=== PATIENT | male | born 1945 | race Caucasian/White ===

== ENCOUNTER 2018-08-04 22:31 | Inpatient (IN) ==
[2018-08-04] MEDS ORDERED: Morphine Inj 4 MG/ML Vial IV.PUSH ONE (23:58)
[2018-08-05 00:34] LABS: Baso % (Auto) 0.1 % (0.0-2.0); Eos # (Auto) 0.1 th/mm3 (0.0-0.4); Eos % (Auto) 0.4 % (0.0-4.0); Hematocrit 35.3 % (39.0-51.0); Hemoglobin 12.2 gm/dL (13.0-17.0); Lymph # (Auto) 0.9 th/mm3 (1.0-4.8); Lymph % (Auto) 5.1 % (9.0-44.0); Mean Corpuscular HGB Conc 34.5 % (32.0-36.0); Mean Corpuscular Hemoglobin 33.1 pg (27.0-34.0); Mean Corpuscular Volume 95.8 fL (80.0-100.0); Mean Platelet Volume 7.9 fL (7.0-11.0); Mono # (Auto) 0.7 th/mm3 (0.0-0.9); Mono % (Auto) 3.8 % (0.0-8.0); Neut # (Auto) 15.9 th/mm3 (1.8-7.7); Neut % (Auto) 90.6 % (16.0-70.0); Platelet Count 297 th/mm3 (150-450); Red Blood Count 3.69 mil/mm3 (4.50-5.90); Red Cell Distribution Width 13.8 % (11.6-17.2); White Blood Count 17.5 th/mm3 (4.0-11.0)
[2018-08-05 00:54] LABS: Alanine Aminotransferase 45 U/L (12-78); Albumin 2.5 g/dL (3.4-5.0); Anion Gap 7 meq/L (5-15); Aspartate Aminotransferase 32 U/L (15-37); Blood Urea Nitrogen 22 mg/dL (7-18); Calcium 8.4 mg/dL (8.5-10.1); Carbon Dioxide 29.9 meq/L (21.0-32.0); Chloride 97 meq/L (98-107); Glomerular Filtration Rate 76 mL/min (>89); Glucose,Random 242 mg/dL (74-106); Potassium 3.9 meq/L (3.5-5.1); Sodium 134 meq/L (136-145)
[2018-08-05 00:56] LABS: Alkaline Phosphatase 187 U/L (45-117)
--- NOTE | 2018-08-05 01:05 | CT ---
EXAM DATE: 08/05/2018 12:42 AM EDT AGE/SEX: 72 years / Male INDICATIONS: Evaluate for right upper pectoralis abscess. Pain, redness and swelling. CLINICAL DATA: This is the patient's initial encounter. Patient reports that signs and symptoms have been present for 4 - 6 days and indicates a pain score of 8/10. MEDICAL/SURGICAL HISTORY: Cardiovascular disease. Diabetes mellitus type II. CABG. RADIATION DOSE: 17.34 CTDI (mGy) COMPARISON: No prior exams available for comparison. TECHNIQUE: Multiple contiguous axial images were obtained through the chest without contrast. Image s were obtained in suspended respiration using multiple row detector helical technique. Using automa kavon exposure control and adjustment of the mA and/or kV according to patient size, radiation dose was kept as low as reasonably achievable to obtain optimal diagnostic quality images. DICOM format imag e data is available electronically for review and comparison. FINDINGS: A noncontrast study was done. A large, heterogeneous and lobulated mass is seen in the right axilla a nd including the lateral margin of the pectoralis major. The noncontrast features are more typical of a mass in the fluid collection but a multiloculated fluid collection or hematoma would be conceivabl e. The superficial margin is just beneath the skin. The skin appears thickened. Surrounding subcutane ous fat is indurated. At the lower margin of the abnormality is a 3.2 cm mass of concern for an enlar ged and partially necrotic right axillary lymph node. Mild atelectasis of the lung bases. There is a 5 mm left upper lobe pulmonary nodule, most likely nubia ign. No infiltrate, effusion or pneumothorax. No mediastinal, hilar or axillary lymphadenopathy demon strated. Patient has had previous median sternotomy. No acute bony abnormality demonstrated. Incidentally seen cholelithiasis. CONCLUSION: 1. Large heterogeneous collection of the right axilla and the lateral margin of pectoralis major as described. This appears to represent a lobulated mass or a multiloculated fluid collection or hematom a. Infectious and neoplastic etiologies are both in the differential. 2. Mild atelectasis of the lung bases and a 5 mm left upper lobe pulmonary nodule. 3. Previous median sternotomy and CABG. 4. Cholelithiasis. 5. No acute osseous abnormality. Electronically signed by: Qamar Davis MD 08/05/2018 1:04 AM EDT
--- NOTE | 2018-08-05 03:15 | ED ---
HPI General Chief complaint: Skin/Abscess/Foreign Body Stated complaint: pain in R arm Time Seen by Provider: 08/04/18 23:58 History of Present Illness HPI narrative: 72-year-old male presents the emergency department with chief complaint of cellulitis. Patient was seen couple days ago in the emergency department started on antibiotics. He is worsening and having increased pain. He is taking clindamycin as directed and is on day 5. Patient is a diabetic. He denies fever or chills. He was instructed to return with any worsening which is what brought him back to the emergency department tonight. Related Data Home Medications Medication Instructions Recorded Confirmed aspirin [Aspir-81] 81 mg PO DAILY 07/26/18 08/04/18 metformin 500 mg PO BID 07/26/18 08/04/18 terazosin 2 mg PO DAILY 07/26/18 08/04/18 glipizide 10 mg PO BID 08/04/18 08/04/18 levothyroxine 88 mcg PO DAILY 08/04/18 08/04/18 Allergies Allergy/AdvReac Type Severity Reaction Status Date / Time No Known Allergies Allergy Verified 08/04/18 22:44 Review of Systems ROS: all other systems reviewed are negative [facility] Social History Social History Substance History: No History of Abuse Second Hand Smoke Exposure: No Smoking Status: Former smoker Tobacco Type: Cigars How Often Do You Have a Drink Containing Alcohol: Monthly or less Recent Travel in [facility] within the Last 8 Weeks: No Recent Out of Country Travel within the Last 8 Weeks: No Immunization History Tetanus Immunization: <5 Years Exam Narrative Exam Narrative: GENERAL: 72-year-old male in mild distress secondary to pain from his cellulitis. SKIN: Focused skin assessment warm/dry. HEAD: Atraumatic. Normocephalic. EYES: Pupils equal and round. No scleral icterus. No injection or drainage. ENT: No nasal bleeding or discharge. Mucous membranes pink and moist. NECK: Trachea midline. No JVD. CARDIOVASCULAR: Regular rate and rhythm. No murmur appreciated. RESPIRATORY: No accessory muscle use. Clear to auscultation. Breath sounds equal bilaterally. GASTROINTESTINAL: Abdomen soft, non-tender, nondistended. Hepatic and splenic margins not palpable. MUSCULOSKELETAL: Patient has a cellulitis which involves the right pectoralis and axilla. He is unable to abduct his arm because of the pain Course Initial Documented Vital Signs Temperature 98.4 F 08/04/18 22:41 Pulse Rate 78 08/04/18 22:41 Respiratory Rate 17 08/04/18 22:41 Blood Pressure 143/65 H 08/04/18 22:41 Pulse Oximetry 95 08/04/18 22:41 Last Documented Vital Signs Temperature 98.2 F 08/05/18 04:00 Pulse Rate 75 08/05/18 04:00 Respiratory Rate 19 08/05/18 04:00 Blood Pressure 145/66 H 08/05/18 04:00 Pulse Oximetry 95 08/05/18 04:00 Medical Decision Making MDM Narrative Medical decision making narrative: Patient seen and evaluated in the emergency department. CT was requested as well as laboratory studies. Patient was found to have a leukocytosis and significant cellulitis and abscess formation into the axilla. He was subsequently admitted to Dr. Steiner for further evaluation treatment as well as a surgical consult. Medical Screen Exam Complete: Yes Emergency Medical Condition: Yes Lab Data Result diagrams: 08/05/18 00:15 08/05/18 00:15 Lab Results 08/05/18 08/05/18 Range/Units 00:15 00:15 WBC 17.5 H (4.0-11.0) th/mm3 RBC 3.69 L (4.50-5.90) mil/mm3 Hgb 12.2 L (13.0-17.0) gm/dL Hct 35.3 L (39.0-51.0) % MCV 95.8 (80.0-100.0) fL MCH 33.1 (27.0-34.0) pg MCHC 34.5 (32.0-36.0) % RDW 13.8 (11.6-17.2) % Plt Count 297 D (150-450) th/mm3 MPV 7.9 (7.0-11.0) fL Neut % (Auto) 90.6 H (16.0-70.0) % Lymph % (Auto) 5.1 L (9.0-44.0) % [place] % (Auto) 3.8 (0.0-8.0) % Eos % (Auto) 0.4 (0.0-4.0) % Baso % (Auto) 0.1 (0.0-2.0) % Neut # (Auto) 15.9 H (1.8-7.7) th/mm3 Lymph # (Auto) 0.9 L (1.0-4.8) th/mm3 [place] # (Auto) 0.7 (0.0-0.9) th/mm3 Eos # (Auto) 0.1 (0.0-0.4) th/mm3 Baso # (Auto) 0.0 (0.0-0.2) th/mm3 WBC Differential . Differential Comment Auto diff final Sodium 134 L (136-145) meq/L Potassium 3.9 (3.5-5.1) meq/L Chloride 97 L (98-107) meq/L Carbon Dioxide 29.9 (21.0-32.0) meq/L Anion Gap 7 (5-15) meq/L BUN 22 H (7-18) mg/dL Creatinine 0.97 (0.60-1.30) mg/dL Estimated GFR 76 L (>89) mL/min Random Glucose 242 H (74-106) mg/dL Calcium 8.4 L (8.5-10.1) mg/dL Total Bilirubin 0.8 (0.2-1.0) mg/dL AST 32 (15-37) U/L ALT 45 (12-78) U/L Alkaline Phosphatase 187 H (45-117) U/L Total Protein 7.0 (6.4-8.2) g/dL Albumin 2.5 L (3.4-5.0) g/dL Imaging Data Radiologist's impression: Chest CT 08/05/18 00:03 CONCLUSION: 1. Large heterogeneous collection of the right axilla and the lateral margin of pectoralis major as described. This appears to represent a lobulated mass or a multiloculated fluid collection or hematoma. Infectious and neoplastic etiologies are both in the differential. 2. Mild atelectasis of the lung bases and a 5 mm left upper lobe pulmonary nodule. 3. Previous median sternotomy and CABG. 4. Cholelithiasis. 5. No acute osseous abnormality. Discharge Plan Discharge Disposition Patient Disposition: 30 Still Patient Discharge Details Diagnosis: Abscess, Cellulitis Physicians Team ED Provider: Vivi Campa Primary Care Provider: David Carroll Attending Provider: Shakila Rizzo Other Providers: Mic Estrada ED Status: Left Department Discharge Information Discharge Date/Time: 08/05/18 04:52
[2018-08-05] MEDS ORDERED: Vancomycin Consult Pharmacy OTHER PRN (03:21)
[2018-08-05] MEDS ORDERED: Bisacodyl 10 MG Supp RECTAL PRN (03:24)
[2018-08-05] MEDS ORDERED: Morphine Inj 4 MG/ML Vial IV.PUSH PRN (03:24)
[2018-08-05] MEDS ORDERED: Naloxone Inj 0.4 MG/ML Vial IV.PUSH PRN (03:24)
[2018-08-05] MEDS ORDERED: Dextrose 50% in Water 50 ML Vial IV.PUSH PRN (03:24)
[2018-08-05] MEDS ORDERED: Vancomycin Inj 2,000 MG in Sodium Chlor 0.9% Inj 500 ML IV.SIG ONE (04:00)
--- NOTE | 2018-08-05 05:18 | P.HPIM ---
History of Present Illness Primary Care Physician: David Carroll MD History of Present Illness: 72-year-old male with history of diabetes, coronary artery disease status post CABG who presents with a 2-week history of progressively worsening sharp constant, nonradiating right axillary pain, cellulitis. Patient was seen 10 days prior in the ER and given a prescription for clindamycin which he has been takinghowever pain and swelling has continued to worsen. Patient says that otherwise he is feeling all right. Denies any fevers, chills, nausea, vomiting. Inpatient Certification: I certify that the inpatient services were ordered in accordance with Medicare regulations governing the order. This includes certification that hospital inpatient services are reasonable and necessary and in the case of services not specified as inpatient-only under 42 CFR 419.22(n), that they are appropriately provided as inpatient services in accordance to with the 2-midnight benchmark under 43 CFR 412.3(e) Estimated Total Length of Stay (Days): 2 Plans for Post Hospital Care: Home Review of Systems All other systems reviewed negative except as stated in HPI PMFSH - History History Provided By: Patient - Medical History Medical History: Medical History (Last Reviewed 08/05/18 @ 05:05 by Denver Steiner MD) CAD (coronary artery disease) Diabetes type 2, controlled - Surgical History Surgical History: Surgical History (Last Reviewed 08/05/18 @ 05:05 by Denver Steiner MD) Hx of CABG - Family History Family History: Family History (Last Reviewed 08/05/18 @ 05:05 by Denver Steiner MD) Other Family history non-contributory - Social History I have reviewed the patient's Social History: Yes - Tobacco History Second Hand Smoke Exposure: No Tobacco Use In Past 30 Days: No Smoking Status: Former smoker Tobacco Type: Cigars - Alcohol History How Often Do You Have a Drink Containing Alcohol: Monthly or less - Substance Use History Substance History: No History of Abuse - Travel History Recent Travel in the [place] Within the Last 8 Weeks: No Recent Travel Out of the Country Within the Last 8 Weeks: No - Immunization History Tetanus Immunization: <5 Years Medications and Allergies Active Medications: Active Medications Al Hydroxide/Mg Hydroxide (Milk Of Magnesia Liq) 30 ml PO Q12H PRN PRN Reason: Mild Constipation Bisacodyl (Dulcolax Supp) 10 mg RECTAL DAILY PRN PRN Reason: SEVERE CONSITIPATION Dextrose (D50w Vial) 50 ml IV.PUSH UNSCH PRN PRN Reason: PER HYPOGLYCEMIA PROTOCOL Glucagon (Glucagon Inj) 1 mg OTHER PRN PRN PRN Reason: for Hypoglycemia Protocol Piperacillin/Tazobactam/Dextrose (Zosyn 4.5 Gm Premix) 4.5 gm in 100 mls @ 200 mls/hr IV.SIG Q6H KADY Vancomycin HCl 2,000 mg/ (Sodium Chloride) 520 mls @ 250 mls/hr IV.SIG ONCE@ 0400 ONE Stop: 08/05/18 06:04 Lactulose (Lactulose Liq) 30 ml PO DAILY PRN PRN Reason: SEVERE CONSITIPATION Levothyroxine Sodium (Synthroid) 88 mcg PO DAILY@0600 KADY Morphine Sulfate (Morphine Inj) 4 mg IV.PUSH Q3H PRN PRN Reason: BREAKTHROUGH PAIN Naloxone HCl (Narcan Inj) 0.4 mg IV.PUSH UNSCH PRN PRN Reason: SEE LABEL COMMENTS Oxycodone/Acetaminophen (Percocet 10/325 Mg) 1 tab PO Q6H PRN PRN Reason: PAIN SCALE 6 TO 10 Oxycodone/Acetaminophen (Percocet 5/325 Mg) 1 tab PO Q6H PRN PRN Reason: PAIN SCALE 3 TO 5 Pharmacy Profile Note (Vancomycin Consult Pharmacy) 1 each OTHER UNSCH PRN PRN Reason: Pharmacy to dose Senna/Docusate Sodium (Deborah-Colace) 1 tab PO BID [facility] Sennosides (Senokot) 17.2 mg PO Q12H PRN PRN Reason: Moderate Constipation Terazosin HCl (Hytrin) 2 mg PO DAILY [facility] Allergies Allergy/AdvReac Type Severity Reaction Status Date / Time No Known Allergies Allergy Verified 08/04/18 22:44 Home Medications Medication Instructions Recorded Confirmed Type aspirin [Aspir-81] 81 mg PO DAILY 07/26/18 08/04/18 History metformin 500 mg PO BID 07/26/18 08/04/18 History terazosin 2 mg PO DAILY 07/26/18 08/04/18 History glipizide 10 mg PO BID 08/04/18 08/04/18 History levothyroxine 88 mcg PO DAILY 08/04/18 08/04/18 History Exam Vital signs: Vital Signs 08/04/18 22:41 08/05/18 02:08 08/05/18 03:56 Temperature 98.4 F Pulse Rate 78 69 71 Respiratory Rate 17 16 16 Blood Pressure 143/65 H 145/68 H 162/85 H Pulse Oximetry 95 95 97 Intake & Output 08/04/18 08/04/18 08/05/18 06:59 18:59 06:59 Intake Total 200 / 200 Balance 200 / 200 Weight 106.594 kg Intake: IV 200 / 200 Doxy 100 Inj 100 MG In NS Inj 100 / 100 100 ML @ 100 mls/hr IV.SIG ONCE ONE Rx#:[id number] Rocephin Inj 1,000 MG In NS Inj 100 / 100 100 ML @ 200 mls/hr IV.SIG ONCE ONE Rx#:[id number] Narrative: GENERAL: Patient sitting up in bed. Appears couple. Alert and oriented x3. SKIN: Warm and dry. HEAD: Atraumatic. Normocephalic. EYES: Pupils equal and round. No scleral icterus. No injection or drainage. ENT: No nasal bleeding or discharge. Mucous membranes pink and moist. NECK: Trachea midline. No JVD. CARDIOVASCULAR: Regular rate and rhythm. RESPIRATORY: No accessory muscle use. Clear to auscultation. Breath sounds equal bilaterally. GASTROINTESTINAL: Abdomen soft, non-tender, nondistended. Hepatic and splenic margins not palpable. MUSCULOSKELETAL: Extremities without clubbing, cyanosis, or edema. No obvious deformities. Right axillary induration, erythema. Roughly 8 x 8 cm indurated area with small pustules overlying. NEUROLOGICAL: Awake and alert. No obvious cranial nerve deficits. Motor grossly within normal limits. Five out of 5 muscle strength in the arms and legs. Normal speech. PSYCHIATRIC: Appropriate mood and affect; insight and judgment normal. Results - Labs CBC & Chem 7: 08/05/18 00:15 08/05/18 00:15 Labs: Short CBC 08/05/18 Range/Units 00:15 WBC 17.5 H (4.0-11.0) th/mm3 Hgb 12.2 L (13.0-17.0) gm/dL Hct 35.3 L (39.0-51.0) % Plt Count 297 D (150-450) th/mm3 BMP 08/05/18 00:15 Sodium 134 L Potassium 3.9 Chloride 97 L Carbon Dioxide 29.9 BUN 22 H Creatinine 0.97 Calcium 8.4 L Liver Function 08/05/18 Range/Units 00:15 Total Bilirubin 0.8 (0.2-1.0) mg/dL AST 32 (15-37) U/L ALT 45 (12-78) U/L Alkaline Phosphatase 187 H (45-117) U/L Albumin 2.5 L (3.4-5.0) g/dL - Imaging Impressions Chest CT 08/05/18 00:03 CONCLUSION: 1. Large heterogeneous collection of the right axilla and the lateral margin of pectoralis major as described. This appears to represent a lobulated mass or a multiloculated fluid collection or hematoma. Infectious and neoplastic etiologies are both in the differential. 2. Mild atelectasis of the lung bases and a 5 mm left upper lobe pulmonary nodule. 3. Previous median sternotomy and CABG. 4. Cholelithiasis. 5. No acute osseous abnormality. Caprini VTE Risk Assessment Caprini VTE Risk Assessment: Moderate/High Risk (score >= 2) Caprini Risk Assessment Model: Point Value = 1 Point Value = 2 Point Value = 3 Point Value = 5 Age 41-60 Minor surgery BMI > 25 kg/m2 Swollen legs Varicose veins or History of unexplained or recurrent spontaneous Oral contraceptives or hormone replacement Sepsis (< 1 month) Serious lung disease, including pneumonia (< 1 month) Abnormal pulmonary function Acute myocardial infarction Congestive heart failure (< 1 month) History of inflammatory bowel disease Medical patient at bed rest Age 61-74 Arthroscopic surgery Major open surgery (> 45 min) Laparoscopic surgery (> 45 min) Malignancy Confined to bed (> 72 hours) Immobilizing plaster cast Central venous access Age >= 75 History of VTE Family history of VTE Factor V Leiden Prothrombin [id number] Lupus anticoagulant Anticardiolipin antibodies Elevated serum homocysteine Heparin-induced thrombocytopenia Other congenital or acquired thrombophilia Stroke (< 1 month) Elective arthroplasty Hip, pelvis, or leg fracture Acute spinal cord injury (< 1 month) Prophylaxis Regimen: Total Risk Factor Score Risk Level Prophylaxis Regimen 0-1 Low Early ambulation 2 Moderate Order ONE of the following: *Sequential Compression Device (SCD) *Heparin 5000 units SQ BID 3-4 Higher Order ONE of the following medications: *Heparin 5000 units SQ TID *Enoxaparin/Lovenox 40 mg SQ daily (WT < 150 kg, CrCl > 30 mL/min) *Enoxaparin/Lovenox 30 mg SQ daily (WT < 150 kg, CrCl > 10-29 mL/min) *Enoxaparin/Lovenox 30 mg SQ BID (WT < 150 kg, CrCl > 30 mL/min) AND/OR *Sequential Compression Device (SCD) 5 or more Highest Order ONE of the following medications: *Heparin 5000 units SQ TID (Preferred with Epidurals) *Enoxaparin/Lovenox 40 mg SQ daily (WT < 150 kg, CrCl > 30 mL/min) *Enoxaparin/Lovenox 30 mg SQ daily (WT < 150 kg, CrCl > 10-29 mL/min) *Enoxaparin/Lovenox 30 mg SQ BID (WT < 150 kg, CrCl > 30 mL/min) AND *Sequential Compression Device (SCD) Assessment and Plan - Plan //Acute right axillary diabetic cellulitis/abscess //Leukocytosis of 17 = CT chest shows large heterogenous collection in the right axilla = Placed on broad-spectrum antibiotics with antipseudomonal, gram-negative, MRSA coverage. Zosyn and vancomycin. Consult general surgery for assistance. Appreciate assistance. //Coronary artery disease status post CABG //Hypertension. -We will continue on aspirin due to history of CABG -Blood pressure acceptable currently. Continue terazosin. As needed Vasotec. Monitor. //Diabetes mellitus. Insulin sliding scale and diabetic diet. Monitor sugars Discussed Condition With: Patient, nurse, ED physician.
[2018-08-05] MEDS: Levothyroxine 88 MCG Tablet PO SCH (05:20)
[2018-08-05] MEDS: Piperacil/Tazo 4.5 GM Premix 4.5 GM/100 ML BAG IV.SIG SCH ×3 (08:13→19:53)
[2018-08-05] MEDS: Senna/Docusate Sodium 8.6/50 MG Tablet PO SCH ×2 (08:16→22:44)
[2018-08-05 09:46] LABS: INR 1.1 Ratio; Prothrombin Time 11.6 sec (9.8-11.6)
--- NOTE | 2018-08-05 11:31 | P.PN ---
Subjective Interval history: Follow up for right axillary cellulitis/abscess. The patient reports continued pain, erythema, edema throughout right axillary region. Afebrile overnight. Denies any other medical complaints. Going to OR for I&D today. Physical Exam Vital signs: Vital Signs 08/04/18 22:41 08/05/18 02:08 08/05/18 03:56 Temperature 98.4 F Pulse Rate 78 69 71 Respiratory Rate 17 16 16 Blood Pressure 143/65 H 145/68 H 162/85 H Pulse Oximetry 95 95 97 08/05/18 04:00 08/05/18 07:55 Temperature 98.2 F 98.9 F Pulse Rate 75 70 Respiratory Rate 19 20 Blood Pressure 145/66 H 140/64 Pulse Oximetry 95 95 Intake & Output 08/04/18 08/05/18 08/05/18 18:59 06:59 18:59 Intake Total 200 / 200 520 / 520 Balance 200 / 200 520 / 520 Weight 106.594 kg Intake: IV 200 / 200 520 / 520 Doxy 100 Inj 100 MG In NS Inj 100 / 100 100 ML @ 100 mls/hr IV.SIG ONCE ONE Rx#:[id number] Vancomycin Inj 2,000 MG In NS 520 / 520 Inj 500 ML @ 250 mls/hr IV.SIG ONCE@0400 ONE Rx#:[id number] Rocephin Inj 1,000 MG In NS Inj 100 / 100 100 ML @ 200 mls/hr IV.SIG ONCE ONE Rx#:[id number] Narrative: GENERAL: Well-nourished, well-developed pleasant male patient in [facility]. SKIN: Warm and dry. Right axillary region with large area of induration, erythema, edema, with overlying pustules. HEENT: Normocephalic. Atraumatic. Pupils equal and round. Mucous membranes pink and moist. CARDIOVASCULAR: Regular rate and rhythm. No murmur appreciated. RESPIRATORY: No accessory muscle use. Clear to auscultation. Breath sounds equal bilaterally. GASTROINTESTINAL: Abdomen soft, non-tender, nondistended. Normoactive bowel sounds x4. MUSCULOSKELETAL: No obvious deformities. Extremities without clubbing, cyanosis , or edema. NEUROLOGICAL: Awake and alert. No obvious cranial nerve deficits. Motor grossly within normal limits. Moving all extremities spontaneously. Normal speech. PSYCHIATRIC: Appropriate mood and affect; insight and judgment normal. Results - Labs CBC & Chem 7: 08/05/18 00:15 08/05/18 00:15 Laboratory Results - last 24 hr 08/05/18 08/05/18 08/05/18 00:15 00:15 08:50 WBC 17.5 H RBC 3.69 L Hgb 12.2 L Hct 35.3 L MCV 95.8 MCH 33.1 MCHC 34.5 RDW 13.8 Plt Count 297 D MPV 7.9 Neut % (Auto) 90.6 H Lymph % (Auto) 5.1 L [place] % (Auto) 3.8 Eos % (Auto) 0.4 Baso % (Auto) 0.1 Neut # (Auto) 15.9 H Lymph # (Auto) 0.9 L [place] # (Auto) 0.7 Eos # (Auto) 0.1 Baso # (Auto) 0.0 WBC Differential . Differential Comment Auto diff final PT 11.6 INR 1.1 Sodium 134 L Potassium 3.9 Chloride 97 L Carbon Dioxide 29.9 Anion Gap 7 BUN 22 H Creatinine 0.97 Estimated GFR 76 L Random Glucose 242 H Calcium 8.4 L Total Bilirubin 0.8 AST 32 ALT 45 Alkaline Phosphatase 187 H Total Protein 7.0 Albumin 2.5 L - Imaging Impressions Chest CT 08/05/18 00:03 CONCLUSION: 1. Large heterogeneous collection of the right axilla and the lateral margin of pectoralis major as described. This appears to represent a lobulated mass or a multiloculated fluid collection or hematoma. Infectious and neoplastic etiologies are both in the differential. 2. Mild atelectasis of the lung bases and a 5 mm left upper lobe pulmonary nodule. 3. Previous median sternotomy and CABG. 4. Cholelithiasis. 5. No acute osseous abnormality. Assessment and Plan - Plan 72-year-old male with history of diabetes, coronary artery disease status post CABG who presents with a 2-week history of progressively worsening sharp constant, nonradiating right axillary pain with cellulitis. Acute right axillary diabetic cellulitis/abscess: acute. +Leukocytosis WBC 17.5K. Afebrile. -Chest CT reviewed, shows Large heterogeneous collection of the right axilla and the lateral margin of pectoralis major as described. This appears to represent a lobulated mass or a multiloculated fluid collection or hematoma. Infectious and neoplastic etiologies are both in the differential. -Continue on broad-spectrum antibiotics with IV Vanco and IV Zosyn for antipseudomonal, gram-negative, MRSA coverage. -Pain control with IV morphine prn -Consult general surgery, going for I&D in the OR today HTN, CAD s/p CABG: chronic. BP fairly well controlled -continue patient's aspirin with hx of CABG -continue patient's terazosin -Vasotec prn -Monitor BP, adjust antihypertensives as needed Diabetes mellitus: chronic -hold patient's metformin and glipizide for now -Monitor Accu-checks and cover with SSI Hypothyroidism: chronic -continue patient's levothyroxine DVT Prophylaxis: teds/SCDs; avoid chemical prophylaxis with upcoming procedure Discharge Planning: Going to OR today. Will await cultures. Possible discharge in 2 days if improving.
[2018-08-05] MEDS: Sod Chloride 0.9% Inj 1,000 ML IV.CONT SCH ×2 (12:12→19:54)
[2018-08-05] MEDS ORDERED: Metoprolol Tartrate 25 MG Tablet PO ONE (12:15)
[2018-08-05] MEDS ORDERED: Chlorhexidine Gluconate 2% 1 Pack (2 Cloths) TOPICAL ONE (12:15)
[2018-08-05] MEDS: Insulin NovoLOG Aspart Correctional Sugar Inj SQ SCH ×3 (12:49→22:44)
[2018-08-05] MEDS ORDERED: Sodium Chlor 0.9% Inj 500 ML IV.SIG ONE (13:00)
--- NOTE | 2018-08-05 13:17 | P.CONGS ---
[facility] Gen Surgery Consult Note Consult date: 08/05/18 Reason for consult: other (RIGHT axillary abscess) Requesting physician: Denver Steiner Narrative: This is a 72 year old male with a past medical history of diabetes mellitus and coronary artery disease who presented to the ED last night with complaints of a progressive worsening RIGHT axillary pain and redness. The patient reports no nausea, vomiting, chills or fevers. He denies any trauma to the area. The patient was seen in the ED about 10 days ago with complaints of redness and tenderness under RIGHT axillary. The patient was given IV antibiotics and sent home with a prescription for Clindamycin. The patient states that initially the redness improved but the pain continued. A CT chest was completed on this admission which shows a large collection in the RIGHT axillary. The patient has been NPO. A General Surgery consultation has been requested. Review of Systems All other systems reviewed negative except as stated in [facility] PMF[facility] - History History Provided By: Patient - Medical History Medical History: Medical History (Last Reviewed 08/05/18 @ 13:07 by LAURA Peterson) CAD (coronary artery disease) Diabetes type 2, controlled - Surgical History Surgical History: Surgical History (Last Reviewed 08/05/18 @ 13:07 by LAURA Peterson) Hx of CABG - Family History Family History: Family History (Last Reviewed 08/05/18 @ 05:05 by Denver Steiner MD) Other Family history non-contributory - Tobacco History Second Hand Smoke Exposure: No Tobacco Use In Past 30 Days: No Smoking Status: Former smoker Tobacco Type: Cigars - Alcohol History How Often Do You Have a Drink Containing Alcohol: Monthly or less - Substance Use History Substance History: No History of Abuse - Travel History Recent Travel in the [facility] Within the Last 8 Weeks: No Recent Travel Out of the Country Within the Last 8 Weeks: No - Immunization History Tetanus Immunization: <5 Years Medications and Allergies Allergies Allergy/AdvReac Type Severity Reaction Status Date / Time No Known Allergies Allergy Verified 08/04/18 22:44 Home Medications Medication Instructions Recorded Confirmed Type aspirin [Aspir-81] 81 mg PO DAILY 07/26/18 08/04/18 History metformin 500 mg PO BID 07/26/18 08/04/18 History terazosin 2 mg PO DAILY 07/26/18 08/04/18 History glipizide 10 mg PO BID 08/04/18 08/04/18 History levothyroxine 88 mcg PO DAILY 08/04/18 08/04/18 History Active Medications: Active Medications Al Hydroxide/Mg Hydroxide (Milk Of Magnesia Liq) 30 ml PO Q12H PRN PRN Reason: Mild Constipation Aspirin (Ecotrin) 81 mg PO DAILY [facility] Last Admin: 08/05/18 08:16 Dose: Not Given Bisacodyl (Dulcolax Supp) 10 mg RECTAL DAILY PRN PRN Reason: SEVERE CONSITIPATION Dextrose (D50w Vial) 50 ml IV.PUSH UNSCH PRN PRN Reason: PER HYPOGLYCEMIA PROTOCOL Enalaprilat (Vasotec Inj) 1.25 mg IV.PUSH Q6H PRN PRN Reason: SBP>160, DBP>90 Glucagon (Glucagon Inj) 1 mg OTHER PRN PRN PRN Reason: for Hypoglycemia Protocol Piperacillin/Tazobactam/Dextrose (Zosyn 4.5 Gm Premix) 4.5 gm in 100 mls @ 200 mls/hr IV.SIG Q6H [facility] Last Admin: 08/05/18 12:13 Dose: 200 mls/hr Sodium Chloride (Ns Inj) 1,000 mls @ 125 mls/hr IV.CONT .Q8H [facility] Last Admin: 08/05/18 12:12 Dose: 125 mls/hr Vancomycin HCl 1,500 mg/ (Sodium Chloride) 515 mls @ 250 mls/hr IV.SIG Q12H [facility] Lactated Ringer's (Lr 1000 Ml Inj) 1,000 mls @ 30 mls/hr IV.SIG .Q24H [facility] Stop: 08/06/18 12:14 Sodium Chloride (Ns Inj) 500 mls @ 30 mls/hr IV.SIG .Q10H ONE Stop: 08/06/18 05:39 Insulin Aspart (Novolog Insulin Correctional Sugar Inj) 0 unit SQ ACHS [facility]; Protocol Last Admin: 08/05/18 12:49 Dose: Not Given Lactulose (Lactulose Liq) 30 ml PO DAILY PRN PRN Reason: SEVERE CONSITIPATION Levothyroxine Sodium (Synthroid) 88 mcg PO DAILY@0600 [facility] Last Admin: 08/05/18 05:20 Dose: 88 mcg Miscellaneous Information ([facility] Ordered Lab Info) 0 each OTHER ONCE ONE Stop: 08/07/18 04:46 Morphine Sulfate (Morphine Inj) 4 mg IV.PUSH Q3H PRN PRN Reason: BREAKTHROUGH PAIN Naloxone HCl (Narcan Inj) 0.4 mg IV.PUSH UNSCH PRN PRN Reason: SEE LABEL COMMENTS Oxycodone/Acetaminophen (Percocet 10/325 Mg) 1 tab PO Q6H PRN PRN Reason: PAIN SCALE 6 TO 10 Oxycodone/Acetaminophen (Percocet 5/325 Mg) 1 tab PO Q6H PRN PRN Reason: PAIN SCALE 3 TO 5 Pharmacy Profile Note (Vancomycin Consult Pharmacy) 1 each OTHER UNSCH PRN PRN Reason: Pharmacy to dose Senna/Docusate Sodium (Deborah-Colace) 1 tab PO BID [facility] Last Admin: 08/05/18 08:16 Dose: Not Given Sennosides (Senokot) 17.2 mg PO Q12H PRN PRN Reason: Moderate Constipation Terazosin HCl (Hytrin) 2 mg PO DAILY [facility] Last Admin: 08/05/18 08:13 Dose: 2 mg Exam Vital signs: Vital Signs 08/04/18 22:41 08/05/18 02:08 08/05/18 03:56 Temperature 98.4 F Pulse Rate 78 69 71 Respiratory Rate 17 16 16 Blood Pressure 143/65 H 145/68 H 162/85 H Pulse Oximetry 95 95 97 08/05/18 04:00 08/05/18 07:55 08/05/18 11:40 Temperature 98.2 F 98.9 F 97.8 F Pulse Rate 75 70 66 Respiratory Rate 19 20 18 Blood Pressure 145/66 H 140/64 128/61 Pulse Oximetry 95 95 95 Intake & Output 08/04/18 08/05/18 08/05/18 18:59 06:59 18:59 Intake Total 200 / 200 620 / 620 Balance 200 / 200 620 / 620 Weight 106.594 kg Intake: IV 200 / 200 620 / 620 Doxy 100 Inj 100 MG In NS Inj 100 / 100 100 ML @ 100 mls/hr IV.SIG ONCE ONE Rx#:[id number] Zosyn 4.5 GM Premix 4.5 gm In 100 / 100 100 ml @ 200 mls/hr IV.SIG Q6H [facility] Rx#:[id number] Vancomycin Inj 2,000 MG In NS 520 / 520 Inj 500 ML @ 250 mls/hr IV.SIG ONCE@0400 [facility] Rx#:[id number] Rocephin Inj 1,000 MG In NS Inj 100 / 100 100 ML @ 200 mls/hr IV.SIG ONCE ONE Rx#:[id number] Narrative: GENERAL: Very pleasant 72 year old male resting in bed in no acute distress. SKIN: RIGHT axillary--- large indurated area in axillary region and anterior to ; several small pustules; no drainage; tender to palpation. HEAD: Atraumatic. Normocephalic. EYES: Pupils equal and round. No scleral icterus. No injection or drainage. ENT: No nasal bleeding or discharge. Mucous membranes pink and moist. NECK: Trachea midline. CARDIOVASCULAR: Regular rate and rhythm. RESPIRATORY: No accessory muscle use. Clear to auscultation. Breath sounds equal bilaterally. GASTROINTESTINAL: Abdomen soft, non-tender, nondistended. MUSCULOSKELETAL: Extremities without clubbing, cyanosis, or edema. No obvious deformities. NEUROLOGICAL: Awake and alert. No obvious cranial nerve deficits. Motor grossly within normal limits. Five out of 5 muscle strength in the arms and legs. Normal speech. PSYCHIATRIC: Appropriate mood and affect; insight and judgment normal. - Routine Chest/Breast/Axilla Exam Axillae: Present: tenderness, swelling (Right axilla), erythema (Right axilla), suppurative lesions (Oozing from axilla) - Routine Respiratory Exam Present: CTA bilaterally - Routine Abdominal Exam Present: soft Results - Labs 08/05/18 00:15 08/05/18 00:15 Laboratory Results WBC 17.5 th/mm3 (4.0-11.0) H 08/05/18 00:15 RBC 3.69 mil/mm3 (4.50-5.90) L 08/05/18 00:15 Hgb 12.2 gm/dL (13.0-17.0) L 08/05/18 00:15 Hct 35.3 % (39.0-51.0) L 08/05/18 00:15 MCV 95.8 fL (80.0-100.0) 08/05/18 00:15 MCH 33.1 pg (27.0-34.0) 08/05/18 00:15 MCHC 34.5 % (32.0-36.0) 08/05/18 00:15 RDW 13.8 % (11.6-17.2) 08/05/18 00:15 Plt Count 297 th/mm3 (150-450) D 08/05/18 00:15 MPV 7.9 fL (7.0-11.0) 08/05/18 00:15 Neut % (Auto) 90.6 % (16.0-70.0) H 08/05/18 00:15 Lymph % (Auto) 5.1 % (9.0-44.0) L 08/05/18 00:15 Person % (Auto) 3.8 % (0.0-8.0) 08/05/18 00:15 Eos % (Auto) 0.4 % (0.0-4.0) 08/05/18 00:15 Baso % (Auto) 0.1 % (0.0-2.0) 08/05/18 00:15 Neut # (Auto) 15.9 th/mm3 (1.8-7.7) H 08/05/18 00:15 Lymph # (Auto) 0.9 th/mm3 (1.0-4.8) L 08/05/18 00:15 Person # (Auto) 0.7 th/mm3 (0.0-0.9) 08/05/18 00:15 Eos # (Auto) 0.1 th/mm3 (0.0-0.4) 08/05/18 00:15 Baso # (Auto) 0.0 th/mm3 (0.0-0.2) 08/05/18 00:15 WBC Differential . 08/05/18 00:15 Differential Comment Auto diff final 08/05/18 00:15 PT 11.6 sec (9.8-11.6) 08/05/18 08:50 INR 1.1 Ratio 08/05/18 08:50 Sodium 134 meq/L (136-145) L 08/05/18 00:15 Potassium 3.9 meq/L (3.5-5.1) 08/05/18 00:15 Chloride 97 meq/L (98-107) L 08/05/18 00:15 Carbon Dioxide 29.9 meq/L (21.0-32.0) 08/05/18 00:15 Anion Gap 7 meq/L (5-15) 08/05/18 00:15 BUN 22 mg/dL (7-18) H 08/05/18 00:15 Creatinine 0.97 mg/dL (0.60-1.30) 08/05/18 00:15 Estimated GFR 76 mL/min (>89) L 08/05/18 00:15 POC Glucose 217 mg/dl (68-110) H 08/05/18 12:17 Random Glucose 242 mg/dL (74-106) H 08/05/18 00:15 Calcium 8.4 mg/dL (8.5-10.1) L 08/05/18 00:15 Total Bilirubin 0.8 mg/dL (0.2-1.0) 08/05/18 00:15 AST 32 U/L (15-37) 08/05/18 00:15 ALT 45 U/L (12-78) 08/05/18 00:15 Alkaline Phosphatase 187 U/L (45-117) H 08/05/18 00:15 Total Protein 7.0 g/dL (6.4-8.2) 08/05/18 00:15 Albumin 2.5 g/dL (3.4-5.0) L 08/05/18 00:[address] 08/05/18 00:03 CONCLUSION: 1. Large heterogeneous collection of the right axilla and the lateral margin of pectoralis major as described. This appears to represent a lobulated mass or a multiloculated fluid collection or hematoma. Infectious and neoplastic etiologies are both in the differential. 2. Mild atelectasis of the lung bases and a 5 mm left upper lobe pulmonary nodule. 3. Previous median sternotomy and CABG. 4. Cholelithiasis. 5. No acute osseous abnormality. - Imaging Imaging: ITS Impressions Chest CT 08/05/18 00:03 CONCLUSION: 1. Large heterogeneous collection of the right axilla and the lateral margin of pectoralis major as described. This appears to represent a lobulated mass or a multiloculated fluid collection or hematoma. Infectious and neoplastic etiologies are both in the differential. 2. Mild atelectasis of the lung bases and a 5 mm left upper lobe pulmonary nodule. 3. Previous median sternotomy and CABG. 4. Cholelithiasis. 5. No acute osseous abnormality. CT scan - chest: report reviewed, image reviewed Assessment and Plan - Assessment (1) Abscess Code(s): L02.91 - Cutaneous abscess, unspecified Status: Acute Plan: 72 year old male with RIGHT axillary abscess -Plan for I&D with possible Wound Vac this afternoon -Consents on chart -Explained procedure including risks and benefits -All questions answered -Added IVF -Continue IV antibiotics -Thank you for this consult; We will continue to follow As above; discussed with patient. I discussed risks of the procedure including but not limited to bleeding, infection, need for reoperation with high likelihood of multiple procedures. I discussed remedies consequences alternatives and convalescence; he vocalizes understanding and agrees to proceed. The exam, history, and the medical decision-making described in the above note were completed with the assistance of the mid-level provider. I reviewed and agree with the findings presented. I attest that I had a [id number] encounter with the patient on the same day, and personally performed and documented my assessment and findings in the medical record. - Plan Discussed Condition With: Dr. Sean Hooker MS3 Angela GUEVARA RN MrAnnie [facility]
--- NOTE | 2018-08-05 15:08 | ECG ---
Date Performed: 08/05/2018 Time Performed: 09:54:40 PTAGE: 72 years EKG: Sinus rhythm LOW QRS VOLTAGE IN PRECORDIAL LEADS Since the previous tracing, no significant change noted BORDERLI NE ECG PREVIOUS TRACING : 06/30/2014 00.30 DOCTOR: Too Campbell Interpretating Date/Time 08/05/2018 14:55:33
[2018-08-05] MEDS: Vancomycin Inj 1,500 MG in Sodium Chlor 0.9% Inj 500 ML IV.SIG SCH (16:28)
[2018-08-05] MEDS ORDERED: Bupivacaine/Epinephrine Inj 0.25% 50 ML Vial ONE (17:21)
[2018-08-05] MEDS ORDERED: Phenylephrine/NS 1000 MCG/10ML Syringe IV.PUSH ONE (17:53)
[2018-08-05] MEDS ORDERED: Sugammadex Inj 200 MG/2 ML Vial IV.PUSH ONE (18:40)
[2018-08-05] MEDS ORDERED: fentaNYL Citrate Inj 100 MCG/2 ML Ampul ONE (19:02)
--- NOTE | 2018-08-05 19:21 | P.OP ---
- Preoperative Diagnosis (1) Abscess (2) Cellulitis - Postoperative Diagnosis (1) Abscess (2) Cellulitis Date of procedure: 08/05/18 Procedure: Incision and drainage right axillary abscess with VAC placement Surgeon: Mic Estrada MD Campus Receptionist: Janine López MS 3 Estimated blood loss (mL): 200 IV fluids (mL): 650 Pathology: other (Gram stain, C&S to microbiology) Operation and Findings: Patient was marked in his room and taken to the operating room. He was placed on the operating table in supine position. After an adequate level of general endotracheal anesthesia was achieved, the right axilla was shaved prepped and draped in the field. Timeout was taken, confirming the correct patient, site, and procedures to be performed. Incision was made in the axilla in a curvilinear fashion and purulent material was immediately encountered. This was cultured and sent. The wound was explored with finger dissection as well as with scissors. Care was taken to break up all loculations. A large amount of purulent material was easily expressed. This was aspirated. A pulse lavage assembly line supervisor was used to irrigate all pockets. When this was completed small bleeding points were controlled with electrocautery. A medium VAC sponge was cut into 3 pieces and placed into the wound along all 3 tracts. An additional small VAC sponge was placed over the top of this and the VAC adhesives applied. Good seal was achieved. The patient was extubated and taken back to the recovery room in stable condition. Sponge and needle counts were reported to be correct.
[2018-08-06] MEDS: Piperacil/Tazo 4.5 GM Premix 4.5 GM/100 ML BAG IV.SIG SCH ×3 (00:15→12:02)
[2018-08-06] MEDS: Sod Chloride 0.9% Inj 1,000 ML IV.CONT SCH ×3 (01:19→13:57)
[2018-08-06] MEDS: Vancomycin Inj 1,500 MG in Sodium Chlor 0.9% Inj 500 ML IV.SIG SCH (04:30)
[2018-08-06] MEDS: Levothyroxine 88 MCG Tablet PO SCH (06:23)
[2018-08-06] MEDS: Senna/Docusate Sodium 8.6/50 MG Tablet PO SCH ×2 (09:50→22:20)
[2018-08-06] MEDS: Insulin NovoLOG Aspart Correctional Sugar Inj SQ SCH ×4 (10:45→22:21)
--- NOTE | 2018-08-06 10:50 | P.PN ---
Subjective Interval history: Feels much better; pain significantly improved. Physical Exam Vital signs: Vital Signs 08/05/18 11:40 08/05/18 16:23 08/05/18 18:55 Temperature 97.8 F 98.5 F 100.6 F H Pulse Rate 66 72 74 Respiratory Rate 18 18 22 Blood Pressure 128/61 150/67 H 94/60 L Pulse Oximetry 95 95 97 08/05/18 19:15 08/05/18 19:30 08/05/18 19:45 Temperature Pulse Rate 70 70 72 Respiratory Rate 20 22 21 Blood Pressure 106/55 L 122/56 L 128/62 Pulse Oximetry 95 96 96 08/05/18 20:00 08/05/18 20:30 08/05/18 21:00 Temperature 99.6 F 98.3 F Pulse Rate 69 68 66 Respiratory Rate 24 22 18 Blood Pressure 117/57 L 125/61 131/58 L Pulse Oximetry 97 92 L 92 L 08/06/18 00:00 08/06/18 04:00 08/06/18 08:00 Temperature 97.4 F L 98 F 97.1 F L Pulse Rate 64 54 L 50 L Respiratory Rate 17 18 16 Blood Pressure 122/58 L 155/73 H 132/64 Pulse Oximetry 94 L 96 95 Intake & Output 08/05/18 08/06/18 08/06/18 18:59 06:59 18:59 Intake Total 1320 / 1320 2615 / 2615 615 / 615 Output Total 200 / 200 175 / 175 Balance 1120 / 1120 2440 / 2440 615 / 615 Weight 106.594 kg Intake: IV 720 / 720 2615 / 2615 615 / 615 NS Inj 1,000 ML @ 125 mls/hr IV 1999 .CONT .Q8H [facility] Rx#:[id number] Zosyn 4.5 GM Premix 4.5 gm In 200 / 200 100 / 100 100 / 100 100 ml @ 200 mls/hr IV.SIG Q6H [facility] Rx#:[id number] Vancomycin Inj 1,500 MG In NS 520 / 520 515 / 515 515 / 515 Inj 500 ML @ 250 mls/hr IV.SIG Q12H [facility] Rx#:[id number] Anesthesia Amount 600 / 600 Output: Estimated Blood Loss 200 / 200 Urine Amount (Catheter) 175 / 175 Straight 175 / 175 Other: Mode Setting Right Shoulder Continuous Continuous Date of Last Bowel Movement 08/03/18 - Constitutional no acute distress - Routine Skin Exam Present: intact, erythema (much improved and decreased over right axillary region), warm - Detailed Neurological Exam: Coma Scale Eye Opening: Spontaneous Verbal Response: Oriented Motor Response: Obey commands Barbara Coma Scale Total: 15 - Routine Psychiatric Exam Present: normal affect - Urinary Catheter Management Straight Cath placed during this visit: yes Reason for continuing: Acute urinary retention Insertion date: 08/06/18 Insertion time: 05:59 Results - Labs CBC & Chem 7: 08/05/18 00:15 08/06/18 08:39 Laboratory Results - last 24 hr 08/05/18 08/05/18 08/05/18 12:17 16:31 19:05 Creatinine Estimated GFR POC Glucose 217 H 213 H 206 H 08/05/18 08/06/18 08/06/18 22:39 08:39 09:49 Creatinine 2.12 H Estimated GFR 31 L POC Glucose 278 H 230 H Microbiology 08/05/18 18:17 Wound - Other Gram Stain - Final Assessment and Plan - Assessment (1) Abscess Code(s): L02.91 - Cutaneous abscess, unspecified Status: Acute Plan: Continue VAC; change on Wednesday 08/08 Ok to get up to chair (2) Non-insulin treated type 2 diabetes mellitus Code(s): E11.9 - Type 2 diabetes mellitus without complications Status: Acute - Attending Attestation I attest that I had a [id number] encounter with the patient on the same day, and personally performed and documented my assessment and findings in the medical record. The following services were provided during this hospital visit: Chart data review, vital sign assessments/reviewing monitor data Review of consultation notes if present Medication orders/review and/or management Ordering and/or reviewing lab tests Ordering and/or interpreting/reviewing x-rays and/or diagnostic studies Care of the patient and discussion of the patient with the care team Documentation time To help prompt me to consider important information that might be impacting today's encounter and assessment, Information from prior notes written by myself or my colleagues may have been "brought forward/copy and pasted" into today's note.
[2018-08-06 11:23] LABS: Hematocrit 32.5 % (39.0-51.0); Mean Corpuscular HGB Conc 33.8 % (32.0-36.0); Mean Corpuscular Hemoglobin 32.9 pg (27.0-34.0); Mean Corpuscular Volume 97.3 fL (80.0-100.0); Mean Platelet Volume 7.6 fL (7.0-11.0); Platelet Count 266 th/mm3 (150-450); Red Blood Count 3.34 mil/mm3 (4.50-5.90); Red Cell Distribution Width 13.7 % (11.6-17.2); White Blood Count 14.4 th/mm3 (4.0-11.0)
[2018-08-06 11:42] LABS: Calcium 7.6 mg/dL (8.5-10.1); Carbon Dioxide 23.4 meq/L (21.0-32.0); Potassium 4.2 meq/L (3.5-5.1)
--- NOTE | 2018-08-06 12:00 | P.PN ---
Subjective Interval history: awake and alert, + pain "mild" right axillary area earlier straight cath- got 150 cc now at bedside- trying to void- nothing came out Physical Exam Vital signs: Vital Signs 08/05/18 16:23 08/05/18 18:55 08/05/18 19:15 Temperature 98.5 F 100.6 F H Pulse Rate 72 74 70 Respiratory Rate 18 22 20 Blood Pressure 150/67 H 94/60 L 106/55 L Pulse Oximetry 95 97 95 08/05/18 19:30 08/05/18 19:45 08/05/18 20:00 Temperature 99.6 F Pulse Rate 70 72 69 Respiratory Rate 22 21 24 Blood Pressure 122/56 L 128/62 117/57 L Pulse Oximetry 96 96 97 08/05/18 20:30 08/05/18 21:00 08/06/18 00:00 Temperature 98.3 F 97.4 F L Pulse Rate 68 66 64 Respiratory Rate 22 18 17 Blood Pressure 125/61 131/58 L 122/58 L Pulse Oximetry 92 L 92 L 94 L 08/06/18 04:00 08/06/18 08:00 Temperature 98 F 97.1 F L Pulse Rate 54 L 50 L Respiratory Rate 18 16 Blood Pressure 155/73 H 132/64 Pulse Oximetry 96 95 Intake & Output 08/05/18 08/06/18 08/06/18 18:59 06:59 18:59 Intake Total 1320 / 1320 2615 / 2615 615 / 615 Output Total 200 / 200 175 / 175 Balance 1120 / 1120 2440 / 2440 615 / 615 Weight 106.594 kg Intake: IV 720 / 720 2615 / 2615 615 / 615 NS Inj 1,000 ML @ 125 mls/hr IV 1999 .CONT .Q8H [facility] Rx#:[id number] Zosyn 4.5 GM Premix 4.5 gm In 200 / 200 100 / 100 100 / 100 100 ml @ 200 mls/hr IV.SIG Q6H [facility] Rx#:[id number] Vancomycin Inj 1,500 MG In NS 520 / 520 515 / 515 515 / 515 Inj 500 ML @ 250 mls/hr IV.SIG Q12H [facility] Rx#:[id number] Anesthesia Amount 600 / 600 Output: Estimated Blood Loss 200 / 200 Urine Amount (Catheter) 175 / 175 Straight 175 / 175 Other: Mode Setting Right Shoulder Continuous Continuous Date of Last Bowel Movement 08/03/18 Narrative: resting in bed in no acute distress. SKIN: RIGHT axillary swelling --- large indurated area in axillary region and anterior to; several small pustules; no drainage; tender to palpation. VAC in place HEAD: Atraumatic. Normocephalic. EYES: Pupils equal and round. No scleral icterus. No injection or drainage. ENT: No nasal bleeding or discharge. Mucous membranes pink and moist. NECK: Trachea midline. CARDIOVASCULAR: Regular rate and rhythm. RESPIRATORY: No accessory muscle use. Clear to auscultation. Breath sounds equal bilaterally. GASTROINTESTINAL: Abdomen soft, non-tender, nondistended. MUSCULOSKELETAL: Extremities without clubbing, cyanosis, or edema. No obvious deformities. NEUROLOGICAL: Awake and alert. No obvious cranial nerve deficits. Motor grossly within normal limits. Five out of 5 muscle strength in the arms and legs. Normal speech. PSYCHIATRIC: Appropriate mood and affect; insight and judgment normal. - Urinary Catheter Management Straight Cath placed during this visit: yes Reason for continuing: Acute urinary retention Insertion date: 08/06/18 Insertion time: 05:59 Results - Labs CBC & Chem 7: 08/07/18 06:08 08/11/18 10:55 Laboratory Results - last 24 hr 08/05/18 08/05/18 08/05/18 12:17 16:31 19:05 WBC RBC Hgb Hct MCV MCH MCHC RDW Plt Count MPV Sodium Potassium Chloride Carbon Dioxide Anion Gap BUN Creatinine Estimated GFR POC Glucose 217 H 213 H 206 H Random Glucose Calcium 08/05/18 08/06/18 08/06/18 22:39 08:39 09:49 WBC RBC Hgb Hct MCV MCH MCHC RDW Plt Count MPV Sodium Potassium Chloride Carbon Dioxide Anion Gap BUN Creatinine 2.12 H Estimated GFR 31 L POC Glucose 278 H 230 H Random Glucose Calcium 08/06/18 08/06/18 11:06 11:06 WBC 14.4 H RBC 3.34 L Hgb 11.0 L Hct 32.5 L MCV 97.3 MCH 32.9 MCHC 33.8 RDW 13.7 Plt Count 266 MPV 7.6 Sodium 135 L Potassium 4.2 Chloride 100 Carbon Dioxide 23.4 Anion Gap 12 BUN 38 H Creatinine 2.43 H Estimated GFR 26 L POC Glucose Random Glucose 247 H Calcium 7.6 L D Microbiology 08/05/18 18:17 Wound - Other Gram Stain - Final - Procedures 08/05 Incision and drainage right axillary abscess with VAC placement Assessment and Plan - Plan 72-year-old male with history of diabetes, coronary artery disease status post CABG who presents with a 2-week history of progressively worsening sharp constant, nonradiating right axillary pain with cellulitis. Sepsis present on admission due to Right axillary abscess: growing Gram + cocci S/P I and D 08/05 with VAC placment . +Leukocytosis WBC 17.5K. Afebrile. -Chest CT reviewed, shows Large heterogeneous collection of the right axilla and the lateral margin of pectoralis major as described. This appears to represent a lobulated mass or a multiloculated fluid collection or hematoma. - continue on zosyn- called pharmacy to adjust dose - on Vancomycin- d/w pharmacy- they are ff - received dose this am prior to lab results - Infectious disease consult for recommendation - ff ACute KI- r/o Acute drug induced interstitial nephritis ? Acute urinary retention- History of BPH - straight cath done this am- 150 cc out- monitor - will insert matthews for accurate I and O - continue on flomax and Terazosin- home meds - get urine eosinophils - get US-renal/bladder - continue IVF 125 cc/hr - ff BMP. accutrate I and O - d/w pharmacy to adjust zosyn dose - Hold Vancomycin- pharmacy is ff- d/w them - get nephrology involved early -get ID consult for recommendation HTN, CAD s/p CABG: chronic. BP fairly well controlled -continue patient's aspirin with hx of CABG -continue patient's terazosin -Vasotec prn -Monitor BP, adjust antihypertensives as needed Diabetes mellitus: chronic -hold patient's metformin - with GRADY. Hold glipizide as well -Monitor Accu-checks and cover with SSI - [facility] A1c Hypothyroidism: chronic -continue patient's levothyroxine DVT Prophylaxis: teds/SCDs Heparin SQ for DVT prophylaxis
--- NOTE | 2018-08-06 13:11 | P.DCO ---
- Diagnosis (1) Abscess Status: Acute - Home Health Nursing Order: Wound care and dressing changes Instructions: Wound Vac change; Q48; Saturday First change Aug 11 - Case Management Consult Yes - Certification I have seen patient Too Weeks on 08/06/18. My clinical findings support the need for the requested home health care services because: Limited mobility due to disease progression I certify that my clinical findings support that this patient is homebound because: Post-op weakness
[2018-08-06] MEDS: Heparin - SQ 10,000 UNITS/ML Vial SQ SCH ×2 (13:56→22:20)
--- NOTE | 2018-08-06 14:12 | P.CONID ---
History of Present Illness Service: Infectious disease Consult date: 08/06/18 Requesting Physician: Nataliia High Reason for Consult: Evaluate patient with right axillary abscess Primary Care Provider: David Carroll MD History of Present Illness: Patient seen and examined. Records reviewed. Patient is a 72-year-old male presented to the hospital complaining of pain and swelling in his right axilla and right chest wall. Patient was seen in the emergency room about 10 days ago complaining of pain and knot in his right axilla. He was diagnosed to have a possible lymphadenitis, and he was given clindamycin and was discharged home. Patient stated that he was compliant with his antibiotics. The area however started getting worse with increasing pain swelling so he presented to the hospital for further evaluation and treatment. He denies any fever chills or sweats. Denies any GI or any urinary complaints. Patient denies any previous history of skin and soft tissue infection. He denies any trauma. He has not been exposed to any animals particularly cats. Patient stated that there is a fairly CAD in their neighborhood but he never really messed up with that. Patient since admission had some low-grade temps. His initial white count was 17,000. CT of the chest showing a multiloculated fluid collection in the right axilla extending into the lateral aspect of the pectoralis major. Surgery saw the patient and he had I&D of a multiloculated abscess. Patient currently has a wound VAC in place. He is stating that the pain is better. His temperatures are better. His WBC is down to 14,000. Culture from surgery still pending, but Gram stain is showing gram-positive cocci in clusters. Patient is currently on vancomycin and Zosyn. His creatinine is elevated on admission. It was normal when he was seen in the emergency room about 10 days ago. Infectious disease consultation has been requested to assist with evaluation and treatment of a right axillary abscess. Review of Systems Constitutional: Reports fever(s), Denies chills, Denies night sweats Eyes: Denies discharge, Denies dry eyes Ears, Nose, Mouth, and Throat: Denies dental pain, Denies difficulty swallowing , Denies nasal discharge, Denies sore throat Cardiovascular: Denies chest pain, Denies shortness of breath Respiratory: Denies chest congestion, Denies cough, Denies shortness of breath Gastrointestinal: Denies abdominal pain, Denies loose stools, Denies nausea, Denies pain with swallowing, Denies vomiting Genitourinary: Denies difficulty urinating, Denies painful urination Musculoskeletal: Denies joint pain, Denies joint swelling Skin/Breast: Reports sores Neurologic: Denies dizziness Psychiatric: Denies confusion [facility] - History History Provided By: Patient - Medical History Medical History: Medical History (Last Reviewed 08/06/18 @ 14:07 by Jacquelin Briceno MD) CAD (coronary artery disease) Diabetes type 2, controlled - Surgical History Surgical History: Surgical History (Last Reviewed 08/06/18 @ 14:07 by Jacquelin Briceno MD) Hx of CABG - Family History Family History: Family History (Last Reviewed 08/06/18 @ 14:07 by Jacquelin Briceno MD) Other Family history non-contributory - Tobacco History Second Hand Smoke Exposure: No Tobacco Use In Past 30 Days: No Smoking Status: Former smoker Tobacco Type: Cigars - Alcohol History How Often Do You Have a Drink Containing Alcohol: Monthly or less - Substance Use History Substance History: No History of Abuse - Travel History Recent Travel in the [facility] Within the Last 8 Weeks: No Recent Travel Out of the Country Within the Last 8 Weeks: No - Immunization History Tetanus Immunization: <5 Years Medications and Allergies Active Medications: Active Medications Al Hydroxide/Mg Hydroxide (Milk Of Ozzy Morrison) 30 ml PO Q12H PRN PRN Reason: Mild Constipation Aspirin (Ecotrin) 81 mg PO DAILY [facility] Last Admin: 08/06/18 09:51 Dose: 81 mg Bisacodyl (Dulcolax Supp) 10 mg RECTAL DAILY PRN PRN Reason: SEVERE CONSITIPATION Dextrose (D50w Vial) 50 ml IV.PUSH UNSCH PRN PRN Reason: PER HYPOGLYCEMIA PROTOCOL Enalaprilat (Vasotec Inj) 1.25 mg IV.PUSH Q6H PRN PRN Reason: SBP>160, DBP>90 Glucagon (Glucagon Inj) 1 mg OTHER PRN PRN PRN Reason: for Hypoglycemia Protocol Heparin Sodium (Porcine) (Heparin Inj) 5,000 units SQ Q12HR [facility] Last Admin: 08/06/18 13:56 Dose: 5,000 units Sodium Chloride (Ns Inj) 1,000 mls @ 84 mls/hr IV.CONT .[id number] [facility] Last Admin: 08/06/18 13:57 Dose: 84 mls/hr Piperacillin/Tazobactam/Dextrose (Zosyn 3.375 Gm Premix) 50 mls @ 100 mls/hr IV.SIG Q6H [facility] Daptomycin 450 mg/ Sodium (Chloride) 100 mls @ 200 mls/hr IV.SIG Q48H [facility] Insulin Aspart (Novolog Insulin Correctional Sugar Inj) 0 unit SQ ACHS [facility]; Protocol Last Admin: 08/06/18 13:56 Dose: 3 unit Lactulose (Lactulose Liq) 30 ml PO DAILY PRN PRN Reason: SEVERE CONSITIPATION Levothyroxine Sodium (Synthroid) 88 mcg PO DAILY@0600 [facility] Last Admin: 08/06/18 06:23 Dose: 88 mcg Miscellaneous Information ([facility] Information) 1 each OTHER UNSCH PRN PRN Reason: SEE LABEL COMMENTS Stop: 08/06/18 18:58 Morphine Sulfate (Morphine Inj) 4 mg IV.PUSH Q3H PRN PRN Reason: BREAKTHROUGH PAIN Last Admin: 08/05/18 20:00 Dose: 4 mg Naloxone HCl (Narcan Inj) 0.4 mg IV.PUSH UNSCH PRN PRN Reason: SEE LABEL COMMENTS Oxycodone/Acetaminophen (Percocet 10/325 Mg) 1 tab PO Q6H PRN PRN Reason: PAIN SCALE 6 TO 10 Oxycodone/Acetaminophen (Percocet 5/325 Mg) 1 tab PO Q6H PRN PRN Reason: PAIN SCALE 3 TO 5 Senna/Docusate Sodium (Deborah-Colace) 1 tab PO BID [facility] Last Admin: 08/06/18 09:50 Dose: 1 tab Sennosides (Senokot) 17.2 mg PO Q12H PRN PRN Reason: Moderate Constipation Tamsulosin HCl (Flomax) 0.4 mg PO DAILY [facility] Last Admin: 08/06/18 09:51 Dose: Not Given Terazosin HCl (Hytrin) 2 mg PO DAILY [facility] Last Admin: 08/06/18 12:02 Dose: 2 mg Allergies Allergy/AdvReac Type Severity Reaction Status Date / Time No Known Allergies Allergy Verified 08/04/18 22:44 Home Medications Medication Instructions Recorded Confirmed Type aspirin [Aspir-81] 81 mg PO DAILY 07/26/18 08/04/18 History metformin 500 mg PO BID 07/26/18 08/04/18 History terazosin 2 mg PO DAILY 07/26/18 08/04/18 History glipizide 10 mg PO BID 08/04/18 08/04/18 History levothyroxine 88 mcg PO DAILY 08/04/18 08/04/18 History Exam Vital signs: Vital Signs 08/05/18 16:23 08/05/18 18:55 08/05/18 19:15 Temperature 98.5 F 100.6 F H Pulse Rate 72 74 70 Respiratory Rate 18 22 20 Blood Pressure 150/67 H 94/60 L 106/55 L Pulse Oximetry 95 97 95 08/05/18 19:30 08/05/18 19:45 08/05/18 20:00 Temperature 99.6 F Pulse Rate 70 72 69 Respiratory Rate 22 21 24 Blood Pressure 122/56 L 128/62 117/57 L Pulse Oximetry 96 96 97 08/05/18 20:30 08/05/18 21:00 08/06/18 00:00 Temperature 98.3 F 97.4 F L Pulse Rate 68 66 64 Respiratory Rate 22 18 17 Blood Pressure 125/61 131/58 L 122/58 L Pulse Oximetry 92 L 92 L 94 L 08/06/18 04:00 08/06/18 08:00 08/06/18 12:00 Temperature 98 F 97.1 F L 97.3 F L Pulse Rate 54 L 50 L 54 L Respiratory Rate 18 16 14 Blood Pressure 155/73 H 132/64 130/59 L Pulse Oximetry 96 95 97 Intake & Output 08/05/18 08/06/18 08/06/18 18:59 06:59 18:59 Intake Total 1320 / 1320 2615 / 2615 615 / 615 Output Total 200 / 200 175 / 175 Balance 1120 / 1120 2440 / 2440 615 / 615 Weight 106.594 kg Intake: IV 720 / 720 2615 / 2615 615 / 615 NS Inj 1,000 ML @ 125 mls/hr IV 1999 / 1999 .CONT .Q8H [facility] Rx#:[id number] Zosyn 4.5 GM Premix 4.5 gm In 200 / 200 100 / 100 100 / 100 100 ml @ 200 mls/hr IV.SIG Q6H [facility] Rx#:[id number] Vancomycin Inj 1,500 MG In NS 520 / 520 515 / 515 515 / 515 Inj 500 ML @ 250 mls/hr IV.SIG Q12H [facility] Rx#:[id number] Anesthesia Amount 600 / 600 Output: Estimated Blood Loss 200 / 200 Urine Amount (Catheter) 175 / 175 Straight 175 / 175 Other: Mode Setting Right Shoulder Continuous Continuous Date of Last Bowel Movement 08/03/18 Narrative: Physical examination GENERAL: Patient is a well-nourished, well-developed male, awake and alert, not in respiratory distress. SKIN: Warm and dry. No generalized rash, no ecchymoses and no evidence of embolic lesions. HEAD: Atraumatic. Normocephalic. No temporal wasting, or tenderness. EYES: Nikolai conjunctiva. No petechia or hemorrhage. Pupils equal, round and reactive to light. Extraocular movements full and intact. No scleral icterus. No injection or drainage. EARS, NOSE AND THROAT: Nose without bleeding or purulent nasal discharge. No sinus tenderness. Mucous membranes pink and moist. No oral lesions noted. No exudate. No oral thrush. Poor dentition NECK: Trachea midline. Supple and not tender, no meningeal signs CARDIOVASCULAR: Regular rate and rhythm. No murmurs, rubs or gallops heard RESPIRATORY: Clear to auscultation. Breath sounds equal bilaterally. No rales , wheezing or rhonchi. He has a wound vac in the R axilla/lateral wall with sponhe that is about 4-5 in x 3 inch, with surrounding erythema and induration. There is some mild erythema down the lateral chest wall below the sponge. No crepitus. Healed sternotomy incision C/W surgical history ABDOMEN: Soft, non-tender, nondistended. Bowel sounds present and normoactive. No guarding. No rebound. No organomegaly. EXTREMITIES: No clubbing, cyanosis, or edema.No joint effusion, has good ROM. No calf tenderness. Well perfused and warm. NEUROLOGICAL: Awake and alert. Cranial nerves grossly intact. Motor grossly within normal limits. PSYCHIATRIC: Normal affect, calm and cooperative. LINE: No evidence of infection Results - Labs CBC & Chem 7: 08/06/18 11:06 08/06/18 11:06 Labs: Laboratory Results - last 24 hr 08/05/18 08/05/18 08/05/18 16:31 19:05 22:39 WBC RBC Hgb Hct MCV MCH MCHC RDW Plt Count MPV Sodium Potassium Chloride Carbon Dioxide Anion Gap BUN Creatinine Estimated GFR POC Glucose 213 H 206 H 278 H Random Glucose Calcium 08/06/18 08/06/18 08/06/18 08:39 09:49 11:06 WBC 14.4 H RBC 3.34 L Hgb 11.0 L Hct 32.5 L MCV 97.3 MCH 32.9 MCHC 33.8 RDW 13.7 Plt Count 266 MPV 7.6 Sodium Potassium Chloride Carbon Dioxide Anion Gap BUN Creatinine 2.12 H Estimated GFR 31 L POC Glucose 230 H Random Glucose Calcium 08/06/18 08/06/18 11:06 12:42 WBC RBC Hgb Hct MCV MCH MCHC RDW Plt Count MPV Sodium 135 L Potassium 4.2 Chloride 100 Carbon Dioxide 23.4 Anion Gap 12 BUN 38 H Creatinine 2.43 H Estimated GFR 26 L POC Glucose 243 H Random Glucose 247 H Calcium 7.6 L D Assessment and Plan - Plan Impression Sepsis on admission due to a large abscess Abscess, cellulitis R axilla/R chest wall - S/P I and D - G/S GPC, C/S pending Renal insufficiency likely due to sepsis Fevers and leukocytosis Recommendation Continue Zosyn Will use IV Cubicin for MRSA coverage zabrina since his creatinine continues to worsen - follow CPK 2 BC UA, looks for cast, microscopy Follow creatinine Monitor temps Follow CBC Follow C/S and adjust Abx Monitor progress Further recommendations to follow regarding course of treatment once workup is completed I will follow along with you Thank you for this consultation D/W Dr High ([facility])
--- NOTE | 2018-08-06 14:26 | US ---
EXAM DATE: 08/06/2018 2:19 PM EDT AGE/SEX: 72 years / Male INDICATIONS: Increased Bun and Creatinine. CLINICAL DATA: This is the patient's initial encounter. Patient reports that signs and symptoms have been present for 1 day and indicates a pain score of 4/10. MEDICAL/SURGICAL HISTORY: . Cardiovascular disease. Diabetes mellitus type II. CABG. COMPARISON: No prior exams available for comparison. MEASUREMENTS: Right Kidney:__11.5 x 6.8 x 6.1 cm Left Kidney:__13.7 x 5.2 x 6.2 cm FINDINGS: Right Kidney: Normal in size, shape and echogenicity. There is a simple cyst measuring approximately 4.3 x 3.8 x 2.8 cm in the central kidney. Left Kidney: Normal echotexture and cortical thickness. No solid mass or hydronephrosis. Bladder: Decompressed. Not well evaluated. Other: None. CONCLUSION: 1. No evidence of hydronephrosis. The echogenicity of the kidneys is within normal limits. 2. Simple cyst in right kidney. Electronically signed by: Mic Kirk MD 08/06/2018 2:25 PM EDT
[2018-08-06] MEDS: DAPTOMYCIN IV.SIG SCH (16:16)
[2018-08-06] MEDS: SODIUM CHLOR 0.9% IV.SIG SCH (16:16)
[2018-08-06 16:48] LABS: Amorphous Sediment,Urine Occasional /hpf; Bacteria,Urine Occasional /hpf; Bilirubin,Urine Negative (Negative); Clarity,Urine Cloudy (Clear); Glucose,Urine (UA) 50 mg/dL (Negative); Leukocyte Esterase,Urine Trace (Negative); Nitrite,Urine Negative (Negative); Specific Gravity,Urine 1.015 (1.002-1.035)
[2018-08-06 16:49] LABS: Color,Urine Dark-Yellow (Yellw/Straw)
[2018-08-06] MEDS ORDERED: Enoxaparin Inj 30 MG/0.3 ML Syringe SQ SCH (17:00)
[2018-08-06] MEDS: Piperacil/Tazo 3.375 GM Premix 50 ML IV.SIG SCH (18:07)
--- NOTE | 2018-08-06 18:30 | P.CONNP ---
History of Present Illness Service: Nephrology Reason for Consult: GRADY Primary Care Provider: David Carroll MD History of Present Illness: Mr. Weeks was admitted yesterday with complaint of pain, swelling and infection involving right axilla and right chest wall. He had been here several days ago, and was given Clindamycin in the ER and discharged home. Apparently he took Clindamycin as prescribed, however his symptoms of pain, redness only worsened, prompting him to come back to ER. This time, he had a CT scan of the chest which revealed multiloculated abscess cavity in the right axilla extending into pectoralis muscle. Patient was seen by surgery, and had surgical drainage of the abscess. He now has a wound vac. His creatinine was 0.97 on 08/05, it increased to 2.19, most recent today is 2.43. He has a Fraire catheter. Appears to be non oliguric. He was given Vancomycin, but it has been discontinued. He will be on Daptomycin. Wound culture is positive for Gram positive cocci. He has history of CAD, s/p CABG, diabetes type 2. Review of Systems Constitutional: Reports weakness Eyes: Denies blind spots, Denies blurry vision, Denies bulging eyes, Denies discharge Ears, Nose, Mouth, and Throat: Denies abnormal hearing, Denies bleeding gums, Denies poor balance Cardiovascular: Denies chest pain with activity, Denies generalized swelling, Denies irregular heart rhythm Respiratory: Denies cough, Denies coughing up blood, Denies shortness of breath with activity Gastrointestinal: Denies abdominal pain, Denies difficulty swallowing Skin/Breast: Reports boil, Reports sores, Denies bleeding lesions PMFSH - History History Provided By: Patient - Medical History Medical History: Medical History (Last Reviewed 08/06/18 @ 14:07 by Jacquelin Briceno MD) CAD (coronary artery disease) Diabetes type 2, controlled - Surgical History Surgical History: Surgical History (Last Reviewed 08/06/18 @ 14:07 by Jacquelin Briceno MD) Hx of CABG - Family History Family History: Family History (Last Reviewed 08/06/18 @ 14:07 by Jacquelin Briceno MD) Other Family history non-contributory - Tobacco History Second Hand Smoke Exposure: No Tobacco Use In Past 30 Days: No Smoking Status: Former smoker Tobacco Type: Cigars - Alcohol History How Often Do You Have a Drink Containing Alcohol: Monthly or less - Substance Use History Substance History: No History of Abuse - Travel History Recent Travel in the [place] Within the Last 8 Weeks: No Recent Travel Out of the Country Within the Last 8 Weeks: No - Immunization History Tetanus Immunization: <5 Years Medications and Allergies Active Medications: Active Medications Al Hydroxide/Mg Hydroxide (Milk Of Magnesia Liq) 30 ml PO Q12H PRN PRN Reason: Mild Constipation Aspirin (Ecotrin) 81 mg PO DAILY [facility] Last Admin: 08/06/18 09:51 Dose: 81 mg Bisacodyl (Dulcolax Supp) 10 mg RECTAL DAILY PRN PRN Reason: SEVERE CONSITIPATION Dextrose (D50w Vial) 50 ml IV.PUSH UNSCH PRN PRN Reason: PER HYPOGLYCEMIA PROTOCOL Enalaprilat (Vasotec Inj) 1.25 mg IV.PUSH Q6H PRN PRN Reason: SBP>160, DBP>90 Glucagon (Glucagon Inj) 1 mg OTHER PRN PRN PRN Reason: for Hypoglycemia Protocol Heparin Sodium (Porcine) (Heparin Inj) 5,000 units SQ Q12HR [facility] Last Admin: 08/06/18 13:56 Dose: 5,000 units Sodium Chloride (Ns Inj) 1,000 mls @ 84 mls/hr IV.CONT .[id number] [facility] Last Admin: 08/06/18 13:57 Dose: 84 mls/hr Piperacillin/Tazobactam/Dextrose (Zosyn 3.375 Gm Premix) 50 mls @ 100 mls/hr IV.SIG Q6H [facility] Last Admin: 08/06/18 18:07 Dose: 100 mls/hr Daptomycin 450 mg/ Sodium (Chloride) 100 mls @ 200 mls/hr IV.SIG Q48H [facility] Last Admin: 08/06/18 16:16 Dose: 200 mls/hr Insulin Aspart (Novolog Insulin Correctional Sugar Inj) 0 unit SQ ACHS [facility]; Protocol Last Admin: 08/06/18 18:07 Dose: 5 unit Lactulose (Lactulose Liq) 30 ml PO DAILY PRN PRN Reason: SEVERE CONSITIPATION Levothyroxine Sodium (Synthroid) 88 mcg PO DAILY@0600 [facility] Last Admin: 08/06/18 06:23 Dose: 88 mcg Miscellaneous Information ([facility] [place] [facility]) 1 each OTHER UNSCH PRN PRN Reason: SEE LABEL COMMENTS Stop: 08/06/18 18:58 Morphine Sulfate (Morphine Inj) 4 mg IV.PUSH Q3H PRN PRN Reason: BREAKTHROUGH PAIN Last Admin: 08/05/18 20:00 Dose: 4 mg Naloxone HCl (Narcan Inj) 0.4 mg IV.PUSH UNSCH PRN PRN Reason: SEE LABEL COMMENTS Oxycodone/Acetaminophen (Percocet 10/325 Mg) 1 tab PO Q6H PRN PRN Reason: PAIN SCALE 6 TO 10 Oxycodone/Acetaminophen (Percocet 5/325 Mg) 1 tab PO Q6H PRN PRN Reason: PAIN SCALE 3 TO 5 Senna/Docusate Sodium (Deborah-Colace) 1 tab PO BID [facility] Last Admin: 08/06/18 09:50 Dose: 1 tab Sennosides (Senokot) 17.2 mg PO Q12H PRN PRN Reason: Moderate Constipation Tamsulosin HCl (Flomax) 0.4 mg PO DAILY [facility] Last Admin: 08/06/18 09:51 Dose: Not Given Terazosin HCl (Hytrin) 2 mg PO DAILY [facility] Last Admin: 08/06/18 12:02 Dose: 2 mg Allergies Allergy/AdvReac Type Severity Reaction Status Date / Time No Known Allergies Allergy Verified 08/04/18 22:44 Home Medications Medication Instructions Recorded Confirmed Type aspirin [Aspir-81] 81 mg PO DAILY 07/26/18 08/04/18 History metformin 500 mg PO BID 07/26/18 08/04/18 History terazosin 2 mg PO DAILY 07/26/18 08/04/18 History glipizide 10 mg PO BID 08/04/18 08/04/18 History levothyroxine 88 mcg PO DAILY 08/04/18 08/04/18 History Exam Vital signs: Vital Signs 08/05/18 18:55 08/05/18 19:15 08/05/18 19:30 Temperature 100.6 F H Pulse Rate 74 70 70 Respiratory Rate 22 20 22 Blood Pressure 94/60 L 106/55 L 122/56 L Pulse Oximetry 97 95 96 08/05/18 19:45 08/05/18 20:00 08/05/18 20:30 Temperature 99.6 F Pulse Rate 72 69 68 Respiratory Rate 21 24 22 Blood Pressure 128/62 117/57 L 125/61 Pulse Oximetry 96 97 92 L 08/05/18 21:00 08/06/18 00:00 08/06/18 04:00 Temperature 98.3 F 97.4 F L 98 F Pulse Rate 66 64 54 L Respiratory Rate 18 17 18 Blood Pressure 131/58 L 122/58 L 155/73 H Pulse Oximetry 92 L 94 L 96 08/06/18 08:00 08/06/18 12:00 08/06/18 16:00 Temperature 97.1 F L 97.3 F L 97.2 F L Pulse Rate 50 L 54 L 52 L Respiratory Rate 16 14 14 Blood Pressure 132/64 130/59 L 110/59 L Pulse Oximetry 95 97 96 Intake & Output 08/05/18 08/06/18 08/06/18 18:59 06:59 18:59 Intake Total 1320 / 1320 2615 / 2615 615 / 615 Output Total 200 / 200 175 / 175 Balance 1120 / 1120 2440 / 2440 615 / 615 Weight 106.594 kg Intake: IV 720 / 720 2615 / 2615 615 / 615 NS Inj 1,000 ML @ 125 mls/hr IV 1999 / 1999 .CONT .Q8H [facility] Rx#:[id number] Zosyn 4.5 GM Premix 4.5 gm In 200 / 200 100 / 100 100 / 100 100 ml @ 200 mls/hr IV.SIG Q6H [facility] Rx#:[id number] Vancomycin Inj 1,500 MG In NS 520 / 520 515 / 515 515 / 515 Inj 500 ML @ 250 mls/hr IV.SIG Q12H [facility] Rx#:[id number] Anesthesia Amount 600 / 600 Output: Estimated Blood Loss 200 / 200 Urine Amount (Catheter) 175 / 175 Straight 175 / 175 Other: Mode Setting Right Shoulder Continuous Continuous Date of Last Bowel Movement 08/03/18 - Constitutional no acute distress, obese - Routine HEENT Exam Head: Present: normocephalic, atraumatic Eye: Present: EOMI, PERRL ENT: Present: mucous membranes moist - Routine Neck Exam Present: supple, full ROM. Absent: JVD, lymphadenopathy, thyromegaly - Routine Chest/Breast/Axilla Exam Comments: dressing and wound vac in the right chest wall and axilla - Routine Respiratory Exam Present: CTA bilaterally. Absent: rales, respiratory distress - Routine Cardiovascular Exam Present: RRR, S1, S2. Absent: murmur, tachycardia - Routine Abdominal Exam Present: soft, normoactive bowel sounds. Absent: tenderness, guarding - Routine Extremities Exam Present: full ROM. Absent: edema, tenderness, joint swelling - Routine Neurological Exam Present: alert, oriented X3, CN II-XII intact, normal speech. Absent: facial asymmetry Results - Lab Results 08/06/18 11:06 08/06/18 11:06 Most recent lab results Calcium 7.6 mg/dL (8.5-10.1) L D 08/06/18 11:06 Assessment and Plan - Assessment (1) Acute kidney injury Code(s): N17.9 - Acute kidney failure, unspecified Status: Acute Plan: Could be due to sepsis, ATN. He did receive Vancomycin, but I believe only one dose. Agree with stopping Vancomycin. Continue IVF. Avoid nephrotoxic agents. Monitor urine output and renal function. Renal US revealed no hydronephrosis. (2) Non-insulin treated type 2 diabetes mellitus Code(s): E11.9 - Type 2 diabetes mellitus without complications Status: Acute Plan: maintain blood sugar between 140 and 180 while hospitalized. Metformin should be stopped. (3) Abscess Code(s): L02.91 - Cutaneous abscess, unspecified Status: Acute Plan: s/p drainage, now has a wound Vac. (4) S/P CABG (coronary artery bypass graft) Code(s): Z95.1 - Presence of aortocoronary bypass graft Status: Acute - Attending Attestation Thanks for the consult.
[2018-08-07] MEDS: Sod Chloride 0.9% Inj 1,000 ML IV.CONT SCH ×2 (00:34→13:34)
[2018-08-07] MEDS: Piperacil/Tazo 3.375 GM Premix 50 ML IV.SIG SCH ×2 (00:34→05:25)
[2018-08-07] MEDS ORDERED: Pharmacy Ordered Lab Info OTHER ONE (04:45)
[2018-08-07] MEDS: Levothyroxine 88 MCG Tablet PO SCH (05:25)
[2018-08-07 06:59] LABS: Baso % (Auto) 0.3 % (0.0-2.0); Eos # (Auto) 0.1 th/mm3 (0.0-0.4); Hematocrit 30.9 % (39.0-51.0); Hemoglobin 10.8 gm/dL (13.0-17.0); Lymph # (Auto) 0.7 th/mm3 (1.0-4.8); Lymph % (Auto) 6.9 % (9.0-44.0); Mean Corpuscular HGB Conc 35.1 % (32.0-36.0); Mean Corpuscular Hemoglobin 33.8 pg (27.0-34.0); Mean Corpuscular Volume 96.2 fL (80.0-100.0); Mean Platelet Volume 8.1 fL (7.0-11.0); Mono # (Auto) 0.5 th/mm3 (0.0-0.9); Mono % (Auto) 4.6 % (0.0-8.0); Neut # (Auto) 8.7 th/mm3 (1.8-7.7); Neut % (Auto) 87.2 % (16.0-70.0); Platelet Count 272 th/mm3 (150-450); Red Blood Count 3.21 mil/mm3 (4.50-5.90); Red Cell Distribution Width 13.4 % (11.6-17.2)
[2018-08-07 07:23] LABS: Calcium 7.4 mg/dL (8.5-10.1); Carbon Dioxide 21.3 meq/L (21.0-32.0); Potassium 4.1 meq/L (3.5-5.1)
[2018-08-07 07:24] LABS: Vancomycin,Random 23.1 Comment
[2018-08-07 07:36] LABS: Calcium-Albumin Corrected 8.3 mg/dL (8.5-10.1); Total Protein 5.4 g/dL (6.4-8.2)
[2018-08-07] MEDS: Insulin NovoLOG Aspart Correctional Sugar Inj SQ SCH ×4 (08:52→22:37)
[2018-08-07] MEDS: Heparin - SQ 10,000 UNITS/ML Vial SQ SCH ×2 (08:53→22:34)
[2018-08-07] MEDS: Senna/Docusate Sodium 8.6/50 MG Tablet PO SCH ×2 (08:53→22:38)
--- NOTE | 2018-08-07 11:33 | P.PNGS ---
Subjective Interval history: Resting in bed Feeling much better Physical Exam Vital signs: Vital Signs 08/06/18 12:00 08/06/18 16:00 08/06/18 20:00 Temperature 97.3 F L 97.2 F L 97.6 F Pulse Rate 54 L 52 L 58 L Respiratory Rate 14 14 18 Blood Pressure 130/59 L 110/59 L 112/58 L Pulse Oximetry 97 96 95 08/07/18 00:00 08/07/18 04:00 08/07/18 08:00 Temperature 97.6 F 97.6 F 96.1 F L Pulse Rate 55 L 60 59 L Respiratory Rate 18 18 18 Blood Pressure 116/57 L 134/60 128/67 Pulse Oximetry 96 95 92 L Intake & Output 08/06/18 08/07/18 08/07/18 18:59 06:59 18:59 Intake Total 865 / 865 3354 / 3354 480 / 480 Output Total 150 / 150 Balance 865 / 865 3204 / 3204 480 / 480 Weight 108.2 kg Intake: IV 865 / 865 1100 / 1100 NS Inj 1,000 ML @ 84 mls/hr IV. 1000 / 1000 CONT .[id number] KADY Rx#:[id number] Cubicin Inj 450 MG In NS Inj 100 / 100 100 ML @ 200 mls/hr IV.SIG Q48H KADY Rx#:[id number] Zosyn 3.375 GM Premix 50 ML @ 50 / 50 100 / 100 100 mls/hr IV.SIG Q6H KADY Rx#: [id number] Zosyn 4.5 GM Premix 4.5 gm In 200 / 200 100 ml @ 200 mls/hr IV.SIG Q6H KADY Rx#:[id number] Vancomycin Inj 1,500 MG In NS 515 / 515 Inj 500 ML @ 250 mls/hr IV.SIG Q12H KADY Rx#:[id number] Oral 1000 / 1000 480 / 480 Other 1254 / 1254 Output: Urine 150 / 150 Other: Other Intake Source Saline Solution Date of Last Bowel Movement 08/03/18 08/03/18 08/05/18 Narrative: Alert and awake RIGHT axillary Wound Vac in place with good seal; surrounding area with much less erythema than before - Urinary Catheter Management Straight Cath placed during this visit: yes Reason for continuing: Acute urinary retention Insertion date: 08/06/18 Insertion time: 05:59 Results - Labs 08/07/18 06:08 08/08/18 08:59 Laboratory Results - last 24 hr 08/06/18 08/06/18 08/06/18 11:06 11:06 12:42 WBC RBC Hgb Hct MCV MCH MCHC RDW Plt Count MPV Neut % (Auto) Lymph % (Auto) [place] % (Auto) Eos % (Auto) Baso % (Auto) Neut # (Auto) Lymph # (Auto) [place] # (Auto) Eos # (Auto) Baso # (Auto) WBC Differential Differential Comment Sodium 135 L Potassium 4.2 Chloride 100 Carbon Dioxide 23.4 Anion Gap 12 BUN 38 H Creatinine 2.43 H Estimated GFR 26 L POC Glucose 243 H Random Glucose 247 H Calcium 7.6 L D Prot Corrected Calcium Total Creatine Kinase 23 L Total Protein Urine Color Urine Clarity Urine pH Ur Specific [place] Urine Protein Urine Glucose (UA) Urine Ketones Urine Occult Blood Urine Nitrate Urine Bilirubin Urine Urobilinogen Ur Leukocyte Esterase Urine RBC Urine WBC Urine WBC Clumps Amorphous Sediment Urine Bacteria Ur Microscopic Review Urine Eosinophils Random Vancomycin 08/06/18 08/06/18 08/06/18 15:00 15:00 17:35 WBC RBC Hgb Hct MCV MCH MCHC RDW Plt Count MPV Neut % (Auto) Lymph % (Auto) [place] % (Auto) Eos % (Auto) Baso % (Auto) Neut # (Auto) Lymph # (Auto) [place] # (Auto) Eos # (Auto) Baso # (Auto) WBC Differential Differential Comment Sodium Potassium Chloride Carbon Dioxide Anion Gap BUN Creatinine Estimated GFR POC Glucose 293 H Random Glucose Calcium Prot Corrected Calcium Total Creatine Kinase Total Protein Urine Color Dark-yellow H Urine Clarity Cloudy H Urine pH 5.0 Ur Specific [place] 1.015 Urine Protein 100 H Urine Glucose (UA) 50 Urine Ketones Negative Urine Occult Blood Moderate H Urine Nitrate Negative Urine Bilirubin Negative Urine Urobilinogen 2.0 H Ur Leukocyte Esterase Trace H Urine RBC 15 H Urine WBC 5 Urine WBC Clumps Occasional H Amorphous Sediment Occasional H Urine Bacteria Occasional H Ur Microscopic Review Not Reportable Urine Eosinophils None seen Random Vancomycin 08/06/18 08/07/18 08/07/18 22:19 06:08 06:08 WBC 10.0 RBC 3.21 L Hgb 10.8 L Hct 30.9 L MCV 96.2 MCH 33.8 MCHC 35.1 RDW 13.4 Plt Count 272 MPV 8.1 Neut % (Auto) 87.2 H Lymph % (Auto) 6.9 L [place] % (Auto) 4.6 Eos % (Auto) 1.0 Baso % (Auto) 0.3 Neut # (Auto) 8.7 H Lymph # (Auto) 0.7 L [place] # (Auto) 0.5 Eos # (Auto) 0.1 Baso # (Auto) 0.0 WBC Differential . Differential Comment Auto diff final Sodium 134 L Potassium 4.1 Chloride 100 Carbon Dioxide 21.3 Anion Gap 13 BUN 53 H Creatinine 3.90 H Estimated GFR 15 L POC Glucose 261 H Random Glucose 264 H Calcium 7.4 L* Prot Corrected Calcium 8.3 L Total Creatine Kinase Total Protein 5.4 L D Urine Color Urine Clarity Urine pH Ur Specific [place] Urine Protein Urine Glucose (UA) Urine Ketones Urine Occult Blood Urine Nitrate Urine Bilirubin Urine Urobilinogen Ur Leukocyte Esterase Urine RBC Urine WBC Urine WBC Clumps Amorphous Sediment Urine Bacteria Ur Microscopic Review Urine Eosinophils Random Vancomycin 23.1 08/07/18 08:40 WBC RBC Hgb Hct MCV MCH MCHC RDW Plt Count MPV Neut % (Auto) Lymph % (Auto) [place] % (Auto) Eos % (Auto) Baso % (Auto) Neut # (Auto) Lymph # (Auto) [place] # (Auto) Eos # (Auto) Baso # (Auto) WBC Differential Differential Comment Sodium Potassium Chloride Carbon Dioxide Anion Gap BUN Creatinine Estimated GFR POC Glucose 292 H Random Glucose Calcium Prot Corrected Calcium Total Creatine Kinase Total Protein Urine Color Urine Clarity Urine pH Ur Specific [place] Urine Protein Urine Glucose (UA) Urine Ketones Urine Occult Blood Urine Nitrate Urine Bilirubin Urine Urobilinogen Ur Leukocyte Esterase Urine RBC Urine WBC Urine WBC Clumps Amorphous Sediment Urine Bacteria Ur Microscopic Review Urine Eosinophils Random Vancomycin - Imaging Imaging: ITS Impressions Chest CT 08/05/18 00:03 CONCLUSION: 1. Large heterogeneous collection of the right axilla and the lateral margin of pectoralis major as described. This appears to represent a lobulated mass or a multiloculated fluid collection or hematoma. Infectious and neoplastic etiologies are both in the differential. 2. Mild atelectasis of the lung bases and a 5 mm left upper lobe pulmonary nodule. 3. Previous median sternotomy and CABG. 4. Cholelithiasis. 5. No acute osseous abnormality. Abdomen/Bladder Ultrasound 08/06/18 00:00 CONCLUSION: 1. No evidence of hydronephrosis. The echogenicity of the kidneys is within normal limits. 2. Simple cyst in right kidney. Assessment and Plan - Assessment (1) Abscess Code(s): L02.91 - Cutaneous abscess, unspecified Status: Acute Plan: 72 year old male with RIGHT axillary abscess; POD2 incision and drainage of RIGHT axillary abscess -Continue Wound Vac -Plan for OR tomorrow for wound vac change -Obtain consents -Regular diet today; NPO after MN -Creatinine elevated; Nephrology following -ID following No complaints Erythema and induration much improved, but renal function worse For OR tomorrow; explained that he will be here until next week, as he will need at least two more VAC changes before being discharged. Will need [facility] to assist in wound care; may go home with VAC; will need [employer] style VAC, due to insurance. The exam, history, and the medical decision-making described in the above note were completed with the assistance of the mid-level provider. I reviewed and agree with the findings presented. I attest that I had a [id number] encounter with the patient on the same day, and personally performed and documented my assessment and findings in the medical record.
--- NOTE | 2018-08-07 12:02 | P.PNID ---
Subjective Remarks: Patient is a 72-year-old male presented to the hospital complaining of pain and swelling in his right axilla and right chest wall. Patient was seen in the emergency room about 10 days ago complaining of pain and knot in his right axilla. He was diagnosed to have a possible lymphadenitis, and he was given clindamycin and was discharged home. Patient stated that he was compliant with his antibiotics. The area however started getting worse with increasing pain swelling so he presented to the hospital for further evaluation and treatment. He denies any fever chills or sweats. Denies any GI or any urinary complaints. Patient denies any previous history of skin and soft tissue infection. He denies any trauma. He has not been exposed to any animals particularly cats. Patient stated that there is a fairly CAD in their neighborhood but he never really messed up with that. Patient since admission had some low-grade temps. His initial white count was 17,000. CT of the chest showing a multiloculated fluid collection in the right axilla extending into the lateral aspect of the pectoralis major. Surgery saw the patient and he had I&D of a multiloculated abscess. Patient currently has a wound VAC in place. He is stating that the pain is better. His temperatures are better. His WBC is down to 14,000. Culture from surgery still pending, but Gram stain is showing gram-positive cocci in clusters. Patient is currently on vancomycin and Zosyn. His creatinine is elevated on admission. It was normal when he was seen in the emergency room about 10 days ago. Infectious disease consultation has been requested to assist with evaluation and treatment of a right axillary abscess. Notes reviewed temps ok Creatinine continues to rise UO low Going to OR again tomorrow - wound vac change BC negative Wound C/S pending WBC lower Antibiotics: Cubicin Zosyn Lines: PIV Past Medical History: CAB S/P CABG DM Allergies/Adverse Reactions: Allergies No Known Allergies Allergy (Verified 08/04/18 22:44) Objective Vital Signs 08/06/18 16:00 08/06/18 20:00 08/07/18 00:00 Temperature 97.2 F L 97.6 F 97.6 F Pulse Rate 52 L 58 L 55 L Respiratory Rate 14 18 18 Blood Pressure 110/59 L 112/58 L 116/57 L Pulse Oximetry 96 95 96 08/07/18 04:00 08/07/18 08:00 Temperature 97.6 F 96.1 F L Pulse Rate 60 59 L Respiratory Rate 18 18 Blood Pressure 134/60 128/67 Pulse Oximetry 95 92 L Intake & Output 08/06/18 08/07/18 08/07/18 18:59 06:59 18:59 Intake Total 865 / 865 3354 / 3354 480 / 480 Output Total 150 / 150 Balance 865 / 865 3204 / 3204 480 / 480 Weight 108.2 kg Intake: IV 865 / 865 1100 / 1100 NS Inj 1,000 ML @ 84 mls/hr IV. 1000 / 1000 CONT .[id number] KADY Rx#:[id number] Cubicin Inj 450 MG In NS Inj 100 / 100 100 ML @ 200 mls/hr IV.SIG Q48H KADY Rx#:[id number] Zosyn 3.375 GM Premix 50 ML @ 50 / 50 100 / 100 100 mls/hr IV.SIG Q6H KADY Rx#: [id number] Zosyn 4.5 GM Premix 4.5 gm In 200 / 200 100 ml @ 200 mls/hr IV.SIG Q6H KADY Rx#:[id number] Vancomycin Inj 1,500 MG In NS 515 / 515 Inj 500 ML @ 250 mls/hr IV.SIG Q12H KADY Rx#:[id number] Oral 1000 / 1000 480 / 480 Other 1254 / 1254 Output: Urine 150 / 150 Other: Other Intake Source Saline Solution Date of Last Bowel Movement 08/03/18 08/03/18 08/05/18 08/07/18 06:08 Blood - Peripheral Aerobic Blood Culture - Pending 08/07/18 06:08 Blood - Peripheral Anaerobic Blood Culture - Pending 08/07/18 06:00 Blood - Peripheral Aerobic Blood Culture - Pending 08/07/18 06:00 Blood - Peripheral Anaerobic Blood Culture - Pending 08/05/18 18:17 Wound - Other Gram Stain - Final 08/05/18 18:17 Wound - Other Wound Culture - Preliminary Lab - Hematology Results 08/06/18 08/07/18 11:06 06:08 WBC 14.4 H 10.0 RBC 3.34 L 3.21 L Hgb 11.0 L 10.8 L Hct 32.5 L 30.9 L MCV 97.3 96.2 MCH 32.9 33.8 MCHC 33.8 35.1 RDW 13.7 13.4 Plt Count 266 272 MPV 7.6 8.1 Neut % (Auto) 87.2 H Lymph % (Auto) 6.9 L [place] % (Auto) 4.6 Eos % (Auto) 1.0 Baso % (Auto) 0.3 Neut # (Auto) 8.7 H Lymph # (Auto) 0.7 L [place] # (Auto) 0.5 Eos # (Auto) 0.1 Baso # (Auto) 0.0 WBC Differential . Differential Comment Auto diff final Lab - Chemistry Results 08/05/18 08/05/18 08/05/18 12:17 16:31 19:05 Sodium Potassium Chloride Carbon Dioxide Anion Gap BUN Creatinine Estimated GFR POC Glucose 217 H 213 H 206 H Random Glucose Calcium Prot Corrected Calcium Total Creatine Kinase Total Protein 08/05/18 08/06/18 08/06/18 22:39 08:39 09:49 Sodium Potassium Chloride Carbon Dioxide Anion Gap BUN Creatinine 2.12 H Estimated GFR 31 L POC Glucose 278 H 230 H Random Glucose Calcium Prot Corrected Calcium Total Creatine Kinase Total Protein 08/06/18 08/06/18 08/06/18 11:06 11:06 12:42 Sodium 135 L Potassium 4.2 Chloride 100 Carbon Dioxide 23.4 Anion Gap 12 BUN 38 H Creatinine 2.43 H Estimated GFR 26 L POC Glucose 243 H Random Glucose 247 H Calcium 7.6 L D Prot Corrected Calcium Total Creatine Kinase 23 L Total Protein 08/06/18 08/06/18 08/07/18 17:35 22:19 06:08 Sodium 134 L Potassium 4.1 Chloride 100 Carbon Dioxide 21.3 Anion Gap 13 BUN 53 H Creatinine 3.90 H Estimated GFR 15 L POC Glucose 293 H 261 H Random Glucose 264 H Calcium 7.4 L* Prot Corrected Calcium 8.3 L Total Creatine Kinase Total Protein 5.4 L D 08/07/18 08:40 Sodium Potassium Chloride Carbon Dioxide Anion Gap BUN Creatinine Estimated GFR POC Glucose 292 H Random Glucose Calcium Prot Corrected Calcium Total Creatine Kinase Total Protein Imaging: ITS Impressions Chest CT 08/05/18 00:03 CONCLUSION: 1. Large heterogeneous collection of the right axilla and the lateral margin of pectoralis major as described. This appears to represent a lobulated mass or a multiloculated fluid collection or hematoma. Infectious and neoplastic etiologies are both in the differential. 2. Mild atelectasis of the lung bases and a 5 mm left upper lobe pulmonary nodule. 3. Previous median sternotomy and CABG. 4. Cholelithiasis. 5. No acute osseous abnormality. Abdomen/Bladder Ultrasound 08/06/18 00:00 CONCLUSION: 1. No evidence of hydronephrosis. The echogenicity of the kidneys is within normal limits. 2. Simple cyst in right kidney. Physical Exam: GENERAL: awake and alert, not in respiratory distress. SKIN: Warm and dry. No generalized rash, no ecchymoses and no evidence of embolic lesions. HEAD: Atraumatic. Normocephalic. No temporal wasting, or tenderness. EYES: [place] conjunctiva. No petechia or hemorrhage. Pupils equal, round and reactive to light. Extraocular movements full and intact. No scleral icterus. No injection or drainage. EARS, NOSE AND THROAT: Nose without bleeding or purulent nasal discharge. No sinus tenderness. Mucous membranes pink and moist. No oral lesions noted. No exudate. No oral thrush. Poor dentition NECK: Trachea midline. Supple and not tender, no meningeal signs CARDIOVASCULAR: Regular rate and rhythm. No murmurs, rubs or gallops heard RESPIRATORY: Clear to auscultation. Breath sounds equal bilaterally. No rales , wheezing or rhonchi. He has a wound vac in the R axilla/lateral wall with sponge that is about 4-5 in x 3 inch, surrounding erythema and induration better compared to yesterday, and he is less tender. No crepitus. Healed sternotomy incision C/W surgical history ABDOMEN: Soft, non-tender, nondistended. Bowel sounds present and normoactive. No guarding. No rebound. No organomegaly. EXTREMITIES: No clubbing, cyanosis, or edema. No calf tenderness. NEUROLOGICAL: Grossly non-focal. PSYCHIATRIC: Normal affect, calm and cooperative. LINE: No evidence of infection Assessment and Plan - Plan Impression Sepsis on admission due to a large abscess Abscess, cellulitis R axilla/R chest wall - S/P I and D - G/S GPC, C/S pending Renal insufficiency likely due to sepsis Fevers and leukocytosis, better Recommendation Continue Zosyn Continue IV Cubicin for MRSA coverage zabrina since his creatinine continues to worsen - follow CPK Follow creatinine - renal following Monitor temps Follow C/S and adjust Abx Monitor progress Further recommendations to follow regarding course of treatment once workup is completed D/W RN D/W Dr High ([facility])
--- NOTE | 2018-08-07 12:10 | P.PNNP ---
Subjective Interval history: renal function is worse. Discussed with ID. It appears that he received total of 3.5 grams of Vancomycin in 1 day. He has a Fraire catheter. He is weak. Physical Exam Vital signs: Vital Signs 08/06/18 16:00 08/06/18 20:00 08/07/18 00:00 Temperature 97.2 F L 97.6 F 97.6 F Pulse Rate 52 L 58 L 55 L Respiratory Rate 14 18 18 Blood Pressure 110/59 L 112/58 L 116/57 L Pulse Oximetry 96 95 96 08/07/18 04:00 08/07/18 08:00 Temperature 97.6 F 96.1 F L Pulse Rate 60 59 L Respiratory Rate 18 18 Blood Pressure 134/60 128/67 Pulse Oximetry 95 92 L Intake & Output 08/06/18 08/07/18 08/07/18 18:59 06:59 18:59 Intake Total 865 / 865 3354 / 3354 480 / 480 Output Total 150 / 150 Balance 865 / 865 3204 / 3204 480 / 480 Weight 108.2 kg Intake: IV 865 / 865 1100 / 1100 NS Inj 1,000 ML @ 84 mls/hr IV. 1000 / 1000 CONT .[id number] KADY Rx#:[id number] Cubicin Inj 450 MG In NS Inj 100 / 100 100 ML @ 200 mls/hr IV.SIG Q48H KADY Rx#:[id number] Zosyn 3.375 GM Premix 50 ML @ 50 / 50 100 / 100 100 mls/hr IV.SIG Q6H KADY Rx#: [id number] Zosyn 4.5 GM Premix 4.5 gm In 200 / 200 100 ml @ 200 mls/hr IV.SIG Q6H KADY Rx#:[id number] Vancomycin Inj 1,500 MG In NS 515 / 515 Inj 500 ML @ 250 mls/hr IV.SIG Q12H KADY Rx#:[id number] Oral 1000 / 1000 480 / 480 Other 1254 / 1254 Output: Urine 150 / 150 Other: Other Intake Source Saline Solution Date of Last Bowel Movement 08/03/18 08/03/18 08/05/18 Narrative: resting in bed in no acute distress. SKIN: RIGHT axillary swelling --- large indurated area in axillary region and anterior to; several small pustules; no drainage; tender to palpation. VAC in place HEAD: Atraumatic. Normocephalic. EYES: Pupils equal and round. No scleral icterus. No injection or drainage. ENT: No nasal bleeding or discharge. Mucous membranes pink and moist. NECK: Trachea midline. CARDIOVASCULAR: Regular rate and rhythm. RESPIRATORY: No accessory muscle use. Clear to auscultation. Breath sounds equal bilaterally. GASTROINTESTINAL: Abdomen soft, non-tender, nondistended. MUSCULOSKELETAL: Extremities without clubbing, cyanosis, or edema. No obvious deformities. NEUROLOGICAL: Awake and alert. No obvious cranial nerve deficits. Motor grossly within normal limits. Five out of 5 muscle strength in the arms and legs. Normal speech. PSYCHIATRIC: Appropriate mood and affect; insight and judgment normal. - Urinary Catheter Management Straight Cath placed during this visit: yes Reason for continuing: Acute urinary retention Insertion date: 08/06/18 Insertion time: 05:59 Assessment and Plan - Assessment (1) Acute kidney injury Code(s): N17.9 - Acute kidney failure, unspecified Status: Acute Plan: Could be due to sepsis, ATN. He did receive Vancomycin, 3.5 grams in 1 day. It is possible that we are dealing with Vancomycin induced nephrotoxicity. Reduce IVF. Remove Fraire catheter. No immediate need for dialysis. Avoid nephrotoxic agents. Monitor urine output and renal function. Renal US revealed no hydronephrosis. (2) Non-insulin treated type 2 diabetes mellitus Code(s): E11.9 - Type 2 diabetes mellitus without complications Status: Acute Plan: maintain blood sugar between 140 and 180 while hospitalized. Metformin should be stopped. (3) Abscess Code(s): L02.91 - Cutaneous abscess, unspecified Status: Acute Plan: s/p drainage, now has a wound Vac. (4) S/P CABG (coronary artery bypass graft) Code(s): Z95.1 - Presence of aortocoronary bypass graft Status: Acute
--- NOTE | 2018-08-07 12:14 | P.PN ---
Subjective Interval history: afebrile decrease urine output VAC site "tender" Physical Exam Vital signs: Vital Signs 08/06/18 16:00 08/06/18 20:00 08/07/18 00:00 Temperature 97.2 F L 97.6 F 97.6 F Pulse Rate 52 L 58 L 55 L Respiratory Rate 14 18 18 Blood Pressure 110/59 L 112/58 L 116/57 L Pulse Oximetry 96 95 96 08/07/18 04:00 08/07/18 08:00 Temperature 97.6 F 96.1 F L Pulse Rate 60 59 L Respiratory Rate 18 18 Blood Pressure 134/60 128/67 Pulse Oximetry 95 92 L Intake & Output 08/06/18 08/07/18 08/07/18 18:59 06:59 18:59 Intake Total 865 / 865 3354 / 3354 480 / 480 Output Total 150 / 150 Balance 865 / 865 3204 / 3204 480 / 480 Weight 108.2 kg Intake: IV 865 / 865 1100 / 1100 NS Inj 1,000 ML @ 84 mls/hr IV. 1000 / 1000 CONT .[id number] [facility] Rx#:[id number] Cubicin Inj 450 MG In NS Inj 100 / 100 100 ML @ 200 mls/hr IV.SIG Q48H [facility] Rx#:[id number] Zosyn 3.375 GM Premix 50 ML @ 50 / 50 100 / 100 100 mls/hr IV.SIG Q6H [facility] Rx#: [id number] Zosyn 4.5 GM Premix 4.5 gm In 200 / 200 100 ml @ 200 mls/hr IV.SIG Q6H [facility] Rx#:[id number] Vancomycin Inj 1,500 MG In NS 515 / 515 Inj 500 ML @ 250 mls/hr IV.SIG Q12H [facility] Rx#:[id number] Oral 1000 / 1000 480 / 480 Other 1254 / 1254 Output: Urine 150 / 150 Other: Other Intake Source Saline Solution Date of Last Bowel Movement 08/03/18 08/03/18 08/05/18 Narrative: resting in bed in no acute distress. RIGHT axillary swelling --- large indurated area in axillary region and anterior to; several small pustules; no drainage; tender to palpation. VAC in place Pupils equal and round. No scleral icterus. No injection or drainage. No nasal bleeding or discharge. Mucous membranes pink and moist. Trachea midline. Regular rate and rhythm. No accessory muscle use. Clear to auscultation. Breath sounds equal bilaterally. Abdomen soft, non-tender, nondistended. Extremities without clubbing, cyanosis, or edema. No obvious deformities. Awake and alert. No obvious cranial nerve deficits. Motor grossly within normal limits. Five out of 5 muscle strength in the arms and legs. Normal speech. Appropriate mood and affect; insight and judgment normal. - Urinary Catheter Management Straight Cath placed during this visit: yes Reason for continuing: Acute urinary retention Insertion date: 08/06/18 Insertion time: 05:59 Results - Labs CBC & Chem 7: 08/07/18 06:08 08/11/18 10:55 Laboratory Results - last 24 hr 08/06/18 08/06/18 08/06/18 11:06 12:42 15:00 WBC RBC Hgb Hct MCV MCH MCHC RDW Plt Count MPV Neut % (Auto) Lymph % (Auto) [place] % (Auto) Eos % (Auto) Baso % (Auto) Neut # (Auto) Lymph # (Auto) [place] # (Auto) Eos # (Auto) Baso # (Auto) WBC Differential Differential Comment Sodium Potassium Chloride Carbon Dioxide Anion Gap BUN Creatinine Estimated GFR POC Glucose 243 H Random Glucose Calcium Prot Corrected Calcium Total Creatine Kinase 23 L Total Protein Urine Color Urine Clarity Urine pH Ur Specific [place] Urine Protein Urine Glucose (UA) Urine Ketones Urine Occult Blood Urine Nitrate Urine Bilirubin Urine Urobilinogen Ur Leukocyte Esterase Urine RBC Urine WBC Urine WBC Clumps Amorphous Sediment Urine Bacteria Ur Microscopic Review Urine Eosinophils None seen Random Vancomycin 08/06/18 08/06/18 08/06/18 15:00 17:35 22:19 WBC RBC Hgb Hct MCV MCH MCHC RDW Plt Count MPV Neut % (Auto) Lymph % (Auto) [place] % (Auto) Eos % (Auto) Baso % (Auto) Neut # (Auto) Lymph # (Auto) [place] # (Auto) Eos # (Auto) Baso # (Auto) WBC Differential Differential Comment Sodium Potassium Chloride Carbon Dioxide Anion Gap BUN Creatinine Estimated GFR POC Glucose 293 H 261 H Random Glucose Calcium Prot Corrected Calcium Total Creatine Kinase Total Protein Urine Color Dark-yellow H Urine Clarity Cloudy H Urine pH 5.0 Ur Specific [place] 1.015 Urine Protein 100 H Urine Glucose (UA) 50 Urine Ketones Negative Urine Occult Blood Moderate H Urine Nitrate Negative Urine Bilirubin Negative Urine Urobilinogen 2.0 H Ur Leukocyte Esterase Trace H Urine RBC 15 H Urine WBC 5 Urine WBC Clumps Occasional H Amorphous Sediment Occasional H Urine Bacteria Occasional H Ur Microscopic Review Not Reportable Urine Eosinophils Random Vancomycin 08/07/18 08/07/18 08/07/18 06:08 06:08 08:40 WBC 10.0 RBC 3.21 L Hgb 10.8 L Hct 30.9 L MCV 96.2 MCH 33.8 MCHC 35.1 RDW 13.4 Plt Count 272 MPV 8.1 Neut % (Auto) 87.2 H Lymph % (Auto) 6.[address] % (Auto) 4.6 Eos % (Auto) 1.0 Baso % (Auto) 0.3 Neut # (Auto) 8.7 H Lymph # (Auto) 0.[address] # (Auto) 0.5 Eos # (Auto) 0.1 Baso # (Auto) 0.0 WBC Differential . Differential Comment Auto diff final Sodium 134 L Potassium 4.1 Chloride 100 Carbon Dioxide 21.3 Anion Gap 13 BUN 53 H Creatinine 3.90 H Estimated GFR 15 L POC Glucose 292 H Random Glucose 264 H Calcium 7.4 L* Prot Corrected Calcium 8.3 L Total Creatine Kinase Total Protein 5.4 L D Urine Color Urine Clarity Urine pH Ur Specific [place] Urine Protein Urine Glucose (UA) Urine Ketones Urine Occult Blood Urine Nitrate Urine Bilirubin Urine Urobilinogen Ur Leukocyte Esterase Urine RBC Urine WBC Urine WBC Clumps Amorphous Sediment Urine Bacteria Ur Microscopic Review Urine Eosinophils Random Vancomycin 23.1 Microbiology 08/05/18 18:17 Wound - Other Gram Stain - Final 08/05/18 18:17 Wound - Other Wound Culture - Preliminary - Imaging Impressions Abdomen/Bladder Ultrasound 08/06/18 00:00 CONCLUSION: 1. No evidence of hydronephrosis. The echogenicity of the kidneys is within normal limits. 2. Simple cyst in right kidney. - Procedures 08/05 Incision and drainage right axillary abscess with VAC placement Assessment and Plan - Plan 72-year-old male with history of diabetes, coronary artery disease status post CABG who presents with a 2-week history of progressively worsening sharp constant, nonradiating right axillary pain with cellulitis. Sepsis present on admission secondary to Right axillary abscess: growing MRSA S /P I and D 10/30 with VAC placement . +Leukocytosis WBC 17.5K. Afebrile. -Chest CT reviewed, shows Large heterogeneous collection of the right axilla and the lateral margin of pectoralis major as described. This appears to represent a lobulated mass or a multiloculated fluid collection or hematoma. - Vancomycin- - Discontinued 08/06 - Infectious disease ff- on Cubicin and Zosyn - GS ff- plan for VAC change tomorrow ACute KI- likely drug induced - oliguric History of BPH - remove matthews today - continue on flomax and Terazosin- home meds - urine eosinophils- negative - US-renal/bladder- unremarkable - continue IVF decrease rate 40 cc/hr - ff BMP. accutrate I and O - Vancomycin DC 08/06 - Nephrology ff along with us- -d/w him that may need HD if does not improve- patient agreeable HTN, CAD s/p CABG: chronic. BP fairly well controlled -continue patient's aspirin with hx of CABG -continue patient's terazosin -Monitor BP, adjust antihypertensives as needed Diabetes mellitus: chronic- high readings -DC metformin - with GRADY. Hold glipizide as well -Monitor Accu-checks and cover with SSI - check A1c - pending - will start standing Insulin bid post procedure tomrrow Hypothyroidism: chronic -continue patient's levothyroxine DVT Prophylaxis: teds/SCDs Heparin SQ for DVT prophylaxis
[2018-08-07] MEDS: Piperacil/Tazo 2.25 GM Premix 50 ML IV.SIG SCH ×2 (15:37→22:35)
[2018-08-07 16:31] LABS: Hemoglobin A1c 6.5 % (4.3-6.0)
[2018-08-08] MEDS: Piperacil/Tazo 2.25 GM Premix 50 ML IV.SIG SCH ×4 (05:40→21:28)
[2018-08-08] MEDS: Levothyroxine 88 MCG Tablet PO SCH (05:40)
[2018-08-08] MEDS: Sod Chloride 0.9% Inj 1,000 ML IV.CONT SCH ×2 (05:59→12:41)
[2018-08-08] MEDS: Insulin NovoLOG Aspart Correctional Sugar Inj SQ SCH ×4 (09:21→21:27)
[2018-08-08] MEDS: Senna/Docusate Sodium 8.6/50 MG Tablet PO SCH ×2 (09:22→21:28)
[2018-08-08 09:57] LABS: Albumin 1.7 g/dL (3.4-5.0); Calcium 7.7 mg/dL (8.5-10.1); Carbon Dioxide 17.7 meq/L (21.0-32.0); Potassium 4.2 meq/L (3.5-5.1)
[2018-08-08] MEDS ORDERED: Albumin Human 25% Inj 100 ML IV.SIG PRN (10:27)
[2018-08-08] MEDS ORDERED: Sod Chloride 0.9% Inj 1,000 ML OTHER PRN ×2 (10:27)
[2018-08-08] MEDS ORDERED: Heparin 10,000 UNITS/10 ML Vial (for IV use) OTHER PRN (10:27)
[2018-08-08] MEDS ORDERED: Sod Chloride 0.9% Inj 1,000 ML IV.CONT PRN (10:27)
[2018-08-08] MEDS ORDERED: Acetaminophen 325 MG Tablet PO PRN (10:27)
[2018-08-08] MEDS ORDERED: Gelatin 12 MM/7 MM Topical Foam TOPICAL PRN (10:27)
[2018-08-08] MEDS ORDERED: Lidocaine 1% Inj 50 ML Vial ONE (11:33)
[2018-08-08] MEDS ORDERED: Metoprolol Tartrate 25 MG Tablet PO ONE (12:30)
[2018-08-08] MEDS ORDERED: Sodium Chlor 0.9% Inj 500 ML IV.CONT ONE (12:30)
[2018-08-08] MEDS ORDERED: Chlorhexidine Gluconate 2% 1 Pack (2 Cloths) TOPICAL ONE (12:30)
[2018-08-08] MEDS ORDERED: Lidocaine PF 1% Inj 5 ML Syringe OTHER ONE (12:34)
[2018-08-08] MEDS ORDERED: fentaNYL Citrate Inj 100 MCG/2 ML Ampul ONE (13:24)
--- NOTE | 2018-08-08 13:26 | P.OP ---
- Preoperative Diagnosis (1) Abscess - Postoperative Diagnosis (1) Abscess Date of procedure: 08/08/18 Procedure: Irrigation and debridement right axilla with excision 25 cm skin and subcutaneous tissue Placement of negative pressure VAC dressing Anesthesia: JA Surgeon: Mic Estrada MD Go Cart Mechanic: Elida Oleary CFA Estimated blood loss (mL): 30 IV fluids (mL): 550 Pathology: none sent Operation and Findings: Patient was taken to the operating room after marking the right axilla. He was placed on the operating table in the supine position. After an adequate level of general endotracheal anesthesia was achieved the right axilla dressing was removed and the axillary region prepped with Betadine. The wound was draped. Time-out was taken, confirming the correct patient, site, and procedure to be performed. The wound was irrigated with approximately 2 L of antibiotic irrigation after removing the VAC sponges. Necrotic skin on the surface was excised sharply as was some subcutaneous tissue which was nonviable. When this had been completed , a VAC sponge was trimmed to size and 2 pieces were placed into the wound. The sponge was secured with adhesive and the suction apparatus re-engaged. Good seal was obtained. The patient was extubated and taken back to the recovery room in stable condition. Sponge and needle counts were reported to be correct.
--- NOTE | 2018-08-08 14:26 | P.PN ---
Subjective Interval history: awake and alert oriented x 3 back from surgery denies any pain d/w him needs to start HD agrees to this Physical Exam Vital signs: Vital Signs 08/07/18 16:00 08/07/18 20:00 08/08/18 00:00 Temperature 97.4 F L 97.6 F 97.7 F Pulse Rate 59 L 69 62 Respiratory Rate 20 18 18 Blood Pressure 144/65 H 124/77 136/73 Pulse Oximetry 98 96 95 08/08/18 04:00 08/08/18 08:00 08/08/18 13:21 Temperature 97.6 F 97.3 F L 98.2 F Pulse Rate 63 62 57 L Respiratory Rate 18 20 14 Blood Pressure 161/72 H 178/79 H 101/58 L Pulse Oximetry 95 96 98 08/08/18 13:30 08/08/18 14:03 Temperature 98.2 F 97.4 F L Pulse Rate 59 L 58 L Respiratory Rate 14 14 Blood Pressure 144/74 H 103/51 L Pulse Oximetry 98 96 Intake & Output 08/07/18 08/08/18 08/08/18 18:59 06:59 18:59 Intake Total 770 / 770 1100 / 1100 550 / 550 Output Total 150 / 150 300 / 300 30 / 30 Balance 620 / 620 800 / 800 520 / 520 Weight 108.3 kg Intake: IV 50 / 50 1100 / 1100 NS Inj 1,000 ML @ 40 mls/hr IV. 1000 / 1000 CONT .Q24H [facility] Rx#:[id number] Zosyn 2.25 GM Premix 50 ML @ 50 / 50 100 / 100 100 mls/hr IV.SIG Q8H [facility] Rx#: [id number] Oral 720 / 720 Anesthesia Amount 550 / 550 Output: Urine 150 / 150 300 / 300 Estimated Blood Loss 30 / 30 Other: Date of Last Bowel Movement 08/05/18 08/05/18 Narrative: resting in bed in no acute distress. RIGHT axillary swelling --- large indurated area in axillary region and anterior to; several small pustules; no drainage; tender to palpation. VAC in place Pupils equal and round. No scleral icterus. No injection or drainage. No nasal bleeding or discharge. Mucous membranes pink and moist. Trachea midline. Regular rate and rhythm. No accessory muscle use. Clear to auscultation. Breath sounds equal bilaterally. Abdomen soft, non-tender, nondistended. Extremities without clubbing, cyanosis, or edema. No obvious deformities. Awake and alert. No obvious cranial nerve deficits. Motor grossly within normal limits. Five out of 5 muscle strength in the arms and legs. Normal speech. Appropriate mood and affect; insight and judgment normal. - Urinary Catheter Management Straight Cath placed during this visit: yes, but has since been removed by the nurse Reason for continuing: Acute urinary retention Insertion date: 08/06/18 Insertion time: 05:59 Removal date: 08/07/18 Removal time: 12:44 Results - Labs CBC & Chem 7: 08/07/18 06:08 08/11/18 10:55 Laboratory Results - last 24 hr 08/07/18 08/07/18 08/07/18 06:08 17:25 22:32 Sodium Potassium Chloride Carbon Dioxide Anion Gap BUN Creatinine Estimated GFR POC Glucose 200 H 246 H Random Glucose Hemoglobin A1c 6.5 H Calcium Phosphorus Albumin 08/08/18 08/08/18 08:59 09:19 Sodium 135 L Potassium 4.2 Chloride 101 Carbon Dioxide 17.7 L Anion Gap 16 H BUN 65 H Creatinine 5.55 H Estimated GFR 10 L POC Glucose 237 H Random Glucose 238 H Hemoglobin A1c Calcium 7.7 L Phosphorus 6.0 H Albumin 1.7 L Microbiology 08/07/18 06:08 Blood - Peripheral Aerobic Blood Culture - Preliminary No growth in 1 day 08/07/18 06:08 Blood - Peripheral Anaerobic Blood Culture - Preliminary No growth in 1 day 08/07/18 06:00 Blood - Peripheral Aerobic Blood Culture - Preliminary No growth in 1 day 08/07/18 06:00 Blood - Peripheral Anaerobic Blood Culture - Preliminary No growth in 1 day 08/05/18 18:17 Wound - Other Gram Stain - Final 08/05/18 18:17 Wound - Other Wound Culture - Final S. aureus MRSA - Procedures 08/05 Incision and drainage right axillary abscess with VAC placement Assessment and Plan - Plan 72-year-old male with history of diabetes, coronary artery disease status post CABG who presents with a 2-week history of progressively worsening sharp constant, nonradiating right axillary pain with cellulitis. Sepsis present on admission secondary to Right axillary abscess: growing MRSA S /P I and D 08/05 with VAC placement S/P VAC change today 08/08 . +Leukocytosis WBC 17.5K. Afebrile. -Chest CT reviewed, shows Large heterogeneous collection of the right axilla and the lateral margin of pectoralis major as described. This appears to represent a lobulated mass or a multiloculated fluid collection or hematoma. - Vancomycin- - Discontinued 08/06 - Infectious disease ff- on Cubicin and Zosyn - GS ff- ACute KI- likely drug induced - oliguric- worsening renal functiions History of BPH - removed matthews 08/07 - continue on flomax and Terazosin- home meds - urine eosinophils- negative - US-renal/bladder- unremarkable - continue IVF decrease rate 40 cc/hr - ff BMP. accutrate I and O - Vancomycin DC 08/06 - Nephrology ff along with us- d/w Dr. Gonzalez- needs to start HD - ordered for Vascath - apparently IR does not feel he can give consent right now because just back from VZAC change - needs to place VAS cath- medically necessary HTN, CAD s/p CABG: chronic. BP fairly well controlled -continue patient's aspirin with hx of CABG -continue patient's terazosin -Monitor BP, adjust antihypertensives as needed Diabetes mellitus: chronic- high readings -Discontinued metformin - with GRADY. Hold glipizide as well -Monitor Accu-checks and cover with SSI - check A1c - pending - will start standing Insulin bid post procedure tomrrow Hypothyroidism: chronic -continue patient's levothyroxine DVT Prophylaxis: teds/SCDs Heparin SQ for DVT prophylaxis
--- NOTE | 2018-08-08 15:16 | P.PNNP ---
Subjective Interval history: Renal function is worse. He needs dialysis. Had I & D this morning, under anesthesia. According to radiology he cannot consent for VasCAth. Unable to reach his son or family. It is medically necessary for Vascath placement so that life saving dialysis can be performed. Physical Exam Vital signs: Vital Signs 08/07/18 16:00 08/07/18 20:00 08/08/18 00:00 Temperature 97.4 F L 97.6 F 97.7 F Pulse Rate 59 L 69 62 Respiratory Rate 20 18 18 Blood Pressure 144/65 H 124/77 136/73 Pulse Oximetry 98 96 95 08/08/18 04:00 08/08/18 08:00 08/08/18 13:21 Temperature 97.6 F 97.3 F L 98.2 F Pulse Rate 63 62 57 L Respiratory Rate 18 20 14 Blood Pressure 161/72 H 178/79 H 101/58 L Pulse Oximetry 95 96 98 08/08/18 13:30 08/08/18 14:03 Temperature 98.2 F 97.4 F L Pulse Rate 59 L 58 L Respiratory Rate 14 14 Blood Pressure 144/74 H 103/51 L Pulse Oximetry 98 96 Intake & Output 08/07/18 08/08/18 08/08/18 18:59 06:59 18:59 Intake Total 770 / 770 1100 / 1100 550 / 550 Output Total 150 / 150 300 / 300 30 / 30 Balance 620 / 620 800 / 800 520 / 520 Weight 108.3 kg Intake: IV 50 / 50 1100 / 1100 NS Inj 1,000 ML @ 40 mls/hr IV. 1000 / 1000 CONT .Q24H [facility] Rx#:[id number] Zosyn 2.25 GM Premix 50 ML @ 50 / 50 100 / 100 100 mls/hr IV.SIG Q8H [facility] Rx#: [id number] Oral 720 / 720 Anesthesia Amount 550 / 550 Output: Urine 150 / 150 300 / 300 Estimated Blood Loss 30 / 30 Other: Date of Last Bowel Movement 08/05/18 08/05/18 Narrative: resting in bed in no acute distress. RIGHT axillary swelling --- large indurated area in axillary region and anterior to; several small pustules; no drainage; tender to palpation. VAC in place Pupils equal and round. No scleral icterus. No injection or drainage. No nasal bleeding or discharge. Mucous membranes pink and moist. Trachea midline. Regular rate and rhythm. No accessory muscle use. Clear to auscultation. Breath sounds equal bilaterally. Abdomen soft, non-tender, nondistended. Extremities without clubbing, cyanosis, or edema. No obvious deformities. Awake and alert. No obvious cranial nerve deficits. Motor grossly within normal limits. Five out of 5 muscle strength in the arms and legs. Normal speech. Appropriate mood and affect; insight and judgment normal. - Urinary Catheter Management Straight Cath placed during this visit: yes, but has since been removed by the nurse Reason for continuing: Acute urinary retention Insertion date: 08/06/18 Insertion time: 05:59 Removal date: 08/07/18 Removal time: 12:44 Assessment and Plan - Assessment (1) Acute kidney injury Code(s): N17.9 - Acute kidney failure, unspecified Status: Acute Plan: Could be due to sepsis, ATN. He did receive Vancomycin, 3.5 grams in 1 day. It is possible that we are dealing with Vancomycin induced nephrotoxicity. Renal function has worsened. Needs dialysis. See below. Avoid nephrotoxic agents. Monitor urine output and renal function. Renal US revealed no hydronephrosis. (2) Non-insulin treated type 2 diabetes mellitus Code(s): E11.9 - Type 2 diabetes mellitus without complications Status: Acute Plan: maintain blood sugar between 140 and 180 while hospitalized. Metformin should be stopped. (3) Abscess Code(s): L02.91 - Cutaneous abscess, unspecified Status: Acute Plan: s/p drainage, now has a wound Vac. (4) S/P CABG (coronary artery bypass graft) Code(s): Z95.1 - Presence of aortocoronary bypass graft Status: Acute - Attending Attestation It is medically necessary for Vascath placement so that life saving dialysis can be performed.
[2018-08-08] MEDS ORDERED: *Heparin 10,000 UNITS/10 ML Vial Periprocedural ONLY ONE (15:30)
--- NOTE | 2018-08-08 16:10 | P.RAD ---
Post Procedure Progress Note - Procedure Information Procedure Date: 08/08/18 Supervising Radiologist: ISMAEL Kellogg Assisting Physician: Mamadou Acosta Estimated blood loss (mL): 2 Anesthesia: Local - Plan of Activity Patient to Unit: Other Patient Condition: Good See PACS Report for procedural detail/treatment.
--- NOTE | 2018-08-08 16:15 | IR ---
EXAM DATE: 08/08/2018 4:02 PM EDT AGE/SEX: 72 years / Male INDICATIONS: Patient with a history of renal disease. CLINICAL DATA: This is the patient's initial encounter. Patient reports that signs and symptoms have been present for 2 days and indicates a pain score of 0/10. MEDICAL/SURGICAL HISTORY: . CADDiabetesRenal disease . CABG COMPARISON: No prior exams available for comparison. FLUORO TIME (min): 0.1 IMAGE SERIES: 1 ACCESS SITE: Right internal jugular vein DEVICE(S): 14 Setswana double lumen 15CM Schon catheter . . PROCEDURE : 1. Ultrasound guided venipuncture. 2. Fluoroscopic guidance. 3. Central line placement. The risks, benefits and alternatives to the procedure were explained and verbal and written consent w as obtained. The site was prepped in sterile fashion. Full sterile technique was used, including ca p, mask, sterile gloves and gown and a large sterile sheet. Hand hygiene and 2% chlorhexidine prep w as utilized per protocol for cutaneous antisepsis with appropriate dry time for site. Sterile gel an d sterile probe cover were utilized for ultrasound guidance. The skin and subcutaneous tissues were infiltrated with local anesthetic solution. A suitable site a clif[place] the vein was selected with ultrasound and fluoroscopic guidance. A small incision was made. Th e vein was accessed under direct ultrasound visualization using the micropuncture technique. The lance ropuncture set was exchanged for a 0.035 wire. The tract was dilated. The catheter was advanced int o position under direct fluoroscopic visualization, and was advanced with the tip at the junction of the superior vena cava and rt atrium. The catheter was fixed in place with suture and a sterile dres sing was applied. The patient tolerated the procedure well and there were no complications. CONCLUSION: 1. Uncomplicated line placement as above. Electronically signed by: Mamadou Acosta MD 08/08/2018 4:13 PM EDT
--- NOTE | 2018-08-08 17:38 | P.PNID ---
Subjective Remarks: Patient is a 72-year-old male presented to the hospital complaining of pain and swelling in his right axilla and right chest wall. Patient was seen in the emergency room about 10 days ago complaining of pain and knot in his right axilla. He was diagnosed to have a possible lymphadenitis, and he was given clindamycin and was discharged home. Patient stated that he was compliant with his antibiotics. The area however started getting worse with increasing pain swelling so he presented to the hospital for further evaluation and treatment. He denies any fever chills or sweats. Denies any GI or any urinary complaints. Patient denies any previous history of skin and soft tissue infection. He denies any trauma. He has not been exposed to any animals particularly cats. Patient stated that there is a fairly CAD in their neighborhood but he never really messed up with that. Patient since admission had some low-grade temps. His initial white count was 17,000. CT of the chest showing a multiloculated fluid collection in the right axilla extending into the lateral aspect of the pectoralis major. Surgery saw the patient and he had I&D of a multiloculated abscess. Patient currently has a wound VAC in place. He is stating that the pain is better. His temperatures are better. His WBC is down to 14,000. Culture from surgery still pending, but Gram stain is showing gram-positive cocci in clusters. Patient is currently on vancomycin and Zosyn. His creatinine is elevated on admission. It was normal when he was seen in the emergency room about 10 days ago. Infectious disease consultation has been requested to assist with evaluation and treatment of a right axillary abscess. Notes reviewed temps ok Creatinine continues to rise UO low Went to OR today - repeat debridement and vac change HD planned due to worsening renal function Has vascath placed BC negative Wound C/S MRSA WBC lower Antibiotics: Cubicin Zosyn Lines: PIV Past Medical History: CAB S/P CABG DM Allergies/Adverse Reactions: Allergies No Known Allergies Allergy (Verified 08/04/18 22:44) Objective Vital Signs 08/07/18 20:00 08/08/18 00:00 08/08/18 04:00 Temperature 97.6 F 97.7 F 97.6 F Pulse Rate 69 62 63 Respiratory Rate Blood Pressure 124/77 136/73 161/72 H Pulse Oximetry 96 95 95 08/08/18 08:00 08/08/18 13:21 08/08/18 13:30 Temperature 97.3 F L 98.2 F 98.2 F Pulse Rate 62 57 L 59 L Respiratory Rate 20 14 14 Blood Pressure 178/79 H 101/58 L 144/74 H Pulse Oximetry 96 98 98 08/08/18 14:03 Temperature 97.4 F L Pulse Rate 58 L Respiratory Rate 14 Blood Pressure 103/51 L Pulse Oximetry 96 Intake & Output 08/07/18 08/08/18 08/08/18 18:59 06:59 18:59 Intake Total 770 / 770 1100 / 1100 550 / 550 Output Total 150 / 150 300 / 300 30 / 30 Balance 620 / 620 800 / 800 520 / 520 Weight 108.3 kg Intake: IV 50 / 50 1100 / 1100 NS Inj 1,000 ML @ 40 mls/hr IV. 1000 / 1000 CONT .Q24H [facility] Rx#:[id number] Zosyn 2.25 GM Premix 50 ML @ 50 / 50 100 / 100 100 mls/hr IV.SIG Q8H [facility] Rx#: [id number] Oral 720 / 720 Anesthesia Amount 550 / 550 Output: Urine 150 / 150 300 / 300 Estimated Blood Loss 30 30 Other: Date of Last Bowel Movement 08/05/18 08/05/18 08/07/18 06:08 Blood - Peripheral Aerobic Blood Culture - Preliminary No growth in 1 day 08/07/18 06:08 Blood - Peripheral Anaerobic Blood Culture - Preliminary No growth in 1 day 08/07/18 06:00 Blood - Peripheral Aerobic Blood Culture - Preliminary No growth in 1 day 08/07/18 06:00 Blood - Peripheral Anaerobic Blood Culture - Preliminary No growth in 1 day 08/05/18 18:17 Wound - Other Gram Stain - Final 08/05/18 18:17 Wound - Other Wound Culture - Final S. aureus MRSA Lab - Hematology Results 08/07/18 06:08 WBC 10.0 RBC 3.21 L Hgb 10.8 L Hct 30.9 L MCV 96.2 MCH 33.8 MCHC 35.1 RDW 13.4 Plt Count 272 MPV 8.1 Neut % (Auto) 87.2 H Lymph % (Auto) 6.9 L [place] % (Auto) 4.6 Eos % (Auto) 1.0 Baso % (Auto) 0.3 Neut # (Auto) 8.7 H Lymph # (Auto) 0.7 L [place] # (Auto) 0.5 Eos # (Auto) 0.1 Baso # (Auto) 0.0 WBC Differential . Differential Comment Auto diff final Lab - Chemistry Results 08/06/18 08/06/18 08/07/18 17:35 22:19 06:08 Sodium 134 L Potassium 4.1 Chloride 100 Carbon Dioxide 21.3 Anion Gap 13 BUN 53 H Creatinine 3.90 H Estimated GFR 15 L POC Glucose 293 H 261 H Random Glucose 264 H Hemoglobin A1c Calcium 7.4 L* Prot Corrected Calcium 8.3 L Phosphorus Total Protein 5.4 L D Albumin 08/07/18 08/07/18 08/07/18 06:08 08:40 12:06 Sodium Potassium Chloride Carbon Dioxide Anion Gap BUN Creatinine Estimated GFR POC Glucose 292 H 254 H Random Glucose Hemoglobin A1c 6.5 H Calcium Prot Corrected Calcium Phosphorus Total Protein Albumin 08/07/18 08/07/18 08/08/18 17:25 22:32 08:59 Sodium 135 L Potassium 4.2 Chloride 101 Carbon Dioxide 17.7 L Anion Gap 16 H BUN 65 H Creatinine 5.55 H Estimated GFR 10 L POC Glucose 200 H 246 H Random Glucose 238 H Hemoglobin A1c Calcium 7.7 L Prot Corrected Calcium Phosphorus 6.0 H Total Protein Albumin 1.7 L 08/08/18 09:19 Sodium Potassium Chloride Carbon Dioxide Anion Gap BUN Creatinine Estimated GFR POC Glucose 237 H Random Glucose Hemoglobin A1c Calcium Prot Corrected Calcium Phosphorus Total Protein Albumin Imaging: ITS Impressions Chest CT 08/05/18 00:03 CONCLUSION: 1. Large heterogeneous collection of the right axilla and the lateral margin of pectoralis major as described. This appears to represent a lobulated mass or a multiloculated fluid collection or hematoma. Infectious and neoplastic etiologies are both in the differential. 2. Mild atelectasis of the lung bases and a 5 mm left upper lobe pulmonary nodule. 3. Previous median sternotomy and CABG. 4. Cholelithiasis. 5. No acute osseous abnormality. Abdomen/Bladder Ultrasound 08/06/18 00:00 CONCLUSION: 1. No evidence of hydronephrosis. The echogenicity of the kidneys is within normal limits. 2. Simple cyst in right kidney. Catheter Placement 08/08/18 00:00 CONCLUSION: 1. Uncomplicated line placement as above. Physical Exam: GENERAL: awake and alert, NAD SKIN: Warm and dry. No generalized rash HEAD: Atraumatic. Normocephalic. No temporal wasting, or tenderness. EYES: [place] conjunctiva. No petechia or hemorrhage. No scleral icterus. No injection or drainage. EARS, NOSE AND THROAT: Nose without bleeding or purulent nasal discharge. No sinus tenderness. Mucous membranes pink and moist. No oral lesions noted. No exudate. No oral thrush. Poor dentition NECK: Trachea midline. Supple and not tender, no meningeal signs CARDIOVASCULAR: Regular rate and rhythm. No murmurs, rubs or gallops heard RESPIRATORY: Clear to auscultation. Breath sounds equal bilaterally. No rales , wheezing or rhonchi. He has a wound vac in the R axilla/lateral wall No crepitus. Healed sternotomy incision C/W surgical history ABDOMEN: Soft, non-tender, nondistended. Bowel sounds present and normoactive. No guarding. No rebound. No organomegaly. EXTREMITIES: No clubbing, cyanosis, or edema. No calf tenderness. NEUROLOGICAL: Grossly non-focal. PSYCHIATRIC: Normal affect, calm and cooperative. LINE: No evidence of infection Assessment and Plan - Plan Impression Sepsis on admission due to a large abscess Abscess, cellulitis R axilla/R chest wall - S/P I and D - G/S GPC, C/S pending Renal failure, tp be started on HD, ?due to sepsis, ?due to vancomycin Fevers and leukocytosis, better Recommendation Stop Zosyn Continue IV Cubicin for MRSA coverage zabrina since his creatinine continues to worsen - follow CPK Monitor temps Monitor progress To be started on HD
[2018-08-09] MEDS: Piperacil/Tazo 2.25 GM Premix 50 ML IV.SIG SCH (06:07)
[2018-08-09] MEDS: Levothyroxine 88 MCG Tablet PO SCH (06:07)
[2018-08-09] MEDS: Insulin NovoLOG Aspart Correctional Sugar Inj SQ SCH ×4 (09:14→22:55)
[2018-08-09] MEDS: Senna/Docusate Sodium 8.6/50 MG Tablet PO SCH ×3 (09:14→23:18)
--- NOTE | 2018-08-09 11:30 | P.PNGS ---
Subjective Patient reports: no new complaints (vac good seal), pain is less Physical Exam Vital signs: Vital Signs 08/08/18 13:21 08/08/18 13:30 08/08/18 14:03 Temperature 98.2 F 98.2 F 97.4 F L Pulse Rate 57 L 59 L 58 L Respiratory Rate 14 14 14 Blood Pressure 101/58 L 144/74 H 103/51 L Pulse Oximetry 98 98 96 08/08/18 20:00 08/09/18 00:00 08/09/18 04:00 Temperature 97.2 F L 97.6 F 97.7 F Pulse Rate 73 65 64 Respiratory Rate 18 18 18 Blood Pressure 137/74 121/65 148/67 H Pulse Oximetry 95 96 95 08/09/18 08:00 Temperature 97.9 F Pulse Rate 64 Respiratory Rate 17 Blood Pressure 153/74 H Pulse Oximetry 95 Intake & Output 08/08/18 08/09/18 08/09/18 18:59 06:59 18:59 Intake Total 600 / 600 100 / 100 Output Total 30 30 250 / 250 Balance 570 / 570 -150 / -150 Weight 110.7 kg Intake: IV 50 / 50 100 / 100 Zosyn 2.25 GM Premix 50 ML @ 50 / 50 100 / 100 100 mls/hr IV.SIG Q8H [facility] Rx#: [id number] Anesthesia Amount 550 / 550 Output: Urine 250 / 250 Estimated Blood Loss 30 Other: Mode Setting Right Axilla Continuous Continuous Date of Last Bowel Movement 08/08/18 - Routine Extremities Exam Present: tenderness (vac good seal, no leak) - Urinary Catheter Management Straight Cath placed during this visit: yes, but has since been removed by the nurse Reason for continuing: Acute urinary retention Insertion date: 08/06/18 Insertion time: 05:59 Removal date: 08/07/18 Removal time: 12:44 Results - Labs 08/07/18 06:08 08/08/18 08:59 Laboratory Results - last 24 hr 08/08/18 08/08/18 08/09/18 18:56 21:15 07:48 POC Glucose 156 H 226 H 245 H - Imaging Imaging: ITS Impressions Chest CT 08/05/18 00:03 CONCLUSION: 1. Large heterogeneous collection of the right axilla and the lateral margin of pectoralis major as described. This appears to represent a lobulated mass or a multiloculated fluid collection or hematoma. Infectious and neoplastic etiologies are both in the differential. 2. Mild atelectasis of the lung bases and a 5 mm left upper lobe pulmonary nodule. 3. Previous median sternotomy and CABG. 4. Cholelithiasis. 5. No acute osseous abnormality. Abdomen/Bladder Ultrasound 08/06/18 00:00 CONCLUSION: 1. No evidence of hydronephrosis. The echogenicity of the kidneys is within normal limits. 2. Simple cyst in right kidney. Catheter Placement 08/08/18 00:00 CONCLUSION: 1. Uncomplicated line placement as above. Assessment and Plan - Assessment (1) Abscess Code(s): L02.91 - Cutaneous abscess, unspecified Status: Acute Plan: 72 year old male with RIGHT axillary abscess; s/p incision and drainage of RIGHT axillary abscess with vac -Continue Wound Vac -abx titrate to renal fxn -Plan for OR for wound vac change 2-3 days -Regular diet today; -Creatinine elevated; Nephrology following - defer to them for mgnt -ID following
--- NOTE | 2018-08-09 13:13 | P.PN ---
Subjective Interval history: oliguric no fever minmal pain Physical Exam Vital signs: Vital Signs 08/08/18 13:21 08/08/18 13:30 08/08/18 14:03 Temperature 98.2 F 98.2 F 97.4 F L Pulse Rate 57 L 59 L 58 L Respiratory Rate 14 14 14 Blood Pressure 101/58 L 144/74 H 103/51 L Pulse Oximetry 98 98 96 08/08/18 20:00 08/09/18 00:00 08/09/18 04:00 Temperature 97.2 F L 97.6 F 97.7 F Pulse Rate 73 65 64 Respiratory Rate 18 18 18 Blood Pressure 137/74 121/65 148/67 H Pulse Oximetry 95 96 95 08/09/18 08:00 08/09/18 08:45 08/09/18 12:00 Temperature 97.9 F 97.2 F L Pulse Rate 64 59 L Respiratory Rate 17 17 Blood Pressure 153/74 H 150/70 H Pulse Oximetry 95 94 L 96 Intake & Output 08/08/18 08/09/18 08/09/18 18:59 06:59 18:59 Intake Total 600 / 600 100 / 100 Output Total 30 / 30 250 / 250 Balance 570 / 570 -150 / -150 Weight 110.7 kg Intake: IV 50 / 50 100 / 100 Zosyn 2.25 GM Premix 50 ML @ 50 / 50 100 / 100 100 mls/hr IV.SIG Q8H [facility] Rx#: [id number] Anesthesia Amount 550 / 550 Output: Urine 250 / 250 Estimated Blood Loss 30 / 30 Other: Mode Setting Right Axilla Continuous Continuous Date of Last Bowel Movement 08/08/18 Narrative: in no acute distress. RIGHT axillary swelling --- large indurated area in axillary region and anterior to; several small pustules; no drainage; tender to palpation. VAC in place Pupils equal and round. No scleral icterus. No injection or drainage. No nasal bleeding or discharge. Mucous membranes pink and moist. Trachea midline. Regular rate and rhythm. No accessory muscle use. Clear to auscultation. Breath sounds equal bilaterally. Abdomen soft, non-tender, nondistended. Right EU- swelling- VAC in place- axillary Area Awake and alert. No obvious cranial nerve deficits. Motor grossly within normal limits. Five out of 5 muscle strength in the arms and legs. Normal speech. Appropriate mood and affect; insight and judgment normal. - Urinary Catheter Management Straight Cath placed during this visit: yes, but has since been removed by the nurse Reason for continuing: Acute urinary retention Insertion date: 08/06/18 Insertion time: 05:59 Removal date: 08/07/18 Removal time: 12:44 Results - Labs CBC & Chem 7: 08/07/18 06:08 08/11/18 10:55 Laboratory Results - last 24 hr 08/08/18 08/08/18 08/09/18 18:56 21:15 07:48 POC Glucose 156 H 226 H 245 H 08/09/18 12:32 POC Glucose 264 H Microbiology 08/07/18 06:08 Blood - Peripheral Aerobic Blood Culture - Preliminary No growth in 2 days 08/07/18 06:08 Blood - Peripheral Anaerobic Blood Culture - Preliminary No growth in 2 days 08/07/18 06:00 Blood - Peripheral Aerobic Blood Culture - Preliminary No growth in 2 days 08/07/18 06:00 Blood - Peripheral Anaerobic Blood Culture - Preliminary No growth in 2 days 08/05/18 18:17 Wound - Other Gram Stain - Final 08/05/18 18:17 Wound - Other Wound Culture - Final S. aureus MRSA - Imaging Impressions Catheter Placement 08/08/18 00:00 CONCLUSION: 1. Uncomplicated line placement as above. - Procedures 08/05 Incision and drainage right axillary abscess with VAC placement Assessment and Plan - Plan 72-year-old male with history of diabetes, coronary artery disease status post CABG who presents with a 2-week history of progressively worsening sharp constant, nonradiating right axillary pain with cellulitis. Sepsis present on admission secondary to Right axillary abscess: growing MRSA S/P I and D 08/05 with VAC placement S/P VAC change 08/08 . +Leukocytosis WBC 17.5K. - down to 10 -Chest CT reviewed, shows Large heterogeneous collection of the right axilla and the lateral margin of pectoralis major as described. This appears to represent a lobulated mass or a multiloculated fluid collection or hematoma. - Vancomycin- - Discontinued 08/06 - Infectious disease ff- on Cubicin - ff- - check doppler r/o DVT ACute KI- likely drug induced - oliguric- worsening renal functiions History of BPH - removed matthews 08/07 - continue on flomax and Terazosin- home meds - urine eosinophils- negative - US-renal/bladder- unremarkable - continue IVF decrease rate 40 cc/hr - ff BMP. accutrate I and O - Vancomycin DC 08/06 - Nephrology ff along with us- d/w Dr. Gonzalez- needs to start HD - ordered for Vascath - [facility] - HD today HTN, CAD s/p CABG: chronic. BP fairly well controlled -continue patient's aspirin with hx of CABG -continue patient's terazosin -Monitor BP, adjust antihypertensives as needed Diabetes mellitus: chronic- high readings -Discontinued metformin - with GRADY. Discontinued glipizide as well -Monitor Accu-checks and cover with SSI -A1C 6.5 - will start standing Insulin eventually Hypothyroidism: chronic -continue patient's levothyroxine DVT Prophylaxis: teds/SCDs Heparin SQ for DVT prophylaxis
[2018-08-09 14:07] LABS: Calcium 7.3 mg/dL (8.5-10.1); Carbon Dioxide 28.7 meq/L (21.0-32.0); Potassium 4.1 meq/L (3.5-5.1)
[2018-08-09 14:31] LABS: Calcium-Albumin Corrected 8.5 mg/dL (8.5-10.1); Total Protein 4.9 g/dL (6.4-8.2)
[2018-08-09 14:53] LABS: Hepatitits B Surface Antigen Nonreactive (Nonreactive)
[2018-08-09 15:06] LABS: Hepatitis A IgM Antibody Nonreactive (Nonreactive)
--- NOTE | 2018-08-09 17:35 | P.PNNP ---
Physical Exam Vital signs: Vital Signs 08/08/18 20:00 08/09/18 00:00 08/09/18 04:00 Temperature 97.2 F L 97.6 F 97.7 F Pulse Rate 73 65 64 Respiratory Rate 18 18 Blood Pressure 137/74 121/65 148/67 H Pulse Oximetry 95 96 95 08/09/18 08:00 08/09/18 08:45 08/09/18 12:00 Temperature 97.9 F 97.2 F L Pulse Rate 64 59 L Respiratory Rate 17 17 Blood Pressure 153/74 H 150/70 H Pulse Oximetry 95 94 L 96 08/09/18 16:00 Temperature 97.2 F L Pulse Rate 73 Respiratory Rate 17 Blood Pressure 147/71 H Pulse Oximetry 96 Intake & Output 08/08/18 08/09/18 08/09/18 18:59 06:59 18:59 Intake Total 600 / 600 100 / 100 Output Total 30 / 30 250 / 250 3200 / 3200 Balance 570 / 570 -150 / -150 -3200 / -3200 Weight 110.7 kg Intake: IV 50 / 50 100 / 100 Zosyn 2.25 GM Premix 50 ML @ 50 / 50 100 / 100 100 mls/hr IV.SIG Q8H [facility] Rx#: [id number] Anesthesia Amount 550 / 550 Output: Urine 250 / 250 700 / 700 Hemodialysis Amount 2500 / 2500 Estimated Blood Loss Other: Mode Setting Right Axilla Continuous Continuous Date of Last Bowel Movement 08/08/18 08/09/18 # Bowel Movements 1 Narrative: in no acute distress. RIGHT axillary swelling --- large indurated area in axillary region and anterior to; several small pustules; no drainage; tender to palpation. VAC in place Pupils equal and round. No scleral icterus. No injection or drainage. No nasal bleeding or discharge. Mucous membranes pink and moist. Trachea midline. Regular rate and rhythm. No accessory muscle use. Clear to auscultation. Breath sounds equal bilaterally. Abdomen soft, non-tender, nondistended. Right EU- swelling- VAC in place- axillary Area Awake and alert. No obvious cranial nerve deficits. Motor grossly within normal limits. Five out of 5 muscle strength in the arms and legs. Normal speech. Appropriate mood and affect; insight and judgment normal. - Urinary Catheter Management Straight Cath placed during this visit: yes, but has since been removed by the nurse Reason for continuing: Acute urinary retention Insertion date: 08/06/18 Insertion time: 05:59 Removal date: 08/07/18 Removal time: 12:44 Assessment and Plan - Assessment (1) Acute kidney injury Code(s): N17.9 - Acute kidney failure, unspecified Status: Acute Plan: Could be due to sepsis, ATN. He did receive Vancomycin, 3.5 grams in 1 day. It is possible that we are dealing with Vancomycin induced nephrotoxicity. Renal function has worsened. Patient has hemodialysis 2.5 L was removed tolerated well Dr. Gonzalez to follow (2) Non-insulin treated type 2 diabetes mellitus Code(s): E11.9 - Type 2 diabetes mellitus without complications Status: Acute Plan: maintain blood sugar between 140 and 180 while hospitalized. Metformin should be stopped. (3) Abscess Code(s): L02.91 - Cutaneous abscess, unspecified Status: Acute Plan: s/p drainage, now has a wound Vac. (4) S/P CABG (coronary artery bypass graft) Code(s): Z95.1 - Presence of aortocoronary bypass graft Status: Acute
--- NOTE | 2018-08-09 20:15 | US ---
EXAM DATE: 08/09/2018 8:10 PM EDT AGE/SEX: 72 years / Male INDICATIONS: Right arm selling. CLINICAL DATA: This is the patient's initial encounter. Patient reports that signs and symptoms have been present for 1 day and indicates a pain score of 1/10. MEDICAL/SURGICAL HISTORY: Diabetes. CAD. MDRO CABG. COMPARISON: No prior exams available for comparison. FINDINGS: The vessels are compressible and augmentation response is documented. No filling defects a re seen. The flow is phasic with respiration. Other: 3.5 cm fluid collection seen medial to the right shoulder. CONCLUSION: 1. No venous thrombosis seen of the right upper extremity. 2. There is a fluid collection near the right shoulder, nonspecific but a seroma or some fluid in th e subcoracoid recess considered most likely. Electronically signed by: Qamar Davis MD 08/09/2018 8:14 PM EDT
[2018-08-10] MEDS: Levothyroxine 88 MCG Tablet PO SCH (06:35)
[2018-08-10] MEDS: Insulin NovoLOG Aspart Correctional Sugar Inj SQ SCH ×4 (09:05→22:32)
[2018-08-10] MEDS: Senna/Docusate Sodium 8.6/50 MG Tablet PO SCH ×2 (09:07→22:32)
--- NOTE | 2018-08-10 10:57 | P.PN ---
Subjective Interval history: awake and alert, afebrile some discomfort on right axillary area no diarrhea Physical Exam Vital signs: Vital Signs 08/09/18 12:00 08/09/18 16:00 08/09/18 20:00 Temperature 97.2 F L 97.2 F L 97.5 F L Pulse Rate 59 L 73 70 Respiratory Rate 17 17 20 Blood Pressure 150/70 H 147/71 H 129/62 Pulse Oximetry 96 96 92 L 08/10/18 00:00 08/10/18 04:00 08/10/18 08:00 Temperature 97.9 F 97.8 F 98.1 F Pulse Rate 61 60 61 Respiratory Rate 20 20 18 Blood Pressure 163/72 H 168/77 H 151/72 H Pulse Oximetry 95 92 L 94 L Intake & Output 08/09/18 08/10/18 08/10/18 19:59 06:59 18:59 Output Total 200 / 200 Balance -200 / -200 Weight Output: Urine 200 / 200 Hemodialysis Amount Other: Mode Setting Right Axilla Date of Last Bowel Movement # Bowel Movements Narrative: in no acute distress. RIGHT axillary swelling ---VAC in place, some tenderness on palpation VAs cath in place Pupils equal and round. No scleral icterus. No injection or drainage. No nasal bleeding or discharge. Mucous membranes pink and moist. Regular rate and rhythm. No accessory muscle use. Clear to auscultation. Breath sounds equal bilaterally. Abdomen soft, non-tender, nondistended. extremities no edema - Urinary Catheter Management Straight Cath placed during this visit: yes, but has since been removed by the nurse Reason for continuing: Acute urinary retention Insertion date: 08/06/18 Insertion time: 05:59 Removal date: 08/07/18 Removal time: 12:44 Results - Labs CBC & Chem 7: 08/07/18 06:08 08/11/18 10:55 Laboratory Results - last 24 hr 08/09/18 08/09/18 08/09/18 12:32 13:15 13:15 Sodium 139 Potassium 4.1 Chloride 101 Carbon Dioxide 28.7 D Anion Gap 9 BUN 48 H Creatinine 5.33 H Estimated GFR 11 L POC Glucose 264 H Random Glucose 229 H Calcium 7.3 L* Prot Corrected Calcium 8.5 Total Protein 4.9 L Hepatitis A IgM Ab Nonreactive Hep Bs Antigen Nonreactive Hep B Core IgM Ab Nonreactive Hep C IgG Ab Nonreactive 11/03/18 11/03/18 11/03/18 15:47 16:28 22:21 Sodium Potassium Chloride Carbon Dioxide Anion Gap BUN Creatinine Estimated GFR POC Glucose 152 H 172 H 206 H Random Glucose Calcium Prot Corrected Calcium Total Protein Hepatitis A IgM Ab Hep Bs Antigen Hep B Core IgM Ab Hep C IgG Ab 08/10/18 07:42 Sodium Potassium Chloride Carbon Dioxide Anion Gap BUN Creatinine Estimated GFR POC Glucose 206 H Random Glucose Calcium Prot Corrected Calcium Total Protein Hepatitis A IgM Ab Hep Bs Antigen Hep B Core IgM Ab Hep C IgG Ab Microbiology 08/07/18 06:08 Blood - Peripheral Aerobic Blood Culture - Preliminary No growth in 2 days 08/07/18 06:08 Blood - Peripheral Anaerobic Blood Culture - Preliminary No growth in 2 days 08/07/18 06:00 Blood - Peripheral Aerobic Blood Culture - Preliminary No growth in 2 days 08/07/18 06:00 Blood - Peripheral Anaerobic Blood Culture - Preliminary No growth in 2 days - Imaging Impressions Venous Doppler Study 08/09/18 00:00 CONCLUSION: 1. No venous thrombosis seen of the right upper extremity. 2. There is a fluid collection near the right shoulder, nonspecific but a seroma or some fluid in the subcoracoid recess considered most likely. - Procedures 08/05 Incision and drainage right axillary abscess with VAC placement Assessment and Plan - Plan 72-year-old male with history of diabetes, coronary artery disease status post CABG who presents with a 2-week history of progressively worsening sharp constant, nonradiating right axillary pain with cellulitis. Sepsis present on admission secondary to Right axillary abscess: growing MRSA S/P I and D 08/05 with VAC placement S/P VAC change 08/08 . +Leukocytosis WBC 17.5K. - down to 10 -Chest CT reviewed, shows Large heterogeneous collection of the right axilla and the lateral margin of pectoralis major as described. This appears to represent a lobulated mass or a multiloculated fluid collection or hematoma. - Vancomycin- - Discontinued 08/06 - Infectious disease ff- on Cubicin - ff- - check doppler r/o DVT- no DVT ACute KI- likely drug induced - oliguric- worsening renal functiions History of BPH - removed matthews 08/07 - continue on flomax and Terazosin- home meds - urine eosinophils- negative - US-renal/bladder- unremarkable - ff BMP. accutrate I and O - Vancomycin DC 08/06 - Nephrology ff along with us- d/w Dr. Gonzalez- - [facility] - hemodialysisi initiated 08/09 - ff BMP HTN, CAD s/p CABG: chronic. BP fairly well controlled -continue patient's aspirin with hx of CABG -continue patient's terazosin -Monitor BP, adjust antihypertensives as needed Diabetes mellitus: chronic- high readings -Discontinued metformin - with GRADY. Discontinued glipizide as well -Monitor Accu-checks and cover with SSI -A1C 6.5 - will start standing Insulin eventually Hypothyroidism: chronic -continue patient's levothyroxine DVT Prophylaxis: teds/SCDs Heparin SQ for DVT prophylaxis
[2018-08-10 14:55] LABS: Calcium 8.2 mg/dL (8.5-10.1); Carbon Dioxide 26.5 meq/L (21.0-32.0); Potassium 3.9 meq/L (3.5-5.1)
[2018-08-10] MEDS: SODIUM CHLOR 0.9% IV.SIG SCH (15:39)
[2018-08-10] MEDS: DAPTOMYCIN IV.SIG SCH (15:39)
--- NOTE | 2018-08-10 18:03 | P.PNNP ---
Subjective Interval history: Patient on dialysis Physical Exam Vital signs: Vital Signs 08/09/18 20:00 08/10/18 00:00 08/10/18 04:00 Temperature 97.5 F L 97.9 F 97.8 F Pulse Rate 70 61 60 Respiratory Rate 20 20 20 Blood Pressure 129/62 163/72 H 168/77 H Pulse Oximetry 92 L 95 92 L 08/10/18 08:00 08/10/18 11:15 08/10/18 12:00 Temperature 98.1 F 99.4 F Pulse Rate 61 75 Respiratory Rate 18 18 Blood Pressure 151/72 H 132/85 Pulse Oximetry 94 L 98 98 08/10/18 16:00 Temperature 97.5 F L Pulse Rate 59 L Respiratory Rate 18 Blood Pressure 138/66 Pulse Oximetry 93 L Intake & Output 08/09/18 08/10/18 08/10/18 19:59 06:59 18:59 Intake Total 700 / 700 Output Total 800 / 800 Balance -100 / -100 Weight Intake: IV 100 / 100 Cubicin Inj 450 MG In NS Inj 100 / 100 100 ML @ 200 mls/hr IV.SIG Q48H KADY Rx#:[id number] Oral 600 / 600 Output: Urine 800 / 800 Hemodialysis Amount Other: Mode Setting Right Axilla Date of Last Bowel Movement 08/09/18 # Bowel Movements 1 Narrative: in no acute distress. RIGHT axillary swelling ---VAC in place, some tenderness on palpation VAs cath in place Pupils equal and round. No scleral icterus. No injection or drainage. No nasal bleeding or discharge. Mucous membranes pink and moist. Regular rate and rhythm. No accessory muscle use. Clear to auscultation. Breath sounds equal bilaterally. Abdomen soft, non-tender, nondistended. extremities no edema - Urinary Catheter Management Straight Cath placed during this visit: yes, but has since been removed by the nurse Reason for continuing: Acute urinary retention Insertion date: 08/06/18 Insertion time: 05:59 Removal date: 08/07/18 Removal time: 12:44 Assessment and Plan - Assessment (1) Acute kidney injury Code(s): N17.9 - Acute kidney failure, unspecified Status: Acute Plan: Could be due to sepsis, ATN. He did receive Vancomycin, 3.5 grams in 1 day. It is possible that we are dealing with Vancomycin induced nephrotoxicity. Renal function has worsened. Patient had hemodialysis 2.5 L was removed tolerated well on Saturday Dr. Gonzalez to follow (2) Non-insulin treated type 2 diabetes mellitus Code(s): E11.9 - Type 2 diabetes mellitus without complications Status: Acute Plan: maintain blood sugar between 140 and 180 while hospitalized. Metformin should be stopped. (3) Abscess Code(s): L02.91 - Cutaneous abscess, unspecified Status: Acute Plan: s/p drainage, now has a wound Vac. (4) S/P CABG (coronary artery bypass graft) Code(s): Z95.1 - Presence of aortocoronary bypass graft Status: Acute
[2018-08-11] MEDS: Levothyroxine 88 MCG Tablet PO SCH (06:41)
--- NOTE | 2018-08-11 08:50 | P.PN ---
Subjective Interval history: Feels well; minimal pain in axilla Physical Exam Vital signs: Vital Signs 08/10/18 11:15 08/10/18 12:00 08/10/18 16:00 Temperature 99.4 F 97.5 F L Pulse Rate 75 59 L Respiratory Rate 18 18 Blood Pressure 132/85 138/66 Pulse Oximetry 98 98 93 L 08/10/18 20:00 08/11/18 00:00 08/11/18 04:00 Temperature 98.0 F 98.3 F 98.0 F Pulse Rate 60 59 L 61 Respiratory Rate 18 18 18 Blood Pressure 163/76 H 163/72 H 167/77 H Pulse Oximetry 96 95 96 Intake & Output 08/10/18 08/11/18 08/11/18 18:59 06:59 18:59 Intake Total 700 / 700 1240 / 1240 Output Total 800 / 800 390 / 390 Balance -100 / -100 850 / 850 Weight 108.7 kg Intake: IV 100 / 100 Cubicin Inj 450 MG In NS Inj 100 / 100 100 ML @ 200 mls/hr IV.SIG Q48H KADY Rx#:[id number] Oral 600 / 600 1240 / 1240 Output: Urine 800 / 800 390 / 390 Other: Mode Setting Right Axilla Continuous Continuous Date of Last Bowel Movement 08/09/18 # Bowel Movements 1 - Constitutional no acute distress - Routine Extremities Exam Comments: Wound clean with no surrounding erythema. Minimal tenderness to palpation - Urinary Catheter Management Straight Cath placed during this visit: yes, but has since been removed by the nurse Reason for continuing: Acute urinary retention Insertion date: 08/06/18 Insertion time: 05:59 Removal date: 08/07/18 Removal time: 12:44 Results - Labs CBC & Chem 7: 08/07/18 06:08 08/10/18 14:04 Laboratory Results - last 24 hr 08/10/18 08/10/18 08/10/18 11:29 14:04 17:19 Sodium 138 Potassium 3.9 Chloride 99 Carbon Dioxide 26.5 Anion Gap 13 BUN 38 H Creatinine 5.75 H Estimated GFR 10 L POC Glucose 237 H 198 H Random Glucose 223 H Calcium 8.2 L D 08/10/18 08/11/18 22:21 07:27 Sodium Potassium Chloride Carbon Dioxide Anion Gap BUN Creatinine Estimated GFR POC Glucose 218 H 225 H Random Glucose Calcium Microbiology 08/07/18 06:08 Blood - Peripheral Aerobic Blood Culture - Preliminary No growth in 3 days 08/07/18 06:08 Blood - Peripheral Anaerobic Blood Culture - Preliminary No growth in 3 days 08/07/18 06:00 Blood - Peripheral Aerobic Blood Culture - Preliminary No growth in 3 days 08/07/18 06:00 Blood - Peripheral Anaerobic Blood Culture - Preliminary No growth in 3 days - Procedures 08/05 Incision and drainage right axillary abscess with VAC placement Assessment and Plan - Assessment (1) Abscess Code(s): L02.91 - Cutaneous abscess, unspecified Status: Acute Plan: Continue VAC; change Ok to get up and ambulate PT to see patient Getting dialyzed; home when OK with med svc - Plan Discussed Condition With: Patient Dr. High - Attending Attestation I attest that I had a [id number] encounter with the patient on the same day, and personally performed and documented my assessment and findings in the medical record. The following services were provided during this hospital visit: Chart data review, vital sign assessments/reviewing monitor data Review of consultation notes if present Medication orders/review and/or management Ordering and/or reviewing lab tests Ordering and/or interpreting/reviewing x-rays and/or diagnostic studies Care of the patient and discussion of the patient with the care team Documentation time To help prompt me to consider important information that might be impacting today's encounter and assessment, Information from prior notes written by myself or my colleagues may have been "brought forward/copy and pasted" into today's note.
[2018-08-11] MEDS: Insulin NovoLOG Aspart Correctional Sugar Inj SQ SCH ×4 (08:51→22:37)
[2018-08-11] MEDS: Senna/Docusate Sodium 8.6/50 MG Tablet PO SCH ×2 (08:53→22:34)
--- NOTE | 2018-08-11 10:53 | P.PN ---
Subjective Interval history: no pain complains states has been voiding -"4x" - but no accurate charting afebrile Physical Exam Vital signs: Vital Signs 08/10/18 11:15 08/10/18 12:00 08/10/18 16:00 Temperature 99.4 F 97.5 F L Pulse Rate 75 59 L Respiratory Rate 18 18 Blood Pressure 132/85 138/66 Pulse Oximetry 98 98 93 L 08/10/18 20:00 08/11/18 00:00 08/11/18 04:00 Temperature 98.0 F 98.3 F 98.0 F Pulse Rate 60 59 L 61 Respiratory Rate 18 18 18 Blood Pressure 163/76 H 163/72 H 167/77 H Pulse Oximetry 96 95 96 08/11/18 08:00 Temperature 97.5 F L Pulse Rate 58 L Respiratory Rate 18 Blood Pressure 176/79 H Pulse Oximetry 98 Intake & Output 08/10/18 08/11/18 08/11/18 18:59 06:59 18:59 Intake Total 700 / 700 1240 / 1240 Output Total 800 / 800 390 / 390 Balance -100 / -100 850 / 850 Weight 108.7 kg Intake: IV 100 / 100 Cubicin Inj 450 MG In NS Inj 100 / 100 100 ML @ 200 mls/hr IV.SIG Q48H KADY Rx#:[id number] Oral 600 / 600 1240 / 1240 Output: Urine 800 / 800 390 / 390 Other: Mode Setting Right Axilla Continuous Continuous Continuous Date of Last Bowel Movement 08/09/18 08/09/18 # Bowel Movements 1 Narrative: in no acute distress. RIGHT axillary swelling ---VAC in place, VAs cath in place Pupils equal and round. No scleral icterus. No injection or drainage. No nasal bleeding or discharge. Mucous membranes pink and moist. Regular rate and rhythm. No accessory muscle use. Clear to auscultation. Breath sounds equal bilaterally. Abdomen soft, non-tender, nondistended. extremities no edema - Urinary Catheter Management Straight Cath placed during this visit: yes, but has since been removed by the nurse Reason for continuing: Acute urinary retention Insertion date: 08/06/18 Insertion time: 05:59 Removal date: 08/07/18 Removal time: 12:44 Results - Labs CBC & Chem 7: 08/07/18 06:08 08/11/18 10:55 Laboratory Results - last 24 hr 11/04/18 11/04/18 11/04/18 11:29 14:04 17:19 Sodium 138 Potassium 3.9 Chloride 99 Carbon Dioxide 26.5 Anion Gap 13 BUN 38 H Creatinine 5.75 H Estimated GFR 10 L POC Glucose 237 H 198 H Random Glucose 223 H Calcium 8.2 L D 08/10/18 08/11/18 22:21 07:27 Sodium Potassium Chloride Carbon Dioxide Anion Gap BUN Creatinine Estimated GFR POC Glucose 218 H 225 H Random Glucose Calcium Microbiology 08/07/18 06:08 Blood - Peripheral Aerobic Blood Culture - Preliminary No growth in 3 days 08/07/18 06:08 Blood - Peripheral Anaerobic Blood Culture - Preliminary No growth in 3 days 08/07/18 06:00 Blood - Peripheral Aerobic Blood Culture - Preliminary No growth in 3 days 08/07/18 06:00 Blood - Peripheral Anaerobic Blood Culture - Preliminary No growth in 3 days - Procedures 08/05 Incision and drainage right axillary abscess with VAC placement Assessment and Plan - Plan 72-year-old male with history of diabetes, coronary artery disease status post CABG who presents with a 2-week history of progressively worsening sharp constant, nonradiating right axillary pain with cellulitis. Sepsis present on admission secondary to Right axillary abscess: MRSA S/P I and D 08/05 with VAC placement S/P VAC change 08/08 . +Leukocytosis WBC 17.5K. - down to 10 -Chest CT reviewed, shows Large heterogeneous collection of the right axilla and the lateral margin of pectoralis major as described. This appears to represent a lobulated mass or a multiloculated fluid collection or hematoma. - Vancomycin- - Discontinued 08/06 - Infectious disease ff- on Cubicin - ff- VAC management - doppler RUE - no DVT ACute KI- likely drug induced- Vancomycin- now patient states voided 3-4 x - History of BPH - matthews removed 08/07 - continue on flomax and Terazosin- home meds - urine eosinophils- negative - US-renal/bladder- unremarkable - ff BMP. accutrate I and O - Vancomycin DC 08/06 - Nephrology ff along with us- for HD arrangement - [facility] - hemodialysis initiated 08/09. - ff BMP- ordered today - hoping for renal recovery HTN, CAD s/p CABG: chronic. BP some eelvated readings -continue patient's aspirin with hx of CABG -continue patient's terazosin -Monitor BP, adjust antihypertensives as needed - start CCB- amlodipine 5 mg daily today Diabetes mellitus: chronic- high readings -Discontinued metformin - with GRADY. Discontinued glipizide as well -Monitor Accu-checks and cover with SSI -A1C 6.5 - will start standing Insulin - start 70/30 8 units bid Hypothyroidism: chronic -continue patient's levothyroxine DVT Prophylaxis: teds/SCDs Heparin SQ for DVT prophylaxis
--- NOTE | 2018-08-11 10:57 | P.PNNP ---
Subjective Interval history: patient is clinically stable. His urine output has improved. Las dialyzed on Saturday. Physical Exam Vital signs: Vital Signs 08/10/18 11:15 08/10/18 12:00 08/10/18 16:00 Temperature 99.4 F 97.5 F L Pulse Rate 75 59 L Respiratory Rate 18 18 Blood Pressure 132/85 138/66 Pulse Oximetry 98 98 93 L 08/10/18 20:00 08/11/18 00:00 08/11/18 04:00 Temperature 98.0 F 98.3 F 98.0 F Pulse Rate 60 59 L 61 Respiratory Rate 18 18 18 Blood Pressure 163/76 H 163/72 H 167/77 H Pulse Oximetry 96 95 96 08/11/18 08:00 Temperature 97.5 F L Pulse Rate 58 L Respiratory Rate 18 Blood Pressure 176/79 H Pulse Oximetry 98 Intake & Output 08/10/18 08/11/18 08/11/18 18:59 06:59 18:59 Intake Total 700 / 700 1240 / 1240 Output Total 800 / 800 390 / 390 Balance -100 / -100 850 / 850 Weight 108.7 kg Intake: IV 100 / 100 Cubicin Inj 450 MG In NS Inj 100 / 100 100 ML @ 200 mls/hr IV.SIG Q48H KADY Rx#:[id number] Oral 600 / 600 1240 / 1240 Output: Urine 800 / 800 390 / 390 Other: Mode Setting Right Axilla Continuous Continuous Continuous Date of Last Bowel Movement 08/09/18 08/09/18 # Bowel Movements 1 Narrative: in no acute distress. Wound vac in place right chest wall/axilla. VAs cath in place Pupils equal and round. No scleral icterus. No injection or drainage. No nasal bleeding or discharge. Mucous membranes pink and moist. Regular rate and rhythm. No accessory muscle use. Clear to auscultation. Breath sounds equal bilaterally. Abdomen soft, non-tender, nondistended. extremities no edema - Urinary Catheter Management Straight Cath placed during this visit: yes, but has since been removed by the nurse Reason for continuing: Acute urinary retention Insertion date: 08/06/18 Insertion time: 05:59 Removal date: 08/07/18 Removal time: 12:44 Assessment and Plan - Assessment (1) Acute kidney injury Code(s): N17.9 - Acute kidney failure, unspecified Status: Acute Plan: Could be due to sepsis, ATN. He did receive Vancomycin, 3.5 grams in 1 day. It is possible that we are dealing with Vancomycin induced nephrotoxicity. Urine output has improved. Monitor urine output and renal function. Repeat labs. May not need dialysis tomorrow. (2) Non-insulin treated type 2 diabetes mellitus Code(s): E11.9 - Type 2 diabetes mellitus without complications Status: Acute Plan: maintain blood sugar between 140 and 180 while hospitalized. Metformin should be stopped. (3) Abscess Code(s): L02.91 - Cutaneous abscess, unspecified Status: Acute Plan: s/p drainage, now has a wound Vac. (4) S/P CABG (coronary artery bypass graft) Code(s): Z95.1 - Presence of aortocoronary bypass graft Status: Acute
[2018-08-11 11:58] LABS: Calcium 7.9 mg/dL (8.5-10.1); Carbon Dioxide 26.6 meq/L (21.0-32.0)
[2018-08-11] MEDS: amLODIPine 5 MG Tablet PO SCH (12:26)
--- NOTE | 2018-08-11 14:52 | P.PNID ---
Subjective Remarks: Patient is a 72-year-old male presented to the hospital complaining of pain and swelling in his right axilla and right chest wall. Patient was seen in the emergency room about 10 days ago complaining of pain and knot in his right axilla. He was diagnosed to have a possible lymphadenitis, and he was given clindamycin and was discharged home. Patient stated that he was compliant with his antibiotics. The area however started getting worse with increasing pain swelling so he presented to the hospital for further evaluation and treatment. He denies any fever chills or sweats. Denies any GI or any urinary complaints. Patient denies any previous history of skin and soft tissue infection. He denies any trauma. He has not been exposed to any animals particularly cats. Patient stated that there is a fairly CAD in their neighborhood but he never really messed up with that. Patient since admission had some low-grade temps. His initial white count was 17,000. CT of the chest showing a multiloculated fluid collection in the right axilla extending into the lateral aspect of the pectoralis major. Surgery saw the patient and he had I&D of a multiloculated abscess. Patient currently has a wound VAC in place. He is stating that the pain is better. His temperatures are better. His WBC is down to 14,000. Culture from surgery still pending, but Gram stain is showing gram-positive cocci in clusters. Patient is currently on vancomycin and Zosyn. His creatinine is elevated on admission. It was normal when he was seen in the emergency room about 10 days ago. Infectious disease consultation has been requested to assist with evaluation and treatment of a right axillary abscess. Notes reviewed D/W New SANCHEZ (MING) Wound doretha, no purulence, no necrotic tissue Creatinine still elevated but UO improving WBC normal Last HD 08/09 BC negative Wound C/S MRSA Antibiotics: Cubicin Lines: Vascath PIV Past Medical History: CAB S/P CABG DM Allergies/Adverse Reactions: Allergies No Known Allergies Allergy (Verified 08/04/18 22:44) Objective Vital Signs 08/10/18 16:00 08/10/18 20:00 08/11/18 00:00 Temperature 97.5 F L 98.0 F 98.3 F Pulse Rate 59 L 60 59 L Respiratory Rate 18 18 18 Blood Pressure 138/66 163/76 H 163/72 H Pulse Oximetry 93 L 96 95 08/11/18 04:00 08/11/18 08:00 08/11/18 12:00 Temperature 98.0 F 97.5 F L 97.3 F L Pulse Rate 61 58 L 58 L Respiratory Rate 18 18 20 Blood Pressure 167/77 H 176/79 H 157/73 H Pulse Oximetry 96 98 95 Intake & Output 08/10/18 08/11/18 08/11/18 18:59 06:59 18:59 Intake Total 700 / 700 1240 / 1240 Output Total 800 / 800 390 / 390 Balance -100 / -100 850 / 850 Weight 108.7 kg Intake: IV 100 / 100 Cubicin Inj 450 MG In NS Inj 100 / 100 100 ML @ 200 mls/hr IV.SIG Q48H KADY Rx#:[id number] Oral 600 / 600 1240 / 1240 Output: Urine 800 / 800 390 / 390 Other: Mode Setting Right Axilla Continuous Continuous Continuous Date of Last Bowel Movement 08/09/18 08/09/18 # Bowel Movements 1 08/07/18 06:08 Blood - Peripheral Aerobic Blood Culture - Preliminary No growth in 4 days 08/07/18 06:08 Blood - Peripheral Anaerobic Blood Culture - Preliminary No growth in 4 days 08/07/18 06:00 Blood - Peripheral Aerobic Blood Culture - Preliminary No growth in 4 days 08/07/18 06:00 Blood - Peripheral Anaerobic Blood Culture - Preliminary No growth in 4 days Lab - Chemistry Results 08/09/18 08/09/18 08/09/18 15:47 16:28 22:21 Sodium Potassium Chloride Carbon Dioxide Anion Gap BUN Creatinine Estimated GFR POC Glucose 152 H 172 H 206 H Random Glucose Calcium 08/10/18 08/10/18 08/10/18 07:42 11:29 14:04 Sodium 138 Potassium 3.9 Chloride 99 Carbon Dioxide 26.5 Anion Gap 13 BUN 38 H Creatinine 5.75 H Estimated GFR 10 L POC Glucose 206 H 237 H Random Glucose 223 H Calcium 8.2 L D 08/10/18 08/10/18 08/11/18 17:19 22:21 07:27 Sodium Potassium Chloride Carbon Dioxide Anion Gap BUN Creatinine Estimated GFR POC Glucose 198 H 218 H 225 H Random Glucose Calcium 08/11/18 08/11/18 10:55 11:17 Sodium 139 Potassium 4.0 Chloride 102 Carbon Dioxide 26.6 Anion Gap 10 BUN 44 H Creatinine 6.53 H Estimated GFR 8 L POC Glucose 282 H Random Glucose 242 H Calcium 7.9 L Imaging: ITS Impressions Chest CT 08/05/18 00:03 CONCLUSION: 1. Large heterogeneous collection of the right axilla and the lateral margin of pectoralis major as described. This appears to represent a lobulated mass or a multiloculated fluid collection or hematoma. Infectious and neoplastic etiologies are both in the differential. 2. Mild atelectasis of the lung bases and a 5 mm left upper lobe pulmonary nodule. 3. Previous median sternotomy and CABG. 4. Cholelithiasis. 5. No acute osseous abnormality. Abdomen/Bladder Ultrasound 08/06/18 00:00 CONCLUSION: 1. No evidence of hydronephrosis. The echogenicity of the kidneys is within normal limits. 2. Simple cyst in right kidney. Catheter Placement 08/08/18 00:00 CONCLUSION: 1. Uncomplicated line placement as above. Venous Doppler Study 08/09/18 00:00 CONCLUSION: 1. No venous thrombosis seen of the right upper extremity. 2. There is a fluid collection near the right shoulder, nonspecific but a seroma or some fluid in the subcoracoid recess considered most likely. Physical Exam: GENERAL: awake and alert, NAD SKIN: Warm and dry. No generalized rash HEAD: Atraumatic. Normocephalic. No temporal wasting, or tenderness. EYES: [place] conjunctiva. No petechia or hemorrhage. No scleral icterus. No injection or drainage. EARS, NOSE AND THROAT: Nose without bleeding or purulent nasal discharge. No sinus tenderness. Mucous membranes pink and moist. No oral lesions noted. No exudate. No oral thrush. Poor dentition NECK: Trachea midline. Supple and not tender, no meningeal signs CARDIOVASCULAR: Regular rate and rhythm. No murmurs, rubs or gallops heard RESPIRATORY: Clear to auscultation. Breath sounds equal bilaterally. No rales , wheezing or rhonchi. He has an open wound R lateral wall, with red granulation tissue, no purulence, no necrotic tissue, induration around much smaller. No erythema. Healed sternotomy incision C/W surgical history ABDOMEN: Soft, non-tender, nondistended. Bowel sounds present and normoactive. No guarding. No rebound. No organomegaly. EXTREMITIES: No clubbing, cyanosis, or edema. No calf tenderness. NEUROLOGICAL: Grossly non-focal. PSYCHIATRIC: Normal affect, calm and cooperative. LINE: No evidence of infection Assessment and Plan - Plan Impression Sepsis on admission due to a large abscess Abscess, cellulitis R axilla/R chest wall - S/P I and D - G/S GPC, C/S pending Renal failure, on HD Fevers and leukocytosis, better Recommendation Continue IV Cubicin for MRSA coverage zabrina since his creatinine continues to worsen - follow CPK Monitor temps Monitor progress Explained plan to patient D/W Dr High ([facility])
[2018-08-11] MEDS: oxyCODONE/Acetaminophen 10/325 Tablet PO PRN (15:56)
[2018-08-12] MEDS: Levothyroxine 88 MCG Tablet PO SCH (06:19)
[2018-08-12 08:47] LABS: Albumin 2.2 g/dL (3.4-5.0); Carbon Dioxide 25.6 meq/L (21.0-32.0); Potassium 4.2 meq/L (3.5-5.1)
[2018-08-12 08:50] LABS: Phosphorus 6.9 mg/dL (2.5-4.9)
[2018-08-12] MEDS: amLODIPine 5 MG Tablet PO SCH (08:53)
[2018-08-12] MEDS: Senna/Docusate Sodium 8.6/50 MG Tablet PO SCH ×2 (08:53→20:29)
[2018-08-12] MEDS: Insulin NovoLOG Aspart Correctional Sugar Inj SQ SCH ×4 (08:55→20:29)
--- NOTE | 2018-08-12 10:28 | P.PNNP ---
Subjective Interval history: patient was seen and examined during dialysis. Excellent urine output, dialysis today, but no fluid removal. Physical Exam Vital signs: Vital Signs 08/11/18 12:00 08/11/18 16:00 08/11/18 20:00 Temperature 97.3 F L 97.5 F L 98.4 F Pulse Rate 58 L 60 55 L Respiratory Rate 20 20 16 Blood Pressure 157/73 H 176/75 H 154/75 H Pulse Oximetry 95 96 95 08/12/18 00:00 08/12/18 04:00 08/12/18 08:00 Temperature 98.3 F 97.5 F L 97.7 F Pulse Rate 54 L 56 L 56 L Respiratory Rate 16 16 19 Blood Pressure 152/67 H 160/77 H 167/77 H Pulse Oximetry 96 97 96 Intake & Output 08/11/18 08/12/18 08/12/18 18:59 06:59 18:59 Intake Total 1560 / 1560 460 / 460 Output Total 320 / 320 425 / 425 Balance 1240 / 1240 35 / 35 Weight 110.1 kg Intake: Oral 840 / 840 460 / 460 Mass Transfusion Protocol 720 / 720 Output: Urine 320 / 320 425 / 425 Other: Mode Setting Right Axilla Continuous Continuous Continuous # Voids 1 # Incontinent Voids 1 Date of Last Bowel Movement 08/09/18 08/09/18 Narrative: in no acute distress. Wound vac in place right chest wall/axilla. VAs cath in place Pupils equal and round. No scleral icterus. No injection or drainage. No nasal bleeding or discharge. Mucous membranes pink and moist. Regular rate and rhythm. No accessory muscle use. Clear to auscultation. Breath sounds equal bilaterally. Abdomen soft, non-tender, nondistended. extremities no edema - Urinary Catheter Management Straight Cath placed during this visit: yes, but has since been removed by the nurse Reason for continuing: Acute urinary retention Insertion date: 08/06/18 Insertion time: 05:59 Removal date: 08/07/18 Removal time: 12:44 Assessment and Plan - Assessment (1) Acute kidney injury Code(s): N17.9 - Acute kidney failure, unspecified Status: Acute Plan: Could be due to sepsis, ATN. Could be due to Vancomycin induced nephrotoxicity. Urine output has improved. No fluid removal today. Avoid nephrotoxic agents. Monitor for renal recovery. (2) Non-insulin treated type 2 diabetes mellitus Code(s): E11.9 - Type 2 diabetes mellitus without complications Status: Acute Plan: maintain blood sugar between 140 and 180 while hospitalized. Metformin should be stopped. (3) Abscess Code(s): L02.91 - Cutaneous abscess, unspecified Status: Acute Plan: s/p drainage, now has a wound Vac. (4) S/P CABG (coronary artery bypass graft) Code(s): Z95.1 - Presence of aortocoronary bypass graft Status: Acute
--- NOTE | 2018-08-12 11:20 | P.PN ---
Physical Exam Vital signs: Vital Signs 08/11/18 12:00 08/11/18 16:00 08/11/18 20:00 Temperature 97.3 F L 97.5 F L 98.4 F Pulse Rate 58 L 60 55 L Respiratory Rate 20 20 16 Blood Pressure 157/73 H 176/75 H 154/75 H Pulse Oximetry 95 96 95 08/12/18 00:00 08/12/18 04:00 08/12/18 08:00 Temperature 98.3 F 97.5 F L 97.7 F Pulse Rate 54 L 56 L 56 L Respiratory Rate 16 16 19 Blood Pressure 152/67 H 160/77 H 167/77 H Pulse Oximetry 96 97 96 Intake & Output 08/11/18 08/12/18 08/12/18 18:59 06:59 18:59 Intake Total 1560 / 1560 460 / 460 Output Total 320 / 320 425 / 425 Balance 1240 / 1240 35 / 35 Weight 110.1 kg Intake: Oral 840 / 840 460 / 460 Mass Transfusion Protocol 720 / 720 Output: Urine 320 / 320 425 / 425 Other: Mode Setting Right Axilla Continuous Continuous Continuous # Voids 1 # Incontinent Voids 1 Date of Last Bowel Movement 08/09/18 08/09/18 - Urinary Catheter Management Straight Cath placed during this visit: yes, but has since been removed by the nurse Reason for continuing: Acute urinary retention Insertion date: 08/06/18 Insertion time: 05:59 Removal date: 08/07/18 Removal time: 12:44 Results - Labs CBC & Chem 7: 08/07/18 06:08 08/12/18 08:05 Laboratory Results - last 24 hr 08/11/18 08/11/18 08/11/18 10:55 16:25 22:37 Sodium 139 Potassium 4.0 Chloride 102 Carbon Dioxide 26.6 Anion Gap 10 BUN 44 H Creatinine 6.53 H Estimated GFR 8 L POC Glucose 244 H 138 H Random Glucose 242 H Calcium 7.9 L Phosphorus Albumin 08/12/18 08/12/18 08:05 08:45 Sodium 138 Potassium 4.2 Chloride 102 Carbon Dioxide 25.6 Anion Gap 10 BUN 54 H Creatinine 7.30 H Estimated GFR 7 L POC Glucose 228 H Random Glucose 217 H Calcium 8.0 L Phosphorus 6.9 H Albumin 2.2 L Microbiology 08/07/18 06:08 Blood - Peripheral Aerobic Blood Culture - Final No growth in 5 days 08/07/18 06:08 Blood - Peripheral Anaerobic Blood Culture - Final No growth in 5 days 08/07/18 06:00 Blood - Peripheral Aerobic Blood Culture - Final No growth in 5 days 08/07/18 06:00 Blood - Peripheral Anaerobic Blood Culture - Final No growth in 5 days - Procedures 08/05 Incision and drainage right axillary abscess with VAC placement
[2018-08-12] MEDS: Heparin 10,000 UNITS/10 ML Vial (for IV use) OTHER PRN (12:30)
--- NOTE | 2018-08-12 12:40 | P.PNID ---
Subjective Remarks: Patient is a 72-year-old male presented to the hospital complaining of pain and swelling in his right axilla and right chest wall. Patient was seen in the emergency room about 10 days ago complaining of pain and knot in his right axilla. He was diagnosed to have a possible lymphadenitis, and he was given clindamycin and was discharged home. Patient stated that he was compliant with his antibiotics. The area however started getting worse with increasing pain swelling so he presented to the hospital for further evaluation and treatment. He denies any fever chills or sweats. Denies any GI or any urinary complaints. Patient denies any previous history of skin and soft tissue infection. He denies any trauma. He has not been exposed to any animals particularly cats. Patient stated that there is a fairly CAD in their neighborhood but he never really messed up with that. Patient since admission had some low-grade temps. His initial white count was 17,000. CT of the chest showing a multiloculated fluid collection in the right axilla extending into the lateral aspect of the pectoralis major. Surgery saw the patient and he had I&D of a multiloculated abscess. Patient currently has a wound VAC in place. He is stating that the pain is better. His temperatures are better. His WBC is down to 14,000. Culture from surgery still pending, but Gram stain is showing gram-positive cocci in clusters. Patient is currently on vancomycin and Zosyn. His creatinine is elevated on admission. It was normal when he was seen in the emergency room about 10 days ago. Infectious disease consultation has been requested to assist with evaluation and treatment of a right axillary abscess. Notes reviewed Temps ok Had HD today Creatinine still elevated but UO improving WBC normal BC negative Wound C/S MRSA Wound vac changed yesterday Antibiotics: Cubicin Lines: Vascath PIV Past Medical History: CAB S/P CABG DM Allergies/Adverse Reactions: Allergies No Known Allergies Allergy (Verified 08/04/18 22:44) Objective Vital Signs 08/11/18 16:00 08/11/18 20:00 08/12/18 00:00 Temperature 97.5 F L 98.4 F 98.3 F Pulse Rate 60 55 L 54 L Respiratory Rate 20 16 16 Blood Pressure 176/75 H 154/75 H 152/67 H Pulse Oximetry 96 95 96 08/12/18 04:00 08/12/18 08:00 Temperature 97.5 F L 97.7 F Pulse Rate 56 L 56 L Respiratory Rate 16 19 Blood Pressure 160/77 H 167/77 H Pulse Oximetry 97 96 Intake & Output 08/11/18 08/12/18 08/12/18 18:59 06:59 18:59 Intake Total 1560 / 1560 460 / 460 Output Total 320 / 320 425 / 425 Balance 1240 / 1240 35 / 35 Weight 110.1 kg Intake: Oral 840 / 840 460 / 460 Mass Transfusion Protocol 720 / 720 Output: Urine 320 / 320 425 / 425 Other: Mode Setting Right Axilla Continuous Continuous Continuous # Voids 1 # Incontinent Voids 1 Date of Last Bowel Movement 08/09/18 08/09/18 08/07/18 06:08 Blood - Peripheral Aerobic Blood Culture - Final No growth in 5 days 08/07/18 06:08 Blood - Peripheral Anaerobic Blood Culture - Final No growth in 5 days 08/07/18 06:00 Blood - Peripheral Aerobic Blood Culture - Final No growth in 5 days 08/07/18 06:00 Blood - Peripheral Anaerobic Blood Culture - Final No growth in 5 days Lab - Chemistry Results 08/10/18 08/10/18 08/10/18 14:04 17:19 22:21 Sodium 138 Potassium 3.9 Chloride 99 Carbon Dioxide 26.5 Anion Gap 13 BUN 38 H Creatinine 5.75 H Estimated GFR 10 L POC Glucose 198 H 218 H Random Glucose 223 H Calcium 8.2 L D Phosphorus Albumin 08/11/18 08/11/18 08/11/18 07:27 10:55 11:17 Sodium 139 Potassium 4.0 Chloride 102 Carbon Dioxide 26.6 Anion Gap 10 BUN 44 H Creatinine 6.53 H Estimated GFR 8 L POC Glucose 225 H 282 H Random Glucose 242 H Calcium 7.9 L Phosphorus Albumin 08/11/18 08/11/18 08/12/18 16:25 22:37 08:05 Sodium 138 Potassium 4.2 Chloride 102 Carbon Dioxide 25.6 Anion Gap 10 BUN 54 H Creatinine 7.30 H Estimated GFR 7 L POC Glucose 244 H 138 H Random Glucose 217 H Calcium 8.0 L Phosphorus 6.9 H Albumin 2.2 L 08/12/18 08/12/18 08:45 12:10 Sodium Potassium Chloride Carbon Dioxide Anion Gap BUN Creatinine Estimated GFR POC Glucose 228 H 138 H Random Glucose Calcium Phosphorus Albumin Imaging: ITS Impressions Chest CT 08/05/18 00:03 CONCLUSION: 1. Large heterogeneous collection of the right axilla and the lateral margin of pectoralis major as described. This appears to represent a lobulated mass or a multiloculated fluid collection or hematoma. Infectious and neoplastic etiologies are both in the differential. 2. Mild atelectasis of the lung bases and a 5 mm left upper lobe pulmonary nodule. 3. Previous median sternotomy and CABG. 4. Cholelithiasis. 5. No acute osseous abnormality. Abdomen/Bladder Ultrasound 08/06/18 00:00 CONCLUSION: 1. No evidence of hydronephrosis. The echogenicity of the kidneys is within normal limits. 2. Simple cyst in right kidney. Catheter Placement 08/08/18 00:00 CONCLUSION: 1. Uncomplicated line placement as above. Venous Doppler Study 08/09/18 00:00 CONCLUSION: 1. No venous thrombosis seen of the right upper extremity. 2. There is a fluid collection near the right shoulder, nonspecific but a seroma or some fluid in the subcoracoid recess considered most likely. Physical Exam: GENERAL: awake and alert, NAD SKIN: Warm and dry. No generalized rash HEAD: Atraumatic. Normocephalic. No temporal wasting, or tenderness. EYES: Temperance conjunctiva. No petechia or hemorrhage. No scleral icterus. No injection or drainage. EARS, NOSE AND THROAT: Mucous membranes pink and moist. No oral lesions noted. No exudate. No oral thrush. Poor dentition NECK: Trachea midline. Supple and not tender, no meningeal signs CARDIOVASCULAR: Regular rate and rhythm. No murmurs, rubs or gallops heard RESPIRATORY: Clear to auscultation. Breath sounds equal bilaterally. No rales , wheezing or rhonchi. He has wound vac in lateral chest, induration around much smaller. No erythema. Healed sternotomy incision C/W surgical history ABDOMEN: Soft, non-tender, nondistended. Bowel sounds present and normoactive. No guarding. No rebound. No organomegaly. EXTREMITIES: No clubbing, cyanosis, or edema. No calf tenderness. NEUROLOGICAL: Grossly non-focal. PSYCHIATRIC: Normal affect, calm and cooperative. LINE: No evidence of infection Assessment and Plan - Plan Impression Sepsis on admission due to a large abscess Abscess, cellulitis R axilla/R chest wall - S/P I and D - G/S GPC, C/S pending Renal failure, on HD Fevers and leukocytosis, better Recommendation Continue IV Cubicin for MRSA coverage - follow CPK Monitor temps Monitor progress Wound care per surgery
[2018-08-12] MEDS: DAPTOMYCIN IV.SIG SCH ×2 (15:00→19:07)
[2018-08-12] MEDS: SODIUM CHLOR 0.9% IV.SIG SCH ×2 (15:00→19:07)
--- NOTE | 2018-08-12 17:54 | P.PN ---
Subjective Interval history: Follow-up on patient with sepsis, acute kidney injury, right axillary abscess. Patient seen and examined. Patient underwent hemodialysis earlier today. He denies any complaints. He denies any fever or chills. Denies any chest pain or shortness of breath. He denies any nausea, vomiting or abdominal pain. He reports good bowel movement earlier today. Physical Exam Vital signs: Vital Signs 08/11/18 20:00 08/12/18 00:00 08/12/18 04:00 Temperature 98.4 F 98.3 F 97.5 F L Pulse Rate 55 L 54 L 56 L Respiratory Rate 16 16 16 Blood Pressure 154/75 H 152/67 H 160/77 H Pulse Oximetry 95 96 97 08/12/18 08:00 08/12/18 13:35 08/12/18 15:40 Temperature 97.7 F 97.8 F 97.8 F Pulse Rate 56 L 73 74 Respiratory Rate 19 19 20 Blood Pressure 167/77 H 137/78 137/78 Pulse Oximetry 96 93 L 93 L Intake & Output 08/11/18 08/12/18 08/12/18 18:59 06:59 18:59 Intake Total 1560 / 1560 460 / 460 Output Total 320 / 320 425 / 425 900 / 900 Balance 1240 / 1240 35 / 35 -900 / -900 Weight 110.1 kg Intake: Oral 840 / 840 460 / 460 Mass Transfusion Protocol 720 / 720 Output: Urine 320 / 320 425 / 425 Hemodialysis Amount 800 / 800 Urine Amount (Catheter) 100 / 100 Straight 100 / 100 Other: Mode Setting Right Axilla Continuous Continuous Continuous # Voids 1 # Incontinent Voids 1 Date of Last Bowel Movement 08/09/18 08/09/18 Narrative: GENERAL: Well-developed well-nourished elderly male patient in no acute distress. Awake and alert. SKIN: Warm and dry. +wound vac in place right lateral chest/axilla, appears to have good seal. HEENT: Atraumatic. Normocephalic. Pupils equal and round. No scleral icterus. No injection or drainage. No nasal bleeding or discharge. Mucous membranes pink and moist. NECK: Trachea midline. CARDIOVASCULAR: Regular rate and rhythm. RESPIRATORY: No accessory muscle use. Clear to auscultation. Breath sounds equal bilaterally. GASTROINTESTINAL: Abdomen soft, non-tender, nondistended. +BS. MUSCULOSKELETAL: Extremities without clubbing, cyanosis, or edema. No obvious deformities. NEUROLOGICAL: Awake and alert. No obvious cranial nerve deficits. Motor grossly within normal limits. Able to move all extremities spontaneously. Normal speech. PSYCHIATRIC: Appropriate mood and affect; insight and judgment normal. - Urinary Catheter Management Straight Cath placed during this visit: yes, but has since been removed by the nurse Reason for continuing: Acute urinary retention Insertion date: 08/06/18 Insertion time: 05:59 Removal date: 08/07/18 Removal time: 12:44 Results - Labs CBC & Chem 7: 08/07/18 06:08 08/12/18 08:05 Laboratory Results - last 24 hr 08/11/18 08/12/18 08/12/18 22:37 08:05 08:45 Sodium 138 Potassium 4.2 Chloride 102 Carbon Dioxide 25.6 Anion Gap 10 BUN 54 H Creatinine 7.30 H Estimated GFR 7 L POC Glucose 138 H 228 H Random Glucose 217 H Calcium 8.0 L Phosphorus 6.9 H Albumin 2.2 L 08/12/18 12:10 Sodium Potassium Chloride Carbon Dioxide Anion Gap BUN Creatinine Estimated GFR POC Glucose 138 H Random Glucose Calcium Phosphorus Albumin Microbiology 08/07/18 06:08 Blood - Peripheral Aerobic Blood Culture - Final No growth in 5 days 08/07/18 06:08 Blood - Peripheral Anaerobic Blood Culture - Final No growth in 5 days 08/07/18 06:00 Blood - Peripheral Aerobic Blood Culture - Final No growth in 5 days 08/07/18 06:00 Blood - Peripheral Anaerobic Blood Culture - Final No growth in 5 days - Procedures 08/05 Incision and drainage right axillary abscess with VAC placement Assessment and Plan - Plan 72-year-old male with history of diabetes, coronary artery disease status post CABG who presents with a 2-week history of progressively worsening sharp constant, nonradiating right axillary pain with cellulitis. Sepsis present on admission secondary to Right axillary abscess: MRSA S/P I and D 08/05 with VAC placement S/P VAC change 08/08 . +Leukocytosis WBC 17.5K. - down to 10 -Chest CT reviewed, shows Large heterogeneous collection of the right axilla and the lateral margin of pectoralis major as described. This appears to represent a lobulated mass or a multiloculated fluid collection or hematoma. - Vancomycin- - Discontinued 08/06 - Infectious disease ff- on Cubicin. Monitor CPK. - GS ff- VAC management - doppler RUE - no DVT Acute GRADY- likely drug induced- Vancomycin- now patient states voided 3-4 x History of BPH - matthews removed 08/07 - continue on flomax and Terazosin- home meds - urine eosinophils- negative - US-renal/bladder- unremarkable - ff BMP. accurate I and O - Vancomycin DC 08/06 - Nephrology ff along with us- for HD arrangement. [facility] - hemodialysis initiated 08/09. s/p HD today. - hoping for renal recovery but creatinine bumped up to 7.30. Repeat BMP in am. HTN, CAD s/p CABG: chronic. BP some elevated readings -continue patient's aspirin with hx of CABG -continue patient's terazosin -Monitor BP, adjust antihypertensives as needed -started CCB- amlodipine 5 mg daily, continue Diabetes mellitus: chronic- high readings -Discontinued metformin - with GRADY. Discontinued glipizide as well -Monitor Accu-checks and cover with SSI -A1C 6.5 -Maintain blood sugar between 140 and 180 per Nephrology. BS running 138-282 -started on , increase to 8 units bid Hypothyroidism: chronic -continue patient's levothyroxine DVT Prophylaxis: teds/SCDs Heparin SQ for DVT prophylaxis Code Status: Full Discussed Condition With: patient, nursing staff, Dr. Thomson Discharge Planning: Not ready for discharge. Discharge pending improvement in kidney function. Discharge pending ID and nephrology clearance.
--- NOTE | 2018-08-12 20:50 | P.PNGS ---
Subjective Interval history: Resting in bed No issues Physical Exam Vital signs: Vital Signs 08/12/18 00:00 08/12/18 04:00 08/12/18 08:00 Temperature 98.3 F 97.5 F L 97.7 F Pulse Rate 54 L 56 L 56 L Respiratory Rate 16 16 19 Blood Pressure 152/67 H 160/77 H 167/77 H Pulse Oximetry 96 97 96 08/12/18 13:35 08/12/18 15:40 Temperature 97.8 F 97.8 F Pulse Rate 73 74 Respiratory Rate 19 20 Blood Pressure 137/78 137/78 Pulse Oximetry 93 L 93 L Intake & Output 08/12/18 08/12/18 08/13/18 06:59 18:59 06:59 Intake Total 460 / 460 960 / 960 100 / 100 Output Total 425 / 425 900 / 900 Balance 35 / 35 60 / 60 100 / 100 Weight 110.1 kg Intake: IV 100 / 100 Cubicin Inj 450 MG In NS Inj 100 / 100 100 ML @ 200 mls/hr IV.SIG Q48H KADY Rx#:[id number] Oral 460 / 460 960 / 960 Output: Urine 425 / 425 Hemodialysis Amount 800 / 800 Urine Amount (Catheter) 100 / 100 Straight 100 / 100 Other: Mode Setting Right Axilla Continuous Continuous # Voids 600 4 Date of Last Bowel Movement 08/12/18 08/13/18 # Bowel Movements 1 Narrative: Alert and awake RIGHT axiliary--- Wound vac removed-- wound clean and healthy; wet to dry dressing placed - Urinary Catheter Management Straight Cath placed during this visit: yes, but has since been removed by the nurse Reason for continuing: Acute urinary retention Insertion date: 08/06/18 Insertion time: 05:59 Removal date: 08/07/18 Removal time: 12:44 Results - Labs 08/07/18 06:08 08/13/18 06:40 Laboratory Results - last 24 hr 08/11/18 08/12/18 08/12/18 22:37 08:05 08:45 Sodium 138 Potassium 4.2 Chloride 102 Carbon Dioxide 25.6 Anion Gap 10 BUN 54 H Creatinine 7.30 H Estimated GFR 7 L POC Glucose 138 H 228 H Random Glucose 217 H Calcium 8.0 L Phosphorus 6.9 H Albumin 2.2 L 08/12/18 08/12/18 08/12/18 12:10 18:29 20:24 Sodium Potassium Chloride Carbon Dioxide Anion Gap BUN Creatinine Estimated GFR POC Glucose 138 H 186 H 204 H Random Glucose Calcium Phosphorus Albumin - Imaging Imaging: ITS Impressions Chest CT 08/05/18 00:03 CONCLUSION: 1. Large heterogeneous collection of the right axilla and the lateral margin of pectoralis major as described. This appears to represent a lobulated mass or a multiloculated fluid collection or hematoma. Infectious and neoplastic etiologies are both in the differential. 2. Mild atelectasis of the lung bases and a 5 mm left upper lobe pulmonary nodule. 3. Previous median sternotomy and CABG. 4. Cholelithiasis. 5. No acute osseous abnormality. Abdomen/Bladder Ultrasound 08/06/18 00:00 CONCLUSION: 1. No evidence of hydronephrosis. The echogenicity of the kidneys is within normal limits. 2. Simple cyst in right kidney. Catheter Placement 08/08/18 00:00 CONCLUSION: 1. Uncomplicated line placement as above. Venous Doppler Study 08/09/18 00:00 CONCLUSION: 1. No venous thrombosis seen of the right upper extremity. 2. There is a fluid collection near the right shoulder, nonspecific but a seroma or some fluid in the subcoracoid recess considered most likely. Assessment and Plan - Assessment (1) Abscess Code(s): L02.91 - Cutaneous abscess, unspecified Status: Acute Plan: 72 year old male with RIGHT axillary abscess; s/p incision and drainage of RIGHT axillary abscess with vac -DCed Wound Vac -Transition to wet to dry dressing changes -Change daily and PRN Wound is clean Dressing changes as above Home/rehab when renal function improves. The exam, history, and the medical decision-making described in the above note were completed with the assistance of the mid-level provider. I reviewed and agree with the findings presented. I attest that I had a [id number] encounter with the patient on the same day, and personally performed and documented my assessment and findings in the medical record.
[2018-08-13] MEDS: Levothyroxine 88 MCG Tablet PO SCH (06:24)
--- NOTE | 2018-08-13 07:11 | P.PN ---
Subjective Interval history: Follow-up on patient with sepsis, acute kidney injury, right axillary abscess. Patient seen and examined. Patient had wound vac removed yesterday. He says he has walked some on his own in his room today. He denies any fever or chills. He denies any chest pain or dyspnea. He denies any N/V or abdominal pain. He is urinating without any difficulties. He reports good UOP. He reports 2 good BMs earlier today. Physical Exam Vital signs: Vital Signs 08/12/18 08:00 08/12/18 13:35 08/12/18 15:40 Temperature 97.7 F 97.8 F 97.8 F Pulse Rate 56 L 73 74 Respiratory Rate 19 19 20 Blood Pressure 167/77 H 137/78 137/78 Pulse Oximetry 96 93 L 93 L 08/12/18 20:00 08/13/18 00:00 08/13/18 04:00 Temperature 97.6 F 98.1 F 97.9 F Pulse Rate 64 59 L 63 Respiratory Rate 17 19 Blood Pressure 127/60 167/77 H 155/70 H Pulse Oximetry 94 L 94 L 96 Intake & Output 08/12/18 08/13/18 08/13/18 18:59 06:59 18:59 Intake Total 960 / 960 100 / 100 Output Total 900 / 900 Balance 60 / 60 100 / 100 Weight 107.3 kg Intake: IV 100 / 100 Cubicin Inj 450 MG In NS Inj 100 / 100 100 ML @ 200 mls/hr IV.SIG Q48H KADY Rx#:[id number] Oral 960 / 960 Output: Hemodialysis Amount 800 / 800 Urine Amount (Catheter) 100 / 100 Straight 100 / 100 Other: Mode Setting Right Axilla Continuous # Voids 600 4 Date of Last Bowel Movement 08/12/18 08/13/18 # Bowel Movements 1 Narrative: GENERAL: Well-developed well-nourished elderly male patient in no acute distress. Awake and alert. Appears comfortable sitting in bedside chair. SKIN: Warm and dry. Right lateral chest/axilla s/p removal of wound vac, wet to dry dressing in place, saturated. Vascath in place right IJ. HEENT: Atraumatic. Normocephalic. Pupils equal and round. No scleral icterus. No injection or drainage. No nasal bleeding or discharge. Mucous membranes pink and moist. NECK: Trachea midline. CARDIOVASCULAR: Regular rate and rhythm. RESPIRATORY: No accessory muscle use. Clear to auscultation. Breath sounds equal bilaterally. GASTROINTESTINAL: Abdomen soft, non-tender, nondistended. +BS. MUSCULOSKELETAL: Extremities without clubbing, cyanosis, or edema. No obvious deformities. NEUROLOGICAL: Awake and alert. No obvious cranial nerve deficits. Motor grossly within normal limits. Able to move all extremities spontaneously. Normal speech. PSYCHIATRIC: Appropriate mood and affect; insight and judgment normal. - Urinary Catheter Management Straight Cath placed during this visit: yes, but has since been removed by the nurse Reason for continuing: Acute urinary retention Insertion date: 08/06/18 Insertion time: 05:59 Removal date: 08/07/18 Removal time: 12:44 Results - Labs CBC & Chem 7: 08/07/18 06:08 08/13/18 06:40 Laboratory Results - last 24 hr 08/12/18 08/12/18 08/12/18 08:05 08:45 12:10 Sodium 138 Potassium 4.2 Chloride 102 Carbon Dioxide 25.6 Anion Gap 10 BUN 54 H Creatinine 7.30 H Estimated GFR 7 L POC Glucose 228 H 138 H Random Glucose 217 H Calcium 8.0 L Phosphorus 6.9 H Albumin 2.2 L 08/12/18 08/12/18 18:29 20:24 Sodium Potassium Chloride Carbon Dioxide Anion Gap BUN Creatinine Estimated GFR POC Glucose 186 H 204 H Random Glucose Calcium Phosphorus Albumin Microbiology 08/07/18 06:08 Blood - Peripheral Aerobic Blood Culture - Final No growth in 5 days 08/07/18 06:08 Blood - Peripheral Anaerobic Blood Culture - Final No growth in 5 days 08/07/18 06:00 Blood - Peripheral Aerobic Blood Culture - Final No growth in 5 days 08/07/18 06:00 Blood - Peripheral Anaerobic Blood Culture - Final No growth in 5 days - Procedures 08/05 Incision and drainage right axillary abscess with VAC placement Assessment and Plan - Plan 72-year-old male with history of diabetes, coronary artery disease status post CABG who presents with a 2-week history of progressively worsening sharp constant, nonradiating right axillary pain with cellulitis. Sepsis present on admission secondary to Right axillary abscess: MRSA S/P I and D 08/05 with VAC placement S/P VAC change 08/08 . +Leukocytosis WBC 17.5K. - down to 10 -Chest CT reviewed, shows Large heterogeneous collection of the right axilla and the lateral margin of pectoralis major as described. This appears to represent a lobulated mass or a multiloculated fluid collection or hematoma. - Vancomycin-Discontinued 08/06 - Infectious disease ff- on Cubicin. Monitor CPK. CK 15 on 08/13. - GS ff- VAC management. Wound vac removed 08/12 and changed to wet to dry dressing changes Acute GRADY- likely drug induced- Vancomycin History of BPH - matthews removed 08/07 - continue on flomax and Terazosin- home meds - urine eosinophils- negative - US-renal/bladder- unremarkable - ff BMP. accurate I and O - Vancomycin DC 08/06 - Nephrology ff along with us- for HD arrangement. Vascath placed - hemodialysis initiated 08/09. s/p HD yesterday. Patient reports good UOP. Creatinine improved - dropped from 7.30 to 5.50. Repeat BMP to see if HD needed tomorrow. HTN, CAD s/p CABG: chronic. BP some elevated readings -continue patient's aspirin with hx of CABG -continue patient's terazosin -Monitor BP, adjust antihypertensives as needed -started CCB- amlodipine 5 mg daily, continue Diabetes mellitus: chronic- high readings -Discontinued metformin - with GRADY. Discontinued glipizide as well -Monitor Accu-checks and cover with SSI -A1C 6.5 -Maintain blood sugar between 140 and 180 per Nephrology. BS running 138-282 -started on , increase to 8 units bid. BS running 153-242 today. Increase to 10u BID. Hypothyroidism: chronic -continue patient's levothyroxine DVT Prophylaxis: teds/SCDs Heparin SQ for DVT prophylaxis Code Status: Full Discussed Condition With: patient, nursing staff, Dr. Thomson Discharge Planning: Not ready for discharge. Discharge pending improvement in kidney function. Discharge pending ID and nephrology clearance.
[2018-08-13 07:51] LABS: Carbon Dioxide 29.8 meq/L (21.0-32.0); Potassium 4.1 meq/L (3.5-5.1)
[2018-08-13] MEDS: amLODIPine 5 MG Tablet PO SCH (09:02)
[2018-08-13] MEDS: Senna/Docusate Sodium 8.6/50 MG Tablet PO SCH ×2 (09:02→21:53)
[2018-08-13] MEDS: Insulin NovoLOG Aspart Correctional Sugar Inj SQ SCH ×4 (09:28→21:53)
--- NOTE | 2018-08-13 12:26 | P.PNNP ---
Subjective Interval history: Patient was seen, no distress, no complaints. Patient stated he continues to have good urine output. Will monitor labs to determine if dialysis is needed tomorrow. <David Coreas - Last Filed: 08/13/18 12:21> Physical Exam Vital signs: Vital Signs 08/12/18 13:35 08/12/18 15:40 08/12/18 20:00 Temperature 97.8 F 97.8 F 97.6 F Pulse Rate 73 74 64 Respiratory Rate 19 20 17 Blood Pressure 137/78 137/78 127/60 Pulse Oximetry 93 L 93 L 94 L 08/13/18 00:00 08/13/18 04:00 08/13/18 08:00 Temperature 98.1 F 97.9 F 98.0 F Pulse Rate 59 L 63 62 Respiratory Rate 19 16 Blood Pressure 167/77 H 155/70 H 169/75 H Pulse Oximetry 94 L 96 95 08/13/18 12:00 Temperature 97.7 F Pulse Rate 68 Respiratory Rate 14 Blood Pressure 125/61 Pulse Oximetry 94 L Intake & Output 08/12/18 08/13/18 08/13/18 18:59 06:59 18:59 Intake Total 960 / 960 100 / 100 Output Total 900 / 900 300 / 300 Balance 60 / 60 100 / 100 -300 / -300 Weight 107.3 kg Intake: IV 100 / 100 Cubicin Inj 450 MG In NS Inj 100 / 100 100 ML @ 200 mls/hr IV.SIG Q48H KADY Rx#:[id number] Oral 960 / 960 Output: Urine 300 / 300 Hemodialysis Amount 800 / 800 Urine Amount (Catheter) 100 / 100 Straight 100 / 100 Other: Mode Setting Right Axilla Continuous # Voids 600 4 1 Date of Last Bowel Movement 08/12/18 08/13/18 # Bowel Movements 1 - Constitutional no acute distress - Routine HEENT Exam Head: Present: normocephalic Eye: Present: EOMI, PERRL ENT: Present: mucous membranes moist - Routine Neck Exam Present: trachea midline, tracheal deviation. Absent: JVD - Routine Respiratory Exam Present: CTA bilaterally. Absent: accessory muscle use, respiratory distress - Routine Cardiovascular Exam Present: RRR - Routine Extremities Exam Absent: edema Comments: Vascath in place - Routine Skin Exam Comments: right axillary abscess - Urinary Catheter Management Straight Cath placed during this visit: yes, but has since been removed by the nurse Reason for continuing: Acute urinary retention Insertion date: 08/06/18 Insertion time: 05:59 Removal date: 08/07/18 Removal time: 12:44 <David Coreas - Last Filed: 08/13/18 12:21> Vital signs: Vital Signs 08/12/18 20:00 08/13/18 00:00 08/13/18 04:00 Temperature 97.6 F 98.1 F 97.9 F Pulse Rate 64 59 L 63 Respiratory Rate 17 19 Blood Pressure 127/60 167/77 H 155/70 H Pulse Oximetry 94 L 94 L 96 08/13/18 08:00 08/13/18 12:00 Temperature 98.0 F 97.7 F Pulse Rate 62 68 Respiratory Rate 16 14 Blood Pressure 169/75 H 125/61 Pulse Oximetry 95 94 L Intake & Output 08/12/18 08/13/18 08/13/18 18:59 06:59 18:59 Intake Total 960 / 960 100 / 100 Output Total 900 / 900 300 / 300 Balance 60 / 60 100 / 100 -300 / -300 Weight 107.3 kg Intake: IV 100 / 100 Cubicin Inj 450 MG In NS Inj 100 / 100 100 ML @ 200 mls/hr IV.SIG Q48H KADY Rx#:[id number] Oral 960 / 960 Output: Urine 300 / 300 Hemodialysis Amount 800 / 800 Urine Amount (Catheter) 100 / 100 Straight 100 / 100 Other: Mode Setting Right Axilla Continuous # Voids 600 4 1 Date of Last Bowel Movement 08/12/18 08/13/18 08/13/18 # Bowel Movements 1 - Urinary Catheter Management Straight Cath placed during this visit: no <Alec Gonzalez - Last Filed: 08/13/18 17:20> Assessment and Plan - Assessment (1) Acute kidney injury Code(s): N17.9 - Acute kidney failure, unspecified Status: Acute Plan: Could be due to sepsis, ATN. Could be due to Vancomycin induced nephrotoxicity. Urine output has improved. Avoid nephrotoxic agents. Monitor for renal recovery. Will continue to monitor labs to determine if dialysis is needed tomorrow. (2) Non-insulin treated type 2 diabetes mellitus Code(s): E11.9 - Type 2 diabetes mellitus without complications Status: Acute Plan: maintain blood sugar between 140 and 180 while hospitalized. (3) Abscess Code(s): L02.91 - Cutaneous abscess, unspecified Status: Acute Plan: s/p drainage. (4) S/P CABG (coronary artery bypass graft) Code(s): Z95.1 - Presence of aortocoronary bypass graft Status: Acute <David Coreas - Last Filed: 08/13/18 12:21> - Assessment (1) Acute kidney injury Code(s): N17.9 - Acute kidney failure, unspecified Status: Acute (2) Non-insulin treated type 2 diabetes mellitus Code(s): E11.9 - Type 2 diabetes mellitus without complications Status: Acute (3) Abscess Code(s): L02.91 - Cutaneous abscess, unspecified Status: Acute (4) S/P CABG (coronary artery bypass graft) Code(s): Z95.1 - Presence of aortocoronary bypass graft Status: Acute - Attending Attestation patient was seen and examined. Agree with above assessment and plan. <Alec Gonzalez - Last Filed: 08/13/18 17:20>
--- NOTE | 2018-08-13 13:26 | P.PNID ---
Subjective Remarks: Patient is a 72-year-old male presented to the hospital complaining of pain and swelling in his right axilla and right chest wall. Patient was seen in the emergency room about 10 days ago complaining of pain and knot in his right axilla. He was diagnosed to have a possible lymphadenitis, and he was given clindamycin and was discharged home. Patient stated that he was compliant with his antibiotics. The area however started getting worse with increasing pain swelling so he presented to the hospital for further evaluation and treatment. He denies any fever chills or sweats. Denies any GI or any urinary complaints. Patient denies any previous history of skin and soft tissue infection. He denies any trauma. He has not been exposed to any animals particularly cats. Patient stated that there is a fairly CAD in their neighborhood but he never really messed up with that. Patient since admission had some low-grade temps. His initial white count was 17,000. CT of the chest showing a multiloculated fluid collection in the right axilla extending into the lateral aspect of the pectoralis major. Surgery saw the patient and he had I&D of a multiloculated abscess. Patient currently has a wound VAC in place. He is stating that the pain is better. His temperatures are better. His WBC is down to 14,000. Culture from surgery still pending, but Gram stain is showing gram-positive cocci in clusters. Patient is currently on vancomycin and Zosyn. His creatinine is elevated on admission. It was normal when he was seen in the emergency room about 10 days ago. Infectious disease consultation has been requested to assist with evaluation and treatment of a right axillary abscess. Notes reviewed temps ok Creatinine decreasing Good UO Last HD yesterday Wound vac removed yesterday - getting wet to dry dressings Antibiotics: Cubicin Lines: Vascath RIJ PIV Past Medical History: CAB S/P CABG DM Allergies/Adverse Reactions: Allergies No Known Allergies Allergy (Verified 08/04/18 22:44) Objective Vital Signs 08/12/18 13:35 08/12/18 15:40 08/12/18 20:00 Temperature 97.8 F 97.8 F 97.6 F Pulse Rate 73 74 64 Respiratory Rate 19 20 17 Blood Pressure 137/78 137/78 127/60 Pulse Oximetry 93 L 93 L 94 L 08/13/18 00:00 08/13/18 04:00 08/13/18 08:00 Temperature 98.1 F 97.9 F 98.0 F Pulse Rate 59 L 63 62 Respiratory Rate 19 16 Blood Pressure 167/77 H 155/70 H 169/75 H Pulse Oximetry 94 L 96 95 08/13/18 12:00 Temperature 97.7 F Pulse Rate 68 Respiratory Rate 14 Blood Pressure 125/61 Pulse Oximetry 94 L Intake & Output 08/12/18 08/13/18 08/13/18 18:59 06:59 18:59 Intake Total 960 / 960 100 / 100 Output Total 900 / 900 300 / 300 Balance 60 / 60 100 / 100 -300 / -300 Weight 107.3 kg Intake: IV 100 / 100 Cubicin Inj 450 MG In NS Inj 100 / 100 100 ML @ 200 mls/hr IV.SIG Q48H KADY Rx#:[id number] Oral 960 / 960 Output: Urine 300 / 300 Hemodialysis Amount 800 / 800 Urine Amount (Catheter) 100 / 100 Straight 100 / 100 Other: Mode Setting Right Axilla Continuous # Voids 600 4 1 Date of Last Bowel Movement 08/12/18 08/13/18 # Bowel Movements 1 08/07/18 06:08 Blood - Peripheral Aerobic Blood Culture - Final No growth in 5 days 08/07/18 06:08 Blood - Peripheral Anaerobic Blood Culture - Final No growth in 5 days 08/07/18 06:00 Blood - Peripheral Aerobic Blood Culture - Final No growth in 5 days 08/07/18 06:00 Blood - Peripheral Anaerobic Blood Culture - Final No growth in 5 days Lab - Chemistry Results 08/11/18 08/11/18 08/12/18 16:25 22:37 08:05 Sodium 138 Potassium 4.2 Chloride 102 Carbon Dioxide 25.6 Anion Gap 10 BUN 54 H Creatinine 7.30 H Estimated GFR 7 L POC Glucose 244 H 138 H Random Glucose 217 H Calcium 8.0 L Phosphorus 6.9 H Total Creatine Kinase Albumin 2.2 L 08/12/18 08/12/18 08/12/18 08:45 12:10 18:29 Sodium Potassium Chloride Carbon Dioxide Anion Gap BUN Creatinine Estimated GFR POC Glucose 228 H 138 H 186 H Random Glucose Calcium Phosphorus Total Creatine Kinase Albumin 08/12/18 08/13/18 08/13/18 20:24 06:40 08:37 Sodium 141 Potassium 4.1 Chloride 101 Carbon Dioxide 29.8 Anion Gap 10 BUN 32 H Creatinine 5.50 H Estimated GFR 10 L POC Glucose 204 H 153 H Random Glucose 151 H Calcium 8.0 L Phosphorus Total Creatine Kinase 15 L Albumin Imaging: ITS Impressions Chest CT 08/05/18 00:03 CONCLUSION: 1. Large heterogeneous collection of the right axilla and the lateral margin of pectoralis major as described. This appears to represent a lobulated mass or a multiloculated fluid collection or hematoma. Infectious and neoplastic etiologies are both in the differential. 2. Mild atelectasis of the lung bases and a 5 mm left upper lobe pulmonary nodule. 3. Previous median sternotomy and CABG. 4. Cholelithiasis. 5. No acute osseous abnormality. Abdomen/Bladder Ultrasound 08/06/18 00:00 CONCLUSION: 1. No evidence of hydronephrosis. The echogenicity of the kidneys is within normal limits. 2. Simple cyst in right kidney. Catheter Placement 08/08/18 00:00 CONCLUSION: 1. Uncomplicated line placement as above. Venous Doppler Study 08/09/18 00:00 CONCLUSION: 1. No venous thrombosis seen of the right upper extremity. 2. There is a fluid collection near the right shoulder, nonspecific but a seroma or some fluid in the subcoracoid recess considered most likely. Physical Exam: GENERAL: awake and alert, NAD SKIN: Warm and dry. No generalized rash HEAD: Atraumatic. Normocephalic. No temporal wasting, or tenderness. EYES: Brock conjunctiva. No petechia or hemorrhage. No scleral icterus. No injection or drainage. EARS, NOSE AND THROAT: Mucous membranes pink and moist. No oral lesions noted. No exudate. No oral thrush. Poor dentition NECK: Trachea midline. Supple and not tender, no meningeal signs CARDIOVASCULAR: Regular rate and rhythm. No murmurs, rubs or gallops heard RESPIRATORY: Clear to auscultation. Breath sounds equal bilaterally. No rales , wheezing or rhonchi. Open wound R lateral chest with packing, has bloody fluid soaking the packing, area of redness and induration markedly improved. ABDOMEN: Soft, non-tender, nondistended. Bowel sounds present and normoactive. No guarding. No rebound. No organomegaly. EXTREMITIES: No clubbing, cyanosis, or edema. No calf tenderness. NEUROLOGICAL: Grossly non-focal. PSYCHIATRIC: Normal affect, calm and cooperative. LINE: No evidence of infection Assessment and Plan - Plan Impression Sepsis on admission due to a large abscess, better Abscess, cellulitis R axilla/R chest wall - S/P I and D - C/S MRSA Renal failure, on HD, UO improving Fevers and leukocytosis, resolved Recommendation Continue IV Cubicin for MRSA coverage zabrina since his creatinine continues to worsen - follow CPK Monitor temps Monitor progress Wound care per surgery
[2018-08-14] MEDS: Levothyroxine 88 MCG Tablet PO SCH (06:44)
--- NOTE | 2018-08-14 07:54 | P.PN ---
Subjective Interval history: ollow-up on patient with sepsis, acute kidney injury, right axillary abscess. Patient resting comfortably in bed. Discussed with nursing staff, no adverse events noted. Patients creatinine worsened today. Per nephrology, plan to dialyze today. Physical Exam Vital signs: Vital Signs 08/13/18 08:00 08/13/18 12:00 08/13/18 16:00 Temperature 98.0 F 97.7 F 98.4 F Pulse Rate 62 68 63 Respiratory Rate 16 14 18 Blood Pressure 169/75 H 125/61 154/70 H Pulse Oximetry 95 94 L 97 08/13/18 20:00 08/14/18 00:00 08/14/18 04:00 Temperature 98.0 F 97.5 F L 98.1 F Pulse Rate 62 55 L 56 L Respiratory Rate 19 21 17 Blood Pressure 174/72 H 170/73 H 150/68 H Pulse Oximetry 97 92 L 97 Intake & Output 08/13/18 08/14/18 08/14/18 18:59 06:59 18:59 Output Total 300 / 300 550 / 550 Balance -300 / -300 -550 / -550 Weight 105.5 kg Output: Urine 300 / 300 550 / 550 Other: # Voids 1 Date of Last Bowel Movement 08/13/18 - Urinary Catheter Management Straight Cath placed during this visit: yes, but has since been removed by the nurse Reason for continuing: Acute urinary retention Insertion date: 08/06/18 Insertion time: 05:59 Removal date: 08/07/18 Removal time: 12:44 Results - Labs CBC & Chem 7: 08/07/18 06:08 08/14/18 07:33 Laboratory Results - last 24 hr 08/13/18 08/13/18 08/13/18 06:40 08:37 13:23 POC Glucose 153 H 242 H Total Creatine Kinase 15 L 08/13/18 08/13/18 08/13/18 16:52 16:54 20:23 POC Glucose 217 H 212 H 201 H Total Creatine Kinase - Procedures 08/05 Incision and drainage right axillary abscess with VAC placement Assessment and Plan - Plan 72-year-old male with history of diabetes, coronary artery disease status post CABG who presents with a 2-week history of progressively worsening sharp constant, nonradiating right axillary pain with cellulitis. Sepsis present on admission secondary to Right axillary abscess: MRSA S/P I and D 08/05 with VAC placement S/P VAC change 08/08 +Leukocytosis WBC 17.5K. - down to 10 -Chest CT reviewed, shows Large heterogeneous collection of the right axilla and the lateral margin of pectoralis major as described. This appears to represent a lobulated mass or a multiloculated fluid collection or hematoma. - Vancomycin-Discontinued 08/06 - Infectious disease ff- on Cubicin. Monitor CPK. CK 15 on 08/13. - GS ff- VAC management. Wound vac removed 08/12 and changed to wet to dry dressing changes. Acute GRADY- likely drug induced- Vancomycin History of BPH - matthews removed 08/07 - continue on flomax and Terazosin- home meds - urine eosinophils- negative - US-renal/bladder- unremarkable - ff BMP. accurate I and O - Vancomycin DC 08/06 - Nephrology ff along with us- for HD arrangement. Vascath placed - hemodialysis initiated 08/09. Creatinine improved. No HD yesterday. 08/14 creatinine worsened up from 5.50 to 6.27. Plan to dialyze today. - Continue to monitor for renal recovery HTN, CAD s/p CABG: chronic. BP some elevated readings -continue patient's aspirin with hx of CABG -continue patient's terazosin -Monitor BP, adjust antihypertensives as needed -started CCB- amlodipine 5 mg daily, continue. BP elevated. Will monitor BP response to dialysis. May need to increase Norvasc dose to 10 mg daily. Diabetes mellitus: chronic- high readings -Discontinued metformin - with GRADY. Discontinued glipizide as well -Monitor Accu-checks and cover with SSI -A1C 6.5 -Maintain blood sugar between 140 and 180 per Nephrology. BS running 172 to 210. -Increase 70/30 to 12u BID. Hypothyroidism: chronic -continue patient's levothyroxine DVT Prophylaxis: teds/SCDs Heparin SQ for DVT prophylaxis Code Status: Full Discussed Condition With: patient, nursing staff, Dr. Thomson Discharge Planning: Not ready for discharge. Discharge pending improvement in kidney function. Discharge pending ID and nephrology clearance.
[2018-08-14 08:13] LABS: Albumin 2.5 g/dL (3.4-5.0); Calcium 8.4 mg/dL (8.5-10.1); Carbon Dioxide 32.3 meq/L (21.0-32.0); Phosphorus 6.2 mg/dL (2.5-4.9); Potassium 3.8 meq/L (3.5-5.1)
[2018-08-14] MEDS: Insulin NovoLOG Aspart Correctional Sugar Inj SQ SCH ×4 (09:32→23:08)
[2018-08-14] MEDS: amLODIPine 5 MG Tablet PO SCH (09:35)
[2018-08-14] MEDS: Senna/Docusate Sodium 8.6/50 MG Tablet PO SCH ×2 (09:35→23:09)
--- NOTE | 2018-08-14 11:52 | P.PNNP ---
Subjective Interval history: Patient was seen sitting in chair, no complaints, no distress. Patient's renal function has not improved so patient to be dialyzed today. Will continue to monitor for renal recovery to determine if dialysis is needed. <David Coreas - Last Filed: 08/14/18 11:47> Physical Exam Vital signs: Vital Signs 08/13/18 12:00 08/13/18 16:00 08/13/18 20:00 Temperature 97.7 F 98.4 F 98.0 F Pulse Rate 68 63 62 Respiratory Rate 14 18 19 Blood Pressure 125/61 154/70 H 174/72 H Pulse Oximetry 94 L 97 97 08/14/18 00:00 08/14/18 04:00 08/14/18 08:00 Temperature 97.5 F L 98.1 F 97.9 F Pulse Rate 55 L 56 L 50 L Respiratory Rate 21 17 20 Blood Pressure 170/73 H 150/68 H 183/77 H Pulse Oximetry 92 L 97 95 Intake & Output 08/13/18 08/14/18 08/14/18 18:59 06:59 18:59 Output Total 300 / 300 550 / 550 Balance -300 / -300 -550 / -550 Weight 105.5 kg Output: Urine 300 / 300 550 / 550 Other: # Voids 1 Date of Last Bowel Movement 08/13/18 - Constitutional no acute distress - Routine HEENT Exam Head: Present: normocephalic Eye: Present: EOMI, PERRL ENT: Present: mucous membranes moist - Routine Neck Exam Present: trachea midline. Absent: JVD, lymphadenopathy, tracheal deviation - Routine Respiratory Exam Present: CTA bilaterally. Absent: accessory muscle use, respiratory distress - Routine Cardiovascular Exam Present: RRR, S1, S2. Absent: murmur - Routine Abdominal Exam Present: soft, normoactive bowel sounds - Routine Extremities Exam Present: pulses intact. Absent: clubbing, edema - Routine Skin Exam Comments: Open wound R lateral chest/axilla with packing. - Routine Neurological Exam Present: alert, oriented X3 - Detailed Neurological Exam: Coma Scale Eye Opening: Spontaneous - Routine Psychiatric Exam Present: normal affect, normal thought process - Urinary Catheter Management Straight Cath placed during this visit: yes, but has since been removed by the nurse Reason for continuing: Acute urinary retention Insertion date: 08/06/18 Insertion time: 05:59 Removal date: 08/07/18 Removal time: 12:44 <Randall Coreaserika - Last Filed: 08/14/18 11:47> Vital signs: Vital Signs 08/14/18 20:00 08/15/18 00:00 08/15/18 04:00 Temperature 97.8 F 97.8 F 97.4 F L Pulse Rate 70 67 93 H Respiratory Rate 20 20 20 Blood Pressure 159/70 H 159/73 H 103/55 L Pulse Oximetry 92 L 94 L 98 08/15/18 08:00 08/15/18 12:00 Temperature 97.7 F 97.5 F L Pulse Rate 60 64 Respiratory Rate 16 16 Blood Pressure 161/73 H 133/63 Pulse Oximetry 97 95 Intake & Output 08/14/18 08/15/18 08/15/18 18:59 06:59 18:59 Intake Total 700 / 700 Output Total 200 / 200 625 / 625 Balance -200 / -200 75 / 75 Weight 106.8 kg 107.7 kg Intake: IV 100 / 100 Cubicin Inj 450 MG In NS Inj 100 / 100 100 ML @ 200 mls/hr IV.SIG Q48H KADY Rx#:[id number] Oral 600 / 600 Output: Urine 625 / 625 Hemodialysis Amount 200 / 200 Other: Date of Last Bowel Movement 08/13/18 08/14/18 - Urinary Catheter Management Straight Cath placed during this visit: no <lAec Gonzalez - Last Filed: 08/15/18 14:50> Assessment and Plan - Assessment (1) Acute kidney injury Code(s): N17.9 - Acute kidney failure, unspecified Status: Acute Plan: Could be due to sepsis, ATN. Could be due to Vancomycin induced nephrotoxicity. Urine output has improved. Avoid nephrotoxic agents. Monitor for renal recovery. Patient's renal function has not improved, patient to be dialyzed today. (2) Non-insulin treated type 2 diabetes mellitus Code(s): E11.9 - Type 2 diabetes mellitus without complications Status: Acute Plan: maintain blood sugar between 140 and 180 while hospitalized. (3) Abscess Code(s): L02.91 - Cutaneous abscess, unspecified Status: Acute Plan: s/p drainage. (4) S/P CABG (coronary artery bypass graft) Code(s): Z95.1 - Presence of aortocoronary bypass graft Status: Acute <David Coreas - Last Filed: 08/14/18 11:47> - Assessment (1) Acute kidney injury Code(s): N17.9 - Acute kidney failure, unspecified Status: Acute (2) Non-insulin treated type 2 diabetes mellitus Code(s): E11.9 - Type 2 diabetes mellitus without complications Status: Acute (3) Abscess Code(s): L02.91 - Cutaneous abscess, unspecified Status: Acute (4) S/P CABG (coronary artery bypass graft) Code(s): Z95.1 - Presence of aortocoronary bypass graft Status: Acute - Attending Attestation patient was seen and examined. Agree with above assessment and plan. Monitor renal function and urine output. <Alec Gonzalez - Last Filed: 08/15/18 14:50>
--- NOTE | 2018-08-14 14:23 | P.PNGS ---
Subjective Interval history: Resting in bed No issues overnight Physical Exam Vital signs: Vital Signs 08/13/18 16:00 08/13/18 20:00 08/14/18 00:00 Temperature 98.4 F 98.0 F 97.5 F L Pulse Rate 63 62 55 L Respiratory Rate 18 19 21 Blood Pressure 154/70 H 174/72 H 170/73 H Pulse Oximetry 97 97 92 L 08/14/18 04:00 08/14/18 08:00 08/14/18 12:00 Temperature 98.1 F 97.9 F 98 F Pulse Rate 56 L 50 L 58 L Respiratory Rate 17 20 20 Blood Pressure 150/68 H 183/77 H 146/65 H Pulse Oximetry 97 95 97 Intake & Output 08/13/18 08/14/18 08/14/18 18:59 06:59 18:59 Output Total 300 / 300 550 / 550 Balance -300 / -300 -550 / -550 Weight 105.5 kg Output: Urine 300 / 300 550 / 550 Other: # Voids 1 Date of Last Bowel Movement 08/13/18 08/13/18 Narrative: Alert and awake RIGHT axillary--- dressing removed--- cleaned wound out of exudate --re-packed wound - Urinary Catheter Management Straight Cath placed during this visit: yes, but has since been removed by the nurse Reason for continuing: Acute urinary retention Insertion date: 08/06/18 Insertion time: 05:59 Removal date: 08/07/18 Removal time: 12:44 Results - Labs 08/21/18 05:43 08/22/18 09:00 Laboratory Results - last 24 hr 08/13/18 08/13/18 08/13/18 16:52 16:54 20:23 Sodium Potassium Chloride Carbon Dioxide Anion Gap BUN Creatinine Estimated GFR POC Glucose 217 H 212 H 201 H Random Glucose Calcium Phosphorus Albumin 08/14/18 08/14/18 08/14/18 07:33 07:56 13:05 Sodium 139 Potassium 3.8 Chloride 99 Carbon Dioxide 32.3 H Anion Gap 8 BUN 38 H Creatinine 6.27 H Estimated GFR 9 L POC Glucose 172 H 210 H Random Glucose 156 H Calcium 8.4 L Phosphorus 6.2 H Albumin 2.5 L - Imaging Imaging: ITS Impressions Chest CT 08/05/18 00:03 CONCLUSION: 1. Large heterogeneous collection of the right axilla and the lateral margin of pectoralis major as described. This appears to represent a lobulated mass or a multiloculated fluid collection or hematoma. Infectious and neoplastic etiologies are both in the differential. 2. Mild atelectasis of the lung bases and a 5 mm left upper lobe pulmonary nodule. 3. Previous median sternotomy and CABG. 4. Cholelithiasis. 5. No acute osseous abnormality. Abdomen/Bladder Ultrasound 08/06/18 00:00 CONCLUSION: 1. No evidence of hydronephrosis. The echogenicity of the kidneys is within normal limits. 2. Simple cyst in right kidney. Catheter Placement 08/08/18 00:00 CONCLUSION: 1. Uncomplicated line placement as above. Venous Doppler Study 08/09/18 00:00 CONCLUSION: 1. No venous thrombosis seen of the right upper extremity. 2. There is a fluid collection near the right shoulder, nonspecific but a seroma or some fluid in the subcoracoid recess considered most likely. Assessment and Plan - Assessment (1) Abscess Code(s): L02.91 - Cutaneous abscess, unspecified Status: Acute Plan: 72 year old male with RIGHT axillary abscess; s/p incision and drainage of RIGHT axillary abscess with vac -Change daily and PRN ---Make sure packing is placed INTO THE WOUND BED! -ID following -Patient will likely need rehab Receiving dialysis. Wound appears clean. Needs to have proper packing. The exam, history, and the medical decision-making described in the above note were completed with the assistance of the mid-level provider. I reviewed and agree with the findings presented. I attest that I had a [id number] encounter with the patient on the same day, and personally performed and documented my assessment and findings in the medical record.
[2018-08-14] MEDS: Heparin 10,000 UNITS/10 ML Vial (for IV use) OTHER PRN (17:18)
[2018-08-14] MEDS: DAPTOMYCIN IV.SIG SCH (19:01)
[2018-08-14] MEDS: SODIUM CHLOR 0.9% IV.SIG SCH (19:01)
[2018-08-15] MEDS: Levothyroxine 88 MCG Tablet PO SCH (06:14)
--- NOTE | 2018-08-15 08:14 | P.PN ---
Subjective Interval history: Follow-up on patient with sepsis, acute kidney injury, right axillary abscess. Patient seen and examined. Patient ambulating around his room with assistance of cane. Appears to be fairly steady on his feet. He denies any acute medical complaints. Reports they changed his right chest wound dressing 4x yesterday. He underwent HD yesterday. He reports good UOP today. Physical Exam Vital signs: Vital Signs 08/14/18 12:00 08/14/18 20:00 08/15/18 00:00 Temperature 98 F 97.8 F 97.8 F Pulse Rate 58 L 70 67 Respiratory Rate 20 20 20 Blood Pressure 146/65 H 159/70 H 159/73 H Pulse Oximetry 97 92 L 94 L 08/15/18 04:00 Temperature 97.4 F L Pulse Rate 93 H Respiratory Rate 20 Blood Pressure 103/55 L Pulse Oximetry 98 Intake & Output 08/14/18 08/15/18 08/15/18 18:59 06:59 18:59 Intake Total 700 / 700 Output Total 200 / 200 625 / 625 Balance -200 / -200 75 / 75 Weight 106.8 kg 107.7 kg Intake: IV 100 / 100 Cubicin Inj 450 MG In NS Inj 100 / 100 100 ML @ 200 mls/hr IV.SIG Q48H [facility] Rx#:[id number] Oral 600 / 600 Output: Urine 625 / 625 Hemodialysis Amount 200 / 200 Other: Date of Last Bowel Movement 08/13/18 08/14/18 Narrative: GENERAL: Well-developed well-nourished elderly male patient in no acute distress. Awake and alert. Appears comfortable sitting in bedside chair. SKIN: Warm and dry. Right lateral chest/axilla s/p removal of wound vac, wet to dry dressing in place, saturated. Vascath in place right IJ. HEENT: Atraumatic. Normocephalic. Pupils equal and round. No scleral icterus. No injection or drainage. No nasal bleeding or discharge. Mucous membranes pink and moist. NECK: Trachea midline. CARDIOVASCULAR: Regular rate and rhythm. RESPIRATORY: No accessory muscle use. Clear to auscultation. Breath sounds equal bilaterally. GASTROINTESTINAL: Abdomen soft, non-tender, nondistended. +BS. MUSCULOSKELETAL: Extremities without clubbing, cyanosis, or edema. No obvious deformities. NEUROLOGICAL: Awake and alert. No obvious cranial nerve deficits. Motor grossly within normal limits. Able to move all extremities spontaneously. Normal speech. PSYCHIATRIC: Appropriate mood and affect; insight and judgment normal. - Urinary Catheter Management Straight Cath placed during this visit: yes, but has since been removed by the nurse Reason for continuing: Acute urinary retention Insertion date: 08/06/18 Insertion time: 05:59 Removal date: 08/07/18 Removal time: 12:44 Results - Labs CBC & Chem 7: 08/15/18 10:59 08/15/18 10:59 Laboratory Results - last 24 hr 08/14/18 08/14/18 08/14/18 07:56 13:05 17:12 POC Glucose 172 H 210 H 121 H 08/14/18 08/15/18 23:18 08:00 POC Glucose 141 H 169 H - Procedures 08/05 Incision and drainage right axillary abscess with VAC placement Assessment and Plan - Plan 72-year-old male with history of diabetes, coronary artery disease status post CABG who presents with a 2-week history of progressively worsening sharp constant, nonradiating right axillary pain with cellulitis. Sepsis present on admission secondary to Right axillary abscess: MRSA S/P I and D 08/05 with VAC placement S/P VAC change 08/08 +Leukocytosis WBC 17.5K. - down to 10 -Chest CT reviewed, shows Large heterogeneous collection of the right axilla and the lateral margin of pectoralis major as described. This appears to represent a lobulated mass or a multiloculated fluid collection or hematoma. - Vancomycin-Discontinued 08/06 - Infectious disease ff- on Cubicin. Monitor CPK. CK 15 on 08/13. - GS ff- VAC management. Wound vac removed 08/12 and changed to wet to dry dressing changes. Multiple dressing changes required yesterday, monitor. Acute GRADY- likely drug induced- Vancomycin History of BPH - matthews removed 08/07 - continue on flomax and Terazosin- home meds - urine eosinophils- negative - US-renal/bladder- unremarkable - ff BMP. accurate I and O - Vancomycin DC 08/06 - Nephrology ff along with us- for HD arrangement. Vascath placed - hemodialysis initiated 08/09. Creatinine improved. 08/14 creatinine worsened up from 5.50 to 6.27. s/p HD yesterday. Cr improved to 4.85 today. Repeat in am. PPD ordered in anticipation of possible outpt HD needed. - Continue to monitor for renal recovery HTN, CAD s/p CABG: chronic. BP some elevated readings -continue patient's aspirin with hx of CABG -continue patient's terazosin -Monitor BP, adjust antihypertensives as needed -started CCB- amlodipine 5 mg daily, continue. BP elevated. Will monitor BP response to dialysis. May need to increase Norvasc dose to 10 mg daily. Diabetes mellitus: chronic- high readings -Discontinued metformin - with GRADY. Discontinued glipizide as well -Monitor Accu-checks and cover with SSI -A1C 6.5 -Maintain blood sugar between 140 and 180 per Nephrology. BS 169 and 263. -Increase 70/30 to 14u BID. Hypothyroidism: chronic -continue patient's levothyroxine DVT Prophylaxis: teds/SCDs Heparin SQ for DVT prophylaxis Code Status: Full Discussed Condition With: patient, nursing staff, Dr. Thomson Discharge Planning: Not ready for discharge. Discharge pending improvement in kidney function. Discharge pending ID and nephrology clearance.
[2018-08-15] MEDS: amLODIPine 5 MG Tablet PO SCH (08:45)
[2018-08-15] MEDS: Insulin NovoLOG Aspart Correctional Sugar Inj SQ SCH ×4 (08:45→21:38)
[2018-08-15] MEDS: Senna/Docusate Sodium 8.6/50 MG Tablet PO SCH ×2 (08:46→21:38)
--- NOTE | 2018-08-15 10:20 | P.PNGS ---
Subjective Interval history: Resting in bed No issues LUIS Braden at bedside Physical Exam Vital signs: Vital Signs 08/14/18 12:00 08/14/18 20:00 08/15/18 00:00 Temperature 98 F 97.8 F 97.8 F Pulse Rate 58 L 70 67 Respiratory Rate 20 20 20 Blood Pressure 146/65 H 159/70 H 159/73 H Pulse Oximetry 97 92 L 94 L 08/15/18 04:00 08/15/18 08:00 Temperature 97.4 F L 97.7 F Pulse Rate 93 H 60 Respiratory Rate 20 16 Blood Pressure 103/55 L 161/73 H Pulse Oximetry 98 97 Intake & Output 08/14/18 08/15/18 08/15/18 18:59 06:59 18:59 Intake Total 700 / 700 Output Total 200 / 200 625 / 625 Balance -200 / -200 75 / 75 Weight 106.8 kg 107.7 kg Intake: IV 100 / 100 Cubicin Inj 450 MG In NS Inj 100 / 100 100 ML @ 200 mls/hr IV.SIG Q48H [facility] Rx#:[id number] Oral 600 / 600 Output: Urine 625 / 625 Hemodialysis Amount 200 / 200 Other: Date of Last Bowel Movement 08/13/18 08/14/18 Narrative: Alert and awake RIGHT axillary--- Dressing changed--- wound bed clean and dry - Urinary Catheter Management Straight Cath placed during this visit: yes, but has since been removed by the nurse Reason for continuing: Acute urinary retention Insertion date: 08/06/18 Insertion time: 05:59 Removal date: 08/07/18 Removal time: 12:44 Results - Labs 08/19/18 06:10 08/19/18 06:10 Laboratory Results - last 24 hr 08/14/18 08/14/18 08/14/18 13:05 17:12 23:18 POC Glucose 210 H 121 H 141 H 08/15/18 08:00 POC Glucose 169 H - Imaging Imaging: ITS Impressions Chest CT 08/05/18 00:03 CONCLUSION: 1. Large heterogeneous collection of the right axilla and the lateral margin of pectoralis major as described. This appears to represent a lobulated mass or a multiloculated fluid collection or hematoma. Infectious and neoplastic etiologies are both in the differential. 2. Mild atelectasis of the lung bases and a 5 mm left upper lobe pulmonary nodule. 3. Previous median sternotomy and CABG. 4. Cholelithiasis. 5. No acute osseous abnormality. Abdomen/Bladder Ultrasound 08/06/18 00:00 CONCLUSION: 1. No evidence of hydronephrosis. The echogenicity of the kidneys is within normal limits. 2. Simple cyst in right kidney. Catheter Placement 08/08/18 00:00 CONCLUSION: 1. Uncomplicated line placement as above. Venous Doppler Study 08/09/18 00:00 CONCLUSION: 1. No venous thrombosis seen of the right upper extremity. 2. There is a fluid collection near the right shoulder, nonspecific but a seroma or some fluid in the subcoracoid recess considered most likely. Assessment and Plan - Assessment (1) Abscess Code(s): L02.91 - Cutaneous abscess, unspecified Status: Acute Plan: 72 year old male with RIGHT axillary abscess; s/p incision and drainage of RIGHT axillary abscess with vac -Change daily and PRN ---Make sure packing is placed INTO THE WOUND BED! -ID following -Patient will need rehab -GS will see PRN over the weekend; Please call with any questions Wound is clean Ok to go to rehab when renal function improves Stable from GS standpt
[2018-08-15 11:41] LABS: Baso # (Auto) 0.1 th/mm3 (0.0-0.2); Baso % (Auto) 0.8 % (0.0-2.0); Eos # (Auto) 0.2 th/mm3 (0.0-0.4); Eos % (Auto) 3.4 % (0.0-4.0); Hematocrit 30.4 % (39.0-51.0); Hemoglobin 10.5 gm/dL (13.0-17.0); Lymph # (Auto) 0.6 th/mm3 (1.0-4.8); Lymph % (Auto) 9.3 % (9.0-44.0); Mean Corpuscular HGB Conc 34.7 % (32.0-36.0); Mean Corpuscular Hemoglobin 33.3 pg (27.0-34.0); Mean Platelet Volume 8.1 fL (7.0-11.0); Mono # (Auto) 0.3 th/mm3 (0.0-0.9); Neut # (Auto) 5.1 th/mm3 (1.8-7.7); Neut % (Auto) 82.5 % (16.0-70.0); Platelet Count 204 th/mm3 (150-450); Red Blood Count 3.16 mil/mm3 (4.50-5.90); Red Cell Distribution Width 13.5 % (11.6-17.2); White Blood Count 6.2 th/mm3 (4.0-11.0)
[2018-08-15 12:14] LABS: Calcium 8.4 mg/dL (8.5-10.1); Potassium 3.9 meq/L (3.5-5.1)
--- NOTE | 2018-08-15 12:30 | P.PNID ---
Subjective Remarks: Patient is a 72-year-old male presented to the hospital complaining of pain and swelling in his right axilla and right chest wall. Patient was seen in the emergency room about 10 days ago complaining of pain and knot in his right axilla. He was diagnosed to have a possible lymphadenitis, and he was given clindamycin and was discharged home. Patient stated that he was compliant with his antibiotics. The area however started getting worse with increasing pain swelling so he presented to the hospital for further evaluation and treatment. He denies any fever chills or sweats. Denies any GI or any urinary complaints. Patient denies any previous history of skin and soft tissue infection. He denies any trauma. He has not been exposed to any animals particularly cats. Patient stated that there is a fairly CAD in their neighborhood but he never really messed up with that. Patient since admission had some low-grade temps. His initial white count was 17,000. CT of the chest showing a multiloculated fluid collection in the right axilla extending into the lateral aspect of the pectoralis major. Surgery saw the patient and he had I&D of a multiloculated abscess. Patient currently has a wound VAC in place. He is stating that the pain is better. His temperatures are better. His WBC is down to 14,000. Culture from surgery still pending, but Gram stain is showing gram-positive cocci in clusters. Patient is currently on vancomycin and Zosyn. His creatinine is elevated on admission. It was normal when he was seen in the emergency room about 10 days ago. Infectious disease consultation has been requested to assist with evaluation and treatment of a right axillary abscess. Notes reviewed Temps ok UO has decreased Had HD yesterday No rash Getting wet to dry to his R lat chest wall open wound Antibiotics: Cubicin Lines: Vascath RIJ PIV Past Medical History: CAB S/P CABG DM Allergies/Adverse Reactions: Allergies No Known Allergies Allergy (Verified 08/04/18 22:44) Objective Vital Signs 08/14/18 20:00 08/15/18 00:00 08/15/18 04:00 Temperature 97.8 F 97.8 F 97.4 F L Pulse Rate 70 67 93 H Respiratory Rate 20 20 20 Blood Pressure 159/70 H 159/73 H 103/55 L Pulse Oximetry 92 L 94 L 98 08/15/18 08:00 Temperature 97.7 F Pulse Rate 60 Respiratory Rate 16 Blood Pressure 161/73 H Pulse Oximetry 97 Intake & Output 08/14/18 08/15/18 08/15/18 18:59 06:59 18:59 Intake Total 700 / 700 Output Total 200 / 200 625 / 625 Balance -200 / -200 75 / 75 Weight 106.8 kg 107.7 kg Intake: IV 100 / 100 Cubicin Inj 450 MG In NS Inj 100 / 100 100 ML @ 200 mls/hr IV.SIG Q48H [facility] Rx#:[id number] Oral 600 / 600 Output: Urine 625 / 625 Hemodialysis Amount 200 / 200 Other: Date of Last Bowel Movement 08/13/18 08/14/18 08/07/18 06:08 Blood - Peripheral Aerobic Blood Culture - Final No growth in 5 days 08/07/18 06:08 Blood - Peripheral Anaerobic Blood Culture - Final No growth in 5 days 08/07/18 06:00 Blood - Peripheral Aerobic Blood Culture - Final No growth in 5 days 08/07/18 06:00 Blood - Peripheral Anaerobic Blood Culture - Final No growth in 5 days Lab - Hematology Results 08/15/18 10:59 WBC 6.2 RBC 3.16 L Hgb 10.5 L Hct 30.4 L MCV 96.0 MCH 33.3 MCHC 34.7 RDW 13.5 Plt Count 204 MPV 8.1 Neut % (Auto) 82.5 H Lymph % (Auto) 9.3 [place] % (Auto) 4.0 Eos % (Auto) 3.4 Baso % (Auto) 0.8 Neut # (Auto) 5.1 Lymph # (Auto) 0.6 L [place] # (Auto) 0.3 Eos # (Auto) 0.2 Baso # (Auto) 0.1 WBC Differential . Differential Comment Auto diff final Lab - Chemistry Results 08/13/18 08/13/18 08/13/18 13:23 16:52 16:54 Sodium Potassium Chloride Carbon Dioxide Anion Gap BUN Creatinine Estimated GFR POC Glucose 242 H 217 H 212 H Random Glucose Calcium Phosphorus Albumin 08/13/18 08/14/18 08/14/18 20:23 07:33 07:56 Sodium 139 Potassium 3.8 Chloride 99 Carbon Dioxide 32.3 H Anion Gap 8 BUN 38 H Creatinine 6.27 H Estimated GFR 9 L POC Glucose 201 H 172 H Random Glucose 156 H Calcium 8.4 L Phosphorus 6.2 H Albumin 2.5 L 08/14/18 08/14/18 08/14/18 13:05 17:12 23:18 Sodium Potassium Chloride Carbon Dioxide Anion Gap BUN Creatinine Estimated GFR POC Glucose 210 H 121 H 141 H Random Glucose Calcium Phosphorus Albumin 08/15/18 08/15/18 08/15/18 08:00 10:59 11:31 Sodium 140 Potassium 3.9 Chloride 100 Carbon Dioxide 32.0 Anion Gap 8 BUN 27 H Creatinine 4.85 H Estimated GFR 12 L POC Glucose 169 H 263 H Random Glucose 243 H Calcium 8.4 L Phosphorus Albumin Imaging: ITS Impressions Chest CT 08/05/18 00:03 CONCLUSION: 1. Large heterogeneous collection of the right axilla and the lateral margin of pectoralis major as described. This appears to represent a lobulated mass or a multiloculated fluid collection or hematoma. Infectious and neoplastic etiologies are both in the differential. 2. Mild atelectasis of the lung bases and a 5 mm left upper lobe pulmonary nodule. 3. Previous median sternotomy and CABG. 4. Cholelithiasis. 5. No acute osseous abnormality. Abdomen/Bladder Ultrasound 08/06/18 00:00 CONCLUSION: 1. No evidence of hydronephrosis. The echogenicity of the kidneys is within normal limits. 2. Simple cyst in right kidney. Catheter Placement 08/08/18 00:00 CONCLUSION: 1. Uncomplicated line placement as above. Venous Doppler Study 08/09/18 00:00 CONCLUSION: 1. No venous thrombosis seen of the right upper extremity. 2. There is a fluid collection near the right shoulder, nonspecific but a seroma or some fluid in the subcoracoid recess considered most likely. Physical Exam: GENERAL: awake and alert, NAD SKIN: Warm and dry. No generalized rash HEENT: No petechia, no icterus, moist oral mucosa NECK: Trachea midline. Supple and not tender, no meningeal signs CARDIOVASCULAR: Regular rate and rhythm. No murmurs, rubs or gallops heard RESPIRATORY: Clear to auscultation. Open wound R lateral chest with packing, area of redness and induration markedly improved. ABDOMEN: Soft, non-tender, nondistended. Bowel sounds present and normoactive. No guarding. No rebound. No organomegaly. EXTREMITIES: No clubbing, cyanosis, or edema. No calf tenderness. NEUROLOGICAL: Grossly non-focal. PSYCHIATRIC: Normal affect, calm and cooperative. LINE: No evidence of infection Assessment and Plan - Plan Impression Sepsis on admission due to a large abscess, better Abscess, cellulitis R axilla/R chest wall - S/P I and D - C/S MRSA Renal failure, on HD - creatinine up and down, UO has decreased - renal following Fevers and leukocytosis, resolved Recommendation Continue IV Cubicin for MRSA coverage zabrina since his creatinine continues to worsen - follow CPK Monitor temps Monitor progress Wound care per surgery
--- NOTE | 2018-08-15 12:53 | P.PNNP ---
Subjective Interval history: Patient was sitting in chair, no distress, no complaints. Patient was dialyzed yesterday, 200 mL fluid removed. Will continue to monitor for renal recovery to determine if/when dialysis is needed again. <David Coreas - Last Filed: 08/15/18 12:58> Physical Exam Vital signs: Vital Signs 08/14/18 20:00 08/15/18 00:00 08/15/18 04:00 Temperature 97.8 F 97.8 F 97.4 F L Pulse Rate 70 67 93 H Respiratory Rate 20 20 20 Blood Pressure 159/70 H 159/73 H 103/55 L Pulse Oximetry 92 L 94 L 98 08/15/18 08:00 08/15/18 12:00 Temperature 97.7 F 97.5 F L Pulse Rate 60 64 Respiratory Rate 16 16 Blood Pressure 161/73 H 133/63 Pulse Oximetry 97 95 Intake & Output 08/14/18 08/15/18 08/15/18 18:59 06:59 18:59 Intake Total 700 / 700 Output Total 200 / 200 625 / 625 Balance -200 / -200 75 / 75 Weight 106.8 kg 107.7 kg Intake: IV 100 / 100 Cubicin Inj 450 MG In NS Inj 100 / 100 100 ML @ 200 mls/hr IV.SIG Q48H [facility] Rx#:[id number] Oral 600 / 600 Output: Urine 625 / 625 Hemodialysis Amount 200 / 200 Other: Date of Last Bowel Movement 08/13/18 08/14/18 - Constitutional no acute distress - Routine HEENT Exam Head: Present: normocephalic Eye: Present: EOMI, PERRL ENT: Present: mucous membranes moist - Routine Neck Exam Present: trachea midline. Absent: JVD, tracheal deviation - Routine Respiratory Exam Present: CTA bilaterally. Absent: accessory muscle use, patient mechanically ventilated, wheezes - Routine Cardiovascular Exam Present: RRR. Absent: murmur, gallop, rubs - Routine Abdominal Exam Present: soft, normoactive bowel sounds - Routine Extremities Exam Present: vascular access. Absent: clubbing, edema Comments: Shantacath SURJIT. - Routine Skin Exam Comments: Wound - right axilla. - Routine Neurological Exam Present: alert, oriented X3 - Detailed Neurological Exam: Coma Scale Eye Opening: Spontaneous Verbal Response: Oriented - Routine Psychiatric Exam Present: normal affect, normal thought process - Urinary Catheter Management Straight Cath placed during this visit: yes, but has since been removed by the nurse Reason for continuing: Acute urinary retention Insertion date: 08/06/18 Insertion time: 05:59 Removal date: 08/07/18 Removal time: 12:44 <JossDavid - Last Filed: 08/15/18 12:58> Vital signs: Vital Signs 08/14/18 20:00 08/15/18 00:00 08/15/18 04:00 Temperature 97.8 F 97.8 F 97.4 F L Pulse Rate 70 67 93 H Respiratory Rate 20 20 20 Blood Pressure 159/70 H 159/73 H 103/55 L Pulse Oximetry 92 L 94 L 98 08/15/18 08:00 08/15/18 12:00 Temperature 97.7 F 97.5 F L Pulse Rate 60 64 Respiratory Rate 16 16 Blood Pressure 161/73 H 133/63 Pulse Oximetry 97 95 Intake & Output 08/14/18 08/15/18 08/15/18 18:59 06:59 18:59 Intake Total 700 / 700 Output Total 200 / 200 625 / 625 Balance -200 / -200 75 / 75 Weight 106.8 kg 107.7 kg Intake: IV 100 / 100 Cubicin Inj 450 MG In NS Inj 100 / 100 100 ML @ 200 mls/hr IV.SIG Q48H [facility] Rx#:[id number] Oral 600 / 600 Output: Urine 625 / 625 Hemodialysis Amount 200 / 200 Other: Date of Last Bowel Movement 08/13/18 08/14/18 - Urinary Catheter Management Straight Cath placed during this visit: no <Alec Gonzalez - Last Filed: 08/15/18 15:10> Assessment and Plan - Assessment (1) Acute kidney injury Code(s): N17.9 - Acute kidney failure, unspecified Status: Acute Plan: Could be due to sepsis, ATN. Could be due to Vancomycin induced nephrotoxicity. Patient continues to have urine output but has slightly decreased. Avoid nephrotoxic agents. Monitor for renal recovery. Patient was dialyzed yesterday, 200 mL fluid removed. Will monitor labs to determine if/when dialysis is needed again. (2) Non-insulin treated type 2 diabetes mellitus Code(s): E11.9 - Type 2 diabetes mellitus without complications Status: Acute Plan: maintain blood sugar between 140 and 180 while hospitalized. (3) Abscess Code(s): L02.91 - Cutaneous abscess, unspecified Status: Acute Plan: s/p drainage. (4) S/P CABG (coronary artery bypass graft) Code(s): Z95.1 - Presence of aortocoronary bypass graft Status: Acute <David Coreas - Last Filed: 08/15/18 12:58> - Assessment (1) Acute kidney injury Code(s): N17.9 - Acute kidney failure, unspecified Status: Acute (2) Non-insulin treated type 2 diabetes mellitus Code(s): E11.9 - Type 2 diabetes mellitus without complications Status: Acute (3) Abscess Code(s): L02.91 - Cutaneous abscess, unspecified Status: Acute (4) S/P CABG (coronary artery bypass graft) Code(s): Z95.1 - Presence of aortocoronary bypass graft Status: Acute - Attending Attestation patient was seen and examined. Agree with above assessment and plan. Repeat labs tomorrow. Await renal recovery. <Alec Gonzalez - Last Filed: 08/15/18 15:10>
[2018-08-15] MEDS ORDERED: Tuberculin PPD 5 UNITS/0.1 ML Syringe I-DERMAL ONE (20:00)
[2018-08-16] MEDS: Levothyroxine 88 MCG Tablet PO SCH (06:07)
--- NOTE | 2018-08-16 07:52 | P.PN ---
Subjective Interval history: Follow-up on patient with sepsis, acute kidney injury, right axillary abscess. Patient seen and examined. Patient says he slept well. He says he thinks he is urinating even more. He denies any fever or chills. He denies any cough, chest pain or dyspnea. He says they changed his wound dressing 2x last night. He denies any N/V or abdominal pain. Physical Exam Vital signs: Vital Signs 08/15/18 08:00 08/15/18 12:00 08/15/18 16:00 Temperature 97.7 F 97.5 F L 97.9 F Pulse Rate 60 64 61 Respiratory Rate 16 16 18 Blood Pressure 161/73 H 133/63 157/68 H Pulse Oximetry 97 95 99 08/15/18 20:00 08/16/18 00:00 08/16/18 04:00 Temperature 97.5 F L 98.2 F 98.3 F Pulse Rate 72 60 60 Respiratory Rate 20 20 20 Blood Pressure 159/73 H 162/73 H 173/77 H Pulse Oximetry 96 93 L 96 Intake & Output 08/15/18 08/16/18 08/16/18 18:59 06:59 18:59 Output Total 1100 / 1100 1200 / 1200 Balance -1100 / -1100 -1200 / -1200 Weight 107.7 kg 106.3 kg Output: Urine 1100 / 1100 1200 / 1200 Other: # Voids 4 Date of Last Bowel Movement 08/15/18 08/15/18 # Bowel Movements 1 Narrative: GENERAL: Well-developed well-nourished elderly male patient in no acute distress. Awake and alert. Appears comfortable sitting in bedside chair. SKIN: Warm and dry. Right lateral chest/axilla s/p removal of wound vac, wet to dry dressing in place, C/D/I. Vascath in place right IJ. HEENT: Atraumatic. Normocephalic. Pupils equal and round. No scleral icterus. No injection or drainage. No nasal bleeding or discharge. Mucous membranes pink and moist. NECK: Trachea midline. CARDIOVASCULAR: Regular rate and rhythm. RESPIRATORY: No accessory muscle use. Clear to auscultation. Breath sounds equal bilaterally. GASTROINTESTINAL: Abdomen soft, non-tender, nondistended. +BS. MUSCULOSKELETAL: Extremities without clubbing, cyanosis, or edema. No obvious deformities. NEUROLOGICAL: Awake and alert. No obvious cranial nerve deficits. Motor grossly within normal limits. Able to move all extremities spontaneously. Normal speech. PSYCHIATRIC: Appropriate mood and affect; insight and judgment normal. - Urinary Catheter Management Straight Cath placed during this visit: yes, but has since been removed by the nurse Reason for continuing: Acute urinary retention Insertion date: 08/06/18 Insertion time: 05:59 Removal date: 08/07/18 Removal time: 12:44 Results - Labs CBC & Chem 7: 08/15/18 10:59 08/16/18 06:50 Laboratory Results - last 24 hr 08/15/18 08/15/18 08/15/18 08:00 10:59 10:59 WBC 6.2 RBC 3.16 L Hgb 10.5 L Hct 30.4 L MCV 96.0 MCH 33.3 MCHC 34.7 RDW 13.5 Plt Count 204 MPV 8.1 Neut % (Auto) 82.5 H Lymph % (Auto) 9.3 [place] % (Auto) 4.0 Eos % (Auto) 3.4 Baso % (Auto) 0.8 Neut # (Auto) 5.1 Lymph # (Auto) 0.6 L [place] # (Auto) 0.3 Eos # (Auto) 0.2 Baso # (Auto) 0.1 WBC Differential . Differential Comment Auto diff final Sodium 140 Potassium 3.9 Chloride 100 Carbon Dioxide 32.0 Anion Gap 8 BUN 27 H Creatinine 4.85 H Estimated GFR 12 L POC Glucose 169 H Random Glucose 243 H Calcium 8.4 L 08/15/18 08/15/18 08/15/18 11:31 16:56 20:50 WBC RBC Hgb Hct MCV MCH MCHC RDW Plt Count MPV Neut % (Auto) Lymph % (Auto) [place] % (Auto) Eos % (Auto) Baso % (Auto) Neut # (Auto) Lymph # (Auto) [place] # (Auto) Eos # (Auto) Baso # (Auto) WBC Differential Differential Comment Sodium Potassium Chloride Carbon Dioxide Anion Gap BUN Creatinine Estimated GFR POC Glucose 263 H 162 H 157 H Random Glucose Calcium Assessment and Plan - Plan 72-year-old male with history of diabetes, coronary artery disease status post CABG who presents with a 2-week history of progressively worsening sharp constant, nonradiating right axillary pain with cellulitis. Sepsis present on admission secondary to Right axillary abscess: MRSA S/P I and D 08/05 with VAC placement S/P VAC change 08/08 +Leukocytosis WBC 17.5K. - down to 10 -Chest CT reviewed, shows Large heterogeneous collection of the right axilla and the lateral margin of pectoralis major as described. This appears to represent a lobulated mass or a multiloculated fluid collection or hematoma. - Vancomycin-Discontinued 08/06 - Infectious disease ff- on Cubicin. Monitor CPK. CK 15 on 08/13. - GS ff- VAC management. Wound vac removed 08/12 and changed to wet to dry dressing changes. Less drainage. Dressing currently C/D/I. Continue daily dressing changes. Acute GRADY- likely drug induced- Vancomycin History of BPH - matthews removed 08/07 - continue on flomax and Terazosin- home meds - urine eosinophils- negative - US-renal/bladder- unremarkable - ff BMP. accurate I and O - Vancomycin DC 08/06 - Nephrology ff along with us- for HD arrangement. Vascath placed - hemodialysis initiated 08/09. Creatinine improved. 08/14 creatinine worsened up from 5.50 to 6.27. s/p HD 08/14 with 200cc removed with followup creatinine improved to 4.85. Cr today 5.63/GFR 10. PPD ordered in anticipation of possible outpt HD needed. - Continue to monitor for renal recovery HTN, CAD s/p CABG: chronic. BP some elevated readings -continue patient's aspirin with hx of CABG -continue patient's terazosin -Monitor BP, adjust antihypertensives as needed -started CCB- amlodipine 5 mg daily, continue. BP elevated. Increase Norvasc to 10mg daily. Diabetes mellitus: chronic- high readings -Discontinued metformin - with GRADY. Discontinued glipizide as well -Monitor Accu-checks and cover with SSI -A1C 6.5 -Maintain blood sugar between 140 and 180 per Nephrology. BS 164 this am. -Continue 70/30 to 14u BID. Hypothyroidism: chronic -continue patient's levothyroxine DVT Prophylaxis: teds/SCDs Heparin SQ for DVT prophylaxis Code Status: Full Discussed Condition With: patient, nursing staff, Dr. Thomson Discharge Planning: Not ready for discharge. Discharge pending improvement in kidney function. Discharge pending ID and nephrology clearance.
[2018-08-16 08:48] LABS: Calcium 8.5 mg/dL (8.5-10.1); Carbon Dioxide 28.1 meq/L (21.0-32.0); Potassium 3.5 meq/L (3.5-5.1)
[2018-08-16] MEDS: Senna/Docusate Sodium 8.6/50 MG Tablet PO SCH ×2 (08:51→22:35)
[2018-08-16] MEDS: Insulin NovoLOG Aspart Correctional Sugar Inj SQ SCH ×4 (08:51→21:45)
[2018-08-16] MEDS ORDERED: amLODIPine 5 MG Tablet PO ONE (09:51)
--- NOTE | 2018-08-16 10:23 | P.PNNP ---
Subjective Interval history: No acute complaints Physical Exam Vital signs: Vital Signs 08/15/18 12:00 08/15/18 16:00 08/15/18 20:00 Temperature 97.5 F L 97.9 F 97.5 F L Pulse Rate 64 61 72 Respiratory Rate 16 18 20 Blood Pressure 133/63 157/68 H 159/73 H Pulse Oximetry 95 99 96 08/16/18 00:00 08/16/18 04:00 08/16/18 08:00 Temperature 98.2 F 98.3 F 97.6 F Pulse Rate 60 60 77 Respiratory Rate 20 20 20 Blood Pressure 162/73 H 173/77 H 162/77 H Pulse Oximetry 93 L 96 98 Intake & Output 08/15/18 08/16/18 08/16/18 18:59 06:59 18:59 Intake Total 120 / 120 Output Total 1100 / 1100 1200 / 1200 300 / 300 Balance -1100 / -1100 -1200 / -1200 -180 / -180 Weight 107.7 kg 106.3 kg Intake: Oral 120 / 120 Output: Urine 1100 / 1100 1200 / 1200 300 / 300 Other: # Voids 4 Date of Last Bowel Movement 08/15/18 08/15/18 08/15/18 # Bowel Movements 1 - Constitutional no acute distress - Routine HEENT Exam Head: Present: normocephalic Eye: Present: EOMI ENT: Present: mucous membranes moist - Routine Neck Exam Present: supple - Routine Respiratory Exam Present: CTA bilaterally - Routine Cardiovascular Exam Present: RRR - Routine Abdominal Exam Present: soft - Routine Skin Exam Present: intact - Routine Neurological Exam Present: alert, oriented X3 - Detailed Neurological Exam: Coma Scale Eye Opening: Spontaneous - Routine Psychiatric Exam Present: normal affect - Urinary Catheter Management Straight Cath placed during this visit: yes, but has since been removed by the nurse Reason for continuing: Acute urinary retention Insertion date: 08/06/18 Insertion time: 05:59 Removal date: 08/07/18 Removal time: 12:44 Assessment and Plan - Assessment (1) Acute kidney injury Code(s): N17.9 - Acute kidney failure, unspecified Status: Acute Plan: Could be due to sepsis, ATN. Could be due to Vancomycin induced nephrotoxicity. Patient continues to have urine output Avoid nephrotoxic agents. Monitor for renal recovery. Patient with 2.3L UOP yesterday. Seen on dialysis today - will continue to monitor over next 48 hours. 1L UF with HD today, continue to monitor for renal recovery Next HD Saturday if necessary - otherwise monitor for renal improvement. (2) Non-insulin treated type 2 diabetes mellitus Code(s): E11.9 - Type 2 diabetes mellitus without complications Status: Acute Plan: maintain blood sugar between 140 and 180 while hospitalized. (3) Abscess Code(s): L02.91 - Cutaneous abscess, unspecified Status: Acute Plan: s/p drainage. (4) S/P CABG (coronary artery bypass graft) Code(s): Z95.1 - Presence of aortocoronary bypass graft Status: Acute
[2018-08-16] MEDS: DAPTOMYCIN IV.SIG SCH (15:56)
[2018-08-16] MEDS: SODIUM CHLOR 0.9% IV.SIG SCH (15:56)
[2018-08-16] MEDS: amLODIPine 5 MG Tablet PO SCH (18:21)
[2018-08-17] MEDS: Levothyroxine 88 MCG Tablet PO SCH (05:58)
[2018-08-17 06:56] LABS: Hemoglobin 9.5 gm/dL (13.0-17.0); Mean Corpuscular HGB Conc 35.2 % (32.0-36.0); Mean Corpuscular Hemoglobin 33.8 pg (27.0-34.0); Mean Corpuscular Volume 95.9 fL (80.0-100.0); Platelet Count 176 th/mm3 (150-450); Red Blood Count 2.81 mil/mm3 (4.50-5.90); Red Cell Distribution Width 13.6 % (11.6-17.2); White Blood Count 6.3 th/mm3 (4.0-11.0)
[2018-08-17 07:26] LABS: Alanine Aminotransferase 18 U/L (12-78); Albumin 2.5 g/dL (3.4-5.0); Alkaline Phosphatase 77 U/L (45-117); Anion Gap 10 meq/L (5-15); Aspartate Aminotransferase 17 U/L (15-37); Blood Urea Nitrogen 23 mg/dL (7-18); Calcium 8.2 mg/dL (8.5-10.1); Carbon Dioxide 31.3 meq/L (21.0-32.0); Chloride 102 meq/L (98-107); Glomerular Filtration Rate 14 mL/min (>89); Glucose,Random 151 mg/dL (74-106); Potassium 3.4 meq/L (3.5-5.1); Sodium 143 meq/L (136-145); Total Protein 6.4 g/dL (6.4-8.2)
--- NOTE | 2018-08-17 08:13 | P.PN ---
Subjective Interval history: Follow-up on patient with sepsis, acute kidney injury, right axillary abscess. Patient seen and examined. Patient says he is doing ok. He reports less drainage from his chest incision. He reports good UOP. He says he slept ok. He denies any acute medical complaints. [facility] nursing staff, no adverse events noted overnight. Physical Exam Vital signs: Vital Signs 08/16/18 12:00 08/16/18 16:00 08/16/18 20:00 Temperature 97.7 F 98.5 F 98.2 F Pulse Rate 68 59 L 68 Respiratory Rate 20 20 20 Blood Pressure 134/67 174/80 H 145/68 H Pulse Oximetry 98 98 93 L 08/17/18 00:00 08/17/18 04:00 Temperature 98.2 F 98.1 F Pulse Rate 60 59 L Respiratory Rate 20 20 Blood Pressure 164/73 H 167/72 H Pulse Oximetry 93 L 94 L Intake & Output 08/16/18 08/17/18 08/17/18 18:59 06:59 18:59 Intake Total 220 / 220 Output Total 1300 / 1300 1500 / 1500 Balance -1080 / -1080 -1500 / -1500 Weight 98.9 kg Intake: IV 100 / 100 Cubicin Inj 450 MG In NS Inj 100 / 100 100 ML @ 200 mls/hr IV.SIG Q48H KADY Rx#:[id number] Oral 120 / 120 Output: Urine 300 / 300 1500 / 1500 Hemodialysis Amount 1000 / 1000 Other: # Voids 2 Date of Last Bowel Movement 08/15/18 08/17/18 Narrative: GENERAL: Well-developed well-nourished elderly male patient. Awake and alert. Appears comfortable sitting in bedside chair. In no acute distress. SKIN: Warm and dry. Right lateral chest/axilla s/p removal of wound vac, wet to dry dressing in place, C/D/I. Vascath in place right IJ. HEENT: Atraumatic. Normocephalic. Pupils equal and round. No scleral icterus. No injection or drainage. No nasal bleeding or discharge. Mucous membranes pink and moist. NECK: Trachea midline. CARDIOVASCULAR: Regular rate and rhythm. No murmur auscultated. RESPIRATORY: No accessory muscle use. Clear to auscultation. Breath sounds equal bilaterally. GASTROINTESTINAL: Abdomen soft, non-tender, nondistended. +BS. MUSCULOSKELETAL: Extremities without clubbing, cyanosis, or edema. No obvious deformities. NEUROLOGICAL: Awake and alert. No obvious cranial nerve deficits. Motor grossly within normal limits. Able to move all extremities spontaneously. Normal speech. PSYCHIATRIC: Appropriate mood and affect; insight and judgment normal. - Urinary Catheter Management Straight Cath placed during this visit: yes, but has since been removed by the nurse Reason for continuing: Acute urinary retention Insertion date: 08/06/18 Insertion time: 05:59 Removal date: 08/07/18 Removal time: 12:44 Results - Labs CBC & Chem 7: 08/17/18 05:50 08/17/18 05:50 Laboratory Results - last 24 hr 08/16/18 08/16/18 08/16/18 06:50 12:15 17:15 WBC RBC Hgb Hct MCV MCH MCHC RDW Plt Count MPV Sodium 142 Potassium 3.5 Chloride 103 Carbon Dioxide 28.1 Anion Gap 11 BUN 32 H Creatinine 5.63 H Estimated GFR 10 L POC Glucose 143 H 154 H Random Glucose 151 H Calcium 8.5 Total Bilirubin AST ALT Alkaline Phosphatase Total Protein Albumin 08/16/18 08/17/18 08/17/18 22:07 05:50 05:50 WBC 6.3 RBC 2.81 L Hgb 9.5 L Hct 27.0 L MCV 95.9 MCH 33.8 MCHC 35.2 RDW 13.6 Plt Count 176 MPV 8.0 Sodium 143 Potassium 3.4 L Chloride 102 Carbon Dioxide 31.3 Anion Gap 10 BUN 23 H Creatinine 4.30 H Estimated GFR 14 L POC Glucose 164 H Random Glucose 151 H Calcium 8.2 L Total Bilirubin 0.5 AST 17 ALT 18 Alkaline Phosphatase 77 Total Protein 6.4 Albumin 2.5 L 08/17/18 07:35 WBC RBC Hgb Hct MCV MCH MCHC RDW Plt Count MPV Sodium Potassium Chloride Carbon Dioxide Anion Gap BUN Creatinine Estimated GFR POC Glucose 167 H Random Glucose Calcium Total Bilirubin AST ALT Alkaline Phosphatase Total Protein Albumin Assessment and Plan - Plan 72-year-old male with history of diabetes, coronary artery disease status post CABG who presents with a 2-week history of progressively worsening sharp constant, nonradiating right axillary pain with cellulitis. Sepsis present on admission secondary to Right axillary abscess: MRSA S/P I and D 08/05 with VAC placement S/P VAC change 11/2 +Leukocytosis WBC 17.5K. - down to 10 -Chest CT reviewed, shows Large heterogeneous collection of the right axilla and the lateral margin of pectoralis major as described. This appears to represent a lobulated mass or a multiloculated fluid collection or hematoma. - Vancomycin-Discontinued 08/06 - Infectious disease ff- on Cubicin. Monitor CPK. CK 15 on 08/13. - GS ff- VAC management. Wound vac removed 08/12 and changed to wet to dry dressing changes. Continue daily dressing changes. Acute GRADY- likely drug induced- Vancomycin History of BPH - matthews removed 08/07 - continue on flomax and Terazosin- home meds - urine eosinophils- negative - US-renal/bladder- unremarkable - ff BMP. accurate I and O. Patient has had good UOP. - Vancomycin DC 08/06 - Nephrology following, appreciate assistance. Vascath placed - hemodialysis initiated 08/09. s/p HD yesterday with 1L UF. Cr 4.30 today. Plan for possible HD on Saturday if indicated. PPD ordered in anticipation of possible outpt HD needed. - Continue to monitor for renal recovery HTN, CAD s/p CABG: chronic. BP some elevated readings -continue patient's aspirin with hx of CABG -continue on Norvasc and terazosin -Monitor BP, adjust antihypertensives as needed Diabetes mellitus: chronic- high readings -Discontinued metformin - with GRADY. Discontinued glipizide as well -Monitor Accu-checks and cover with SSI -A1C 6.5 -Maintain blood sugar between 140 and 180 per Nephrology. BS 164 this am. -Continue 70/30 to 14u BID. Hypothyroidism: chronic -continue patient's levothyroxine DVT Prophylaxis: teds/SCDs Heparin SQ for DVT prophylaxis Code Status: Full Discussed Condition With: patient, nursing staff, Dr. Thomson Discharge Planning: Not ready for discharge. Discharge pending improvement in kidney function. Discharge pending ID and nephrology clearance.
[2018-08-17] MEDS: amLODIPine 10 MG Tablet PO SCH (08:58)
[2018-08-17] MEDS: Insulin NovoLOG Aspart Correctional Sugar Inj SQ SCH ×4 (08:59→21:40)
[2018-08-17] MEDS: Senna/Docusate Sodium 8.6/50 MG Tablet PO SCH ×2 (08:59→23:32)
[2018-08-17] MEDS ORDERED: hydrALAZINE 25 MG Tablet PO SCH (09:00)
--- NOTE | 2018-08-17 16:08 | P.PNNP ---
Subjective Interval history: No acute complaints Physical Exam Vital signs: Vital Signs 08/16/18 20:00 08/17/18 00:00 08/17/18 04:00 Temperature 98.2 F 98.2 F 98.1 F Pulse Rate 68 60 59 L Respiratory Rate 20 20 20 Blood Pressure 145/68 H 164/73 H 167/72 H Pulse Oximetry 93 L 93 L 94 L 08/17/18 08:00 08/17/18 12:00 Temperature 98.2 F 97.6 F Pulse Rate 98 H 65 Respiratory Rate 20 20 Blood Pressure 106/64 117/60 Pulse Oximetry 96 98 Intake & Output 08/16/18 08/17/18 08/17/18 18:59 06:59 18:59 Intake Total 220 / 220 Output Total 1300 / 1300 1500 / 1500 Balance -1080 / -1080 -1500 / -1500 Weight 98.9 kg Intake: IV 100 / 100 Cubicin Inj 450 MG In NS Inj 100 / 100 100 ML @ 200 mls/hr IV.SIG Q48H KADY Rx#:[id number] Oral 120 / 120 Output: Urine 300 / 300 1500 / 1500 Hemodialysis Amount 1000 / 1000 Other: # Voids 2 Date of Last Bowel Movement 08/15/18 08/17/18 08/17/18 - Constitutional no acute distress - Routine HEENT Exam Head: Present: normocephalic Eye: Present: EOMI ENT: Present: mucous membranes moist - Routine Neck Exam Present: supple - Routine Respiratory Exam Present: CTA bilaterally - Routine Cardiovascular Exam Present: RRR - Routine Abdominal Exam Present: soft - Routine Skin Exam Present: intact - Routine Neurological Exam Present: alert, oriented X3 - Detailed Neurological Exam: Coma Scale Eye Opening: Spontaneous - Routine Psychiatric Exam Present: normal affect - Urinary Catheter Management Straight Cath placed during this visit: yes, but has since been removed by the nurse Reason for continuing: Acute urinary retention Insertion date: 08/06/18 Insertion time: 05:59 Removal date: 08/07/18 Removal time: 12:44 Assessment and Plan - Assessment (1) Acute kidney injury Code(s): N17.9 - Acute kidney failure, unspecified Status: Acute Plan: Could be due to sepsis, ATN. Could be due to Vancomycin induced nephrotoxicity. Patient continues to have urine output Avoid nephrotoxic agents. Monitor for renal recovery. Patient with 1.8 L UOP . HD done Saturday with 1L UF - will continue to monitor over next 48 hours. Next HD Saturday if necessary - otherwise monitor for renal improvement. (2) Non-insulin treated type 2 diabetes mellitus Code(s): E11.9 - Type 2 diabetes mellitus without complications Status: Acute Plan: maintain blood sugar between 140 and 180 while hospitalized. (3) Abscess Code(s): L02.91 - Cutaneous abscess, unspecified Status: Acute Plan: s/p drainage. (4) S/P CABG (coronary artery bypass graft) Code(s): Z95.1 - Presence of aortocoronary bypass graft Status: Acute
[2018-08-18] MEDS: Levothyroxine 88 MCG Tablet PO SCH (05:26)
[2018-08-18 06:53] LABS: Hematocrit 26.1 % (39.0-51.0); Hemoglobin 9.1 gm/dL (13.0-17.0); Mean Corpuscular HGB Conc 34.9 % (32.0-36.0); Mean Corpuscular Hemoglobin 33.2 pg (27.0-34.0); Mean Corpuscular Volume 94.9 fL (80.0-100.0); Mean Platelet Volume 8.5 fL (7.0-11.0); Platelet Count 173 th/mm3 (150-450); Red Blood Count 2.75 mil/mm3 (4.50-5.90); White Blood Count 6.3 th/mm3 (4.0-11.0)
[2018-08-18 07:11] LABS: Albumin 2.6 g/dL (3.4-5.0); Anion Gap 9 meq/L (5-15); Aspartate Aminotransferase 12 U/L (15-37); Blood Urea Nitrogen 31 mg/dL (7-18); Calcium 8.2 mg/dL (8.5-10.1); Carbon Dioxide 30.8 meq/L (21.0-32.0); Chloride 102 meq/L (98-107); Glomerular Filtration Rate 11 mL/min (>89); Glucose,Random 141 mg/dL (74-106); Potassium 3.3 meq/L (3.5-5.1); Sodium 142 meq/L (136-145)
[2018-08-18 07:14] LABS: Alanine Aminotransferase 18 U/L (12-78); Alkaline Phosphatase 75 U/L (45-117); Total Protein 6.5 g/dL (6.4-8.2)
--- NOTE | 2018-08-18 07:44 | P.PN ---
Subjective Interval history: Follow-up on patient with sepsis, acute kidney injury, right axillary abscess. Patient seen and examined. Patient is doing well. He reports good UOP. He does not voice any specific complaints or concerns. [facility] nursing staff, no adverse events noted overnight. Physical Exam Vital signs: Vital Signs 08/17/18 08:00 08/17/18 12:00 08/17/18 16:00 Temperature 98.2 F 97.6 F 97.2 F L Pulse Rate 98 H 65 63 Respiratory Rate 20 20 20 Blood Pressure 106/64 117/60 135/61 Pulse Oximetry 96 98 98 08/17/18 20:00 08/18/18 00:00 08/18/18 04:00 Temperature 98 F 97.7 F 98.3 F Pulse Rate 98 H 61 57 L Respiratory Rate 20 20 20 Blood Pressure 133/69 133/63 124/60 Pulse Oximetry 93 L 94 L 94 L Intake & Output 08/17/18 08/18/18 08/18/18 18:59 06:59 18:59 Output Total 1100 / 1100 Balance -1100 / -1100 Weight 101 kg Output: Urine 1100 / 1100 Other: Date of Last Bowel Movement 08/17/18 Narrative: GENERAL: Well-developed well-nourished elderly male patient. Awake and alert. Appears comfortable sitting in bedside chair. In no acute distress. SKIN: Warm and dry. Right lateral chest/axilla s/p removal of wound vac, wet to dry dressing in place, C/D/I. Vascath in place right IJ. HEENT: Atraumatic. Normocephalic. Pupils equal and round. No scleral icterus. No injection or drainage. No nasal bleeding or discharge. Mucous membranes pink and moist. NECK: Trachea midline. CARDIOVASCULAR: Regular rate and rhythm. RESPIRATORY: No accessory muscle use. Clear to auscultation. Breath sounds equal bilaterally. GASTROINTESTINAL: Abdomen soft, non-tender, nondistended. +BS. MUSCULOSKELETAL: Extremities without clubbing, cyanosis, or edema. No obvious deformities. NEUROLOGICAL: Awake and alert. No obvious cranial nerve deficits. Motor grossly within normal limits. Able to move all extremities spontaneously. Normal speech. PSYCHIATRIC: Appropriate mood and affect; insight and judgment normal. - Urinary Catheter Management Straight Cath placed during this visit: yes, but has since been removed by the nurse Reason for continuing: Acute urinary retention Insertion date: 08/06/18 Insertion time: 05:59 Removal date: 08/07/18 Removal time: 12:44 Results - Labs CBC & Chem 7: 08/18/18 06:10 08/18/18 06:10 Laboratory Results - last 24 hr 08/17/18 08/17/18 08/17/18 11:54 17:06 23:23 WBC RBC Hgb Hct MCV MCH MCHC RDW Plt Count MPV Sodium Potassium Chloride Carbon Dioxide Anion Gap BUN Creatinine Estimated GFR POC Glucose 206 H 150 H 206 H Random Glucose Calcium Total Bilirubin AST ALT Alkaline Phosphatase Total Protein Albumin 08/18/18 08/18/18 06:10 06:10 WBC 6.3 RBC 2.75 L Hgb 9.1 L Hct 26.1 L MCV 94.9 MCH 33.2 MCHC 34.9 RDW 14.0 Plt Count 173 MPV 8.5 Sodium 142 Potassium 3.3 L Chloride 102 Carbon Dioxide 30.8 Anion Gap 9 BUN 31 H Creatinine 5.01 H Estimated GFR 11 L POC Glucose Random Glucose 141 H Calcium 8.2 L Total Bilirubin 0.5 AST 12 L ALT 18 Alkaline Phosphatase 75 Total Protein 6.5 Albumin 2.6 L Assessment and Plan - Plan 72-year-old male with history of diabetes, coronary artery disease status post CABG who presents with a 2-week history of progressively worsening sharp constant, nonradiating right axillary pain with cellulitis. Sepsis present on admission secondary to Right axillary abscess: MRSA S/P I and D 08/05 with VAC placement S/P VAC change 08/08 +Leukocytosis WBC 17.5K. - down to 10 -Chest CT reviewed, shows Large heterogeneous collection of the right axilla and the lateral margin of pectoralis major as described. This appears to represent a lobulated mass or a multiloculated fluid collection or hematoma. - Vancomycin-Discontinued 08/06 - Infectious disease ff- on Cubicin. Monitor CPK. CK 15 on 08/13. - GS ff- VAC management. Wound vac removed 08/12 and changed to wet to dry dressing changes. Continue daily dressing changes. Acute GRADY- likely drug induced- Vancomycin History of BPH urine eosinophils- negative US-renal/bladder- unremarkable - Vancomycin d/c'd 08/06, matthews removed 08/07 - continue on flomax and Terazosin- home meds - ff BMP. accurate I and O - Nephrology following, appreciate assistance. Shantacatalissa placed - hemodialysis initiated 08/09. last HD 08/16 with 1L UF. Plan for possible HD on Saturday. Creatinine trending back up today, 4.30 -> 5.01. PPD ordered in anticipation of possible outpt HD needed, no rxn noted after 72hrs. - Continue to monitor for renal recovery HTN, CAD s/p CABG: chronic. BP some elevated readings -continue patient's aspirin with hx of CABG -continue patient's terazosin and Norvasc -Monitor BP, adjust antihypertensives as needed Diabetes mellitus: chronic- high readings -Discontinued metformin - with GRADY. Discontinued glipizide as well -Monitor Accu-checks and cover with SSI -A1C 6.5 -Maintain blood sugar between 140 and 180 per Nephrology. BS running mid 100s to low 200s. -Increase 70/30 to 16u BID. Hypothyroidism: chronic -continue patient's levothyroxine Anemia, normocytic, normochromic suspect ACD Hgb trending down, 12.2 -> 9.1 -obtain B12, folate and iron studies -monitor for e/o bleeding -stool for hemoccult -recheck CBC in am Hypokalemia, mild K 3.3 -Give small po repletion -repeat BMP in am DVT Prophylaxis: teds/SCDs Heparin SQ for DVT prophylaxis Code Status: Full Discussed Condition With: patient, nursing staff, Dr. Pradhan Discharge Planning: Not ready for discharge. Discharge pending improvement in kidney function. Discharge pending ID and nephrology clearance.
[2018-08-18] MEDS: amLODIPine 10 MG Tablet PO SCH (09:44)
[2018-08-18] MEDS: Senna/Docusate Sodium 8.6/50 MG Tablet PO SCH ×2 (09:44→22:09)
[2018-08-18] MEDS: Insulin NovoLOG Aspart Correctional Sugar Inj SQ SCH ×4 (09:45→22:08)
[2018-08-18 10:14] LABS: % Iron Saturation 14.1 % (20-50)
--- NOTE | 2018-08-18 10:53 | P.PNID ---
Subjective Remarks: Patient is a 72-year-old male presented to the hospital complaining of pain and swelling in his right axilla and right chest wall. Patient was seen in the emergency room about 10 days ago complaining of pain and knot in his right axilla. He was diagnosed to have a possible lymphadenitis, and he was given clindamycin and was discharged home. Patient stated that he was compliant with his antibiotics. The area however started getting worse with increasing pain swelling so he presented to the hospital for further evaluation and treatment. He denies any fever chills or sweats. Denies any GI or any urinary complaints. Patient denies any previous history of skin and soft tissue infection. He denies any trauma. He has not been exposed to any animals particularly cats. Patient stated that there is a fairly CAD in their neighborhood but he never really messed up with that. Patient since admission had some low-grade temps. His initial white count was 17,000. CT of the chest showing a multiloculated fluid collection in the right axilla extending into the lateral aspect of the pectoralis major. Surgery saw the patient and he had I&D of a multiloculated abscess. Patient currently has a wound VAC in place. He is stating that the pain is better. His temperatures are better. His WBC is down to 14,000. Culture from surgery still pending, but Gram stain is showing gram-positive cocci in clusters. Patient is currently on vancomycin and Zosyn. His creatinine is elevated on admission. It was normal when he was seen in the emergency room about 10 days ago. Infectious disease consultation has been requested to assist with evaluation and treatment of a right axillary abscess. Notes reviewed Temps ok Had HD 08/16 No rash Getting wet to dry to his R lat chest wall open wound Antibiotics: Cubicin Lines: Vascath RIJ PIV Past Medical History: CAB S/P CABG DM Allergies/Adverse Reactions: Allergies No Known Allergies Allergy (Verified 08/04/18 22:44) Objective Vital Signs 08/17/18 12:00 08/17/18 16:00 08/17/18 20:00 Temperature 97.6 F 97.2 F L 98 F Pulse Rate 65 63 98 H Respiratory Rate 20 20 20 Blood Pressure 117/60 135/61 133/69 Pulse Oximetry 98 98 93 L 08/18/18 00:00 08/18/18 04:00 08/18/18 08:00 Temperature 97.7 F 98.3 F 98.2 F Pulse Rate 61 57 L 60 Respiratory Rate 20 20 16 Blood Pressure 133/63 124/60 143/67 H Pulse Oximetry 94 L 94 L 98 Intake & Output 08/17/18 08/18/18 08/18/18 18:59 06:59 18:59 Output Total 1100 / 1100 Balance -1100 / -1100 Weight 101 kg Output: Urine 1100 / 1100 Other: Date of Last Bowel Movement 08/17/18 Lab - Hematology Results 08/17/18 08/18/18 05:50 06:10 WBC 6.3 6.3 RBC 2.81 L 2.75 L Hgb 9.5 L 9.1 L Hct 27.0 L 26.1 L MCV 95.9 94.9 MCH 33.8 33.2 MCHC 35.2 34.9 RDW 13.6 14.0 Plt Count 176 173 MPV 8.0 8.5 Lab - Chemistry Results 08/16/18 08/16/18 08/16/18 12:15 17:15 22:07 Sodium Potassium Chloride Carbon Dioxide Anion Gap BUN Creatinine Estimated GFR POC Glucose 143 H 154 H 164 H Random Glucose Calcium Iron TIBC % Saturation Ferritin Total Bilirubin AST ALT Alkaline Phosphatase Total Protein Albumin Vitamin B12 08/17/18 08/17/18 08/17/18 05:50 07:35 11:54 Sodium 143 Potassium 3.4 L Chloride 102 Carbon Dioxide 31.3 Anion Gap 10 BUN 23 H Creatinine 4.30 H Estimated GFR 14 L POC Glucose 167 H 206 H Random Glucose 151 H Calcium 8.2 L Iron TIBC % Saturation Ferritin Total Bilirubin 0.5 AST 17 ALT 18 Alkaline Phosphatase 77 Total Protein 6.4 Albumin 2.5 L Vitamin B12 08/17/18 08/17/18 08/18/18 17:06 23:23 06:10 Sodium 142 Potassium 3.3 L Chloride 102 Carbon Dioxide 30.8 Anion Gap 9 BUN 31 H Creatinine 5.01 H Estimated GFR 11 L POC Glucose 150 H 206 H Random Glucose 141 H Calcium 8.2 L Iron TIBC % Saturation Ferritin Total Bilirubin 0.5 AST 12 L ALT 18 Alkaline Phosphatase 75 Total Protein 6.5 Albumin 2.6 L Vitamin B12 08/18/18 08/18/18 06:10 09:14 Sodium Potassium Chloride Carbon Dioxide Anion Gap BUN Creatinine Estimated GFR POC Glucose 195 H Random Glucose Calcium Iron 36 L TIBC 255 % Saturation 14.1 L Ferritin 137 Total Bilirubin AST ALT Alkaline Phosphatase Total Protein Albumin Vitamin B12 134 L Imaging: ITS Impressions Chest CT 08/05/18 00:03 CONCLUSION: 1. Large heterogeneous collection of the right axilla and the lateral margin of pectoralis major as described. This appears to represent a lobulated mass or a multiloculated fluid collection or hematoma. Infectious and neoplastic etiologies are both in the differential. 2. Mild atelectasis of the lung bases and a 5 mm left upper lobe pulmonary nodule. 3. Previous median sternotomy and CABG. 4. Cholelithiasis. 5. No acute osseous abnormality. Abdomen/Bladder Ultrasound 08/06/18 00:00 CONCLUSION: 1. No evidence of hydronephrosis. The echogenicity of the kidneys is within normal limits. 2. Simple cyst in right kidney. Catheter Placement 08/08/18 00:00 CONCLUSION: 1. Uncomplicated line placement as above. Venous Doppler Study 08/09/18 00:00 CONCLUSION: 1. No venous thrombosis seen of the right upper extremity. 2. There is a fluid collection near the right shoulder, nonspecific but a seroma or some fluid in the subcoracoid recess considered most likely. Physical Exam: GENERAL: awake and alert, NAD SKIN: Warm and dry. No generalized rash HEENT: No petechia, no icterus, moist oral mucosa NECK: Trachea midline. Supple and not tender, no meningeal signs CARDIOVASCULAR: Regular rate and rhythm. No murmurs, rubs or gallops heard RESPIRATORY: Clear to auscultation. Open wound R lateral chest with packing, area of redness and induration markedly improved. ABDOMEN: Soft, non-tender, nondistended. Bowel sounds present and normoactive. No guarding. No rebound. No organomegaly. EXTREMITIES: No clubbing, cyanosis, or edema. No calf tenderness. NEUROLOGICAL: Grossly non-focal. PSYCHIATRIC: Normal affect, calm and cooperative. LINE: No evidence of infection Assessment and Plan - Plan Impression Sepsis on admission due to a large abscess, better Abscess, cellulitis R axilla/R chest wall - S/P I and D - C/S MRSA Renal failure, on HD - creatinine up and down, UO has decreased - renal following Fevers and leukocytosis, resolved Recommendation Continue IV Cubicin for MRSA coverage [email or web address] since his creatinine continues to worsen - follow CPK Monitor temps Monitor progress Wound care per surgery Clinically doing well from ID standpoint
--- NOTE | 2018-08-18 12:24 | P.PNNP ---
Subjective Interval history: Patient was seen sitting in chair, no distress. Patient last dialyzed Saturday. Patient continues to have good urine output. Will monitor for renal recovery to determine if dialysis is needed tomorrow. <David Coreas - Last Filed: 08/18/18 12:25> Physical Exam Vital signs: Vital Signs 08/17/18 16:00 08/17/18 20:00 08/18/18 00:00 Temperature 97.2 F L 98 F 97.7 F Pulse Rate 63 98 H 61 Respiratory Rate 20 20 20 Blood Pressure 135/61 133/69 133/63 Pulse Oximetry 98 93 L 94 L 08/18/18 04:00 08/18/18 08:00 08/18/18 12:00 Temperature 98.3 F 98.2 F 97.9 F Pulse Rate 57 L 60 58 L Respiratory Rate 20 16 17 Blood Pressure 124/60 143/67 H 140/65 Pulse Oximetry 94 L 98 94 L Intake & Output 08/17/18 08/18/18 08/18/18 18:59 06:59 18:59 Output Total 1100 / 1100 Balance -1100 / -1100 Weight 101 kg Output: Urine 1100 / 1100 Other: Date of Last Bowel Movement 08/17/18 - Constitutional no acute distress - Routine HEENT Exam Head: Present: normocephalic Eye: Present: EOMI, PERRL - Routine Neck Exam Present: trachea midline. Absent: JVD, tracheal deviation - Routine Respiratory Exam Present: CTA bilaterally. Absent: accessory muscle use, respiratory distress - Routine Cardiovascular Exam Present: RRR. Absent: murmur, gallop - Routine Abdominal Exam Present: soft. Absent: tenderness - Routine Extremities Exam Present: normal capillary refill. Absent: clubbing, edema - Routine Skin Exam Comments: right axillary abscess - Routine Neurological Exam Present: alert, oriented X3 - Detailed Neurological Exam: Coma Scale Eye Opening: Spontaneous Verbal Response: Oriented Motor Response: Obey commands [place] Coma Scale Total: 15 - Routine Psychiatric Exam Present: homicidal ideation - Urinary Catheter Management Straight Cath placed during this visit: yes, but has since been removed by the nurse Reason for continuing: Acute urinary retention Insertion date: 08/06/18 Insertion time: 05:59 Removal date: 08/07/18 Removal time: 12:44 <David Coreas - Last Filed: 08/18/18 12:25> Vital signs: Vital Signs 08/18/18 12:00 08/18/18 16:00 08/18/18 19:00 Temperature 97.9 F 97.2 F L 98.7 F Pulse Rate 58 L 61 63 Respiratory Rate 17 17 18 Blood Pressure 140/65 137/65 149/70 H Pulse Oximetry 94 L 93 L 96 08/19/18 00:00 08/19/18 04:00 08/19/18 08:00 Temperature 97.4 F L 97.4 F L 97.7 F Pulse Rate 70 97 H 75 Respiratory Rate 18 18 20 Blood Pressure 145/67 H 158/79 H 120/62 Pulse Oximetry 95 96 90 L Intake & Output 08/18/18 08/19/18 08/19/18 18:59 06:59 18:59 Intake Total 600 / 600 461 / 461 Output Total 800 / 800 Balance -200 / -200 461 / 461 Weight 103.2 kg Intake: IV 0 / 0 NS Inj 1,000 ML @ As Directed 0 / 0 OTHER .Q0M PRN Rx#:[id number] Oral 600 / 600 461 / 461 Output: Urine 800 / 800 Other: Date of Last Bowel Movement 08/18/18 08/18/18 # Incontinent Bowel Movements 1 - Urinary Catheter Management Straight Cath placed during this visit: no <Alec Gonzalez - Last Filed: 08/19/18 09:47> Assessment and Plan - Assessment (1) Acute kidney injury Code(s): N17.9 - Acute kidney failure, unspecified Status: Acute Plan: Could be due to sepsis, ATN. Could be due to Vancomycin induced nephrotoxicity. Patient continues to have urine output Avoid nephrotoxic agents. Monitor for renal recovery. HD done Saturday with 1L UF. Next HD Saturday if necessary - otherwise monitor for renal improvement. (2) Non-insulin treated type 2 diabetes mellitus Code(s): E11.9 - Type 2 diabetes mellitus without complications Status: Acute Plan: maintain blood sugar between 140 and 180 while hospitalized. (3) Abscess Code(s): L02.91 - Cutaneous abscess, unspecified Status: Acute Plan: s/p drainage. (4) S/P CABG (coronary artery bypass graft) Code(s): Z95.1 - Presence of aortocoronary bypass graft Status: Acute <David Coreas - Last Filed: 08/18/18 12:25> - Assessment (1) Acute kidney injury Code(s): N17.9 - Acute kidney failure, unspecified Status: Acute (2) Non-insulin treated type 2 diabetes mellitus Code(s): E11.9 - Type 2 diabetes mellitus without complications Status: Acute (3) Abscess Code(s): L02.91 - Cutaneous abscess, unspecified Status: Acute (4) S/P CABG (coronary artery bypass graft) Code(s): Z95.1 - Presence of aortocoronary bypass graft Status: Acute - Attending Attestation patient was seen and examined. Urine output improving, possible recovery. Agree with above assessment and plan. <Alec Gonzalez - Last Filed: 08/19/18 09:47>
[2018-08-18] MEDS: DAPTOMYCIN IV.SIG SCH (18:11)
[2018-08-18] MEDS: SODIUM CHLOR 0.9% IV.SIG SCH (18:11)
[2018-08-19] MEDS: Levothyroxine 88 MCG Tablet PO SCH (06:15)
[2018-08-19 06:29] LABS: Hematocrit 25.9 % (39.0-51.0); Hemoglobin 9.4 gm/dL (13.0-17.0); Mean Corpuscular Hemoglobin 33.6 pg (27.0-34.0); Mean Corpuscular Volume 93.2 fL (80.0-100.0); Mean Platelet Volume 8.4 fL (7.0-11.0); Platelet Count 170 th/mm3 (150-450); Red Blood Count 2.79 mil/mm3 (4.50-5.90); Red Cell Distribution Width 13.8 % (11.6-17.2); White Blood Count 6.3 th/mm3 (4.0-11.0)
[2018-08-19 06:33] LABS: Mean Corpuscular HGB Conc 36.1 % (32.0-36.0)
[2018-08-19 06:55] LABS: Albumin 2.6 g/dL (3.4-5.0); Anion Gap 12 meq/L (5-15); Aspartate Aminotransferase 13 U/L (15-37); Blood Urea Nitrogen 37 mg/dL (7-18); Calcium 8.3 mg/dL (8.5-10.1); Carbon Dioxide 27.9 meq/L (21.0-32.0); Chloride 102 meq/L (98-107); Glomerular Filtration Rate 11 mL/min (>89); Glucose,Random 161 mg/dL (74-106); Potassium 3.3 meq/L (3.5-5.1); Sodium 142 meq/L (136-145)
[2018-08-19 07:00] LABS: Alanine Aminotransferase 18 U/L (12-78); Alkaline Phosphatase 74 U/L (45-117); Phosphorus 5.2 mg/dL (2.5-4.9); Total Protein 6.7 g/dL (6.4-8.2)
[2018-08-19] MEDS: Senna/Docusate Sodium 8.6/50 MG Tablet PO SCH ×2 (10:03→21:57)
[2018-08-19] MEDS: Insulin NovoLOG Aspart Correctional Sugar Inj SQ SCH ×4 (10:05→21:57)
--- NOTE | 2018-08-19 10:21 | P.PNID ---
Subjective Remarks: Patient is a 72-year-old male presented to the hospital complaining of pain and swelling in his right axilla and right chest wall. Patient was seen in the emergency room about 10 days ago complaining of pain and knot in his right axilla. He was diagnosed to have a possible lymphadenitis, and he was given clindamycin and was discharged home. Patient stated that he was compliant with his antibiotics. The area however started getting worse with increasing pain swelling so he presented to the hospital for further evaluation and treatment. He denies any fever chills or sweats. Denies any GI or any urinary complaints. Patient denies any previous history of skin and soft tissue infection. He denies any trauma. He has not been exposed to any animals particularly cats. Patient stated that there is a fairly CAD in their neighborhood but he never really messed up with that. Patient since admission had some low-grade temps. His initial white count was 17,000. CT of the chest showing a multiloculated fluid collection in the right axilla extending into the lateral aspect of the pectoralis major. Surgery saw the patient and he had I&D of a multiloculated abscess. Patient currently has a wound VAC in place. He is stating that the pain is better. His temperatures are better. His WBC is down to 14,000. Culture from surgery still pending, but Gram stain is showing gram-positive cocci in clusters. Patient is currently on vancomycin and Zosyn. His creatinine is elevated on admission. It was normal when he was seen in the emergency room about 10 days ago. Infectious disease consultation has been requested to assist with evaluation and treatment of a right axillary abscess. Notes reviewed Temps ok Doing well Had HD 08/16 No complaints No rash Getting wet to dry to his R lat chest wall open wound Antibiotics: Cubicin Lines: Vascath RIJ PIV Past Medical History: CAB S/P CABG DM Allergies/Adverse Reactions: Allergies No Known Allergies Allergy (Verified 08/04/18 22:44) Objective Vital Signs 08/18/18 12:00 08/18/18 16:00 08/18/18 19:00 Temperature 97.9 F 97.2 F L 98.7 F Pulse Rate 58 L 61 63 Respiratory Rate 17 17 18 Blood Pressure 140/65 137/65 149/70 H Pulse Oximetry 94 L 93 L 96 08/19/18 00:00 08/19/18 04:00 08/19/18 08:00 Temperature 97.4 F L 97.4 F L 97.7 F Pulse Rate 70 97 H 75 Respiratory Rate 18 18 20 Blood Pressure 145/67 H 158/79 H 120/62 Pulse Oximetry 95 96 90 L Intake & Output 08/18/18 08/19/18 08/19/18 18:59 06:59 18:59 Intake Total 600 / 600 461 / 461 Output Total 800 / 800 Balance -200 / -200 461 / 461 Weight 103.2 kg Intake: IV 0 / 0 NS Inj 1,000 ML @ As Directed 0 / 0 OTHER .Q0M PRN Rx#:[id number] Oral 600 / 600 461 / 461 Output: Urine 800 / 800 Other: Date of Last Bowel Movement 08/18/18 08/18/18 # Incontinent Bowel Movements 1 Lab - Hematology Results 08/18/18 08/19/18 06:10 06:10 WBC 6.3 6.3 RBC 2.75 L 2.79 L Hgb 9.1 L 9.4 L Hct 26.1 L 25.9 L MCV 94.9 93.2 MCH 33.2 33.6 MCHC 34.9 36.1 H RDW 14.0 13.8 Plt Count 173 170 MPV 8.5 8.4 Lab - Chemistry Results 08/17/18 08/17/18 08/17/18 11:54 17:06 23:23 Sodium Potassium Chloride Carbon Dioxide Anion Gap BUN Creatinine Estimated GFR POC Glucose 206 H 150 H 206 H Random Glucose Calcium Phosphorus Magnesium Iron TIBC % Saturation Ferritin Total Bilirubin AST ALT Alkaline Phosphatase Total Protein Albumin Vitamin B12 08/18/18 08/18/18 08/18/18 06:10 06:10 09:14 Sodium 142 Potassium 3.3 L Chloride 102 Carbon Dioxide 30.8 Anion Gap 9 BUN 31 H Creatinine 5.01 H Estimated GFR 11 L POC Glucose 195 H Random Glucose 141 H Calcium 8.2 L Phosphorus Magnesium Iron 36 L TIBC 255 % Saturation 14.1 L Ferritin 137 Total Bilirubin 0.5 AST 12 L ALT 18 Alkaline Phosphatase 75 Total Protein 6.5 Albumin 2.6 L Vitamin B12 134 L 08/18/18 08/18/18 08/18/18 12:57 16:46 22:00 Sodium Potassium Chloride Carbon Dioxide Anion Gap BUN Creatinine Estimated GFR POC Glucose 186 H 124 H 196 H Random Glucose Calcium Phosphorus Magnesium Iron TIBC % Saturation Ferritin Total Bilirubin AST ALT Alkaline Phosphatase Total Protein Albumin Vitamin B12 08/19/18 08/19/18 08/19/18 06:10 06:10 06:14 Sodium 142 Potassium 3.3 L Chloride 102 Carbon Dioxide 27.9 Anion Gap 12 BUN 37 H Creatinine 5.00 H Estimated GFR 11 L POC Glucose 163 H Random Glucose 161 H Calcium 8.3 L Phosphorus 5.2 H Magnesium 2.1 Iron TIBC % Saturation Ferritin Total Bilirubin 0.5 AST 13 L ALT 18 Alkaline Phosphatase 74 Total Protein 6.7 Albumin 2.6 L Vitamin B12 08/19/18 08:05 Sodium Potassium Chloride Carbon Dioxide Anion Gap BUN Creatinine Estimated GFR POC Glucose 161 H Random Glucose Calcium Phosphorus Magnesium Iron TIBC % Saturation Ferritin Total Bilirubin AST ALT Alkaline Phosphatase Total Protein Albumin Vitamin B12 Imaging: ITS Impressions Chest CT 08/05/18 00:03 CONCLUSION: 1. Large heterogeneous collection of the right axilla and the lateral margin of pectoralis major as described. This appears to represent a lobulated mass or a multiloculated fluid collection or hematoma. Infectious and neoplastic etiologies are both in the differential. 2. Mild atelectasis of the lung bases and a 5 mm left upper lobe pulmonary nodule. 3. Previous median sternotomy and CABG. 4. Cholelithiasis. 5. No acute osseous abnormality. Abdomen/Bladder Ultrasound 08/06/18 00:00 CONCLUSION: 1. No evidence of hydronephrosis. The echogenicity of the kidneys is within normal limits. 2. Simple cyst in right kidney. Catheter Placement 08/08/18 00:00 CONCLUSION: 1. Uncomplicated line placement as above. Venous Doppler Study 08/09/18 00:00 CONCLUSION: 1. No venous thrombosis seen of the right upper extremity. 2. There is a fluid collection near the right shoulder, nonspecific but a seroma or some fluid in the subcoracoid recess considered most likely. Physical Exam: GENERAL: awake and alert, NAD SKIN: Warm and dry. No generalized rash HEENT: No petechia, no icterus, moist oral mucosa NECK: Trachea midline. Supple and not tender, no meningeal signs CARDIOVASCULAR: Regular rate and rhythm. No murmurs, rubs or gallops heard RESPIRATORY: Clear to auscultation. Open wound R lateral chest with packing, area of redness and induration all resolved ABDOMEN: Soft, non-tender, nondistended. Bowel sounds present and normoactive. No guarding. No rebound. No organomegaly. EXTREMITIES: No clubbing, cyanosis, or edema. No calf tenderness. NEUROLOGICAL: Grossly non-focal. PSYCHIATRIC: Normal affect, calm and cooperative. LINE: No evidence of infection Assessment and Plan - Plan Impression Sepsis on admission due to a large abscess, better Abscess, cellulitis R axilla/R chest wall - S/P I and D - C/S MRSA Renal failure, on HD - creatinine up and down, UO has decreased - renal following Fevers and leukocytosis, resolved Recommendation Continue IV Cubicin for MRSA coverage If stable, switch to po Zyvox, and give one more week Wound care per surgery Monitor temps Monitor progress Clinically doing well from ID standpoint
[2018-08-19] MEDS: amLODIPine 10 MG Tablet PO SCH (11:16)
--- NOTE | 2018-08-19 12:09 | P.PNNP ---
Subjective Interval history: Patient was seen in bed, no distress. Patient's renal function appears to be stabilizing. Creatinine is 5.0, GFR 11, and BUN 37. Will not dialyze today. Will continue to monitor for renal recovery to determine if dialysis is needed tomorrow. <David Coreas - Last Filed: 08/19/18 12:03> Physical Exam Vital signs: Vital Signs 08/18/18 16:00 08/18/18 19:00 08/19/18 00:00 Temperature 97.2 F L 98.7 F 97.4 F L Pulse Rate 61 63 70 Respiratory Rate 17 18 18 Blood Pressure 137/65 149/70 H 145/67 H Pulse Oximetry 93 L 96 95 08/19/18 04:00 08/19/18 08:00 Temperature 97.4 F L 97.7 F Pulse Rate 97 H 75 Respiratory Rate 18 20 Blood Pressure 158/79 H 120/62 Pulse Oximetry 96 90 L Intake & Output 08/18/18 08/19/18 08/19/18 18:59 06:59 18:59 Intake Total 600 / 600 461 / 461 Output Total 800 / 800 300 / 300 Balance -200 / -200 461 / 461 -300 / -300 Weight 103.2 kg Intake: IV 0 / 0 NS Inj 1,000 ML @ As Directed 0 / 0 OTHER .Q0M PRN Rx#:[id number] Oral 600 / 600 461 / 461 Output: Urine 800 / 800 300 / 300 Other: Date of Last Bowel Movement 08/18/18 08/18/18 # Incontinent Bowel Movements 1 - Constitutional no acute distress - Routine HEENT Exam Head: Present: normocephalic Eye: Present: EOMI, PERRL ENT: Present: mucous membranes moist - Routine Neck Exam Present: supple, trachea midline. Absent: JVD, tracheal deviation - Routine Respiratory Exam Present: CTA bilaterally. Absent: accessory muscle use, respiratory distress - Routine Cardiovascular Exam Present: RRR. Absent: murmur, gallop - Routine Abdominal Exam Present: soft, normoactive bowel sounds. Absent: tenderness - Routine Extremities Exam Present: pulses intact, vascular access. Absent: edema - Routine Skin Exam Comments: Wound, right axilla. - Routine Neurological Exam Present: alert, oriented X3 - Detailed Neurological Exam: Coma Scale Eye Opening: Spontaneous Verbal Response: Oriented - Routine Psychiatric Exam Present: normal affect, normal thought process - Urinary Catheter Management Straight Cath placed during this visit: yes, but has since been removed by the nurse Reason for continuing: Acute urinary retention Insertion date: 08/06/18 Insertion time: 05:59 Removal date: 08/07/18 Removal time: 12:44 <David Coreas - Last Filed: 08/19/18 12:03> Vital signs: Vital Signs 08/18/18 19:00 08/19/18 00:00 08/19/18 04:00 Temperature 98.7 F 97.4 F L 97.4 F L Pulse Rate 63 70 97 H Respiratory Rate 18 Blood Pressure 149/70 H 145/67 H 158/79 H Pulse Oximetry 96 95 96 08/19/18 08:00 08/19/18 12:00 08/19/18 16:00 Temperature 97.7 F 99.2 F 97.4 F L Pulse Rate 75 62 63 Respiratory Rate 20 20 20 Blood Pressure 120/62 123/60 126/60 Pulse Oximetry 90 L 94 L 94 L Intake & Output 08/18/18 08/19/18 08/19/18 18:59 06:59 18:59 Intake Total 600 / 600 461 / 461 Output Total 800 / 800 300 / 300 Balance -200 / -200 461 / 461 -300 / -300 Weight 103.2 kg Intake: IV 0 / 0 NS Inj 1,000 ML @ As Directed 0 / 0 OTHER .Q0M PRN Rx#:[id number] Oral 600 / 600 461 / 461 Output: Urine 800 / 800 300 / 300 Other: Date of Last Bowel Movement 08/18/18 08/18/18 08/18/18 # Incontinent Bowel Movements 1 - Urinary Catheter Management Straight Cath placed during this visit: no <Alec Gonzalez - Last Filed: 08/19/18 18:37> Assessment and Plan - Assessment (1) Acute kidney injury Code(s): N17.9 - Acute kidney failure, unspecified Status: Acute Plan: Could be due to sepsis, ATN. Could be due to Vancomycin induced nephrotoxicity. Patient continues to have urine output. Avoid nephrotoxic agents. Patient's renal function appears to be stabilizing. Creatinine is 5.0, GFR 11, and BUN 37. Will not dialyze today. Will continue to monitor for renal recovery to determine if dialysis is needed tomorrow. (2) Non-insulin treated type 2 diabetes mellitus Code(s): E11.9 - Type 2 diabetes mellitus without complications Status: Acute Plan: maintain blood sugar between 140 and 180 while hospitalized. (3) Abscess Code(s): L02.91 - Cutaneous abscess, unspecified Status: Acute Plan: s/p drainage. (4) S/P CABG (coronary artery bypass graft) Code(s): Z95.1 - Presence of aortocoronary bypass graft Status: Acute <David Coreas - Last Filed: 08/19/18 12:03> - Assessment (1) Acute kidney injury Code(s): N17.9 - Acute kidney failure, unspecified Status: Acute (2) Non-insulin treated type 2 diabetes mellitus Code(s): E11.9 - Type 2 diabetes mellitus without complications Status: Acute (3) Abscess Code(s): L02.91 - Cutaneous abscess, unspecified Status: Acute (4) S/P CABG (coronary artery bypass graft) Code(s): Z95.1 - Presence of aortocoronary bypass graft Status: Acute - Attending Attestation patient was seen and examined. Agree with above assessment and plan. <Alec Gonzalez - Last Filed: 08/19/18 18:37>
--- NOTE | 2018-08-19 12:23 | P.PN ---
Subjective Interval history: No complaints Physical Exam Vital signs: Vital Signs 08/18/18 16:00 08/18/18 19:00 08/19/18 00:00 Temperature 97.2 F L 98.7 F 97.4 F L Pulse Rate 61 63 70 Respiratory Rate 17 18 18 Blood Pressure 137/65 149/70 H 145/67 H Pulse Oximetry 93 L 96 95 08/19/18 04:00 08/19/18 08:00 Temperature 97.4 F L 97.7 F Pulse Rate 97 H 75 Respiratory Rate 18 20 Blood Pressure 158/79 H 120/62 Pulse Oximetry 96 90 L Intake & Output 08/18/18 08/19/18 08/19/18 18:59 06:59 18:59 Intake Total 600 / 600 461 / 461 Output Total 800 / 800 300 / 300 Balance -200 / -200 461 / 461 -300 / -300 Weight 103.2 kg Intake: IV 0 / 0 NS Inj 1,000 ML @ As Directed 0 / 0 OTHER .Q0M PRN Rx#:[id number] Oral 600 / 600 461 / 461 Output: Urine 800 / 800 300 / 300 Other: Date of Last Bowel Movement 08/18/18 08/18/18 # Incontinent Bowel Movements 1 - Routine Extremities Exam Comments: Right axillary wound clean without erythema - Urinary Catheter Management Straight Cath placed during this visit: yes, but has since been removed by the nurse Reason for continuing: Acute urinary retention Insertion date: 08/06/18 Insertion time: 05:59 Removal date: 08/07/18 Removal time: 12:44 Results - Labs CBC & Chem 7: 08/19/18 06:10 08/19/18 06:10 Laboratory Results - last 24 hr 08/18/18 08/18/18 08/18/18 12:57 16:46 22:00 WBC RBC Hgb Hct MCV MCH MCHC RDW Plt Count MPV Sodium Potassium Chloride Carbon Dioxide Anion Gap BUN Creatinine Estimated GFR POC Glucose 186 H 124 H 196 H Random Glucose Calcium Phosphorus Magnesium Total Bilirubin AST ALT Alkaline Phosphatase Total Protein Albumin 08/19/18 08/19/18 08/19/18 06:10 06:10 06:10 WBC 6.3 RBC 2.79 L Hgb 9.4 L Hct 25.9 L MCV 93.2 MCH 33.6 MCHC 36.1 H RDW 13.8 Plt Count 170 MPV 8.4 Sodium 142 Potassium 3.3 L Chloride 102 Carbon Dioxide 27.9 Anion Gap 12 BUN 37 H Creatinine 5.00 H Estimated GFR 11 L POC Glucose Random Glucose 161 H Calcium 8.3 L Phosphorus 5.2 H Magnesium 2.1 Total Bilirubin 0.5 AST 13 L ALT 18 Alkaline Phosphatase 74 Total Protein 6.7 Albumin 2.6 L 08/19/18 08/19/18 06:14 08:05 WBC RBC Hgb Hct MCV MCH MCHC RDW Plt Count MPV Sodium Potassium Chloride Carbon Dioxide Anion Gap BUN Creatinine Estimated GFR POC Glucose 163 H 161 H Random Glucose Calcium Phosphorus Magnesium Total Bilirubin AST ALT Alkaline Phosphatase Total Protein Albumin Assessment and Plan - Assessment (1) Abscess Code(s): L02.91 - Cutaneous abscess, unspecified Status: Acute Plan: Wound is clean; needs daily dressing changes to continue Ok to get up and ambulate Getting dialyzed; home when OK with med svc
--- NOTE | 2018-08-19 13:02 | P.PN ---
Subjective Interval history: Follow-up on patient with sepsis, acute kidney injury, right axillary abscess. Patient seen and examined. Patient is stable. He does not voice any new concerns or complaints. Patient continues to report good UOP. DW nursing staff , no adverse events noted overnight. Physical Exam Vital signs: Vital Signs 08/18/18 16:00 08/18/18 19:00 08/19/18 00:00 Temperature 97.2 F L 98.7 F 97.4 F L Pulse Rate 61 63 70 Respiratory Rate 17 18 18 Blood Pressure 137/65 149/70 H 145/67 H Pulse Oximetry 93 L 96 95 08/19/18 04:00 08/19/18 08:00 Temperature 97.4 F L 97.7 F Pulse Rate 97 H 75 Respiratory Rate 18 20 Blood Pressure 158/79 H 120/62 Pulse Oximetry 96 90 L Intake & Output 08/18/18 08/19/18 08/19/18 18:59 06:59 18:59 Intake Total 600 / 600 461 / 461 Output Total 800 / 800 300 / 300 Balance -200 / -200 461 / 461 -300 / -300 Weight 103.2 kg Intake: IV 0 / 0 NS Inj 1,000 ML @ As Directed 0 / 0 OTHER .Q0M PRN Rx#:[id number] Oral 600 / 600 461 / 461 Output: Urine 800 / 800 300 / 300 Other: Date of Last Bowel Movement 08/18/18 08/18/18 # Incontinent Bowel Movements 1 Narrative: GENERAL: Well-developed well-nourished elderly male patient. Awake and alert. Appears comfortable sitting on side of bed eating breakfast. In no acute distress. SKIN: Warm and dry. Right lateral chest/axilla s/p removal of wound vac, wet to dry dressing in place, C/D/I. Vascath in place right IJ. HEENT: Atraumatic. Normocephalic. Pupils equal and round. No scleral icterus. No injection or drainage. No nasal bleeding or discharge. Mucous membranes pink and moist. NECK: Trachea midline. CARDIOVASCULAR: Regular rate and rhythm. RESPIRATORY: No accessory muscle use. Clear to auscultation. Breath sounds equal bilaterally. GASTROINTESTINAL: Abdomen soft, non-tender, nondistended. +BS. MUSCULOSKELETAL: Extremities without clubbing, cyanosis, or edema. No obvious deformities. NEUROLOGICAL: Awake and alert. No obvious cranial nerve deficits. Motor grossly within normal limits. Able to move all extremities spontaneously. Normal speech. PSYCHIATRIC: Appropriate mood and affect; insight and judgment normal. - Urinary Catheter Management Straight Cath placed during this visit: yes, but has since been removed by the nurse Reason for continuing: Acute urinary retention Insertion date: 08/06/18 Insertion time: 05:59 Removal date: 08/07/18 Removal time: 12:44 Results - Labs CBC & Chem 7: 08/19/18 06:10 08/19/18 06:10 Laboratory Results - last 24 hr 08/18/18 08/18/18 08/18/18 12:57 16:46 22:00 WBC RBC Hgb Hct MCV MCH MCHC RDW Plt Count MPV Sodium Potassium Chloride Carbon Dioxide Anion Gap BUN Creatinine Estimated GFR POC Glucose 186 H 124 H 196 H Random Glucose Calcium Phosphorus Magnesium Total Bilirubin AST ALT Alkaline Phosphatase Total Protein Albumin 08/19/18 08/19/18 08/19/18 06:10 06:10 06:10 WBC 6.3 RBC 2.79 L Hgb 9.4 L Hct 25.9 L MCV 93.2 MCH 33.6 MCHC 36.1 H RDW 13.8 Plt Count 170 MPV 8.4 Sodium 142 Potassium 3.3 L Chloride 102 Carbon Dioxide 27.9 Anion Gap 12 BUN 37 H Creatinine 5.00 H Estimated GFR 11 L POC Glucose Random Glucose 161 H Calcium 8.3 L Phosphorus 5.2 H Magnesium 2.1 Total Bilirubin 0.5 AST 13 L ALT 18 Alkaline Phosphatase 74 Total Protein 6.7 Albumin 2.6 L 08/19/18 08/19/18 06:14 08:05 WBC RBC Hgb Hct MCV MCH MCHC RDW Plt Count MPV Sodium Potassium Chloride Carbon Dioxide Anion Gap BUN Creatinine Estimated GFR POC Glucose 163 H 161 H Random Glucose Calcium Phosphorus Magnesium Total Bilirubin AST ALT Alkaline Phosphatase Total Protein Albumin Assessment and Plan - Plan 72-year-old male with history of diabetes, coronary artery disease status post CABG who presents with a 2-week history of progressively worsening sharp constant, nonradiating right axillary pain with cellulitis. Sepsis present on admission secondary to Right axillary abscess: MRSA S/P I and D 08/05 with VAC placement S/P VAC change 08/08 +Leukocytosis WBC 17.5K. - down to 10 -Chest CT reviewed, shows Large heterogeneous collection of the right axilla and the lateral margin of pectoralis major as described. This appears to represent a lobulated mass or a multiloculated fluid collection or hematoma. - Vancomycin-Discontinued 08/06 - Infectious disease ff- on Cubicin. Monitor CPK. CK 15 on 08/13. - GS ff- VAC management. Wound vac removed 08/12 and changed to wet to dry dressing changes. Continue daily dressing changes. Acute GRADY- likely drug induced- Vancomycin History of BPH urine eosinophils- negative US-renal/bladder- unremarkable - Vancomycin d/c'd 08/06, matthews removed 08/07 - continue on flomax and Terazosin- home meds - ff BMP. accurate I and O. UOP has decreased. - Nephrology following, appreciate assistance. Shantacatalissa placed - hemodialysis initiated 08/09. last HD 08/16 with 1L UF. Creatinine appears stable today. Per nephrology, no dialysis today PPD ordered in anticipation of possible outpt HD needed, no rxn noted after 72hrs. - Continue to monitor for renal recovery - avoid nephrotoxic agents HTN, CAD s/p CABG: chronic. BP some elevated readings -continue patient's aspirin with hx of CABG -continue patient's terazosin and Norvasc -Monitor BP, adjust antihypertensives as needed Diabetes mellitus: chronic- high readings -Discontinued metformin - with GRADY. Discontinued glipizide as well -Monitor Accu-checks and cover with SSI -A1C 6.5 -Maintain blood sugar between 140 and 180 per Nephrology. -Continue 70/30 to 16u BID. Hypothyroidism: chronic -continue patient's levothyroxine Anemia, normocytic, normochromic suspect ACD Hgb trending down, 12.2 -> 9.1. 08/19 Hgb improved to 9.4. -monitor for e/o bleeding -stool for hemoccult -follow CBC as indicated B12 deficiency B12 level 134 -given 1000mcg B12 IM x 1, continue on po supplementation daily Hypokalemia, mild K 3.3 -Give small po repletion -repeat BMP in am DVT Prophylaxis: teds/SCDs Heparin SQ for DVT prophylaxis Code Status: Full Discussed Condition With: patient, nursing staff, Dr. Pradhan Discharge Planning: Not ready for discharge. Discharge pending improvement in kidney function. Discharge pending ID and nephrology clearance.
[2018-08-20] MEDS: Levothyroxine 88 MCG Tablet PO SCH (05:40)
--- NOTE | 2018-08-20 07:58 | P.PN ---
Subjective Interval history: Patient seen and examined. Patient states he feels well. States he slept okay last night. He denies any new medical complaints or concerns. He denies any fever, chills, nausea, vomiting, cough, chest pain, shortness of breath or abdominal pain. He states he is urinating well and denies any constipation or diarrhea. He reports increased urinary output. Physical Exam Vital signs: Vital Signs 08/19/18 08:00 08/19/18 12:00 08/19/18 16:00 Temperature 97.7 F 99.2 F 97.4 F L Pulse Rate 75 62 63 Respiratory Rate 20 20 20 Blood Pressure 120/62 123/60 126/60 Pulse Oximetry 90 L 94 L 94 L 08/19/18 20:00 08/20/18 00:25 08/20/18 04:37 Temperature 97.6 F 98 F 98.3 F Pulse Rate 65 59 L 61 Respiratory Rate 18 18 15 Blood Pressure 130/62 124/61 133/64 Pulse Oximetry 93 L 95 95 Intake & Output 08/19/18 08/20/18 08/20/18 18:59 06:59 18:59 Intake Total 472 / 472 Output Total 300 / 300 690 / 690 Balance -300 / -300 -218 / -218 Weight 101.6 kg Intake: Oral 472 / 472 Output: Urine 300 / 300 690 / 690 Other: Date of Last Bowel Movement 08/18/18 08/19/18 Narrative: GENERAL: Well-developed well-nourished elderly male patient. Awake and alert. Appears comfortable resting in bed. SKIN: Warm and dry. Right lateral chest/axilla s/p removal of wound vac, wet to dry dressing in place, C/D/I. Vascath in place right IJ. HEENT: Atraumatic. Normocephalic. Pupils equal and round. No scleral icterus. No injection or drainage. No nasal bleeding or discharge. Mucous membranes pink and moist. NECK: Trachea midline. CARDIOVASCULAR: Regular rate and rhythm. RESPIRATORY: No accessory muscle use. Clear to auscultation. Breath sounds equal bilaterally. GASTROINTESTINAL: Abdomen soft, non-tender, nondistended. +BS. MUSCULOSKELETAL: Extremities without clubbing, cyanosis, or edema. No obvious deformities. NEUROLOGICAL: Awake and alert. No obvious cranial nerve deficits. Motor grossly within normal limits. Able to move all extremities spontaneously. Normal speech. PSYCHIATRIC: Appropriate mood and affect; insight and judgment normal. - Urinary Catheter Management Straight Cath placed during this visit: yes, but has since been removed by the nurse Reason for continuing: Acute urinary retention Insertion date: 08/06/18 Insertion time: 05:59 Removal date: 08/07/18 Removal time: 12:44 Results - Labs CBC & Chem 7: 08/20/18 09:23 08/20/18 09:23 Laboratory Results - last 24 hr 08/19/18 08/19/18 08/19/18 06:10 08:05 12:53 POC Glucose 161 H 200 H Magnesium 2.1 08/19/18 08/19/18 17:23 21:56 POC Glucose 106 113 H Magnesium Assessment and Plan - Plan 72-year-old male with history of diabetes, coronary artery disease status post CABG who presents with a 2-week history of progressively worsening sharp constant, nonradiating right axillary pain with cellulitis. Sepsis present on admission secondary to Right axillary abscess:MRSA S/P I and D 08/05 with VAC placement S/P VAC change 08/08 +Leukocytosis WBC 17.5K. - down to 10 -Chest CT reviewed, shows Large heterogeneous collection of the right axilla and the lateral margin of pectoralis major as described. This appears to represent a lobulated mass or a multiloculated fluid collection or hematoma. - Vancomycin-Discontinued 08/06 - Infectious disease ff- on Cubicin. 08/20 changed to oral Zyvox times 1 week. Cleared for discharge from ID standpoint. Repeat CBC in am. - GS ff- VAC management. Wound vac removed 08/12 and changed to wet to dry dressing changes. Continue daily dressing changes. Acute GRADY- likely drug induced- Vancomycin History of BPH urine eosinophils- negative US-renal/bladder- unremarkable - Vancomycin d/c'd 08/06, matthews removed 08/07 - continue on flomax and Terazosin- home meds - ff BMP. accurate I and O. UOP has decreased. - Nephrology following, appreciate assistance. Vascath placed - hemodialysis initiated 08/09. last HD 08/16 with 1L UF. Creatinine appears to have stabilized around 5. Await nephrology's recommendations. PPD ordered in anticipation of possible outpt HD needed, no rxn noted after 72hrs. - Continue to monitor for renal recovery - avoid nephrotoxic agents HTN, CAD s/p CABG: chronic. BP some elevated readings -continue patient's aspirin with hx of CABG -continue patient's terazosin and Norvasc -Monitor BP, adjust antihypertensives as needed Diabetes mellitus: chronic- high readings -Discontinued metformin - with GRADY. Discontinued glipizide as well -Monitor Accu-checks and cover with SSI -A1C 6.5 -Maintain blood sugar between 140 and 180 per Nephrology. -Continue 70/30 16u BID. Hypothyroidism: chronic -continue patient's levothyroxine Anemia, normocytic, normochromic suspect ACD Hgb trending down, 12.2 -> 9.1. Hemoglobin continues to trend up, now 10 -monitor for e/o bleeding -stool for hemoccult -follow CBC as indicated B12 deficiency B12 level 134 -given 1000mcg B12 IM x 1, continue on po supplementation daily Hypokalemia, mild K 3.4 -Give small po repletion -repeat BMP in am DVT Prophylaxis: teds/SCDs Heparin SQ for DVT prophylaxis Code Status: Full Discussed Condition With: patient, nursing staff, Dr. Pradhan Discharge Planning: Not ready for discharge. Discharge pending improvement in kidney function. Discharge pending ID and nephrology clearance.
[2018-08-20] MEDS: Insulin NovoLOG Aspart Correctional Sugar Inj SQ SCH ×4 (09:00→21:01)
[2018-08-20] MEDS: Senna/Docusate Sodium 8.6/50 MG Tablet PO SCH ×2 (09:49→21:01)
[2018-08-20] MEDS: amLODIPine 10 MG Tablet PO SCH (09:49)
--- NOTE | 2018-08-20 10:05 | P.PNID ---
Subjective Remarks: Patient is a 72-year-old male presented to the hospital complaining of pain and swelling in his right axilla and right chest wall. Patient was seen in the emergency room about 10 days ago complaining of pain and knot in his right axilla. He was diagnosed to have a possible lymphadenitis, and he was given clindamycin and was discharged home. Patient stated that he was compliant with his antibiotics. The area however started getting worse with increasing pain swelling so he presented to the hospital for further evaluation and treatment. He denies any fever chills or sweats. Denies any GI or any urinary complaints. Patient denies any previous history of skin and soft tissue infection. He denies any trauma. He has not been exposed to any animals particularly cats. Patient stated that there is a fairly CAD in their neighborhood but he never really messed up with that. Patient since admission had some low-grade temps. His initial white count was 17,000. CT of the chest showing a multiloculated fluid collection in the right axilla extending into the lateral aspect of the pectoralis major. Surgery saw the patient and he had I&D of a multiloculated abscess. Patient currently has a wound VAC in place. He is stating that the pain is better. His temperatures are better. His WBC is down to 14,000. Culture from surgery still pending, but Gram stain is showing gram-positive cocci in clusters. Patient is currently on vancomycin and Zosyn. His creatinine is elevated on admission. It was normal when he was seen in the emergency room about 10 days ago. Infectious disease consultation has been requested to assist with evaluation and treatment of a right axillary abscess. Notes reviewed Temps ok Doing well Had HD 08/16 No complaints No rash Getting wet to dry to his R lat chest wall open wound Surgery notes from yesterday reviewed Antibiotics: Cubicin Lines: Vascath RIJ PIV Past Medical History: CAB S/P CABG DM Allergies/Adverse Reactions: Allergies No Known Allergies Allergy (Verified 08/04/18 22:44) Objective Vital Signs 08/19/18 12:00 08/19/18 16:00 08/19/18 20:00 Temperature 99.2 F 97.4 F L 97.6 F Pulse Rate 62 63 65 Respiratory Rate 20 20 18 Blood Pressure 123/60 126/60 130/62 Pulse Oximetry 94 L 94 L 93 L 08/20/18 00:25 08/20/18 04:37 08/20/18 08:00 Temperature 98 F 98.3 F 97.4 F L Pulse Rate 59 L 61 66 Respiratory Rate 18 15 20 Blood Pressure 124/61 133/64 142/68 H Pulse Oximetry 95 95 98 Intake & Output 08/19/18 08/20/18 08/20/18 18:59 06:59 18:59 Intake Total 472 / 472 Output Total 300 / 300 690 / 690 Balance -300 / -300 -218 / -218 Weight 101.6 kg Intake: Oral 472 / 472 Output: Urine 300 / 300 690 / 690 Other: Date of Last Bowel Movement 08/18/18 08/19/18 Lab - Hematology Results 08/19/18 06:10 WBC 6.3 RBC 2.79 L Hgb 9.4 L Hct 25.9 L MCV 93.2 MCH 33.6 MCHC 36.1 H RDW 13.8 Plt Count 170 MPV 8.4 Lab - Chemistry Results 08/18/18 08/18/18 08/18/18 06:10 12:57 16:46 Sodium Potassium Chloride Carbon Dioxide Anion Gap BUN Creatinine Estimated GFR POC Glucose 186 H 124 H Random Glucose Calcium Phosphorus Magnesium Iron 36 L TIBC 255 % Saturation 14.1 L Ferritin 137 Total Bilirubin AST ALT Alkaline Phosphatase Total Protein Albumin Vitamin B12 134 L 08/18/18 08/19/18 08/19/18 22:00 06:10 06:10 Sodium 142 Potassium 3.3 L Chloride 102 Carbon Dioxide 27.9 Anion Gap 12 BUN 37 H Creatinine 5.00 H Estimated GFR 11 L POC Glucose 196 H Random Glucose 161 H Calcium 8.3 L Phosphorus 5.2 H Magnesium 2.1 Iron TIBC % Saturation Ferritin Total Bilirubin 0.5 AST 13 L ALT 18 Alkaline Phosphatase 74 Total Protein 6.7 Albumin 2.6 L Vitamin B12 08/19/18 08/19/18 08/19/18 06:14 08:05 12:53 Sodium Potassium Chloride Carbon Dioxide Anion Gap BUN Creatinine Estimated GFR POC Glucose 163 H 161 H 200 H Random Glucose Calcium Phosphorus Magnesium Iron TIBC % Saturation Ferritin Total Bilirubin AST ALT Alkaline Phosphatase Total Protein Albumin Vitamin B12 08/19/18 08/19/18 08/20/18 17:23 21:56 08:43 Sodium Potassium Chloride Carbon Dioxide Anion Gap BUN Creatinine Estimated GFR POC Glucose 106 113 H 180 H Random Glucose Calcium Phosphorus Magnesium Iron TIBC % Saturation Ferritin Total Bilirubin AST ALT Alkaline Phosphatase Total Protein Albumin Vitamin B12 Imaging: ITS Impressions Chest CT 08/05/18 00:03 CONCLUSION: 1. Large heterogeneous collection of the right axilla and the lateral margin of pectoralis major as described. This appears to represent a lobulated mass or a multiloculated fluid collection or hematoma. Infectious and neoplastic etiologies are both in the differential. 2. Mild atelectasis of the lung bases and a 5 mm left upper lobe pulmonary nodule. 3. Previous median sternotomy and CABG. 4. Cholelithiasis. 5. No acute osseous abnormality. Abdomen/Bladder Ultrasound 08/06/18 00:00 CONCLUSION: 1. No evidence of hydronephrosis. The echogenicity of the kidneys is within normal limits. 2. Simple cyst in right kidney. Catheter Placement 08/08/18 00:00 CONCLUSION: 1. Uncomplicated line placement as above. Venous Doppler Study 08/09/18 00:00 CONCLUSION: 1. No venous thrombosis seen of the right upper extremity. 2. There is a fluid collection near the right shoulder, nonspecific but a seroma or some fluid in the subcoracoid recess considered most likely. Physical Exam: GENERAL: awake and alert, NAD SKIN: Warm and dry. No generalized rash HEENT: No petechia, no icterus, moist oral mucosa NECK: Trachea midline. Supple and not tender, no meningeal signs CARDIOVASCULAR: Regular rate and rhythm. No murmurs, rubs or gallops heard RESPIRATORY: Clear to auscultation. Open wound R lateral chest with packing, area of redness and induration all resolved ABDOMEN: Soft, non-tender, nondistended. Bowel sounds present and normoactive. No guarding. No rebound. No organomegaly. EXTREMITIES: No clubbing, cyanosis, or edema. No calf tenderness. NEUROLOGICAL: Grossly non-focal. PSYCHIATRIC: Normal affect, calm and cooperative. LINE: No evidence of infection Assessment and Plan - Plan Impression Sepsis on admission due to a large abscess, better Abscess, cellulitis R axilla/R chest wall - S/P I and D - C/S MRSA Renal failure, on HD - creatinine up and down, UO has decreased - renal following Fevers and leukocytosis, resolved Recommendation Switch to po Zyvox, and give one more week - check CBC tomorrow Patient is stable from ID standpoint and can be D/C anytime Wound care per surgery Clinically doing well from ID standpoint
[2018-08-20 10:45] LABS: Hematocrit 28.1 % (39.0-51.0); Mean Corpuscular HGB Conc 35.5 % (32.0-36.0); Mean Corpuscular Hemoglobin 33.9 pg (27.0-34.0); Mean Corpuscular Volume 95.7 fL (80.0-100.0); Platelet Count 198 th/mm3 (150-450); Red Blood Count 2.93 mil/mm3 (4.50-5.90); Red Cell Distribution Width 13.9 % (11.6-17.2); White Blood Count 6.8 th/mm3 (4.0-11.0)
[2018-08-20 11:12] LABS: Albumin 2.9 g/dL (3.4-5.0); Anion Gap 11 meq/L (5-15); Aspartate Aminotransferase 18 U/L (15-37); Blood Urea Nitrogen 41 mg/dL (7-18); Calcium 8.9 mg/dL (8.5-10.1); Chloride 101 meq/L (98-107); Glomerular Filtration Rate 11 mL/min (>89); Glucose,Random 208 mg/dL (74-106); Potassium 3.4 meq/L (3.5-5.1); Sodium 140 meq/L (136-145)
[2018-08-20] MEDS: Linezolid 600 MG Tablet PO SCH ×2 (11:12→21:01)
[2018-08-20 11:13] LABS: Alanine Aminotransferase 22 U/L (12-78)
[2018-08-20 11:15] LABS: Alkaline Phosphatase 87 U/L (45-117); Total Protein 7.7 g/dL (6.4-8.2)
[2018-08-20 11:17] LABS: Creatine Kinase 30 U/L (39-308)
--- NOTE | 2018-08-20 11:50 | P.PNNP ---
Subjective Interval history: Patient was seen in bed, no distress. Patient's renal function seems to be stabilizing, Creatinine today is 5.03. Will not dialyze today and monitor labs to determine if dialysis is needed tomorrow. Patient still has good urine output. Patient's K was 3.4, an order for PO Potassium was put in. <David Coreas - Last Filed: 08/20/18 11:41> Physical Exam Vital signs: Vital Signs 08/19/18 12:00 08/19/18 16:00 08/19/18 20:00 Temperature 99.2 F 97.4 F L 97.6 F Pulse Rate 62 63 65 Respiratory Rate 20 20 18 Blood Pressure 123/60 126/60 130/62 Pulse Oximetry 94 L 94 L 93 L 08/20/18 00:25 08/20/18 04:37 08/20/18 08:00 Temperature 98 F 98.3 F 97.4 F L Pulse Rate 59 L 61 66 Respiratory Rate 18 15 20 Blood Pressure 124/61 133/64 142/68 H Pulse Oximetry 95 95 98 Intake & Output 08/19/18 08/20/18 08/20/18 18:59 06:59 18:59 Intake Total 472 / 472 Output Total 300 / 300 690 / 690 Balance -300 / -300 -218 / -218 Weight 101.6 kg Intake: Oral 472 / 472 Output: Urine 300 / 300 690 / 690 Other: Date of Last Bowel Movement 08/18/18 08/19/18 - Constitutional no acute distress - Routine HEENT Exam Head: Present: normocephalic Eye: Present: EOMI, PERRL ENT: Present: mucous membranes moist - Routine Neck Exam Present: trachea midline. Absent: JVD, tracheal deviation - Routine Respiratory Exam Present: CTA bilaterally. Absent: accessory muscle use, respiratory distress - Routine Cardiovascular Exam Present: RRR - Routine Abdominal Exam Present: soft, normoactive bowel sounds - Routine Extremities Exam Present: pulses intact, vascular access. Absent: edema - Routine Skin Exam Present: wounds Comments: Right axilla wound. - Routine Neurological Exam Present: alert, oriented X3 - Routine Psychiatric Exam Present: normal affect, normal thought process - Urinary Catheter Management Straight Cath placed during this visit: yes, but has since been removed by the nurse Reason for continuing: Acute urinary retention Insertion date: 08/06/18 Insertion time: 05:59 Removal date: 08/07/18 Removal time: 12:44 <David Coreas - Last Filed: 08/20/18 11:41> Vital signs: Vital Signs 08/20/18 20:00 08/21/18 00:00 08/21/18 04:00 Temperature 97.8 F 97.8 F 97.8 F Pulse Rate 66 61 62 Respiratory Rate 20 20 20 Blood Pressure 139/60 137/67 131/63 Pulse Oximetry 94 L 94 L 95 08/21/18 08:00 08/21/18 12:00 08/21/18 16:00 Temperature 97.8 F 97.5 F L 97.5 F L Pulse Rate 57 L 62 67 Respiratory Rate 18 Blood Pressure 139/67 122/72 125/61 Pulse Oximetry 95 95 95 Intake & Output 08/21/18 08/21/18 08/22/18 06:59 18:59 06:59 Intake Total 100 / 100 Output Total 1450 / 1450 30 / 30 Balance -1350 / -1350 -30 / -30 Weight 100.9 kg Intake: IV 100 / 100 Cubicin Inj 450 MG In NS Inj 100 / 100 100 ML @ 200 mls/hr IV.SIG Q48H KADY Rx#:[id number] Output: Urine 1450 / 1450 Estimated Blood Loss 30 / 30 Other: Mode Setting Right Axilla Continuous Other Intake Source Saline Solution # Voids 1,720 Date of Last Bowel Movement 08/19/18 08/21/18 # Bowel Movements 1 - Urinary Catheter Management Straight Cath placed during this visit: no <Alec Gonzalez - Last Filed: 08/21/18 19:42> Assessment and Plan - Assessment (1) Acute kidney injury Code(s): N17.9 - Acute kidney failure, unspecified Status: Acute Plan: Could be due to sepsis, ATN. Could be due to Vancomycin induced nephrotoxicity. Patient continues to have urine output. Avoid nephrotoxic agents. Patient's renal function appears to be stabilizing. Creatinine is 5.03, GFR 11, and BUN 41. Will not dialyze today. Will continue to monitor for renal recovery to determine if dialysis is needed tomorrow. (2) Non-insulin treated type 2 diabetes mellitus Code(s): E11.9 - Type 2 diabetes mellitus without complications Status: Acute Plan: maintain blood sugar between 140 and 180 while hospitalized. (3) Abscess Code(s): L02.91 - Cutaneous abscess, unspecified Status: Acute Plan: s/p drainage. (4) S/P CABG (coronary artery bypass graft) Code(s): Z95.1 - Presence of aortocoronary bypass graft Status: Acute <David Coreas - Last Filed: 08/20/18 11:41> - Assessment (1) Acute kidney injury Code(s): N17.9 - Acute kidney failure, unspecified Status: Acute (2) Non-insulin treated type 2 diabetes mellitus Code(s): E11.9 - Type 2 diabetes mellitus without complications Status: Acute (3) Abscess Code(s): L02.91 - Cutaneous abscess, unspecified Status: Acute (4) S/P CABG (coronary artery bypass graft) Code(s): Z95.1 - Presence of aortocoronary bypass graft Status: Acute - Attending Attestation patient was seen and examined on 08/20/18. Agree with above assessment and plan. <Alec Gonzalez - Last Filed: 08/21/18 19:42>
[2018-08-20] MEDS: SODIUM CHLOR 0.9% IV.SIG SCH (15:00)
[2018-08-20] MEDS: DAPTOMYCIN IV.SIG SCH (15:00)
[2018-08-21] MEDS: Levothyroxine 88 MCG Tablet PO SCH (06:01)
[2018-08-21 06:38] LABS: Baso # (Auto) 0.1 th/mm3 (0.0-0.2); Baso % (Auto) 1.2 % (0.0-2.0); Eos # (Auto) 0.5 th/mm3 (0.0-0.4); Eos % (Auto) 8.5 % (0.0-4.0); Hematocrit 26.3 % (39.0-51.0); Hemoglobin 9.2 gm/dL (13.0-17.0); Lymph # (Auto) 0.8 th/mm3 (1.0-4.8); Lymph % (Auto) 12.2 % (9.0-44.0); Mean Corpuscular Hemoglobin 33.4 pg (27.0-34.0); Mean Corpuscular Volume 95.3 fL (80.0-100.0); Mean Platelet Volume 8.9 fL (7.0-11.0); Mono # (Auto) 0.4 th/mm3 (0.0-0.9); Mono % (Auto) 7.1 % (0.0-8.0); Neut # (Auto) 4.4 th/mm3 (1.8-7.7); Platelet Count 194 th/mm3 (150-450); Red Blood Count 2.76 mil/mm3 (4.50-5.90); Red Cell Distribution Width 13.7 % (11.6-17.2); White Blood Count 6.2 th/mm3 (4.0-11.0)
[2018-08-21 07:06] LABS: Albumin 2.7 g/dL (3.4-5.0); Anion Gap 12 meq/L (5-15); Aspartate Aminotransferase 17 U/L (15-37); Blood Urea Nitrogen 43 mg/dL (7-18); Calcium 8.5 mg/dL (8.5-10.1); Carbon Dioxide 27.4 meq/L (21.0-32.0); Chloride 103 meq/L (98-107); Glomerular Filtration Rate 12 mL/min (>89); Glucose,Random 167 mg/dL (74-106); Potassium 3.5 meq/L (3.5-5.1); Sodium 142 meq/L (136-145)
[2018-08-21 07:07] LABS: Alanine Aminotransferase 21 U/L (12-78)
[2018-08-21 07:09] LABS: Alkaline Phosphatase 79 U/L (45-117); Total Protein 6.9 g/dL (6.4-8.2)
--- NOTE | 2018-08-21 07:42 | P.PN ---
Subjective Interval history: Patient is doing well. He denies any acute medical complaints. He denies any fever or chills. Denies any chest pain or shortness of breath. He reports good urinary output. Physical Exam Vital signs: Vital Signs 08/20/18 08:00 08/20/18 12:00 08/20/18 16:00 Temperature 97.4 F L 97.6 F 98.0 F Pulse Rate 66 67 64 Respiratory Rate 20 20 18 Blood Pressure 142/68 H 131/63 138/65 Pulse Oximetry 98 98 96 08/20/18 20:00 08/21/18 00:00 08/21/18 04:00 Temperature 97.8 F 97.8 F 97.8 F Pulse Rate 66 61 62 Respiratory Rate 20 20 20 Blood Pressure 139/60 137/67 131/63 Pulse Oximetry 94 L 94 L 95 Intake & Output 08/20/18 08/21/18 08/21/18 18:59 06:59 18:59 Intake Total 100 / 100 Output Total 1100 / 1100 1450 / 1450 Balance -1100 / -1100 -1350 / -1350 Weight 100.9 kg Intake: IV 100 / 100 Cubicin Inj 450 MG In NS Inj 100 / 100 100 ML @ 200 mls/hr IV.SIG Q48H KADY Rx#:[id number] Output: Urine 1100 / 1100 1450 / 1450 Other: Date of Last Bowel Movement 08/19/18 08/19/18 Narrative: GENERAL: Well-developed well-nourished elderly male patient. Awake and alert. Lying in bed. In no acute distress. SKIN: Warm and dry. Right lateral chest/axilla s/p removal of wound vac, wet to dry dressing in place, C/D/I. Vascath in place right IJ. HEENT: Atraumatic. Normocephalic. Pupils equal and round. No scleral icterus. No injection or drainage. No nasal bleeding or discharge. Mucous membranes pink and moist. NECK: Trachea midline. CARDIOVASCULAR: Regular rate and rhythm. RESPIRATORY: No accessory muscle use. Clear to auscultation. Breath sounds equal bilaterally. GASTROINTESTINAL: Abdomen soft, non-tender, nondistended. +BS. MUSCULOSKELETAL: Extremities without clubbing, cyanosis, or edema. No obvious deformities. NEUROLOGICAL: Awake and alert. No obvious cranial nerve deficits. Motor grossly within normal limits. Able to move all extremities spontaneously. Normal speech. PSYCHIATRIC: Appropriate mood and affect; insight and judgment normal. - Urinary Catheter Management Straight Cath placed during this visit: yes, but has since been removed by the nurse Reason for continuing: Acute urinary retention Insertion date: 08/06/18 Insertion time: 05:59 Removal date: 08/07/18 Removal time: 12:44 Results - Labs CBC & Chem 7: 08/21/18 05:43 08/21/18 06:14 Laboratory Results - last 24 hr 08/20/18 08/20/18 08/20/18 08:43 09:23 09:23 WBC 6.8 RBC 2.93 L Hgb 10.0 L Hct 28.1 L MCV 95.7 MCH 33.9 MCHC 35.5 RDW 13.9 Plt Count 198 MPV 9.0 Neut % (Auto) Lymph % (Auto) [place] % (Auto) Eos % (Auto) Baso % (Auto) Neut # (Auto) Lymph # (Auto) [place] # (Auto) Eos # (Auto) Baso # (Auto) WBC Differential Differential Comment Sodium 140 Potassium 3.4 L Chloride 101 Carbon Dioxide 28.0 Anion Gap 11 BUN 41 H Creatinine 5.03 H Estimated GFR 11 L POC Glucose 180 H Random Glucose 208 H Calcium 8.9 Total Bilirubin 0.5 AST 18 ALT 22 Alkaline Phosphatase 87 Total Creatine Kinase 30 L Total Protein 7.7 D Albumin 2.9 L 08/20/18 08/20/18 08/20/18 11:14 18:08 20:17 WBC RBC Hgb Hct MCV MCH MCHC RDW Plt Count MPV Neut % (Auto) Lymph % (Auto) [place] % (Auto) Eos % (Auto) Baso % (Auto) Neut # (Auto) Lymph # (Auto) [place] # (Auto) Eos # (Auto) Baso # (Auto) WBC Differential Differential Comment Sodium Potassium Chloride Carbon Dioxide Anion Gap BUN Creatinine Estimated GFR POC Glucose 199 H 121 H 162 H Random Glucose Calcium Total Bilirubin AST ALT Alkaline Phosphatase Total Creatine Kinase Total Protein Albumin 08/21/18 08/21/18 05:43 06:14 WBC 6.2 RBC 2.76 L Hgb 9.2 L Hct 26.3 L MCV 95.3 MCH 33.4 MCHC 35.0 RDW 13.7 Plt Count 194 MPV 8.9 Neut % (Auto) 71.0 H Lymph % (Auto) 12.2 [place] % (Auto) 7.1 Eos % (Auto) 8.5 H Baso % (Auto) 1.2 Neut # (Auto) 4.4 Lymph # (Auto) 0.8 L [place] # (Auto) 0.4 Eos # (Auto) 0.5 H Baso # (Auto) 0.1 WBC Differential . Differential Comment Auto diff final Sodium 142 Potassium 3.5 Chloride 103 Carbon Dioxide 27.4 Anion Gap 12 BUN 43 H Creatinine 4.97 H Estimated GFR 12 L POC Glucose Random Glucose 167 H Calcium 8.5 Total Bilirubin 0.4 AST 17 ALT 21 Alkaline Phosphatase 79 Total Creatine Kinase Total Protein 6.9 D Albumin 2.7 L Assessment and Plan - Plan 72-year-old male with history of diabetes, coronary artery disease status post CABG who presents with a 2-week history of progressively worsening sharp constant, nonradiating right axillary pain with cellulitis. Sepsis present on admission secondary to Right axillary abscess:MRSA S/P I and D 08/05 with VAC placement S/P VAC change 08/08 +Leukocytosis WBC 17.5K. - down to 10 -Chest CT reviewed, shows Large heterogeneous collection of the right axilla and the lateral margin of pectoralis major as described. This appears to represent a lobulated mass or a multiloculated fluid collection or hematoma. - Vancomycin-Discontinued 08/06 - Infectious disease ff- on Cubicin. 08/20 changed to oral Zyvox times 1 week. Cleared for discharge from ID standpoint. - GS ff- VAC management. Wound vac removed 08/12 and changed to wet to dry dressing changes. Continue daily dressing changes. Acute GRADY- likely drug induced- Vancomycin History of BPH urine eosinophils- negative US-renal/bladder- unremarkable - Vancomycin d/c'd 08/06, matthews removed 08/07 - continue on flomax and Terazosin- home meds - ff BMP. accurate I and O. UOP has decreased. - Nephrology following, appreciate assistance. Herbert placed - hemodialysis initiated 08/09. last HD 08/16 with 1L UF. Creatinine appears to have stabilized around 5. Kidney function appears to be improving. Good urinary output. Nephrology planning to monitor creatinine for another day, possible discharge tomorrow. - Continue to monitor for renal recovery - avoid nephrotoxic agents HTN, CAD s/p CABG: chronic. BP some elevated readings -continue patient's aspirin with hx of CABG -continue patient's terazosin and Norvasc -Monitor BP, adjust antihypertensives as needed Diabetes mellitus: chronic- high readings -Discontinued metformin - with GRADY. Discontinued glipizide as well -Monitor Accu-checks and cover with SSI -A1C 6.5 -Maintain blood sugar between 140 and 180 per Nephrology. -Blood sugars running in the low 200s. Increase 70/30 18u BID. Hypothyroidism: chronic -continue patient's levothyroxine Anemia, normocytic, normochromic suspect ACD Hgb appears stable -monitor for e/o bleeding -stool for hemoccult -follow CBC as indicated B12 deficiency B12 level 134 -given 1000mcg B12 IM x 1, continue on po supplementation daily Hypokalemia, mild K 3.4 -Resolved status post p.o. repletion DVT Prophylaxis: teds/SCDs Heparin SQ for DVT prophylaxis Code Status: Full Discussed Condition With: patient, nursing staff, Dr. Pradhan Discharge Planning: Not ready for discharge. Likely will discharge in the next 24-48 hours
[2018-08-21] MEDS: Linezolid 600 MG Tablet PO SCH ×2 (09:29→20:02)
[2018-08-21] MEDS: amLODIPine 10 MG Tablet PO SCH (09:29)
[2018-08-21] MEDS: Senna/Docusate Sodium 8.6/50 MG Tablet PO SCH ×2 (09:30→20:02)
[2018-08-21] MEDS: Insulin NovoLOG Aspart Correctional Sugar Inj SQ SCH ×4 (09:37→20:03)
--- NOTE | 2018-08-21 12:24 | P.PNNP ---
Subjective Interval history: Patient was seen in bed, no distress. Patient's renal function continues to improve, dialysis on hold. Will monitor renal function for one more day before being clear to be discharged. VasCath can then be removed. <David Coreas - Last Filed: 08/21/18 12:20> Physical Exam Vital signs: Vital Signs 08/20/18 16:00 08/20/18 20:00 08/21/18 00:00 Temperature 98.0 F 97.8 F 97.8 F Pulse Rate 64 66 61 Respiratory Rate 18 20 20 Blood Pressure 138/65 139/60 137/67 Pulse Oximetry 96 94 L 94 L 08/21/18 04:00 08/21/18 08:00 Temperature 97.8 F 97.8 F Pulse Rate 62 57 L Respiratory Rate 20 18 Blood Pressure 131/63 139/67 Pulse Oximetry 95 95 Intake & Output 08/20/18 08/21/18 08/21/18 18:59 06:59 18:59 Intake Total 100 / 100 Output Total 1100 / 1100 1450 / 1450 Balance -1100 / -1100 -1350 / -1350 Weight 100.9 kg Intake: IV 100 / 100 Cubicin Inj 450 MG In NS Inj 100 / 100 100 ML @ 200 mls/hr IV.SIG Q48H KADY Rx#:[id number] Output: Urine 1100 / 1100 1450 / 1450 Other: Date of Last Bowel Movement 08/19/18 08/19/18 08/19/18 - Constitutional no acute distress - Routine HEENT Exam Head: Present: normocephalic Eye: Present: EOMI, PERRL ENT: Present: mucous membranes moist - Routine Neck Exam Present: supple - Routine Respiratory Exam Present: CTA bilaterally. Absent: accessory muscle use - Routine Cardiovascular Exam Present: RRR - Routine Abdominal Exam Present: soft. Absent: tenderness - Routine Extremities Exam Present: pulses intact. Absent: edema - Routine Skin Exam Comments: Right axilla wound. - Routine Neurological Exam Present: alert, oriented X3 - Routine Psychiatric Exam Present: normal affect, normal thought process - Urinary Catheter Management Straight Cath placed during this visit: yes, but has since been removed by the nurse Reason for continuing: Acute urinary retention Insertion date: 08/06/18 Insertion time: 05:59 Removal date: 08/07/18 Removal time: 12:44 <David Coreas - Last Filed: 08/21/18 12:20> Vital signs: Vital Signs 08/20/18 20:00 08/21/18 00:00 08/21/18 04:00 Temperature 97.8 F 97.8 F 97.8 F Pulse Rate 66 61 62 Respiratory Rate 20 20 20 Blood Pressure 139/60 137/67 131/63 Pulse Oximetry 94 L 94 L 95 08/21/18 08:00 08/21/18 12:00 08/21/18 16:00 Temperature 97.8 F 97.5 F L 97.5 F L Pulse Rate 57 L 62 67 Respiratory Rate 18 16 18 Blood Pressure 139/67 122/72 125/61 Pulse Oximetry 95 95 95 Intake & Output 08/21/18 08/21/18 08/22/18 06:59 18:59 06:59 Intake Total 100 / 100 Output Total 1450 / 1450 30 / 30 Balance -1350 / -1350 -30 / -30 Weight 100.9 kg Intake: IV 100 / 100 Cubicin Inj 450 MG In NS Inj 100 / 100 100 ML @ 200 mls/hr IV.SIG Q48H KADY Rx#:[id number] Output: Urine 1450 / 1450 Estimated Blood Loss 30 / 30 Other: Mode Setting Right Axilla Continuous Other Intake Source Saline Solution # Voids 1,720 Date of Last Bowel Movement 08/19/18 08/21/18 # Bowel Movements 1 - Urinary Catheter Management Straight Cath placed during this visit: no <Alec Gonzalez - Last Filed: 08/21/18 19:52> Assessment and Plan - Assessment (1) Acute kidney injury Code(s): N17.9 - Acute kidney failure, unspecified Status: Acute Plan: Could be due to sepsis, ATN. Could be due to Vancomycin induced nephrotoxicity. Patient continues to have urine output. Avoid nephrotoxic agents. Patient's renal function continues to improve, dialysis on hold. Creatinine is 4.97, GFR 12, and BUN 43. Will monitor renal function for one more day before being clear to be discharged. VasCath can then be removed (2) Non-insulin treated type 2 diabetes mellitus Code(s): E11.9 - Type 2 diabetes mellitus without complications Status: Acute Plan: maintain blood sugar between 140 and 180 while hospitalized. (3) Abscess Code(s): L02.91 - Cutaneous abscess, unspecified Status: Acute Plan: s/p drainage. (4) S/P CABG (coronary artery bypass graft) Code(s): Z95.1 - Presence of aortocoronary bypass graft Status: Acute <David Coreas - Last Filed: 08/21/18 12:20> - Assessment (1) Acute kidney injury Code(s): N17.9 - Acute kidney failure, unspecified Status: Acute (2) Non-insulin treated type 2 diabetes mellitus Code(s): E11.9 - Type 2 diabetes mellitus without complications Status: Acute (3) Abscess Code(s): L02.91 - Cutaneous abscess, unspecified Status: Acute (4) S/P CABG (coronary artery bypass graft) Code(s): Z95.1 - Presence of aortocoronary bypass graft Status: Acute - Attending Attestation patient was seen and examined. Renal function is improving. No need for dialysis. VasCath can be removed. <Alec Gonzalez - Last Filed: 08/21/18 19:52>
[2018-08-21] MEDS: oxyCODONE/Acetaminophen 10/325 Tablet PO PRN (22:14)
[2018-08-22] MEDS: Levothyroxine 88 MCG Tablet PO SCH (05:35)
--- NOTE | 2018-08-22 06:58 | P.PN ---
Subjective Interval history: Patient seen and examined. Patient is doing well. He denies any acute medical complaints. He denies any fever or chills. He denies any chest pain or shortness of breath. Denies any nausea, vomiting or abdominal pain. Patient states he is urinating well. Physical Exam Vital signs: Vital Signs 08/21/18 08:00 08/21/18 12:00 08/21/18 16:00 Temperature 97.8 F 97.5 F L 97.5 F L Pulse Rate 57 L 62 67 Respiratory Rate 18 Blood Pressure 139/67 122/72 125/61 Pulse Oximetry 95 95 95 08/21/18 20:00 08/22/18 00:00 08/22/18 04:00 Temperature 97.6 F 97.2 F L 97.4 F L Pulse Rate 65 58 L 61 Respiratory Rate 19 19 19 Blood Pressure 140/67 136/65 139/70 Pulse Oximetry 96 95 98 Intake & Output 08/21/18 08/21/18 08/22/18 06:59 18:59 06:59 Intake Total 100 / 100 Output Total 1450 / 1450 30 / 30 300 / 300 Balance -1350 / -1350 -30 / -30 -300 / -300 Weight 100.9 kg Intake: IV 100 / 100 Cubicin Inj 450 MG In NS Inj 100 / 100 100 ML @ 200 mls/hr IV.SIG Q48H KADY Rx#:[id number] Output: Urine 1450 / 1450 300 / 300 Estimated Blood Loss 30 / 30 Other: Mode Setting Right Axilla Continuous Other Intake Source Saline Solution # Voids 1,720 Date of Last Bowel Movement 08/19/18 08/21/18 08/21/18 # Bowel Movements 1 Narrative: GENERAL: Well-developed well-nourished elderly male patient. Awake and alert. In no acute distress. SKIN: Warm and dry. Right lateral chest/axilla s/p removal of wound vac, wet to dry dressing in place, C/D/I. Vascath in place right IJ. HEENT: Atraumatic. Normocephalic. Pupils equal and round. No scleral icterus. No injection or drainage. No nasal bleeding or discharge. Mucous membranes pink and moist. NECK: Trachea midline. CARDIOVASCULAR: Regular rate and rhythm. RESPIRATORY: No accessory muscle use. Clear to auscultation. Breath sounds equal bilaterally. GASTROINTESTINAL: Abdomen soft, non-tender, nondistended. +BS. MUSCULOSKELETAL: Extremities without clubbing, cyanosis, or edema. No obvious deformities. NEUROLOGICAL: Awake and alert. No obvious cranial nerve deficits. Motor grossly within normal limits. Able to move all extremities spontaneously. Normal speech. PSYCHIATRIC: Appropriate mood and affect; insight and judgment normal. - Urinary Catheter Management Straight Cath placed during this visit: yes, but has since been removed by the nurse Reason for continuing: Acute urinary retention Insertion date: 08/06/18 Insertion time: 05:59 Removal date: 08/07/18 Removal time: 12:44 Results - Labs CBC & Chem 7: 08/21/18 05:43 08/22/18 09:00 Laboratory Results - last 24 hr 08/19/18 08/21/18 08/21/18 06:10 06:14 09:27 Sodium 142 Potassium 3.5 Chloride 103 Carbon Dioxide 27.4 Anion Gap 12 BUN 43 H Creatinine 4.97 H Estimated GFR 12 L POC Glucose 207 H Random Glucose 167 H Calcium 8.5 Total Bilirubin 0.4 AST 17 ALT 21 Alkaline Phosphatase 79 Total Protein 6.9 D Albumin 2.7 L RBC Folate 592 08/21/18 08/21/18 08/21/18 12:06 18:17 20:00 Sodium Potassium Chloride Carbon Dioxide Anion Gap BUN Creatinine Estimated GFR POC Glucose 203 H 147 H 212 H Random Glucose Calcium Total Bilirubin AST ALT Alkaline Phosphatase Total Protein Albumin RBC Folate Assessment and Plan - Plan 72-year-old male with history of diabetes, coronary artery disease status post CABG who presents with a 2-week history of progressively worsening sharp constant, nonradiating right axillary pain with cellulitis. Sepsis present on admission secondary to Right axillary abscess:MRSA S/P I and D 08/05 with VAC placement S/P VAC change 08/08 +Leukocytosis WBC 17.5K. - down to 10 -Chest CT reviewed, shows Large heterogeneous collection of the right axilla and the lateral margin of pectoralis major as described. This appears to represent a lobulated mass or a multiloculated fluid collection or hematoma. - Vancomycin-Discontinued 08/06 - Infectious disease ff- on Cubicin. 08/20 changed to oral Zyvox times 1 week. Cleared for discharge from ID standpoint. - GS ff- VAC management. Wound vac removed 08/12 and changed to wet to dry dressing changes. Continue daily dressing changes. Acute GRADY- likely drug induced- Vancomycin History of BPH urine eosinophils- negative US-renal/bladder- unremarkable - Vancomycin d/c'd 08/06, matthews removed 08/07 - continue on flomax and Terazosin- home meds - ff BMP. accurate I and O. UOP has decreased. - Nephrology following, appreciate assistance. Vascath placed - hemodialysis initiated 08/09. last HD 08/16 with 1L UF. Creatinine appears to have stabilized around 5. If creatinine remains stable today, patient will likely be discharged. PPD ordered in anticipation of possible outpt HD needed, no rxn noted after 72hrs. - Continue to monitor for renal recovery - avoid nephrotoxic agents HTN, CAD s/p CABG: chronic. BP some elevated readings -continue patient's aspirin with hx of CABG -continue patient's terazosin and Norvasc -Monitor BP, adjust antihypertensives as needed Diabetes mellitus: chronic- high readings -Discontinued metformin - with GRADY. Discontinued glipizide as well -Monitor Accu-checks and cover with SSI -A1C 6.5 -Maintain blood sugar between 140 and 180 per Nephrology. -Blood sugars running in the low 200s, increase 70/30 18u BID. Hypothyroidism: chronic -continue patient's levothyroxine Anemia, normocytic, normochromic suspect ACD Hgb trending down, 12.2 -> 9.1. Hemoglobin continues to trend up, now 10 -monitor for e/o bleeding -follow CBC as indicated B12 deficiency B12 level 134 -given 1000mcg B12 IM x 1, continue on po supplementation daily Hypokalemia, mild K 3.4 -Resolved status post p.o. repletion DVT Prophylaxis: teds/SCDs Heparin SQ for DVT prophylaxis Code Status: Full Discussed Condition With: patient, nursing staff, Dr. Pradhan Discharge Planning: Likely discharge later today if kidney function remains stable
[2018-08-22] MEDS ORDERED: Sodium Chloride 0.9% 2 ML Flush PRN IV.FLUSH (07:10)
--- NOTE | 2018-08-22 07:43 | P.DS ---
Date of admission: 08/05/18 03:21 Primary care physician: David Carroll MD Attending physician on discharge: Cassidy Pradhan Anticipated date of discharge: 08/22/18 Brief History from admission: 72-year-old male with history of diabetes, coronary artery disease status post CABG who presents with a 2-week history of progressively worsening sharp constant, nonradiating right axillary pain, cellulitis. Patient was seen 10 days prior in the ER and given a prescription for clindamycin which he has been takinghowever pain and swelling has continued to worsen. Patient says that otherwise he is feeling all right. Denies any fevers, chills, nausea, vomiting. Patient update on day of discharge: Patient seen and examined. Patient is doing well. He denies any acute medical complaints. He denies any fever or chills. He denies any chest pain or shortness of breath. Denies any nausea, vomiting or abdominal pain. Patient states he is urinating well. DS: Diagnosis - Discharge Diagnosis (1) Acute kidney injury Status: Acute (2) Cellulitis Status: Acute (3) B12 deficiency Status: Acute (4) Diabetes Status: Acute (5) Abscess Status: Acute (6) Gait instability Status: Acute DS: Medications - Discharge Medications Prescriptions: amlodipine [Norvasc] 10 mg PO DAILY #30 tab cyanocobalamin (vitamin B-12) [Vitamin B-12] 1,000 mcg PO DAILY #30 tab insulin NPH and regular human [Novolin 70/30 U-100 Insulin] 18 units SUBCUT BID@ 0800,1700 30 Days #1 vial linezolid [Zyvox] 600 mg PO Q12HR 5 Days #10 tab tamsulosin 0.4 mg PO DAILY #30 cap DS: Summary Hospital Course: Patient admitted with 2-week history of progressively worsening sharp constant nonradiating right axillary pain with cellulitis. Patient met sepsis criteria. Chest CT revealed large heterogeneous collection of the right axilla and the lateral margin of the pectoralis major representing a lobulated mass or a multiloculated fluid collection or hematoma. Patient was started on IV vancomycin and Zosyn. He was seen in consultation by general surgery and underwent I&D of the right axillary abscess with VAC placement on 08/05/2018. Patient was seen in consultation by infectious disease. Patient developed low urinary output. He was found to have worsening kidney function. Due to worsening kidney function, patient's vancomycin was discontinued and he was changed to IV Cubicin. Patient was seen in consultation by nephrology. He was treated with IV fluids. Renal ultrasound revealed no evidence of hydronephrosis. There was concern for vancomycin induced nephrotoxicity. Patient did receive 3.5 g of vancomycin and 1 day. Patient underwent Vas-Cath placement and began intermittent dialysis. On 08/08/2018 patient underwent repeat I&D and placement of wound vac. Patient began to improve clinically. His urine output began to increase. His creatinine stabilized around 5. Nephrology discontinued his Vas-Cath. Patient' s wound VAC was discontinued and his wound was managed with wet-to-dry dressing changes. Patient was changed from IV Cubicin to oral Zyvox. Patient was cleared for discharge from specialty services. Patient reached maximum benefit from his hospitalization. - Time Spent with Patient Total time spent providing and/or coordinating discharge services: Greater than 30 minutes - Quality: VTE Deep Vein Thrombosis/Pulmonary Embolism Present on Admission: No Exam Vital signs: Vital Signs 08/21/18 08:00 08/21/18 12:00 08/21/18 16:00 Temperature 97.8 F 97.5 F L 97.5 F L Pulse Rate 57 L 62 67 Respiratory Rate 18 16 18 Blood Pressure 139/67 122/72 125/61 Pulse Oximetry 95 95 95 08/21/18 20:00 08/22/18 00:00 08/22/18 04:00 Temperature 97.6 F 97.2 F L 97.4 F L Pulse Rate 65 58 L 61 Respiratory Rate 19 19 19 Blood Pressure 140/67 136/65 139/70 Pulse Oximetry 96 95 98 Intake & Output 08/21/18 08/22/18 08/22/18 18:59 06:59 18:59 Output Total 30 / 30 300 / 300 Balance -30 / -30 -300 / -300 Output: Urine 300 / 300 Estimated Blood Loss 30 / 30 Other: Mode Setting Right Axilla Continuous Other Intake Source Saline Solution # Voids 1,720 Date of Last Bowel Movement 08/21/18 08/21/18 # Bowel Movements 1 Narrative: GENERAL: Well-developed well-nourished elderly male patient. Awake and alert. In no acute distress. SKIN: Warm and dry. Right lateral chest/axilla s/p removal of wound vac, wet to dry dressing in place, C/D/I. Vascath in place right IJ. HEENT: Atraumatic. Normocephalic. Pupils equal and round. No scleral icterus. No injection or drainage. No nasal bleeding or discharge. Mucous membranes pink and moist. NECK: Trachea midline. CARDIOVASCULAR: Regular rate and rhythm. RESPIRATORY: No accessory muscle use. Clear to auscultation. Breath sounds equal bilaterally. GASTROINTESTINAL: Abdomen soft, non-tender, nondistended. +BS. MUSCULOSKELETAL: Extremities without clubbing, cyanosis, or edema. No obvious deformities. NEUROLOGICAL: Awake and alert. No obvious cranial nerve deficits. Motor grossly within normal limits. Able to move all extremities spontaneously. Normal speech. PSYCHIATRIC: Appropriate mood and affect; insight and judgment normal. Results Procedures completed during hospitalization: - Preoperative Diagnosis (1) Abscess (2) Cellulitis - Postoperative Diagnosis (1) Abscess (2) Cellulitis Date of procedure: 08/05/18 Procedure: Incision and drainage right axillary abscess with VAC placement Surgeon: Mic Estrada MD [employer] Staff Officer: Janine López MS 3 Estimated blood loss (mL): 200 IV fluids (mL): 650 Pathology: other (Gram stain, C&S to microbiology) Operation and Findings: Patient was marked in his room and taken to the operating room. He was placed on the operating table in supine position. After an adequate level of general endotracheal anesthesia was achieved, the right axilla was shaved prepped and draped in the field. Timeout was taken, confirming the correct patient, site, and procedures to be performed. Incision was made in the axilla in a curvilinear fashion and purulent material was immediately encountered. This was cultured and sent. The wound was explored with finger dissection as well as with scissors. Care was taken to break up all loculations. A large amount of purulent material was easily expressed. This was aspirated. A pulse lavage candy vendor was used to irrigate all pockets. When this was completed small bleeding points were controlled with electrocautery. A medium VAC sponge was cut into 3 pieces and placed into the wound along all 3 tracts. An additional small VAC sponge was placed over the top of this and the VAC adhesives applied. Good seal was achieved. The patient was extubated and taken back to the recovery room in stable condition. Sponge and needle counts were reported to be correct. Documented By: Mic Estrada MD 08/05/18 1918 Signed By: <Electronically signed by Mic Estrada MD> 08/09/18 1056 Date of procedure: 08/08/18 Procedure: Irrigation and debridement right axilla with excision 25 cm skin and subcutaneous tissue Placement of negative pressure VAC dressing Anesthesia: LARAA Surgeon: Mic Estrada MD [employer] Staff Officer: Elida Oleary CFA Estimated blood loss (mL): 30 IV fluids (mL): 550 Pathology: none sent Operation and Findings: Patient was taken to the operating room after marking the right axilla. He was placed on the operating table in the supine position. After an adequate level of general endotracheal anesthesia was achieved the right axilla dressing was removed and the axillary region prepped with Betadine. The wound was draped. Time-out was taken, confirming the correct patient, site, and procedure to be performed. The wound was irrigated with approximately 2 L of antibiotic irrigation after removing the VAC sponges. Necrotic skin on the surface was excised sharply as was some subcutaneous tissue which was nonviable. When this had been completed , a VAC sponge was trimmed to size and 2 pieces were placed into the wound. The sponge was secured with adhesive and the suction apparatus re-engaged. Good seal was obtained. The patient was extubated and taken back to the recovery room in stable condition. Sponge and needle counts were reported to be correct. Documented By: Mic Estrada MD 08/08/18 1322 Signed By: <Electronically signed by Mic Estrada MD> Labs on day of discharge: Labs from last 24 hours 08/21/18 08/21/18 08/21/18 20:00 18:17 12:06 POC Glucose 212 H 147 H 203 H RBC Folate 08/21/18 08/19/18 09:27 06:10 POC Glucose 207 H RBC Folate 592 - Impressions ITS Impressions Chest CT 08/05/18 00:03 CONCLUSION: 1. Large heterogeneous collection of the right axilla and the lateral margin of pectoralis major as described. This appears to represent a lobulated mass or a multiloculated fluid collection or hematoma. Infectious and neoplastic etiologies are both in the differential. 2. Mild atelectasis of the lung bases and a 5 mm left upper lobe pulmonary nodule. 3. Previous median sternotomy and CABG. 4. Cholelithiasis. 5. No acute osseous abnormality. Abdomen/Bladder Ultrasound 08/06/18 00:00 CONCLUSION: 1. No evidence of hydronephrosis. The echogenicity of the kidneys is within normal limits. 2. Simple cyst in right kidney. Catheter Placement 08/08/18 00:00 CONCLUSION: 1. Uncomplicated line placement as above. Venous Doppler Study 08/09/18 00:00 CONCLUSION: 1. No venous thrombosis seen of the right upper extremity. 2. There is a fluid collection near the right shoulder, nonspecific but a seroma or some fluid in the subcoracoid recess considered most likely. Discharge Plan - Discharge Disposition Patient Disposition: /[facility] - Discharge Condition Condition: Stable - Discharge Order Discharge Orders: Discharge Order (Routine); Ordered 08/22/18 Ordered By: Jennifer Patel - Discharge Details Anticipated Discharge Date: 08/22/18 Discharge Comment: Discharge pending lab results and nephrology clearance - Physicians Team Primary Care Provider: David Carroll Attending Provider: Cassidy Pradhan Other Providers: Mic Estrada MD ; Radha Garcia ; Jacquelin Briceno MD ; Alec Gonzalez MD
--- NOTE | 2018-08-22 07:46 | P.DCO ---
- Diagnosis (1) Gait instability Status: Acute (2) Risk for falls Status: Acute (3) Weakness Status: Acute (4) Abscess Status: Acute (5) Cellulitis Status: Acute (6) Acute kidney injury Status: Acute - Physical Therapy Order: Evaluate and treat, Improve ambulation, Strength and gait training - Home Health Nursing Order: Medical education, Signs/symptoms of disease process, Medication education-adverse effect, Wound care and dressing changes (daily dressing changes with wet to dry dressings to right lateral chest/axilla) - Case Management Consult Case Management Consult-Home Health: Yes - Certification I have seen patient Too Weeks on 08/22/18. My clinical findings support the need for the requested home health care services because: Limited mobility due to disease progression, Deconditioned with increased weakness, Limited ability to care for self, High risk of falls, Infection with risk of complications I certify that my clinical findings support that this patient is homebound because: Post-op weakness, Unsteady gait/balance, Unsafe to leave home unassisted, Unable to use public transportation (5) Cellulitis Qualifiers: Site of cellulitis: extremity Site of cellulitis of extremity: axilla Laterality: right Qualified Code(s): L03.111 - Cellulitis of right axilla
[2018-08-22 08:57] VITALS: PULSE 63; RESP 18
[2018-08-22] MEDS: amLODIPine 10 MG Tablet PO SCH (08:58)
[2018-08-22] MEDS: Linezolid 600 MG Tablet PO SCH (08:58)
[2018-08-22] MEDS: Senna/Docusate Sodium 8.6/50 MG Tablet PO SCH (08:58)
[2018-08-22] MEDS: Insulin NovoLOG Aspart Correctional Sugar Inj SQ SCH ×2 (08:59→14:02)
[2018-08-22] MEDS ORDERED: Sodium Chloride 0.9% 2 ML Flush BID IV.FLUSH SCH (09:00)
--- NOTE | 2018-08-22 10:31 | P.PNNP ---
Subjective Interval history: Patient was seen ambulating in room, no distress, excited to be going home. Patient to be discharged today. Patient's renal function continues to improve. Last dialyzed 10/16. Labs for today pending. VasCath can be removed. <David Coreas - Last Filed: 08/22/18 10:28> Physical Exam Vital signs: Vital Signs 08/21/18 12:00 08/21/18 16:00 08/21/18 20:00 Temperature 97.5 F L 97.5 F L 97.6 F Pulse Rate 62 67 65 Respiratory Rate 16 18 19 Blood Pressure 122/72 125/61 140/67 Pulse Oximetry 95 95 96 08/22/18 00:00 08/22/18 04:00 08/22/18 08:00 Temperature 97.2 F L 97.4 F L 97.4 F L Pulse Rate 58 L 61 63 Respiratory Rate 19 19 18 Blood Pressure 136/65 139/70 146/66 H Pulse Oximetry 95 98 93 L Intake & Output 08/21/18 08/22/18 08/22/18 18:59 06:59 18:59 Output Total 30 / 30 300 / 300 1100 / 1100 Balance -30 / -30 -300 / -300 -1100 / -1100 Output: Urine 300 / 300 1100 / 1100 Estimated Blood Loss 30 / 30 Other: Mode Setting Right Axilla Continuous Other Intake Source Saline Solution # Voids 1,720 Date of Last Bowel Movement 08/21/18 08/21/18 # Bowel Movements 1 - Constitutional no acute distress - Routine HEENT Exam Head: Present: normocephalic Eye: Present: EOMI, PERRL ENT: Present: mucous membranes moist - Routine Neck Exam Present: trachea midline. Absent: JVD, tracheal deviation - Routine Respiratory Exam Present: respiratory distress. Absent: accessory muscle use, decreased breath sounds - Routine Cardiovascular Exam Present: RRR. Absent: murmur - Routine Abdominal Exam Present: soft, normoactive bowel sounds - Routine Extremities Exam Absent: edema - Routine Neurological Exam Present: alert, oriented X3 - Routine Psychiatric Exam Present: normal affect, normal thought process - Urinary Catheter Management Straight Cath placed during this visit: yes, but has since been removed by the nurse Reason for continuing: Acute urinary retention Insertion date: 08/06/18 Insertion time: 05:59 Removal date: 08/07/18 Removal time: 12:44 <David Coreas - Last Filed: 08/22/18 10:28> Vital signs: Vital Signs 08/21/18 16:00 08/21/18 20:00 08/22/18 00:00 Temperature 97.5 F L 97.6 F 97.2 F L Pulse Rate 67 65 58 L Respiratory Rate 18 19 19 Blood Pressure 125/61 140/67 136/65 Pulse Oximetry 95 96 95 08/22/18 04:00 08/22/18 08:00 08/22/18 12:00 Temperature 97.4 F L 97.4 F L 97.8 F Pulse Rate 61 63 63 Respiratory Rate 19 18 18 Blood Pressure 139/70 146/66 H 116/58 L Pulse Oximetry 98 93 L 94 L Intake & Output 08/21/18 08/22/18 08/22/18 18:59 06:59 18:59 Output Total 30 / 30 300 / 300 1300 / 1300 Balance -30 / -30 -300 / -300 -1300 / -1300 Output: Urine 300 / 300 1300 / 1300 Estimated Blood Loss 30 / 30 Other: Mode Setting Right Axilla Continuous Other Intake Source Saline Solution # Voids 1,720 Date of Last Bowel Movement 08/21/18 08/21/18 08/21/18 # Bowel Movements 1 - Urinary Catheter Management Straight Cath placed during this visit: no <Alec Gonzalez - Last Filed: 08/22/18 13:53> Assessment and Plan - Assessment (1) Acute kidney injury Code(s): N17.9 - Acute kidney failure, unspecified Status: Acute Plan: Could be due to sepsis, ATN. Could be due to Vancomycin induced nephrotoxicity. Patient continues to have urine output. Avoid nephrotoxic agents. Patient's renal function continues to improve. Last dialyzed 10/16. Labs for today pending. VasCath can be removed. Patient to be discharged today. (2) Non-insulin treated type 2 diabetes mellitus Code(s): E11.9 - Type 2 diabetes mellitus without complications Status: Acute Plan: maintain blood sugar between 140 and 180 while hospitalized. (3) Abscess Code(s): L02.91 - Cutaneous abscess, unspecified Status: Acute Plan: s/p drainage. (4) S/P CABG (coronary artery bypass graft) Code(s): Z95.1 - Presence of aortocoronary bypass graft Status: Acute <David Coreas - Last Filed: 08/22/18 10:28> - Assessment (1) Acute kidney injury Code(s): N17.9 - Acute kidney failure, unspecified Status: Acute (2) Non-insulin treated type 2 diabetes mellitus Code(s): E11.9 - Type 2 diabetes mellitus without complications Status: Acute (3) Abscess Code(s): L02.91 - Cutaneous abscess, unspecified Status: Acute (4) S/P CABG (coronary artery bypass graft) Code(s): Z95.1 - Presence of aortocoronary bypass graft Status: Acute - Attending Attestation patient was seen and examined. Agree with above assessment and plan. <Alec Gonzalez - Last Filed: 08/22/18 13:53>
[2018-08-22 10:39] LABS: Calcium 8.7 mg/dL (8.5-10.1); Carbon Dioxide 29.3 meq/L (21.0-32.0); Potassium 3.6 meq/L (3.5-5.1)
[2018-08-22 12:51] VITALS: BP 116/58; TEMP 97.8; O2SAT 94
--- NOTE | 2018-08-22 15:01 | P.RAD ---
Post Procedure Progress Note - Pre Procedure Diagnosis (1) Acute kidney injury - Post Procedure Diagnosis (1) Acute kidney injury - Procedure Information Procedure Date: 08/22/18 Supervising Radiologist: Terrence Guerrero Jr, MD Proceduralist/Assist: Monty Anesthesia: Other - Plan of Activity Patient to Unit: Nursing Unit Patient Condition: Good Additional Comments: Vascath removed without difficulty. See PACS Report for procedural detail/treatment.
--- NOTE | 2018-08-22 15:07 | IR ---
EXAM DATE: 08/22/2018 3:02 PM EST AGE/SEX: 72 years / Male INDICATIONS: Patient with history of acute kidney injury. Improving now needs vas cath removal. CLINICAL DATA: This is the patient's subsequent encounter. Patient reports that signs and symptoms h ave been present for 1 day and indicates a pain score of 0/10. MEDICAL/SURGICAL HISTORY: Diabetes. Renal failure, acute. CAD. CABG. Vas cath COMPARISON: No prior exams available for comparison. IMAGE SERIES: 0 ACCESS SITE: Right DEVICE(S): 14 [place] double lumen Schon catheter . . PROCEDURE: 1. Temporary central venous catheter removal. The prescribed catheter was removed intact and hemostasis was achieved with direct pressure. The sit e was dressed appropriately. The patient tolerated the procedure well. CONCLUSION: 1. Uncomplicated catheter removal. Electronically signed by: Terrence Guerrero MD 08/22/2018 3:06 PM EST
== END 2018-08-22 16:31 | disposition home health service (06) | DRG 854 ==
LOC: NEPC 22:31 → NEDA 08-05 03:21 → NEPGCP 08-05 04:50 → N07 08-05 17:33 → N05 08-05 21:10
PROVIDERS: ADMIT Family Medicine; ATTEND Family Medicine
CPT/HCPCS: 36556; 71250; 75998; 76775; 76937; 77001; 80048; 80053; 80069; 80074; 80202; 81001; 82550; 82565; 82607; 82728; 82747; 82948; 82962; 83036; 83540; 83550; 83735; 84155; 85025; 85027; 85610; 86403; 87040; 87070; 87147; 87186; 87205; 90765; 90767; 90774; 90775; 90784; 90935; 93005; 93971; 94150; 96365; 96367; 96374; 96375; 97110; 97116; 97162; 99285; C1752; C8952; C9124; J0690; J0696; J0878; J1100; J1580; J1644; J1815; J2270; J2370; J2405; J2543; J2704; J3010; J3370; J3420; J7030; J7040; J7120

== ENCOUNTER 2018-09-03 10:27 | Observation (INO) ==
[2018-09-03] MEDS ORDERED: Sod Chloride 0.9% Inj 1,000 ML IV.SIG SCH (12:00)
--- NOTE | 2018-09-03 12:04 | ED ---
HPI General Chief Complaint: Dizziness Stated Complaint: [facility] Time Seen by Provider: 09/03/18 10:52 Source: patient Mode of arrival: ambulatory Limitations: no limitations History of Present Illness HPI Narrative: The patient is a 72-year-old male who presents to the emergency department for lightheadedness and dizziness that is worse with standing upright and positional changes. The patient was recently hospitalized for a right sided chest wall abscess, went to the operating room with Dr. Estrada. The patient was placed on antibiotics, including vancomycin, and suffered acute renal failure. The patient was placed on dialysis, his antibiotics were changed, and his symptoms improved. The patient's vasa cath was removed prior to discharge and he no longer required dialysis. The patient went to the [facility] clinic earlier today for a wound checkup when they noted his blood pressure was low and sent him to the emergency department for evaluation. The patient states his blood pressure has been intermittently low since he was discharged from the hospital. He denies any significant changes in his blood pressure medications, however, notes he was recently changed to 1 of his prostate medications from a higher dose to a smaller dose. However, he ran out of the smaller dose medications and took the higher dose yesterday. The patient 's dizziness and lightheadedness is worse with standing upright and alleviated at rest. He does note he has tunnel vision and sees white spots when standing upright and is lightheaded and dizzy. He denies any chest pain or shortness of breath. He denies any nausea or vomiting. MD complaint: Reports lightheadedness Onset (ago): day(s) Timing: gradual onset, intermittent and waxing/waning Description: Reports lightheadedness and near-syncope History of similar episodes: Yes History of trauma: No Severity: moderate Relieving factors: rest Exacerbating factors: position Associated symptoms: Reports vision changes Related Data Home Medications Medication Instructions Recorded Confirmed aspirin [Aspir-81] 81 mg PO DAILY 07/26/18 09/03/18 terazosin 1 mg PO HS 07/26/18 09/03/18 levothyroxine 88 mcg PO DAILY 08/04/18 09/03/18 glipizide 10 mg PO BID 09/03/18 09/03/18 metformin [Glucophage XR] 500 mg PO BID 09/03/18 09/03/18 simvastatin 20 mg PO HS 09/03/18 09/03/18 Previous Rx's Medication Instructions Recorded amlodipine [Norvasc] 10 mg PO DAILY #30 tab 08/22/18 cyanocobalamin (vitamin B-12) 1,000 mcg PO DAILY #30 tab 08/22/18 [Vitamin B-12] insulin NPH and regular human 18 units SUBCUT BID@0800,1700 30 08/22/18 [Novolin 70/30 U-100 Insulin] Days #1 vial tamsulosin 0.4 mg PO DAILY #30 cap 08/22/18 Allergies Allergy/AdvReac Type Severity Reaction Status Date / Time No Known Allergies Allergy Verified 09/03/18 10:45 Review of Systems ROS: all other systems reviewed are negative [facility] Family History Family History Other Family history of hypertension Social History Social History Substance History: No History of Abuse Second Hand Smoke Exposure: No Smoking Status: Former smoker Tobacco Type: Cigarettes How Often Do You Have a Drink Containing Alcohol: 2 to 3 times a week Hx Recent Travel: No Recent Travel in [facility] within the Last 8 Weeks: No Recent Out of Country Travel within the Last 8 Weeks: No Immunization History Tetanus Immunization: <5 Years Exam Narrative Exam Narrative: GENERAL: Awake, alert, very pleasant 72-year-old male who appears his stated age and is in no acute respiratory distress. SKIN: Focused skin assessment warm/dry. HEAD: Atraumatic. Normocephalic. EYES: Pupils equal and round. No scleral icterus. No injection or drainage. ENT: No nasal bleeding or discharge. Mucous membranes pink and moist. NECK: Trachea midline. No JVD. CARDIOVASCULAR: Regular rate and rhythm. No murmur appreciated. Chest wall: Right axilla reveals an incision which appears to be closing, there is no palpable fluctuance or significant drainage noted from the wound. No surrounding erythema and minimal tenderness noted. Well-healed midline sternal scar. RESPIRATORY: No accessory muscle use. Clear to auscultation. Breath sounds equal bilaterally. GASTROINTESTINAL: Abdomen soft, non-tender, nondistended. Hepatic and splenic margins not palpable. MUSCULOSKELETAL: No obvious deformities. No clubbing. No cyanosis. No edema. NEUROLOGICAL: Awake and alert. No obvious cranial nerve deficits. Motor grossly within normal limits. Normal speech. Nonfocal. Oriented x4. PSYCHIATRIC: Appropriate mood and affect; insight and judgment normal. Course Initial Documented Vital Signs Temperature 97.7 F 09/03/18 10:43 Pulse Rate 71 09/03/18 10:43 Respiratory Rate 18 09/03/18 10:43 Blood Pressure 87/53 L 09/03/18 10:43 Pulse Oximetry 100 09/03/18 10:43 Last Documented Vital Signs Temperature 97.4 F L 09/04/18 12:36 Pulse Rate 67 09/04/18 12:36 Respiratory Rate 16 09/04/18 12:36 Blood Pressure 116/57 L 09/04/18 12:36 Pulse Oximetry 97 09/04/18 12:36 Medical Decision Making MDM Narrative Medical decision making narrative: IV was established, labs are drawn and sent, and the patient was placed on cardiac telemetry monitoring and continuous pulse oximetry monitoring. EKG was ordered and interpreted. Orthostatic vital signs were obtained, were significantly positive with a drop in blood pressure over 100 lying supine systolic 2 in the 60s systolic with standing. Therefore, chest x-ray was obtained, no obvious large effusions or pulmonary edema, the patient was administered 1 L of IV fluids. After the IV fluids the patient had orthostatic vital signs reobtained. The patient continued to be orthostatic. The patient's orthostasis may be secondary to dehydration versus medications for BPH and hypertension. Therefore, the patient will be a 23-hour observation for IV fluids and physical therapy evaluation. I discussed the patient with Dr. Irizarry who agrees with 23-hour observation. Medical Screen Exam Complete: Yes Emergency Medical Condition: Yes Lab Data Result diagrams: 09/04/18 03:36 09/04/18 03:36 Lab Results 09/03/18 09/03/18 09/03/18 Range/Units 11:30 11:30 11:50 WBC 6.8 (4.0-11.0) th/mm3 RBC 2.79 L (4.50-5.90) mil/mm3 Hgb 9.1 L (13.0-17.0) gm/dL Hct 27.0 L (39.0-51.0) % MCV 97.1 (80.0-100.0) fL MCH 32.6 (27.0-34.0) pg MCHC 33.6 (32.0-36.0) % RDW 14.1 (11.6-17.2) % Plt Count 132 L D (150-450) th/mm3 MPV 9.4 (7.0-11.0) fL Prelim Diff (Auto) Neut % (Auto) 72.3 H (16.0-70.0) % Lymph % (Auto) 17.0 (9.0-44.0) % [place] % (Auto) 5.6 (0.0-8.0) % Eos % (Auto) 4.2 H (0.0-4.0) % Baso % (Auto) 0.9 (0.0-2.0) % Neut # (Auto) 4.9 (1.8-7.7) th/mm3 Lymph # (Auto) 1.2 (1.0-4.8) th/mm3 [place] # (Auto) 0.4 (0.0-0.9) th/mm3 Eos # (Auto) 0.3 (0.0-0.4) th/mm3 Baso # (Auto) 0.1 (0.0-0.2) th/mm3 WBC Differential . Diff Scan Differential Comment Auto diff final Platelet Estimate (Normal) Platelet Morphology (Normal) Sodium 143 (136-145) meq/L Potassium 4.5 (3.5-5.1) meq/L Chloride 109 H (98-107) meq/L Carbon Dioxide 23.6 (21.0-32.0) meq/L Anion Gap 10 (5-15) meq/L BUN 35 H (7-18) mg/dL Creatinine 2.51 H (0.60-1.30) mg/dL Estimated GFR 25 L (>89) mL/min POC Glucose (68-110) mg/dl Random Glucose 191 H (74-106) mg/dL Hemoglobin A1c (4.3-6.0) % Lactic Acid 3.1 H (0.4-2.0) mmol/L Calcium 8.6 (8.5-10.1) mg/dL Phosphorus (2.5-4.9) mg/dL Magnesium (1.5-2.5) mg/dL Total Bilirubin 0.3 (0.2-1.0) mg/dL AST 16 (15-37) U/L ALT 27 (12-78) U/L Alkaline Phosphatase 87 (45-117) U/L Total Creatine Kinase (39-308) U/L Troponin I Less than 0.02 L (0.02-0.05) ng/mL Total Protein 7.4 (6.4-8.2) g/dL Albumin 3.4 (3.4-5.0) g/dL TSH (0.358-3.740) uIU/mL Free T4 (0.76-1.46) ng/dL 09/03/18 09/03/18 09/04/18 Range/Units 21:40 22:24 03:36 WBC 5.7 (4.0-11.0) th/mm3 RBC 2.58 L (4.50-5.90) mil/mm3 Hgb 8.4 L (13.0-17.0) gm/dL Hct 24.7 L (39.0-51.0) % MCV 95.9 (80.0-100.0) fL MCH 32.7 (27.0-34.0) pg MCHC 34.1 (32.0-36.0) % RDW 13.7 (11.6-17.2) % Plt Count 122 L (150-450) th/mm3 MPV 8.7 (7.0-11.0) fL Prelim Diff (Auto) Slide review pending Neut % (Auto) 66.3 (16.0-70.0) % Lymph % (Auto) 22.0 (9.0-44.0) % [place] % (Auto) 6.6 (0.0-8.0) % Eos % (Auto) 4.3 H (0.0-4.0) % Baso % (Auto) 0.8 (0.0-2.0) % Neut # (Auto) 3.7 (1.8-7.7) th/mm3 Lymph # (Auto) 1.2 (1.0-4.8) th/mm3 [place] # (Auto) 0.4 (0.0-0.9) th/mm3 Eos # (Auto) 0.2 (0.0-0.4) th/mm3 Baso # (Auto) 0.0 (0.0-0.2) th/mm3 WBC Differential . Diff Scan Auto diff confirmed Differential Comment . Platelet Estimate Low L (Normal) Platelet Morphology Normal (Normal) Sodium (136-145) meq/L Potassium (3.5-5.1) meq/L Chloride (98-107) meq/L Carbon Dioxide (21.0-32.0) meq/L Anion Gap (5-15) meq/L BUN (7-18) mg/dL Creatinine (0.60-1.30) mg/dL Estimated GFR (>89) mL/min POC Glucose 159 H (68-110) mg/dl Random Glucose (74-106) mg/dL Hemoglobin A1c (4.3-6.0) % Lactic Acid (0.4-2.0) mmol/L Calcium (8.5-10.1) mg/dL Phosphorus (2.5-4.9) mg/dL Magnesium (1.5-2.5) mg/dL Total Bilirubin (0.2-1.0) mg/dL AST (15-37) U/L ALT (12-78) U/L Alkaline Phosphatase (45-117) U/L Total Creatine Kinase 28 L (39-308) U/L Troponin I Less than 0.02 L (0.02-0.05) ng/mL Total Protein (6.4-8.2) g/dL Albumin (3.4-5.0) g/dL TSH (0.358-3.740) uIU/mL Free T4 (0.76-1.46) ng/dL 09/04/18 09/04/18 09/04/18 Range/Units 03:36 03:36 09:16 WBC (4.0-11.0) th/mm3 RBC (4.50-5.90) mil/mm3 Hgb (13.0-17.0) gm/dL Hct (39.0-51.0) % MCV (80.0-100.0) fL MCH (27.0-34.0) pg MCHC (32.0-36.0) % RDW (11.6-17.2) % Plt Count (150-450) th/mm3 MPV (7.0-11.0) fL Prelim Diff (Auto) Neut % (Auto) (16.0-70.0) % Lymph % (Auto) (9.0-44.0) % [place] % (Auto) (0.0-8.0) % Eos % (Auto) (0.0-4.0) % Baso % (Auto) (0.0-2.0) % Neut # (Auto) (1.8-7.7) th/mm3 Lymph # (Auto) (1.0-4.8) th/mm3 [place] # (Auto) (0.0-0.9) th/mm3 Eos # (Auto) (0.0-0.4) th/mm3 Baso # (Auto) (0.0-0.2) th/mm3 WBC Differential Diff Scan Differential Comment Platelet Estimate (Normal) Platelet Morphology (Normal) Sodium 144 (136-145) meq/L Potassium 4.1 (3.5-5.1) meq/L Chloride 112 H (98-107) meq/L Carbon Dioxide 22.5 (21.0-32.0) meq/L Anion Gap 10 (5-15) meq/L BUN 28 H (7-18) mg/dL Creatinine 1.94 H (0.60-1.30) mg/dL Estimated GFR 34 L (>89) mL/min POC Glucose 131 H (68-110) mg/dl Random Glucose 84 D (74-106) mg/dL Hemoglobin A1c 6.4 H (4.3-6.0) % Lactic Acid (0.4-2.0) mmol/L Calcium 8.3 L (8.5-10.1) mg/dL Phosphorus 4.1 (2.5-4.9) mg/dL Magnesium 1.9 (1.5-2.5) mg/dL Total Bilirubin 0.4 (0.2-1.0) mg/dL AST 16 (15-37) U/L ALT 20 (12-78) U/L Alkaline Phosphatase 74 (45-117) U/L Total Creatine Kinase 36 L (39-308) U/L Troponin I Less than 0.02 L (0.02-0.05) ng/mL Total Protein 6.6 D (6.4-8.2) g/dL Albumin 3.1 L (3.4-5.0) g/dL TSH 5.640 H (0.358-3.740) uIU/mL Free T4 0.85 (0.76-1.46) ng/dL 11/29/18 11/29/18 Range/Units 10:05 12:10 WBC (4.0-11.0) th/mm3 RBC (4.50-5.90) mil/mm3 Hgb (13.0-17.0) gm/dL Hct (39.0-51.0) % MCV (80.0-100.0) fL MCH (27.0-34.0) pg MCHC (32.0-36.0) % RDW (11.6-17.2) % Plt Count (150-450) th/mm3 MPV (7.0-11.0) fL Prelim Diff (Auto) Neut % (Auto) (16.0-70.0) % Lymph % (Auto) (9.0-44.0) % [place] % (Auto) (0.0-8.0) % Eos % (Auto) (0.0-4.0) % Baso % (Auto) (0.0-2.0) % Neut # (Auto) (1.8-7.7) th/mm3 Lymph # (Auto) (1.0-4.8) th/mm3 [place] # (Auto) (0.0-0.9) th/mm3 Eos # (Auto) (0.0-0.4) th/mm3 Baso # (Auto) (0.0-0.2) th/mm3 WBC Differential Diff Scan Differential Comment Platelet Estimate (Normal) Platelet Morphology (Normal) Sodium (136-145) meq/L Potassium (3.5-5.1) meq/L Chloride (98-107) meq/L Carbon Dioxide (21.0-32.0) meq/L Anion Gap (5-15) meq/L BUN (7-18) mg/dL Creatinine (0.60-1.30) mg/dL Estimated GFR (>89) mL/min POC Glucose 128 H (68-110) mg/dl Random Glucose (74-106) mg/dL Hemoglobin A1c (4.3-6.0) % Lactic Acid (0.4-2.0) mmol/L Calcium (8.5-10.1) mg/dL Phosphorus (2.5-4.9) mg/dL Magnesium (1.5-2.5) mg/dL Total Bilirubin (0.2-1.0) mg/dL AST (15-37) U/L ALT (12-78) U/L Alkaline Phosphatase (45-117) U/L Total Creatine Kinase 28 L (39-308) U/L Troponin I Less than 0.02 L (0.02-0.05) ng/mL Total Protein (6.4-8.2) g/dL Albumin (3.4-5.0) g/dL TSH (0.358-3.740) uIU/mL Free T4 (0.76-1.46) ng/dL Imaging Data Radiologist's impression: Carotid Doppler Study 09/03/18 00:00 CONCLUSION: No evidence of flow-limiting carotid stenosis. Chest X-Ray 09/03/18 11:27 CONCLUSION: No acute cardiopulmonary findings. ECG Data EKG Prior to Arrival: No Attestation: I personally reviewed and interpreted this ECG as follows: Interpretation: EKG reveals normal sinus rhythm with a rate in the 70s. Low QRS voltage in precordial leads. Discharge Plan Discharge Disposition Patient Disposition: 30 Still Patient Discharge Condition Condition: Stable Discharge Details Diagnosis: Orthostatic hypotension Physicians Team ED Provider: Alexandr Dimas Primary Care Provider: David Carroll Attending Provider: Krishna Thomson Other Providers: [employer] Status ED Status: Left Department Discharge Information Discharge Date/Time: 09/03/18 20:21
[2018-09-03 12:05] LABS: Baso # (Auto) 0.1 th/mm3 (0.0-0.2); Baso % (Auto) 0.9 % (0.0-2.0); Eos # (Auto) 0.3 th/mm3 (0.0-0.4); Eos % (Auto) 4.2 % (0.0-4.0); Hemoglobin 9.1 gm/dL (13.0-17.0); Lymph # (Auto) 1.2 th/mm3 (1.0-4.8); Mean Corpuscular HGB Conc 33.6 % (32.0-36.0); Mean Corpuscular Hemoglobin 32.6 pg (27.0-34.0); Mean Corpuscular Volume 97.1 fL (80.0-100.0); Mean Platelet Volume 9.4 fL (7.0-11.0); Mono # (Auto) 0.4 th/mm3 (0.0-0.9); Mono % (Auto) 5.6 % (0.0-8.0); Neut # (Auto) 4.9 th/mm3 (1.8-7.7); Neut % (Auto) 72.3 % (16.0-70.0); Platelet Count 132 th/mm3 (150-450); Red Blood Count 2.79 mil/mm3 (4.50-5.90); Red Cell Distribution Width 14.1 % (11.6-17.2); White Blood Count 6.8 th/mm3 (4.0-11.0)
--- NOTE | 2018-09-03 12:11 | XR ---
EXAM DATE: 09/03/2018 12:06 PM EST AGE/SEX: 72 years / Male INDICATIONS: Short of breath chest pressure. CLINICAL DATA: This is the patient's initial encounter. Patient reports that signs and symptoms have been present for 1 day and indicates a pain score of 3/10. MEDICAL/SURGICAL HISTORY: Cardiovascular disease. Congestive heart failure. CABG. COMPARISON: No prior exams available for comparison. FINDINGS: The heart is normal in size. The patient is post median sternotomy. The lungs are clear. The bony str uctures are grossly intact. CONCLUSION: No acute cardiopulmonary findings. Electronically signed by: Krishna Ca MD 09/03/2018 12:09 PM EST
[2018-09-03 12:24] LABS: Alanine Aminotransferase 27 U/L (12-78); Albumin 3.4 g/dL (3.4-5.0); Anion Gap 10 meq/L (5-15); Aspartate Aminotransferase 16 U/L (15-37); Blood Urea Nitrogen 35 mg/dL (7-18); Calcium 8.6 mg/dL (8.5-10.1); Carbon Dioxide 23.6 meq/L (21.0-32.0); Chloride 109 meq/L (98-107); Glomerular Filtration Rate 25 mL/min (>89); Glucose,Random 191 mg/dL (74-106); Potassium 4.5 meq/L (3.5-5.1); Sodium 143 meq/L (136-145)
[2018-09-03 12:27] LABS: Alkaline Phosphatase 87 U/L (45-117); Total Protein 7.4 g/dL (6.4-8.2)
--- NOTE | 2018-09-03 12:50 | ECG ---
Date Performed: 09/03/2018 Time Performed: 11:15:21 PTAGE: 72 years EKG: Sinus rhythm BORDERLINE LEFT AXIS DEVIATION LOW QRS VOLTAGE IN PRECORDIAL LEADS MINIMAL VOLTAGE CRITERIA FOR LVH, CONSIDER NORMAL VARIANT BORDERLINE ECG INTERPRETATION BASED ON A DEFAULT AGE OF 40 YEARS PREVIOUS TRACING : 08/05/2018 09.54 DOCTOR: Kenroy Tracy Interpretating Date/Time 09/03/2018 12:48:38
[2018-09-03] MEDS ORDERED: Sod Chloride 0.9% Inj 1,000 ML IV.CONT SCH (14:30)
[2018-09-03] MEDS ORDERED: Bisacodyl 10 MG Supp RECTAL PRN (15:24)
[2018-09-03] MEDS ORDERED: Dextrose 50% in Water 50 ML Vial IV.PUSH PRN (15:24)
[2018-09-03] MEDS ORDERED: Naloxone Inj 0.4 MG/ML Vial IV.PUSH PRN (15:24)
[2018-09-03] MEDS ORDERED: Morphine Inj 4 MG/ML Vial IV.PUSH PRN (15:24)
[2018-09-03] MEDS ORDERED: Morphine Sulfate Inj 2 MG/ML Vial IV.PUSH PRN (15:24)
[2018-09-03] MEDS ORDERED: Acetaminophen 325 MG Tablet PO PRN ×2 (15:24)
[2018-09-03] MEDS: Sod Chloride 0.9% Inj 1,000 ML IV.CONT SCH (17:49)
--- NOTE | 2018-09-03 17:55 | US ---
EXAM DATE: 09/03/2018 5:53 PM EST AGE/SEX: 72 years / Male INDICATIONS: Syncope. CLINICAL DATA: This is the patient's initial encounter. Patient reports that signs and symptoms have been present for 1 day and indicates a pain score of 0/10. MEDICAL/SURGICAL HISTORY: . Diabetes. CAD. CABG. COMPARISON: No prior exams available for comparison. VELOCITY PARAMETERS: ICA/CCA Ratio: Right 0.9 , Left 1.3 ICA: Right 80.1 cm/sec, Left 117.8 cm/sec CCA: Right 85.3 cm/sec, Left 88.7 cm/sec ECA: Right 91.9 cm/sec, Left 86.8 cm/sec Vertebral: Right 54.0 cm/sec antegrade, Left 67.2 cm/sec antegrade FINDINGS: Right Carotid: No significant plaque is visualized.The waveforms are within normal limits. Left Carotid: No significant plaque is visualized. The waveforms are within normal limits. Other: None. CONCLUSION: No evidence of flow-limiting carotid stenosis. Electronically signed by: Qamar Duke MD 09/03/2018 5:54 PM EST
--- NOTE | 2018-09-03 18:28 | P.HPIM ---
History of Present Illness Service: [facility] Primary Care Physician: David Carroll MD Chief Complaint: DIZZINESS History of Present Illness: Patient is a 72-year-old male who was [place] clinic today and was sent here for lightheadedness and dizziness that is worse with standing upright and positional changes. Patient was recently hospitalized for right-sided chest wall abscess. He then went to the operating room with Dr. Estrada. The patient was placed on antibiotics including vancomycin and suffered acute renal failure. The patient was then placed on hemodialysis he is antibiotics were adjusted and he had his symptoms improved. The patient's vascular catheter was removed prior to discharge and he no longer required dialysis. The patient went to the [place] clinic earlier today for wound checkup. When they noticed that his blood pressure was low and sent to the emergency department for evaluation. Patient states his blood pressure has been intermittently low since he was discharged from the hospital. He denies any significant change in his blood pressure medications however he notes he was recently changed to 1 of his prostate medications from a higher dose to a smaller dose. However he had run out of the smaller dose of medication took the higher dose yesterday. Patient' s dizziness and lightheadedness is worse with standing upright, and it was to be improved with rest. He does note that he has some tunnel vision and sees some white spots when standing upright and is lightheaded and dizzy he denies any chest pain or shortness of breath denies any nausea or vomiting. He has had some lightheadedness. Been gradual onset intermittent and waxing and waning. He reports lightheadedness and near syncope. Has had similar episodes before it is worsened by position it is relieved by resting. It has been moderate in severity. He is also had some visual changes. Patient will be observed today will be given fluid will be given orthostatic blood pressures that will be monitored. And patient will have his medications adjusted including his medications decreased in strength We will get a.m. labs we will get an echocardiogram and carotids and hopefully will be stable and hopefully be eligible for discharge tomorrow with improvement Has also been given IV fluids Review of Systems All other systems reviewed negative except as stated in HPI PMFSH - History History Provided By: Patient - Medical History Medical History: Medical History (Last Updated 09/03/18 @ 18:21 by Bob Irizarry DO) BPH (benign prostatic hyperplasia) Hyperlipidemia Hypothyroidism Open wound of right axillary region Open wound of right axillary region MDRO (multiple drug resistant organisms) resistance Onset Date: ~08/05/18 CAD (coronary artery disease) Diabetes type 2, controlled - Surgical History Surgical History: Surgical History (Last Reviewed 09/03/18 @ 10:44 by Leonarda Turpin) Hx of CABG - Family History Family History: Family History (Last Updated 09/03/18 @ 18:21 by Bob Irizarry DO) Other Family history of hypertension - Social History I have reviewed the patient's Social History: Yes - Tobacco History Second Hand Smoke Exposure: No Tobacco Use In Past 30 Days: No Smoking Status: Never smoker Tobacco Type: Cigars - Alcohol History How Often Do You Have a Drink Containing Alcohol: Monthly or less - Substance Use History Substance History: No History of Abuse - Travel History History of Recent Travel: No Recent Travel in the [place] Within the Last 8 Weeks: No Recent Travel Out of the Country Within the Last 8 Weeks: No - Immunization History Tetanus Immunization: <5 Years Medications and Allergies Active Medications: Active Medications Acetaminophen (Tylenol) 650 mg PO Q4H PRN PRN Reason: Temp > 100.4 Acetaminophen (Tylenol) 650 mg PO Q6HR PRN PRN Reason: PAIN SCALE 1 TO 2 Hydrocodone Bitart/Acetaminophen ([place] 10/325) 1 tab PO Q4H PRN PRN Reason: PAIN SCALE 6 TO 10 Hydrocodone Bitart/Acetaminophen ([place] 5/325) 1 tab PO Q4H PRN PRN Reason: PAIN SCALE 3 TO 5 Al Hydroxide/Mg Hydroxide (Milk Of Magnesia Liq) 30 ml PO Q12H PRN PRN Reason: Mild Constipation Amlodipine Besylate (Norvasc) 5 mg PO DAILY KADY Aspirin (Ecotrin) 81 mg PO DAILY KADY Bisacodyl (Dulcolax Supp) 10 mg RECTAL DAILY PRN PRN Reason: SEVERE CONSITIPATION Clonidine HCl (Catapres) 0.1 mg PO Q6H PRN PRN Reason: HYPERTENSION Cyanocobalamin (Vitamin B12) 1,000 mcg PO DAILY KADY Dextrose (D50w Vial) 50 ml IV.PUSH UNSCH PRN PRN Reason: PER HYPOGLYCEMIA PROTOCOL Glucagon (Glucagon Inj) 1 mg OTHER PRN PRN PRN Reason: for Hypoglycemia Protocol Heparin Sodium (Porcine) (Heparin Inj) 5,000 units SQ Q8H [facility] Sodium Chloride (Ns Inj) 1,000 mls @ 100 mls/hr IV.CONT .Q10H [facility] Last Admin: 09/03/18 17:49 Dose: 100 mls/hr Insulin Aspart (Novolog Insulin Correctional Sugar Inj) 0 unit SQ ACHS [facility]; Protocol Insulin Human Isoph/Insulin Regular (Novolin 70/30 Inj) 18 units SQ BID@0800, 1700 [facility] Lactulose (Lactulose Liq) 30 ml PO DAILY PRN PRN Reason: SEVERE CONSITIPATION Levothyroxine Sodium (Synthroid) 88 mcg PO DAILY [facility] Morphine Sulfate (Morphine Inj) 2 mg IV.PUSH Q3H PRN PRN Reason: PAIN 3-5; IF UABLE TO TAKE PO Morphine Sulfate (Morphine Inj) 4 mg IV.PUSH Q3H PRN PRN Reason: PAIN 6-10;IF UNABLE TO TAKE PO Naloxone HCl (Narcan Inj) 0.4 mg IV.PUSH UNSCH PRN PRN Reason: SEE LABEL COMMENTS Non-Formulary Medication (Metformin [Glucophage Xr]) 500 mg PO BID [facility] Non-Formulary Medication (Simvastatin [Simvastatin]) 20 mg PO HS [facility] Ondansetron HCl (Zofran Inj) 4 mg IV.PUSH Q6H PRN PRN Reason: NAUSEA OR VOMITING Senna/Docusate Sodium (Deborah-Colace) 1 tab PO BID [facility] Sennosides (Senokot) 17.2 mg PO Q12H PRN PRN Reason: Moderate Constipation Sodium Chloride (Ns Flush) 2 ml IV.FLUSH BID [facility] Sodium Chloride (Ns Flush) 2 ml IV.FLUSH PRN PRN PRN Reason: FLUSH AFTER USING IV ACCESS Tamsulosin HCl (Flomax) 0.4 mg PO DAILY [facility] Allergies Allergy/AdvReac Type Severity Reaction Status Date / Time No Known Allergies Allergy Verified 09/03/18 10:45 Home Medications Medication Instructions Recorded Confirmed Type aspirin [Aspir-81] 81 mg PO DAILY 07/26/18 09/03/18 History terazosin 1 mg PO HS 07/26/18 09/03/18 History levothyroxine 88 mcg PO DAILY 08/04/18 09/03/18 History glipizide 10 mg PO BID 09/03/18 09/03/18 History metformin [Glucophage XR] 500 mg PO BID 09/03/18 09/03/18 History simvastatin 20 mg PO HS 09/03/18 09/03/18 History Exam Vital signs: Vital Signs 09/03/18 10:43 09/03/18 10:52 Temperature 97.7 F Pulse Rate 71 74 Respiratory Rate 18 15 Blood Pressure 87/53 L 131/61 Pulse Oximetry 100 98 Intake & Output 09/02/18 09/03/18 09/03/18 18:59 06:59 18:59 Intake Total 1000 / 1000 Balance 1000 / 1000 Weight 104.326 kg Intake: IV 1000 / 1000 NS Inj 1,000 ML @ 1000 mls/hr 1000 / 1000 IV.SIG BOLUS KADY Rx#:[id number] Narrative: GENERAL: Awake alert and oriented x3 talkative and cooperative SKIN: Warm and dry. Right axillary with small open wound continue with the wet- to-dry dressings HEAD: Atraumatic. Normocephalic. EYES: Pupils equal and round. No scleral icterus. No injection or drainage. ENT: No nasal bleeding or discharge. Mucous membranes pink and moist. NECK: Trachea midline. No JVD. CARDIOVASCULAR: Regular rate and rhythm. S1-S2 no S3 or S4 RESPIRATORY: No accessory muscle use. Clear to auscultation. Breath sounds equal bilaterally. GASTROINTESTINAL: Abdomen soft, non-tender, nondistended. Hepatic and splenic margins not palpable. MUSCULOSKELETAL: Extremities without clubbing, cyanosis, or edema. No obvious deformities. NEUROLOGICAL: Awake and alert. No obvious cranial nerve deficits. Motor grossly within normal limits. Five out of 5 muscle strength in the arms and legs. Normal speech. PSYCHIATRIC: Appropriate mood and affect; insight and judgment normal. Results - Labs CBC & Chem 7: 09/03/18 11:30 09/03/18 11:30 Labs: Short CBC 09/03/18 Range/Units 11:30 WBC 6.8 (4.0-11.0) th/mm3 Hgb 9.1 L (13.0-17.0) gm/dL Hct 27.0 L (39.0-51.0) % Plt Count 132 L D (150-450) th/mm3 [facility] 09/03/18 11:30 Sodium 143 Potassium 4.5 Chloride 109 H Carbon Dioxide 23.6 BUN 35 H Creatinine 2.51 H Calcium 8.6 Cardiac Enzymes 09/03/18 Range/Units 11:30 Troponin I Less than 0.02 L (0.02-0.05) ng/mL Liver Function 09/03/18 Range/Units 11:30 Total Bilirubin 0.3 (0.2-1.0) mg/dL AST 16 (15-37) U/L ALT 27 (12-78) U/L Alkaline Phosphatase 87 (45-117) U/L Albumin 3.4 (3.4-5.0) g/dL - Imaging Impressions Carotid Doppler Study 09/03/18 00:00 CONCLUSION: No evidence of flow-limiting carotid stenosis. Chest X-Ray 09/03/18 11:27 CONCLUSION: No acute cardiopulmonary findings. Caprini VTE Risk Assessment Caprini VTE Risk Assessment: No/Low Risk (score <= 1) Caprini Risk Assessment Model: Point Value = 1 Point Value = 2 Point Value = 3 Point Value = 5 Age 41-60 Minor surgery BMI > 25 kg/m2 Swollen legs Varicose veins or History of unexplained or recurrent spontaneous Oral contraceptives or hormone replacement Sepsis (< 1 month) Serious lung disease, including pneumonia (< 1 month) Abnormal pulmonary function Acute myocardial infarction Congestive heart failure (< 1 month) History of inflammatory bowel disease Medical patient at bed rest Age 61-74 Arthroscopic surgery Major open surgery (> 45 min) Laparoscopic surgery (> 45 min) Malignancy Confined to bed (> 72 hours) Immobilizing plaster cast Central venous access Age >= 75 History of VTE Family history of VTE Factor V Leiden Prothrombin [id number] Lupus anticoagulant Anticardiolipin antibodies Elevated serum homocysteine Heparin-induced thrombocytopenia Other congenital or acquired thrombophilia Stroke (< 1 month) Elective arthroplasty Hip, pelvis, or leg fracture Acute spinal cord injury (< 1 month) Prophylaxis Regimen: Total Risk Factor Score Risk Level Prophylaxis Regimen 0-1 Low Early ambulation 2 Moderate Order ONE of the following: *Sequential Compression Device (SCD) *Heparin 5000 units SQ BID 3-4 Higher Order ONE of the following medications: *Heparin 5000 units SQ TID *Enoxaparin/Lovenox 40 mg SQ daily (WT < 150 kg, CrCl > 30 mL/min) *Enoxaparin/Lovenox 30 mg SQ daily (WT < 150 kg, CrCl > 10-29 mL/min) *Enoxaparin/Lovenox 30 mg SQ BID (WT < 150 kg, CrCl > 30 mL/min) AND/OR *Sequential Compression Device (SCD) 5 or more Highest Order ONE of the following medications: *Heparin 5000 units SQ TID (Preferred with Epidurals) *Enoxaparin/Lovenox 40 mg SQ daily (WT < 150 kg, CrCl > 30 mL/min) *Enoxaparin/Lovenox 30 mg SQ daily (WT < 150 kg, CrCl > 10-29 mL/min) *Enoxaparin/Lovenox 30 mg SQ BID (WT < 150 kg, CrCl > 30 mL/min) AND *Sequential Compression Device (SCD) Assessment and Plan - Plan Near-syncope/syncope orthostasis Suspect due to prostate medications -Continue on the Flomax -Discontinue terazosin Orthostatic blood pressures Fluids Echo is pending Carotid Dopplers-which have been stable with no evidence of flow-limiting carotid stenosis diabetes mellitus continue on sliding scale coverage with Accu-Cheks before meals and at bedtime Hyperlipidemia continue on simvastatin Hypothyroidism continue on levothyroxine will check a TSH and a free T4 Renal insufficiency improved status post nephrotoxicity due to vancomycin -Avoid nephrotoxins -A.m. labs Fluids Thrombocytopenia A.m. labs Avoid meds that cause thrombocytopenia Right axillary abscess status post incision and drainage -Continue on wet-to-dry dressings to the right axillary region Coronary artery disease history of CABG B12 deficiency continue on replacement Orthostatic hypotension continue to monitor blood pressure with a.m. labs Continue on DVT and GI prophylaxis DVT prophylaxis with heparin GI prophylaxis with Protonix daily We will get a.m. labs and follow him throughout the admission for any other issues that may arise Code Status: Full code Discussed Condition With: RN and patient and emergency room physician Discharge Planning: Pending improvement tomorrow and no longer orthostatic
[2018-09-03] MEDS: Insulin NovoLOG Aspart Correctional Sugar Inj SQ SCH ×2 (19:15→22:57)
[2018-09-03] MEDS: Heparin - SQ 10,000 UNITS/ML Vial SQ SCH (20:03)
[2018-09-03 22:38] LABS: Creatine Kinase 28 U/L (39-308)
[2018-09-03] MEDS: Senna/Docusate Sodium 8.6/50 MG Tablet PO SCH (22:56)
[2018-09-04] MEDS: Sod Chloride 0.9% Inj 1,000 ML IV.CONT SCH (03:17)
[2018-09-04] MEDS: Heparin - SQ 10,000 UNITS/ML Vial SQ SCH ×2 (03:18→09:56)
[2018-09-04 03:49] LABS: Baso % (Auto) 0.8 % (0.0-2.0); Eos # (Auto) 0.2 th/mm3 (0.0-0.4); Eos % (Auto) 4.3 % (0.0-4.0); Hematocrit 24.7 % (39.0-51.0); Hemoglobin 8.4 gm/dL (13.0-17.0); Lymph # (Auto) 1.2 th/mm3 (1.0-4.8); Mean Corpuscular HGB Conc 34.1 % (32.0-36.0); Mean Corpuscular Hemoglobin 32.7 pg (27.0-34.0); Mean Corpuscular Volume 95.9 fL (80.0-100.0); Mean Platelet Volume 8.7 fL (7.0-11.0); Mono # (Auto) 0.4 th/mm3 (0.0-0.9); Mono % (Auto) 6.6 % (0.0-8.0); Neut # (Auto) 3.7 th/mm3 (1.8-7.7); Neut % (Auto) 66.3 % (16.0-70.0); Platelet Count 122 th/mm3 (150-450); Red Blood Count 2.58 mil/mm3 (4.50-5.90); Red Cell Distribution Width 13.7 % (11.6-17.2); White Blood Count 5.7 th/mm3 (4.0-11.0)
[2018-09-04 04:16] LABS: Alanine Aminotransferase 20 U/L (12-78); Albumin 3.1 g/dL (3.4-5.0); Alkaline Phosphatase 74 U/L (45-117); Anion Gap 10 meq/L (5-15); Aspartate Aminotransferase 16 U/L (15-37); Blood Urea Nitrogen 28 mg/dL (7-18); Calcium 8.3 mg/dL (8.5-10.1); Carbon Dioxide 22.5 meq/L (21.0-32.0); Chloride 112 meq/L (98-107); Free T4 (Free Thyroxine) 0.85 ng/dL (0.76-1.46); Glomerular Filtration Rate 34 mL/min (>89); Glucose,Random 84 mg/dL (74-106); Magnesium 1.9 mg/dL (1.5-2.5); Phosphorus 4.1 mg/dL (2.5-4.9); Potassium 4.1 meq/L (3.5-5.1); Sodium 144 meq/L (136-145); Total Protein 6.6 g/dL (6.4-8.2)
[2018-09-04 04:18] LABS: Creatine Kinase 36 U/L (39-308)
[2018-09-04 04:29] LABS: Platelet Morphology Normal (Normal)
[2018-09-04] MEDS ORDERED: Levothyroxine 88 MCG Tablet PO SCH (06:00)
[2018-09-04] MEDS ORDERED: amLODIPine 5 MG Tablet PO SCH (09:00)
[2018-09-04] MEDS ORDERED: MethylPREDNISolone Sod Succinate Inj 40 MG/ML Vial IV.PUSH SCH (09:00)
[2018-09-04] MEDS: Insulin NovoLOG Aspart Correctional Sugar Inj SQ SCH ×2 (09:24→12:37)
[2018-09-04] MEDS: Senna/Docusate Sodium 8.6/50 MG Tablet PO SCH (09:54)
[2018-09-04 10:59] LABS: Creatine Kinase 28 U/L (39-308)
--- NOTE | 2018-09-04 11:31 | ECG ---
Date Performed: 09/04/2018 Time Performed: 05:03:54 PTAGE: 72 years EKG: Sinus rhythm BORDERLINE LEFT AXIS DEVIATION LOW QRS VOLTAGE IN PRECORDIAL LEADS BORDERLINE ECG Since the PREVIOUS TRACING , no significant change noted PREVIOUS TRACIN09/03/2018 22.27 DOCTOR: Elijah Jose Interpretating Date/Time 09/04/2018 11:28:59
--- NOTE | 2018-09-04 12:12 | ECG ---
Date Performed: 09/03/2018 Time Performed: 22:27:57 PTAGE: 72 years EKG: ECTOPIC ATRIAL RHYTHM WITH SHORT [place] INTERVAL LOW QRS VOLTAGE IN PRECORDIAL LEADS MINIMAL VO LTAGE CRITERIA FOR LVH, CONSIDER NORMAL VARIANT INFERIOR MYOCARDIAL INFARCTION ABNORMAL ECG Since the PREVIOUS TRACING , no significant change noted PREVIOUS TRACIN09/03/2018 11.15 DOCTOR: Elijah Jose Interpretating Date/Time 09/04/2018 12:10:27
[2018-09-04 13:30] LABS: Hemoglobin A1c 6.4 % (4.3-6.0)
--- NOTE | 2018-09-04 13:56 | ECHRPT ---
Indication: SYNCOPE CONCLUSIONS Normal left ventricular size. Wall thickness is normal. The left ventricular systolic function is no rmal with an estimated ejection fraction in the range of 55-60%. No definite wall motion abnormalities. Minimal aortic valve sclerosis. There is trace tricuspid valve regurgitation. The estimated pulmonary arterial pressure is 19 mmHg. BP: / HR: Rhythm: Sinus, PACs, PVCs MEASUREMENTS (Male / Female) Normal Values Technical Quality:Fair 2D ECHO LV Diastolic Diameter PLAX 5.4 cm 4.2 - 5.9 / 3.9 - 5.3 cm LV Systolic Diameter PLAX 4.0 cm IVS Diastolic Thickness 1.0 cm 0.6 - 1.0 / 0.6 - 0.9 cm LVPW Diastolic Thickness 1.0 cm 0.6 - 1.0 / 0.6 - 0.9 cm LV Relative Wall Thickness 0.4 RV Internal Dim ED PLAX 3.5 cm LVOT Diameter 2.1 cm Aortic Root Diameter 3.7 cm LV Ejection Fraction MOD 4C 60.0 % LV Ejection Fraction 4C AL 59.3 % M-MODE AV Cusp Separation MM 1.8 cm DOPPLER AV Peak Velocity 159.0 cm/s AV Peak Gradient 10.1 mmHg LVOT Peak Velocity 112.0 cm/s LVOT Peak Gradient 5.0 mmHg AV Area Cont Eq pk 2.4 cm MV Peak Velocity 96.5 cm/s MV Peak Gradient 3.7 mmHg MV Mean Velocity 61.4 cm/s MV Mean Gradient 2.0 mmHg Mitral E Point Velocity 80.5 cm/s Mitral A Point Velocity 78.5 cm/s Mitral E to A Ratio 1.0 LV E' Lateral Velocity 15.1 cm/s Mitral E to LV E' Lateral Ratio 5.3 LV E' Septal Velocity 6.3 cm/s Mitral E to LV E' Septal Ratio 12.7 TR Peak Velocity 152.0 cm/s TR Peak Gradient 9.2 mmHg Right Atrial Pressure 10.0 mmHg Pulmonary Artery Systolic Pressu 19.2 mmHg Right Ventricular Systolic Press 19.2 mmHg PV Peak Velocity 103.0 cm/s PV Peak Gradient 4.2 mmHg FINDINGS LEFT VENTRICLE Normal left ventricular size. Wall thickness is normal. The left ventricular systolic function is normal with an estimated ejection fraction in the range of 55-60%. RIGHT VENTRICLE The right ventriclar size is normal. LEFT ATRIUM The left atrial size is normal. RIGHT ATRIUM The right atrial size is normal. ATRIAL SEPTUM Normal atrial septal thickness without atrial level shunting by limited color doppler interrogation. AORTA The aortic root and proximal ascending aorta are normal in size on limited imaging. MITRAL VALVE Structurally normal mitral valve. No mitral valve stenosis or regurgitation. AORTIC VALVE Trileaflet aortic valve. No aortic valve stenosis or regurgitation. TRICUSPID VALVE There is trace tricuspid valve regurgitation. The estimated pulmonary arterial pressure is 19 mmHg. PULMONARY VALVE No pulmonary valve regurgitation or stenosis. VESSELS The inferior vena cava was not well visualized. PERICARDIUM No pericardial effusion. Andrew Castaneda MD (Electronically Signed) Final Date:04 September 2018 13:55
--- NOTE | 2018-09-04 15:18 | P.DS ---
Date of admission: 09/03/18 15:22 Primary care physician: David Carroll MD Brief History from admission: Patient is a 72-year-old male who was [place] clinic today and was sent here for lightheadedness and dizziness that is worse with standing upright and positional changes. Patient was recently hospitalized for right-sided chest wall abscess. He then went to the operating room with Dr. Estrada. The patient was placed on antibiotics including vancomycin and suffered acute renal failure. The patient was then placed on hemodialysis he is antibiotics were adjusted and he had his symptoms improved. The patient's vascular catheter was removed prior to discharge and he no longer required dialysis. The patient went to the [place] clinic earlier today for wound checkup. When they noticed that his blood pressure was low and sent to the emergency department for evaluation. Patient states his blood pressure has been intermittently low since he was discharged from the hospital. He denies any significant change in his blood pressure medications however he notes he was recently changed to 1 of his prostate medications from a higher dose to a smaller dose. However he had run out of the smaller dose of medication took the higher dose yesterday. Patient' s dizziness and lightheadedness is worse with standing upright, and it was to be improved with rest. He does note that he has some tunnel vision and sees some white spots when standing upright and is lightheaded and dizzy he denies any chest pain or shortness of breath denies any nausea or vomiting. He has had some lightheadedness. Been gradual onset intermittent and waxing and waning. He reports lightheadedness and near syncope. Has had similar episodes before it is worsened by position it is relieved by resting. It has been moderate in severity. He is also had some visual changes. Patient will be observed today will be given fluid will be given orthostatic blood pressures that will be monitored. And patient will have his medications adjusted including his medications decreased in strength We will get a.m. labs we will get an echocardiogram and carotids and hopefully will be stable and hopefully be eligible for discharge tomorrow with improvement Has also been given IV fluids DS: Summary Hospital Course: Mr. Weeks is a 72-year-old male. He came in secondary to a syncopal episode. Workup for syncopal episode is negative including echocardiogram, carotid artery studies, and orthostatic blood pressure testing. He ambulated well with PT. No recurrence of syncopal symptoms. Medically clear and stable for discharge home today. - Time Spent with Patient Total time spent providing and/or coordinating discharge services: Less than 30 minutes - Quality: VTE Deep Vein Thrombosis/Pulmonary Embolism Present on Admission: No Exam Vital signs: Vital Signs 09/03/18 17:00 09/03/18 19:25 09/03/18 23:35 Temperature 97.5 F L Pulse Rate 78 85 70 Respiratory Rate 22 18 12 Blood Pressure 121/58 L 124/78 109/61 Pulse Oximetry 98 96 09/04/18 03:46 09/04/18 08:37 09/04/18 09:00 Temperature 97.5 F L 97.7 F Pulse Rate 67 71 65 Respiratory Rate 12 18 Blood Pressure 144/65 H 143/67 H Pulse Oximetry 96 98 09/04/18 12:07 09/04/18 12:36 Temperature 97.4 F L Pulse Rate 65 67 Respiratory Rate 16 Blood Pressure 116/57 L Pulse Oximetry 97 Intake & Output 09/03/18 09/04/18 09/04/18 18:59 06:59 18:59 Intake Total 1000 / 1000 1000 / 1000 Balance 1000 / 1000 1000 / 1000 Weight 104.326 kg 104.326 kg Intake: IV 1000 / 1000 1000 / 1000 NS Inj 1,000 ML @ 100 mls/hr IV 1000 / 1000 .CONT .Q10H KADY Rx#:[id number] NS Inj 1,000 ML @ 1000 mls/hr 1000 / 1000 IV.SIG BOLUS KADY Rx#:[id number] Other: # Voids 4 Date of Last Bowel Movement 09/02/18 Weight On Admission 104.326 kg Results Procedures completed during hospitalization: None Labs on day of discharge: Labs from last 24 hours 09/04/18 09/04/18 09/04/18 12:10 10:05 09:16 WBC RBC Hgb Hct MCV MCH MCHC RDW Plt Count MPV Prelim Diff (Auto) Neut % (Auto) Lymph % (Auto) [place] % (Auto) Eos % (Auto) Baso % (Auto) Neut # (Auto) Lymph # (Auto) [place] # (Auto) Eos # (Auto) Baso # (Auto) WBC Differential Diff Scan Differential Comment Platelet Estimate Platelet Morphology Sodium Potassium Chloride Carbon Dioxide Anion Gap BUN Creatinine Estimated GFR POC Glucose 128 H 131 H Random Glucose Hemoglobin A1c Calcium Phosphorus Magnesium Total Bilirubin AST ALT Alkaline Phosphatase Total Creatine Kinase 28 L Troponin I Less than 0.02 L Total Protein Albumin TSH Free T4 09/04/18 09/04/18 09/04/18 03:36 03:36 03:36 WBC 5.7 RBC 2.58 L Hgb 8.4 L Hct 24.7 L MCV 95.9 MCH 32.7 MCHC 34.1 RDW 13.7 Plt Count 122 L MPV 8.7 Prelim Diff (Auto) Slide review pending Neut % (Auto) 66.3 Lymph % (Auto) 22.0 [place] % (Auto) 6.6 Eos % (Auto) 4.3 H Baso % (Auto) 0.8 Neut # (Auto) 3.7 Lymph # (Auto) 1.2 [place] # (Auto) 0.4 Eos # (Auto) 0.2 Baso # (Auto) 0.0 WBC Differential . Diff Scan Auto diff confirmed Differential Comment . Platelet Estimate Low L Platelet Morphology Normal Sodium 144 Potassium 4.1 Chloride 112 H Carbon Dioxide 22.5 Anion Gap 10 BUN 28 H Creatinine 1.94 H Estimated GFR 34 L POC Glucose Random Glucose 84 D Hemoglobin A1c 6.4 H Calcium 8.3 L Phosphorus 4.1 Magnesium 1.9 Total Bilirubin 0.4 AST 16 ALT 20 Alkaline Phosphatase 74 Total Creatine Kinase 36 L Troponin I Less than 0.02 L Total Protein 6.6 D Albumin 3.1 L TSH 5.640 H Free T4 0.85 09/03/18 09/03/18 22:24 21:40 WBC RBC Hgb Hct MCV MCH MCHC RDW Plt Count MPV Prelim Diff (Auto) Neut % (Auto) Lymph % (Auto) [place] % (Auto) Eos % (Auto) Baso % (Auto) Neut # (Auto) Lymph # (Auto) [place] # (Auto) Eos # (Auto) Baso # (Auto) WBC Differential Diff Scan Differential Comment Platelet Estimate Platelet Morphology Sodium Potassium Chloride Carbon Dioxide Anion Gap BUN Creatinine Estimated GFR POC Glucose 159 H Random Glucose Hemoglobin A1c Calcium Phosphorus Magnesium Total Bilirubin AST ALT Alkaline Phosphatase Total Creatine Kinase 28 L Troponin I Less than 0.02 L Total Protein Albumin TSH Free T4 - Impressions ITS Impressions Carotid Doppler Study 09/03/18 00:00 CONCLUSION: No evidence of flow-limiting carotid stenosis. Chest X-Ray 09/03/18 11:27 CONCLUSION: No acute cardiopulmonary findings. Discharge Plan - Discharge Disposition Patient Disposition: /Home Health Service - Discharge Condition Condition: Stable - Discharge Order Discharge Orders: Discharge Order (Routine); Ordered 09/04/18 Ordered By: Krishna Thomson - Discharge Details Anticipated Discharge Date: 09/04/18 - Physicians Team Primary Care Provider: David Carroll Attending Provider: Krishna Thomson Other Providers: Radha Garcia
== END 2018-09-04 15:58 | disposition home health service (06) ==
LOC: NEPE 10:27 → NEDA 10:27 → NEPGCP 20:18
PROVIDERS: ADMIT Hospitalist; ATTEND Hospitalist
DX: R55 Syncope and collapse; N40.0 Benign prostatic hyperplasia without lower urinary tract symptoms; E78.5 Hyperlipidemia, unspecified; E53.8 Deficiency of other specified B group vitamins; Z79.4 Long term (current) use of insulin; Z99.2 Dependence on renal dialysis; Z82.49 Family history of ischemic heart disease and other diseases of the circulatory system; E03.9 Hypothyroidism, unspecified; N17.9 Acute kidney failure, unspecified; I25.10 Atherosclerotic heart disease of native coronary artery without angina pectoris; Z79.890 Hormone replacement therapy; F17.210 Nicotine dependence, cigarettes, uncomplicated; Z95.1 Presence of aortocoronary bypass graft; E11.9 Type 2 diabetes mellitus without complications; L02.411 Cutaneous abscess of right axilla; D69.6 Thrombocytopenia, unspecified